=== PATIENT | male | born 1965 | race Caucasian/White ===

== ENCOUNTER 2019-06-28 16:36 | Inpatient (IN) ==
--- OUTSIDE RECORDS SUMMARY | 2019-06-28 16:40 | External Medical Summary | Continuity of Care Document ---
:1965 Author Name Flor Strange, Provider Address Unavailable Unavailable , Care Team Providers Name Role Phone Ravinder Bonilla M.D. Unavailable [email or web address] [email or web address], NO Unavailable Unavailable Problems Active medical history not documented Allergies and Adverse Reactions Allergy history not documented Medications Medications not documented Procedures Procedures not documented Immunizations Immunizations not documented Plan of Treatment Planned Observations Planned Goals not documented Results No Known Results Results not documented
[2019-06-28] MEDS ORDERED: cefTRIAXone SODIUM 2,000 MG/70 ML BAG IV STA (17:24)
[2019-06-28 18:07] LABS: Basophils # (auto) 0.02 K/uL (0-0.2); Basophils % (auto) 0.3 %; Eosinophils # (auto) 0.08 K/uL (0-0.5); Eosinophils % (auto) 1.4 %; Hemoglobin 15.4 g/dL (14.0-18.0); Immature Granulocytes # (auto) 0.02 K/uL (0.00-0.02); Immature Granulocytes % (auto) 0.3 %; Lymphocytes # (auto) 1.22 K/uL (1.2-3.4); Mean Corpuscular Hemoglobin 30.2 pg (25-34); Mean Corpuscular Hgb Conc 34.2 g/dL (32-36); Mean Corpuscular Volume 88.2 fL (80-100); Mean Platelet Volume 10.5 fL (7.4-10.4); Monocytes # (auto) 0.48 K/uL (0.11-0.59); Monocytes % (auto) 8.3 %; Neutrophils # (auto) 3.98 K/uL (1.4-6.5); Neutrophils % (auto) 68.7 %; Platelet Count 215 K/uL (130-400); RDW Coefficient of Variation 12.9 % (11.5-14.5); RDW Standard Deviation 42.1 fL (36.4-46.3)
--- NOTE | 2019-06-28 18:11 | XRay Report ---
XR chest 1V portable CLINICAL HISTORY: Sepsis dyspnea COMPARISON STUDY: 10/10/2015 FINDINGS: Diffuse parenchymal infiltrate left lung base. Lungs otherwise are clear. Somewhat poor ins piratory volumes. IMPRESSION: Patchy parenchymal infiltrate left base. The above report was generated using voice recognition software. It may contain grammatical, syntax or spelling errors. Electronically signed by: Jean-Claude Resendiz M.D. 06/28/2019 6:10 PM
[2019-06-28 18:19] LABS: INR 1.1 (0.9-1.1); Partial Thromboplastin Time 27.8 Seconds (21.0-31.0); Prothrombin Time 11.5 Seconds (9.0-12.0)
[2019-06-28 18:24] LABS: Alanine Aminotransferase 72 U/L (12-78); Albumin Level 3.5 gm/dl (3.4-5.0); Aspartate Aminotransferase 80 U/L (15-37); BUN Creatinine Ratio 31.1 (10-20); Blood Urea Nitrogen 12 mg/dl (7-18); Calcium 9.1 mg/dl (8.5-10.1); Carbon Dioxide 34 mmol/L (21-32); Chloride 103 mmol/L (98-107); Creatinine Clr Calc Pharmacy 266.8 ml/min; Est GFR (African American) > 150.0; Est GFR (Non-African American) 138.1; Glucose 98 mg/dl (70-99); Sodium 140 mmol/L (136-145)
[2019-06-28 18:26] LABS: Alkaline Phosphatase 78 U/L (45-117); Bilirubin,Total 0.5 mg/dl (0.2-1); Globulin 3.5 gm/dl (2.5-4.0)
[2019-06-28] MEDS ORDERED: LEVOFLOXACIN/D5W 750 MG/150 ML BAG IV SCH (19:00)
[2019-06-28 19:13] LABS: Appearance Urine Turbid (Clear); Bacteria Urine Automated Negative (Negative); Bilirubin Urine Negative (Negative); Blood Urine Negative (Negative); Cast Urine Automated 0 /lpf (0-5); Color Urine Dark Yellow; Epithelial Cell Urine Auto 0-5 /lpf (0-5); Glucose Urine UA Negative (Negative); Ketones Urine Negative (Negative); Leukocyte Esterase Urine Trace (Negative); Nitrite Urine Negative (Negative); RBC Urine Automated 0-4 /hpf (0-4); Specific Gravity Urine 1.024 (1.000-1.030); Urobilinogen Urine Positive (Negative); WBC Urine Automated 0 /hpf (0-5); pH Urine >= 9.0 (4.5-7.5)
[2019-06-28 19:16] LABS: Protein Urine Negative (Negative); Sulfosalicylic Acid Urine Negative (Negative)
--- NOTE | 2019-06-28 20:41 | History & Physical Report ---
Date of Service June 28, 2019 Assessment & Plan (1) Cellulitis: -Admit to [facility] -Patient presenting from home with increasing left lower extremity erythema and edema -In the ED, low-grade temp of 37.9, otherwise does not appear septic; no leukocytosis -Has a few scattered abrasions and small blisters however no purulent drainage to culture -S/P IV ceftriaxone and IV Levaquin in the ED; will continue with IV ceftriaxone and IV doxycycline -Follow blood cultures (2) Community acquired pneumonia: -Left basilar infiltrate noted on CXR -Saturating well on room air -On IV ceftriaxone and IV doxycycline as above (3) Physical deconditioning: (4) Tavrjfn-Gyemr-Suuqj disease: -Patient notes increasing difficulties to care for himself at home -Believes that he likely will need usp placement -PT/OT, case management evaluations (5) Chronic pain: -Continue home doses of OxyContin and OxyIR, Cymbalta (6) DVT prophylaxis: -SQ Lovenox History of Present Illness Chief Complaint: Left lower extremity redness and swelling Primary Care Provider: Garo Hayden DO 53-year-old male who presents the ED for evaluation of left lower extremity redness and swelling. Patient has history of Wlkbdlz-Pbxhg-Rjzxy disease. Patient reports that over the past several years, his mobility has been significantly decreasing. He is currently bed/wheelchair bound. He notes that he is also incontinent due to difficulties of transferring. He has difficulty taking care of himself at home. He has been interested in usp placement. 6 days ago, patient noted increased erythema and edema to the left lower extremity. There are also a few, small blisters and superficial abrasions noted. Patient was seen by his PCP on 06/26 and had a venous Doppler performed that was negative for DVT. Given the worsening lower extremity erythema and edema and the inability to take care of himself at home, patient presented to the ED for further evaluation. Patient notes that he is very sedentary and does not exert himself much at all. He denies fevers and chills. No chest pain or shortness of breath. Denies cough or sputum production. Has some occasional lightheadedness when sitting up too quickly. No syncopal event. Denies abdominal pain, nausea, vomiting, diarrhea. No urinary symptoms. In the ED, patient was found to have a low-grade temp of 37.9. Labs are unremarkable. CXR shows an infiltrate of the left base. Patient was given IV ceftriaxone and IV Levaquin. Allergies Allergy/AdvReac Type Severity Reaction Status Date / Time alcohol Allergy Unknown Verified 06/28/19 17:54 amiodarone Allergy Unknown Unknown rxn Verified 06/28/19 17:54 chloramphenicol Allergy Unknown Verified 06/28/19 17:55 cholecalciferol (vitamin D3) Allergy Unknown Verified 06/28/19 17:55 cisplatin Allergy Unknown Verified 06/28/19 17:55 dapsone Allergy Unknown Unknown rxn Verified 06/28/19 17:56 disulfiram Allergy Unknown Unknown rxn Verified 06/28/19 17:56 doxorubicin Allergy Unknown Verified 06/28/19 17:56 glutethimide Allergy Unknown Verified 06/28/19 17:57 Gold Salts Allergy Unknown Verified 06/28/19 17:57 Hydantoins Allergy Unknown Verified 06/28/19 17:57 hydralazine Allergy Unknown Verified 06/28/19 17:58 isoniazid Allergy Unknown Unknown rxn Verified 06/28/19 17:58 metronidazole Allergy Unknown Verified 06/28/19 17:59 nitrofurantoin Allergy Unknown Unknown rxn Verified 06/28/19 17:59 Penicillins Allergy Unknown Verified 06/28/19 17:59 phenytoin Allergy Unknown Verified 06/28/19 18:00 pyridoxine Allergy Unknown Verified 06/28/19 18:00 theophylline Allergy Unknown Unknown rxn Verified 06/28/19 18:01 tretinoin Allergy Unknown Unknown rxn Verified 06/28/19 18:01 vincristine Allergy Unknown Verified 06/28/19 18:00 Home Medications Home Medications Medication Instructions Recorded Confirmed Type acetaminophen [Tylenol Extra 500 mg PO QID PRN 06/28/19 06/28/19 History Strength] azelastine 1 spray INTRANASAL BID 06/28/19 06/28/19 History diphenhydramine HCl 25 mg PO Q4H PRN 06/28/19 06/28/19 History docusate sodium 100 mg PO BID PRN 06/28/19 06/28/19 History duloxetine 20 mg PO DAILY 06/28/19 06/28/19 History escitalopram oxalate 20 mg PO DAILY 06/28/19 06/28/19 History mometasone 1 spray INTRANASAL BID 06/28/19 06/28/19 History montelukast 10 mg PO DAILY 06/28/19 06/28/19 History oxycodone 10 mg PO Q6H PRN 06/28/19 06/28/19 History oxycodone [OxyContin] 80 mg PO BID 06/28/19 06/28/19 History triamcinolone acetonide 1 applic TOPICAL BID 06/28/19 06/28/19 History Past Med/Surg History Medical History Chronic pain (Chronic) Obesity (Chronic) Bfuzxyb-Egcql-Kduuy disease (Chronic) Myalgia and myositis, unspecified (Chronic) Surgical History S/P tonsillectomy and adenoidectomy (Chronic) S/P cervical spinal fusion (Chronic) H/O dilation of urethra (Chronic) H/O wisdom tooth extraction (Chronic) Family History Mother Heart disease Social History Preferred Language: Ukrainian Communication Ability: Effective 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: No Beliefs That Will Affect Care: None Current Living Situation: Alone Feels Safe at Home: Yes Safety Concerns: Feels Safe At This Time Smoking Status: Former smoker Hx Alcohol Use: No Hx Substance Use: No Review of Systems Review of Systems: ROS per HPI, all other systems reviewed and negative Physical Exam Constitutional: WD/WN, vitals as above + obese Eyes: PERRL, conjunctivae normal, anicteric sclerae ENMT: external ear and nose normal, oropharynx normal Respiratory: normal respiratory effort; no respiratory distress Auscultation: + diminished lung sounds (Left base) Cardiovascular: Rate/Rhythm: regular rate and regular rhythm Vessels: normal peripheral pulses Extremities: + edema (+2 edema RLE, +3 edema LLE) Gastrointestinal (Abdomen): normal bowel sounds, soft, nontender, no hepato splenomegaly Musculoskeletal: Extremities: + abnormal strength (Lower extremities weak, 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); no cyanosis and no clubbing Skin: no rashes, warm and dry Mild erythema noted to LLE extending from the foot up to the knee; a few, scattered superficial abrasions and small blisters noted Neurologic: PERRL, EOMI, accommodation nl, no face palsy, no dysarthria Psychiatric: Orientation: alert and oriented x 3 Affect: + flat affect Results & Data Vital Signs (Past 12 Hours) Vital Signs Temp Pulse Pulse Resp BP BP Pulse Ox 06/28/19 18:53 91 06/28/19 18:31 87 12 90 06/28/19 18:30 82 21 145/101 H 93 06/28/19 18:09 83 12 90 06/28/19 17:11 84 18 132/95 94 06/28/19 16:49 37.9 C H 94 H 18 158/104 H 94 Laboratory Results Short CBC 06/28/19 Range/Units 17:44 WBC 5.80 (4.8-10.8) K/uL Hgb 15.4 (14.0-18.0) g/dL Hct 45.0 (42-52) % Plt Count 215 (130-400) K/uL BMP 06/28/19 17:44 Sodium 140 Potassium 4.0 Chloride 103 Carbon Dioxide 34 H BUN 12 Creatinine 0.37 L Glucose 98 Calcium 9.1 Liver Function 06/28/19 Range/Units 17:44 Total Bilirubin 0.5 (0.2-1) mg/dl AST 80 H (15-37) U/L ALT 72 (12-78) U/L Alkaline Phosphatase 78 (45-117) U/L Albumin 3.5 (3.4-5.0) gm/dl Urine 06/28/19 Range/Units 19:01 Urine Color Dark Yellow Urine Appearance Turbid A (Clear) Urine pH >= 9.0 H (4.5-7.5) Ur Specific [place] 1.024 (1.000-1.030) Urine Protein Negative (Negative) Urine Glucose (UA) Negative (Negative) Diagnostic Findings CXR IMPRESSION: Patchy parenchymal infiltrate left base. Code Status & VTE Plan VTE Prophylaxis Plan VTE Prophylaxis will be ordered: Yes Supervising Physician Co-Signing Physician Notes Care coordinated with LINDSEY Couch. Agree with above note. Patient seen and examined. Please refer to her notes for full details. Vital signs reviewed. Physical exam: General exam: Alert and oriented. Not in acute distress. CVS: S1 and S2 heard, regular rate and rhythm, no murmurs. RS: Clear to auscultation, no wheezing or crackles. ABD: Soft, bowel sounds present, nontender, no distention. 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 Labs: Reviewed. 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 In Er had mild fever spike and cxr showed left base infiltrate. Left lower extremity cellulitis started on antibiotics rocephin and doxycyline will monitor response Pneumonia on CXR no symptoms abx as above Charcot Mignon tooth ambulatory dysfunction pt/ot Social l service for possible placement/ More help at home Other diagnosis and plan of care as per []. Rene martinez MD.
[2019-06-28] MEDS ORDERED: DOCUSATE SODIUM 100 MG CAP PO PRN (20:54)
[2019-06-28] MEDS ORDERED: ACETAMINOPHEN 325 MG TAB PO PRN (20:54)
[2019-06-28] MEDS ORDERED: OXYCODONE HCL IR 5 MG TAB (IMMEDIATE RELEASE) PO PRN (20:54)
[2019-06-28] MEDS ORDERED: OXYCODONE HCL 40 MG TABCR (OXYCONTIN) PO SCH (21:00)
--- NOTE | 2019-06-28 21:29 | Emergency Department Note ---
Entered by Leyda Vasquez acting as a scribe for History of Present Illness General Chief complaint: Swelling/Edema to Extremity Stated complaint: EDEMA TO LOWER LEGS Source: patient and family History of Present Illness Onset (ago): day(s) 5 Location: lower extremity (swelling) Severity: similar to prior episodes Pain Consistency: + other (worsening) Maximum Pain Intensity: 2 Quality: + other (lower extremity swelling) Associated symptoms: + fever/chills and + other (Positive lower extremity swelling, reddness, incontinent. Negative abdominal pain, diarrhea. ) The patient is a 53 year old male presenting to the Emergency Department complaining of worsening extremity swelling staring 5 day ago. The patients sister reports that the patients legs are more swollen than normal. She states that the patients left leg is more swollen that his right. She notes that the patients left leg is more red than normal. She adds that the patient as experienced these symptoms before but that it seems to be worse than normal this time. The patient reports that he has had a fever for the past 3 days. He states that he is incontinent. He denies nausea, vomiting, abdominal pain and diarrhea. Home Medications Home Medications Medication Instructions Recorded Confirmed Type acetaminophen [Tylenol Extra 500 mg PO QID PRN 06/28/19 06/28/19 History Strength] azelastine 1 spray INTRANASAL BID 06/28/19 06/28/19 History diphenhydramine HCl 25 mg PO Q4H PRN 06/28/19 06/28/19 History docusate sodium 100 mg PO BID PRN 06/28/19 06/28/19 History duloxetine 20 mg PO DAILY 06/28/19 06/28/19 History escitalopram oxalate 20 mg PO DAILY 06/28/19 06/28/19 History mometasone 1 spray INTRANASAL BID 06/28/19 06/28/19 History montelukast 10 mg PO DAILY 06/28/19 06/28/19 History oxycodone 10 mg PO Q6H PRN 06/28/19 06/28/19 History oxycodone [OxyContin] 80 mg PO BID 06/28/19 06/28/19 History triamcinolone acetonide 1 applic TOPICAL BID 06/28/19 06/28/19 History Allergies Allergy/AdvReac Type Severity Reaction Status Date / Time alcohol Allergy Unknown Verified 06/28/19 17:54 amiodarone Allergy Unknown Unknown rxn Verified 06/28/19 17:54 chloramphenicol Allergy Unknown Verified 06/28/19 17:55 cholecalciferol (vitamin D3) Allergy Unknown Verified 06/28/19 17:55 cisplatin Allergy Unknown Verified 06/28/19 17:55 dapsone Allergy Unknown Unknown rxn Verified 06/28/19 17:56 disulfiram Allergy Unknown Unknown rxn Verified 06/28/19 17:56 doxorubicin Allergy Unknown Verified 06/28/19 17:56 glutethimide Allergy Unknown Verified 06/28/19 17:57 Gold Salts Allergy Unknown Verified 06/28/19 17:57 Hydantoins Allergy Unknown Verified 06/28/19 17:57 hydralazine Allergy Unknown Verified 06/28/19 17:58 isoniazid Allergy Unknown Unknown rxn Verified 06/28/19 17:58 metronidazole Allergy Unknown Verified 06/28/19 17:59 nitrofurantoin Allergy Unknown Unknown rxn Verified 06/28/19 17:59 Penicillins Allergy Unknown Verified 06/28/19 17:59 phenytoin Allergy Unknown Verified 06/28/19 18:00 pyridoxine Allergy Unknown Verified 06/28/19 18:00 theophylline Allergy Unknown Unknown rxn Verified 06/28/19 18:01 tretinoin Allergy Unknown Unknown rxn Verified 06/28/19 18:01 vincristine Allergy Unknown Verified 06/28/19 18:00 Past Med/Surg History Medical History Chronic pain (Chronic) Obesity (Chronic) Tipujyw-Wdivo-Ylbzl disease (Chronic) Myalgia and myositis, unspecified (Chronic) Surgical History S/P tonsillectomy and adenoidectomy (Chronic) S/P cervical spinal fusion (Chronic) H/O dilation of urethra (Chronic) H/O wisdom tooth extraction (Chronic) Family History Mother Heart disease Social History Feels Safe at Home: Yes Smoking Status: Former smoker Hx Alcohol Use: Yes Alcohol Intake Frequency: Rarely Review of Systems See HPI for pertinent positives & negatives. and A total of 10 systems reviewed and were otherwise negative Physical Exam Vital Signs Vital Signs - 24 hr 06/28/19 16:49 06/28/19 17:11 06/28/19 18:09 Temperature 37.9 C H Temperature Source Oral Sepsis Recent Fever Within 48 Hours No Sepsis Action Taken by Nursing No Action Required Pulse Rate 94 H 83 Pulse Rate [Finger] 84 Pulse Rate from SpO2 Sensor 85 Respiratory Rate 18 18 12 Respiratory Depth Normal Normal Blood Pressure 158/104 H Blood Pressure [Right Arm] 132/95 Blood Pressure Mean 122 Blood Pressure Mean [Right Arm] 107 Pulse Oximetry 94 94 90 Oxygen Delivery Method Room Air Room Air 06/28/19 18:30 06/28/19 18:31 06/28/19 18:53 Temperature Temperature Source Sepsis Recent Fever Within 48 Hours Sepsis Action Taken by Nursing Pulse Rate 82 87 Pulse Rate [Finger] Pulse Rate from SpO2 Sensor 81 83 Respiratory Rate 21 12 Respiratory Depth Blood Pressure 145/101 H Blood Pressure [Right Arm] Blood Pressure Mean 115 Blood Pressure Mean [Right Arm] Pulse Oximetry 93 90 91 Oxygen Delivery Method Room Air GENERAL: Patient is lying in bed, chronically-ill appearing, disheveled. alert, well nourished, no distress, non-toxic EYE EXAM: normal conjunctiva. OROPHARYNX: no exudate, no erythema, lips, buccal mucosa, and tongue normal and mucous membranes are moist NECK: supple, no nuchal rigidity, no adenopathy, non-tender LUNGS: Diminished bilateral bases. Clear to auscultation. Normal chest wall mechanics HEART: no murmurs, S1 normal and S2 normal ABDOMEN: abdomen soft, non-tender, normo-active bowel sounds, no masses, no rebound or guarding. BACK: Back is symmetrical on inspection and there is no deformity, no midline tenderness, no CVA tenderness. SKIN: no rashes and no bruising UPPER EXTREMITIES: upper extremities are grossly normal. LOWER EXTREMITIES: LLE larger than right with erythema. NEURO EXAM: Normal sensorium, cranial nerves II-XII grossly intact, normal speech, no gross weakness of arms. Limited movement in lower extremities. Course ED COURSE: Vital signs were reviewed and showed hypertension. The patients medical record was reviewed The above diagnostic studies were performed and reviewed. ED treatments and interventions as stated above. 1713: The patient was evaluated in room A9B. A complete history and physical examination was performed. 1905: I discussed the patients case with Carmen Yo PA-C. [facility] will evaluate the patient for further management. 1912: I updated the patient at this time. 1933: Upon reevaluation, I discussed my findings with the patient and his sister who understands and agrees with the treatment plan. Based on the patients age, coexisting illnesses, exam and lab findings the decision to treat as an inpatient was made. The patient remained stable while under my care. The patient will be evaluated for further management. Administered Medications Discontinued Medications Ceftriaxone Sodium (Rocephin) 2,000 mg in 70 mls @ 140 mls/hr IV NOW STA Stop: 06/28/19 17:53 Last Infusion: 06/28/19 19:49 Dose: 0 mls/hr Documented by: [id number] Admin: 06/28/19 19:14 Dose: 140 mls/hr Documented by: [id number] Levofloxacin/Dextrose (Levaquin/D5w) 750 mg in 150 mls @ 100 mls/hr IV Q24H FLORENCIA Stop: 06/30/19 18:59 Last Admin: 06/28/19 19:24 Dose: 100 mls/hr Documented by: [id number] Medical Decision Making Differential Diagnosis Differential diagnosis includes etiologies such as sepsis, UTI, pneumonia, metabolic, electrolyte abnormalities, cardiac sources, intracerebral event, tox icologic, neurologic, as well as others were entertained. Medical Records Attestation: I reviewed the patient's medical records. Home Medications Current Medication List: was personally reviewed by me Laboratory Data Attestation: I reviewed the patient's lab results. Result diagrams: 06/28/19 17:44 06/28/19 17:44 Lab Results 06/28/19 06/28/19 06/28/19 Range/Units 17:44 17:44 17:44 WBC 5.80 (4.8-10.8) K/uL RBC 5.10 (4.7-6.1) M/uL Hgb 15.4 (14.0-18.0) g/dL Hct 45.0 (42-52) % MCV 88.2 (80-100) fL MCH 30.2 (25-34) pg MCHC 34.2 (32-36) g/dL RDW Std Deviation 42.1 (36.4-46.3) fL RDW Coeff of Pearl 12.9 (11.5-14.5) % Plt Count 215 (130-400) K/uL MPV 10.5 H (7.4-10.4) fL Immature Gran % (Auto) 0.3 % Neut % (Auto) 68.7 % Lymph % (Auto) 21.0 % [place] % (Auto) 8.3 % Eos % (Auto) 1.4 % Baso % (Auto) 0.3 % Immature Gran # (Auto) 0.02 (0.00-0.02) K/uL Neut # (Auto) 3.98 (1.4-6.5) K/uL Lymph # (Auto) 1.22 (1.2-3.4) K/uL [place] # (Auto) 0.48 (0.11-0.59) K/uL Eos # (Auto) 0.08 (0-0.5) K/uL Baso # (Auto) 0.02 (0-0.2) K/uL PT 11.5 (9.0-12.0) Seconds INR 1.1 (0.9-1.1) APTT 27.8 (21.0-31.0) Seconds PTT Ratio 1.0 Sodium 140 (136-145) mmol/L Potassium 4.0 (3.5-5.1) mmol/L Chloride 103 (98-107) mmol/L Carbon Dioxide 34 H (21-32) mmol/L Anion Gap 4.0 (3-11) BUN 12 (7-18) mg/dl Creatinine 0.37 L (0.6-1.4) mg/dl Est Cr Clr Drug Dosing 266.8 ml/min Est GFR ( Amer) > 150.0 Est GFR (Non-Af Amer) 138.1 BUN/Creatinine Ratio 31.1 H (10-20) Glucose 98 (70-99) mg/dl Lactate (0.4-2.0) mmol/L Calcium 9.1 (8.5-10.1) mg/dl Total Bilirubin 0.5 (0.2-1) mg/dl AST 80 H (15-37) U/L ALT 72 (12-78) U/L Alkaline Phosphatase 78 (45-117) U/L Total Protein 7.0 (6.4-8.2) gm/dl Albumin 3.5 (3.4-5.0) gm/dl Globulin 3.5 (2.5-4.0) gm/dl Albumin/Globulin Ratio 1.0 (0.9-2) Urine Color Urine Appearance (Clear) Urine pH (4.5-7.5) Ur Specific [place] (1.000-1.030) Urine Protein (Negative) Urine Glucose (UA) (Negative) Urine Ketones (Negative) Urine Blood (Negative) Urine Nitrite (Negative) Urine Bilirubin (Negative) Urine Urobilinogen (Negative) Ur Leukocyte Esterase (Negative) Urine WBC (Auto) (0-5) /hpf Urine RBC (Auto) (0-4) /hpf U Hyaline Cast (Auto) (0-5) /lpf U Epithel Cells (Auto) (0-5) /lpf Urine Bacteria (Auto) (Negative) 06/28/19 06/28/19 Range/Units 19:01 19:06 WBC (4.8-10.8) K/uL RBC (4.7-6.1) M/uL Hgb (14.0-18.0) g/dL Hct (42-52) % MCV (80-100) fL MCH (25-34) pg MCHC (32-36) g/dL RDW Std Deviation (36.4-46.3) fL RDW Coeff of Pearl (11.5-14.5) % Plt Count (130-400) K/uL MPV (7.4-10.4) fL Immature Gran % (Auto) % Neut % (Auto) % Lymph % (Auto) % [place] % (Auto) % Eos % (Auto) % Baso % (Auto) % Immature Gran # (Auto) (0.00-0.02) K/uL Neut # (Auto) (1.4-6.5) K/uL Lymph # (Auto) (1.2-3.4) K/uL [place] # (Auto) (0.11-0.59) K/uL Eos # (Auto) (0-0.5) K/uL Baso # (Auto) (0-0.2) K/uL PT (9.0-12.0) Seconds INR (0.9-1.1) APTT (21.0-31.0) Seconds PTT Ratio Sodium (136-145) mmol/L Potassium (3.5-5.1) mmol/L Chloride (98-107) mmol/L Carbon Dioxide (21-32) mmol/L Anion Gap (3-11) BUN (7-18) mg/dl Creatinine (0.6-1.4) mg/dl Est Cr Clr Drug Dosing ml/min Est GFR ( Amer) Est GFR (Non-Af Amer) BUN/Creatinine Ratio (10-20) Glucose (70-99) mg/dl Lactate 1.0 (0.4-2.0) mmol/L Calcium (8.5-10.1) mg/dl Total Bilirubin (0.2-1) mg/dl AST (15-37) U/L ALT (12-78) U/L Alkaline Phosphatase (45-117) U/L Total Protein (6.4-8.2) gm/dl Albumin (3.4-5.0) gm/dl Globulin (2.5-4.0) gm/dl Albumin/Globulin Ratio (0.9-2) Urine Color Dark Yellow Urine Appearance Turbid A (Clear) Urine pH >= 9.0 H (4.5-7.5) Ur Specific [place] 1.024 (1.000-1.030) Urine Protein Negative (Negative) Urine Glucose (UA) Negative (Negative) Urine Ketones Negative (Negative) Urine Blood Negative (Negative) Urine Nitrite Negative (Negative) Urine Bilirubin Negative (Negative) Urine Urobilinogen Positive H (Negative) Ur Leukocyte Esterase Trace H (Negative) Urine WBC (Auto) 0 (0-5) /hpf Urine RBC (Auto) 0-4 (0-4) /hpf U Hyaline Cast (Auto) 0 (0-5) /lpf U Epithel Cells (Auto) 0-5 (0-5) /lpf Urine Bacteria (Auto) Negative (Negative) Imaging Data Radiologist's Impression: Radiology results as stated below per my review and the radiologist's interpretation: XR chest 1V portable CLINICAL HISTORY: Sepsis dyspnea COMPARISON STUDY: 10/10/2015 FINDINGS: Diffuse parenchymal infiltrate left lung base. Lungs otherwise are clear. Somewhat poor inspiratory volumes. IMPRESSION: Patchy parenchymal infiltrate left base. The above report was generated using voice recognition software. It may contain grammatical, syntax or spelling errors. Electronically signed by: Jean-Claude Resendiz M.D. 06/28/2019 6:10 PM Blood Pressure Blood Pressure Findings: Elevated blood pressure Blood Pressure Disposition: further management by hospitalist LUCIO Narrative Patient is a 53-year-old male who presents to the ER for weakness and trouble walking associated with fevers and left calf pain. On exam patient has erythema left calf is tender to palpation although he does have decreased sensation. Left calf larger than right. Recent ultrasound reviewed from [facility] was negative. IV was established blood work was obtained showed no significant leukocytosis or anemia. BMP was unremarkable. INR was negative. LFTs bilirubin with an AST of 80. UA without white cells. Chest x-ray with questionable infiltrate. Patient was covered for pneumonia but I do favor this secondary to his cellulitis. Due to his chronic medical conditions I discussed case with the hospitalist for observation. Patient and family were updated bed side. Impression & Plan Cellulitis, Fever, Lower extremity edema Discharge Plan Visit Data *Final* Discharge Date/Time: 06/28/19 20:36 Chief Complaint: Swelling/Edema to Extremity Stated Complaint: EDEMA TO LOWER LEGS ED Provider: Alexis Stone Discharge Problem: Cellulitis, Fever, Lower extremity edema Patient Disposition: Admitted As Inpatient Discharge Instructions Interventions: ED Discharge Assessment Last Done: 06/28/19 20:36 The scribe's documentation has been prepared under my direction and personally reviewed by me in its entirety. I confirm that the note above accurately reflects all work, treatment, procedures, and medical decision making performed by me.
[2019-06-28] MEDS: ENOXAPARIN INJ 40 MG/0.4 ML SYR SQ SCH (22:26)
[2019-06-28] MEDS: DOXYCYCLINE HYCLATE 100 MG in DEXTROSE 5% 100 ML IV SCH (22:26)
[2019-06-29] MEDS: OXYCODONE HCL 40 MG TABCR (OXYCONTIN) PO SCH ×2 (06:14→17:43)
[2019-06-29 07:04] LABS: Hematocrit (blood only) 41.5 % (42-52); Hemoglobin 13.7 g/dL (14.0-18.0); Mean Corpuscular Hemoglobin 29.6 pg (25-34); Mean Corpuscular Volume 89.6 fL (80-100); Mean Platelet Volume 10.7 fL (7.4-10.4); Platelet Count 194 K/uL (130-400); RDW Coefficient of Variation 13.2 % (11.5-14.5); Red Blood Count 4.63 M/uL (4.7-6.1); White Blood Count 6.07 K/uL (4.8-10.8)
[2019-06-29 07:35] LABS: BUN Creatinine Ratio 31.3 (10-20); Blood Urea Nitrogen 13 mg/dl (7-18); Calcium 8.5 mg/dl (8.5-10.1); Carbon Dioxide 35 mmol/L (21-32); Chloride 103 mmol/L (98-107); Creatinine Clr Calc Pharmacy 233.4 ml/min; Est GFR (African American) > 150.0; Est GFR (Non-African American) 129.8; Glucose 93 mg/dl (70-99); Potassium 3.5 mmol/L (3.5-5.1); Sodium 141 mmol/L (136-145)
[2019-06-29] MEDS: DULOXETINE HCL 20 MG CAP PO SCH (09:02)
[2019-06-29] MEDS: MONTELUKAST SODIUM 10 MG TABLET PO SCH (09:02)
[2019-06-29] MEDS: ESCITALOPRAM OXALATE 20 MG TAB PO SCH (09:02)
[2019-06-29] MEDS: DOXYCYCLINE HYCLATE 100 MG in DEXTROSE 5% 100 ML IV SCH ×2 (09:06→20:47)
[2019-06-29] MEDS ORDERED: INFLUENZA ADMINISTRATION CHARGE ONE ×2 (12:00→14:00)
[2019-06-29] MEDS ORDERED: INFLUENZA VIRUS QUAD VACCINE 0.5 ML SYR IM ONE ×2 (12:00→14:00)
[2019-06-29] MEDS ORDERED: cefTRIAXone SODIUM 2,000 MG in DEXTROSE 5% 50 ML IV SCH (18:00)
[2019-06-29] MEDS: ENOXAPARIN INJ 40 MG/0.4 ML SYR SQ SCH (20:46)
--- NOTE | 2019-06-29 22:06 | Hospitalist Progress Note ---
Date of Service June 29, 2019 Assessment & Plan (1) Community acquired pneumonia: Presented with fever. Occasional cough. Chest x-ray demonstrated left lower lobe infiltrate. Community-acquired pneumonia versus aspiration pneumonia. Blood cultures negative so far. Continue doxycycline and ceftriaxone. SPEECH LANGUAGE PATHOLOGIST PRN consult for bedside swallow evaluation. 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 May need longterm care as discussed below. (3) Chronic pain: Secondary to Hzsjffr-Attiw-Tiyep. Continue usual analgesics. (4) DVT prophylaxis: Enoxaparin. Not able to ambulate easily. (5) Discharge planning issues: Anticipated need for skilled care or inpatient rehab. PT/OT/SPEECH LANGUAGE PATHOLOGIST PRN evaluations. Case Management consulted. Subjective Recheck for fever and other problems. Patient seen in their room around 1430. No fever since yesterday afternoon. Occasional cough. No SOB. Noted to have urinary retention per bedside US. Review of Systems: Constitutional- no fever or chills today. Cardiac- no chest pain. Pulmonary- as noted above. GI- no nausea, vomiting, diarrhea, melena, hematochezia. - as noted above. Otherwise, as noted above. Physical Exam Constitutional: no acute distress Respiratory: no respiratory distress Auscultation: lungs clear to auscultation bilaterally Cardiovascular: Rate/Rhythm: regular rate and regular rhythm Heart Sounds: no gallop, no murmur and no cardiac rub Vessels: no JVD Extremities: no calf tenderness and no edema Gastrointestinal (Abdomen): normal bowel sounds, soft, nontender, no hepatosplenomegaly Musculoskeletal: Extremities: + extremities abnormal to inspection (CMT deformities of feet) Skin: no rashes, warm and dry Neurologic: atrophy, weakness of upper and lower extremities Psychiatric: Orientation: alert and oriented x 3 Results & Data Vital Signs (Past 12 Hours) Vital Signs Temp Pulse Resp BP Pulse Ox 06/29/19 15:12 36.6 C 77 18 127/79 90 Laboratory Results 06/29/19 06:33 06/29/19 06:33 Microbiology 06/28/19 19:06 Blood Aerobic Blood Culture - Preliminary No growth in Aerobic bottle after 24 hours. 06/28/19 19:06 Blood Anaerobic Blood Culture - Preliminary No growth in Anaerobic bottle after 24 hours. 06/28/19 17:44 Blood Aerobic Blood Culture - Preliminary No growth in Aerobic bottle after 24 hours. 06/28/19 17:44 Blood Anaerobic Blood Culture - Preliminary No growth in Anaerobic bottle after 24 hours.
[2019-06-30] MEDS: OXYCODONE HCL 40 MG TABCR (OXYCONTIN) PO SCH ×2 (06:34→17:12)
[2019-06-30] MEDS: ESCITALOPRAM OXALATE 20 MG TAB PO SCH (08:48)
[2019-06-30] MEDS: DULOXETINE HCL 20 MG CAP PO SCH (08:48)
[2019-06-30] MEDS: MONTELUKAST SODIUM 10 MG TABLET PO SCH (08:48)
[2019-06-30] MEDS: DOXYCYCLINE HYCLATE 100 MG in DEXTROSE 5% 100 ML IV SCH (09:05)
--- NOTE | 2019-06-30 13:57 | Hospitalist Progress Note ---
Date of Service June 30, 2019 Assessment & Plan (1) Community acquired pneumonia: Presented with fever. Occasional cough. Chest x-ray demonstrated left lower lobe infiltrate. Community-acquired pneumonia versus aspiration pneumonia. Blood cultures negative so far. Transition to oral antibiotic therapy with PO doxycycline. MARKETING FINANCE SPECIALIST consult for bedside swallow evaluation- no apparent aspiration. (2) Newaopi-Ffjfq-Lbysk disease: Progressive functional decline. May need senior care care as discussed below. (3) Chronic pain: Secondary to Xrphuvh-Nxyiz-Ixeae. Continue usual analgesics. (4) DVT prophylaxis: Enoxaparin. Not able to ambulate easily. (5) Discharge planning issues: Anticipated need for skilled care or inpatient rehab. PT/OT/MARKETING FINANCE SPECIALIST evaluations. Case Management consulted. Subjective Recheck for fever and other problems. Patient seen in their room around 1000. No fever. Chronic sweats. Minimal cough. No SOB. Review of Systems: Constitutional- no fever or chills today. Cardiac- no chest pain. Pulmonary- as noted above. GI- no nausea, vomiting, diarrhea, melena, hematochezia. - voiding without difficulty. Otherwise, as noted above. Physical Exam Constitutional: no acute distress Respiratory: no respiratory distress Auscultation: lungs clear to auscultation bilaterally Cardiovascular: Rate/Rhythm: regular rate and regular rhythm Heart Sounds: no gallop, no murmur and no cardiac rub Vessels: no JVD Extremities: no calf tenderness and no edema Gastrointestinal (Abdomen): normal bowel sounds, soft, nontender, no hepatosplenomegaly Musculoskeletal: Extremities: + extremities abnormal to inspection (CMT deformities of feet) Skin: no rashes, warm and dry Psychiatric: Orientation: alert and oriented x 3 Results & Data Vital Signs (Past 12 Hours) Vital Signs Temp Pulse Resp BP Pulse Ox 06/30/19 06:45 36.5 C 84 20 147/91 H 91 Laboratory Results 06/29/19 06:33 06/29/19 06:33 Microbiology 06/28/19 19:06 Blood Aerobic Blood Culture - Preliminary No growth in Aerobic bottle after 48 hours. 06/28/19 19:06 Blood Anaerobic Blood Culture - Preliminary No growth in Anaerobic bottle after 48 hours. 06/28/19 17:44 Blood Aerobic Blood Culture - Preliminary No growth in Aerobic bottle after 48 hours. 06/28/19 17:44 Blood Anaerobic Blood Culture - Preliminary No growth in Anaerobic bottle after 48 hours.
[2019-06-30] MEDS: DOXYCYCLINE HYCLATE 100 MG CAP PO SCH (20:41)
[2019-06-30] MEDS ORDERED: DOXYCYCLINE HYCLATE 100 MG CAP PO SCH (21:00)
[2019-06-30] MEDS: ENOXAPARIN INJ 40 MG/0.4 ML SYR SQ SCH (21:29)
[2019-07-01] MEDS: OXYCODONE HCL 40 MG TABCR (OXYCONTIN) PO SCH ×2 (06:16→18:26)
[2019-07-01 07:14] LABS: Creatinine Clr Calc Pharmacy 286.7 ml/min; Est GFR (African American) > 150.0; Est GFR (Non-African American) 141.3
[2019-07-01] MEDS: ESCITALOPRAM OXALATE 10 MG TAB PO SCH (08:31)
[2019-07-01] MEDS: DULOXETINE HCL 20 MG CAP PO SCH (08:31)
[2019-07-01] MEDS: MONTELUKAST SODIUM 10 MG TABLET PO SCH (08:31)
[2019-07-01] MEDS: DOXYCYCLINE HYCLATE 100 MG CAP PO SCH ×2 (08:32→20:46)
--- NOTE | 2019-07-01 18:48 | Hospitalist Progress Note ---
Date of Service July 01, 2019 Assessment & Plan (1) Community acquired pneumonia: Presented with fever. Occasional cough. Chest x-ray demonstrated left lower lobe infiltrate. Community-acquired pneumonia versus aspiration pneumonia. Blood cultures negative so far. Transitioned to oral antibiotic therapy with PO doxycycline. CODING VALIDATOR consult for bedside swallow evaluation- no apparent aspiration. (2) Cellulitis: Had some erythema and swelling of left leg at time of admission. Possible cellulitis. Received antibiotic therapy as described above with improvement. (3) Jzwumbh-Nzhhs-Zxawq disease: Progressive functional decline. May need retirement care as discussed below. (4) DVT prophylaxis: Enoxaparin. Not able to ambulate easily. (5) Chronic pain: Secondary to Acducqp-Npuoj-Fmhff. Continue usual analgesics. (6) Discharge planning issues: Anticipated need for skilled care or inpatient rehab. PT/OT/CODING VALIDATOR evaluations. Case Management consulted. Sister and mother visiting today and given updates. Subjective Recheck for fever and other problems. Patient seen in their room around 1520. No fever. Rare cough. No SOB. Review of Systems: Constitutional- no fever or chills today. Cardiac- no chest pain. Pulmonary- as noted above. GI- no nausea, vomiting, diarrhea, melena, hematochezia. - voiding without difficulty. Otherwise, as noted above. Physical Exam Constitutional: no acute distress Respiratory: no respiratory distress Auscultation: lungs clear to auscultation bilaterally Cardiovascular: Rate/Rhythm: regular rate and regular rhythm Heart Sounds: no gallop, no murmur and no cardiac rub Vessels: no JVD Extremities: no calf tenderness and no edema Gastrointestinal (Abdomen): normal bowel sounds, soft, nontender, no hepatosplenomegaly Musculoskeletal: Extremities: + extremities abnormal to inspection (CMT deformities of feet) Skin: no rashes, warm and dry erythema LLE resolved Psychiatric: Orientation: alert and oriented x 3 Results & Data Vital Signs (Past 12 Hours) Vital Signs Temp Pulse Resp BP Pulse Ox 07/01/19 15:22 130/84 07/01/19 15:09 36.6 C 88 21 171/108 H 92 07/01/19 07:34 36.4 C L 68 18 151/96 H 93 Laboratory Results Laboratory Results - last 24 hr 07/01/19 06:09 Creatinine 0.35 L Est Cr Clr Drug Dosing 286.7 Est GFR ( Amer) > 150.0 Est GFR (Non-Af Amer) 141.3
[2019-07-01] MEDS: FLUTICASONE PROPIONATE NA SPR 16 GM BTL SCH (20:44)
[2019-07-01] MEDS: ENOXAPARIN INJ 40 MG/0.4 ML SYR SQ SCH (20:47)
[2019-07-01] MEDS ORDERED: NON-FORMULARY MEDICATION (Azelastine 1 SPRAYS) INTNAS SCH (21:00)
[2019-07-02] MEDS: OXYCODONE HCL 40 MG TABCR (OXYCONTIN) PO SCH ×2 (06:16→17:58)
[2019-07-02] MEDS: ESCITALOPRAM OXALATE 10 MG TAB PO SCH (08:50)
[2019-07-02] MEDS: DOXYCYCLINE HYCLATE 100 MG CAP PO SCH ×2 (08:50→20:12)
[2019-07-02] MEDS: MONTELUKAST SODIUM 10 MG TABLET PO SCH (08:50)
[2019-07-02] MEDS: DULOXETINE HCL 20 MG CAP PO SCH (08:50)
[2019-07-02] MEDS: FLUTICASONE PROPIONATE NA SPR 16 GM BTL SCH ×2 (08:51→20:11)
[2019-07-02] MEDS ORDERED: MICONAZOLE NITRATE POWDER 43 GM ONE (15:50)
[2019-07-02] MEDS ORDERED: MICONAZOLE NITRATE POWDER 43 GM EXT PRN (15:52)
--- NOTE | 2019-07-02 17:01 | Hospitalist Progress Note ---
Date of Service July 02, 2019 Assessment & Plan (1) Community acquired pneumonia: Presented with fever. Occasional cough. Chest x-ray demonstrated left lower lobe infiltrate. Community-acquired pneumonia versus aspiration pneumonia. Blood cultures negative so far. Transitioned to oral antibiotic therapy with PO doxycycline. BROKERAGE COORDINATOR consult for bedside swallow evaluation- no apparent aspiration. (2) Cellulitis: Had some erythema and swelling of left leg at time of admission. Possible cellulitis. Received antibiotic therapy as described above with improvement. (3) Izzjgbj-Cbujy-Bqhjo disease: Progressive functional decline. May need [facility] care as discussed below. (4) DVT prophylaxis: Enoxaparin. Not able to ambulate easily. (5) Chronic pain: Secondary to Mpcmnzq-Zfndn-Znieu. Continue usual analgesics. (6) Discharge planning issues: Anticipated need for skilled care or inpatient rehab. PT/OT/BROKERAGE COORDINATOR evaluations. Case Management consulted. Subjective Recheck for fever and other problems. Patient seen in their room around 1020. No fever. Rare chronic, similar to baseline. No SOB. Review of Systems: Constitutional- no fever or chills today. Cardiac- no chest pain. Pulmonary- as noted above. GI- no nausea, vomiting, diarrhea, melena, hematochezia. - voiding without difficulty. Otherwise, as noted above. Physical Exam Constitutional: no acute distress Respiratory: no respiratory distress Auscultation: lungs clear to auscultation bilaterally Cardiovascular: Rate/Rhythm: regular rate and regular rhythm Heart Sounds: no gallop, no murmur and no cardiac rub Vessels: no JVD Extremities: no calf tenderness and no edema Gastrointestinal (Abdomen): normal bowel sounds, soft, nontender, no hepatosplenomegaly Musculoskeletal: Extremities: + extremities abnormal to inspection (CMT deformities of feet) Skin: no rashes, warm and dry (erythema LLE resolved) Psychiatric: Orientation: alert and oriented x 3 Results & Data Vital Signs (Past 12 Hours) Vital Signs Temp Pulse Resp BP Pulse Ox 07/02/19 15:50 36.9 C 83 20 159/89 H 95 07/02/19 07:17 36.6 C 77 20 137/90 94
[2019-07-02] MEDS: ENOXAPARIN INJ 40 MG/0.4 ML SYR SQ SCH (20:11)
[2019-07-03] MEDS: OXYCODONE HCL 40 MG TABCR (OXYCONTIN) PO SCH ×2 (06:08→17:18)
[2019-07-03] MEDS: ESCITALOPRAM OXALATE 10 MG TAB PO SCH (07:44)
[2019-07-03] MEDS: FLUTICASONE PROPIONATE NA SPR 16 GM BTL SCH (07:44)
[2019-07-03] MEDS: DULOXETINE HCL 20 MG CAP PO SCH (07:45)
[2019-07-03] MEDS: MONTELUKAST SODIUM 10 MG TABLET PO SCH (07:45)
[2019-07-03] MEDS: DOXYCYCLINE HYCLATE 100 MG CAP PO SCH (07:45)
--- NOTE | 2019-07-03 11:27 | Hospitalist Progress Note ---
Date of Service July 03, 2019 Assessment & Plan (1) Community acquired pneumonia: Presented with fever. Occasional cough. Chest x-ray demonstrated left lower lobe infiltrate. Community-acquired pneumonia versus aspiration pneumonia. Blood cultures negative so far. Transitioned to oral antibiotic therapy with PO doxycycline. WOODENWARE ASSEMBLER consult for bedside swallow evaluation- no apparent aspiration. (2) Cellulitis: Had some erythema and swelling of left leg at time of admission. Possible cellulitis. Received antibiotic therapy as described above with improvement. (3) Xivzkkc-Xubvf-Okigv disease: Progressive functional decline. (4) Chronic pain: Secondary to Rxmyjun-Koumz-Quvza. Continue usual analgesics. (5) DVT prophylaxis: Enoxaparin. Not able to ambulate easily. At long-term risk for VTE because of declining functional status and immobility. Transition to apixaban 2.5 mg BID for long-term prophylaxis. (6) Discharge planning issues: Arrangements being made for transfer to [facility] for skilled care. Family Medicine follow-up with Dr. Garo Hayden if he is able to eventually return home. Subjective Recheck for fever and other problems. Patient seen in their room around 1000. No fever. Occasional cough which pt attributes to allergies. No SOB. Review of Systems: Constitutional- no fever or chills today. Cardiac- no chest pain. Pulmonary- as noted above. GI- no nausea, vomiting, diarrhea, melena, hematochezia. - voiding without difficulty. Otherwise, as noted above. Physical Exam Constitutional: no acute distress Respiratory: no respiratory distress Auscultation: lungs clear to auscultation bilaterally Cardiovascular: Rate/Rhythm: regular rate and regular rhythm Heart Sounds: no gallop, no murmur and no cardiac rub Vessels: no JVD Extremities: no calf tenderness and no edema Gastrointestinal (Abdomen): normal bowel sounds, soft, nontender, no hepatosplenomegaly Musculoskeletal: Extremities: + extremities abnormal to inspection (CMT deformities of feet) Skin: no rashes, warm and dry (erythema LLE resolved) Psychiatric: Orientation: alert and oriented x 3 Results & Data Vital Signs (Past 12 Hours) Vital Signs Temp Pulse Resp BP Pulse Ox 07/03/19 07:01 36.5 C 76 18 163/96 H 92
--- NOTE | 2019-07-03 11:30 | Discharge Summary ---
Date of Service Date of Admission: 06/28/19 Date of Discharge: 07/03/19 Admission HPI Per Admitting Provider 53-year-old male who presents the ED for evaluation of left lower extremity redness and swelling. Patient has history of Fdqnygs-Pepnj-Oobot disease. Patient reports that over the past several years, his mobility has been significantly decreasing. He is currently bed/wheelchair bound. He notes that he is also incontinent due to difficulties of transferring. He has difficulty taking care of himself at home. He has been interested in halfway placement. 6 days ago, patient noted increased erythema and edema to the left lower extremity. There are also a few, small blisters and superficial abrasions noted. Patient was seen by his PCP on 06/26 and had a venous Doppler performed that was negative for DVT. Given the worsening lower extremity erythema and juan ma and the inability to take care of himself at home, patient presented to the ED for further evaluation. Patient notes that he is very sedentary and does not exert himself much at all. He denies fevers and chills. No chest pain or shortness of breath. Denies cough or sputum production. Has some occasional lightheadedness when sitting up too quickly. No syncopal event. Denies abdominal pain, nausea, vomiting, diarrhea. No urinary symptoms. In the ED, patient was found to have a low-grade temp of 37.9. Labs are unremarkable. CXR shows an infiltrate of the left base. Patient was given IV ceftriaxone and IV Levaquin. Principal Diagnosis community acquired pneumonia cellulitis left lower extremity Discharge Data Allergies Allergy/AdvReac Type Severity Reaction Status Date / Time alcohol Allergy Unknown Verified 06/28/19 17:54 amiodarone Allergy Unknown Unknown rxn Verified 06/28/19 17:54 chloramphenicol Allergy Unknown Verified 06/28/19 17:55 cholecalciferol (vitamin D3) Allergy Unknown Verified 06/28/19 17:55 cisplatin Allergy Unknown Verified 06/28/19 17:55 dapsone Allergy Unknown Unknown rxn Verified 06/28/19 17:56 disulfiram Allergy Unknown Unknown rxn Verified 06/28/19 17:56 doxorubicin Allergy Unknown Verified 06/28/19 17:56 glutethimide Allergy Unknown Verified 06/28/19 17:57 Gold Salts Allergy Unknown Verified 06/28/19 17:57 Hydantoins Allergy Unknown Verified 06/28/19 17:57 hydralazine Allergy Unknown Verified 06/28/19 17:58 isoniazid Allergy Unknown Unknown rxn Verified 06/28/19 17:58 metronidazole Allergy Unknown Verified 06/28/19 17:59 nitrofurantoin Allergy Unknown Unknown rxn Verified 06/28/19 17:59 Penicillins Allergy Unknown Verified 06/28/19 17:59 phenytoin Allergy Unknown Verified 06/28/19 18:00 pyridoxine Allergy Unknown Verified 06/28/19 18:00 theophylline Allergy Unknown Unknown rxn Verified 06/28/19 18:01 tretinoin Allergy Unknown Unknown rxn Verified 06/28/19 18:01 vincristine Allergy Unknown Verified 06/28/19 18:00 Consultations 06/28/19 19:14 ED Decision to Admit Stat 06/28/19 20:54 Consult Case Management - Discharge Planning Routine Hospital Course (1) Community acquired pneumonia: Presented with fever. Occasional cough. Chest x-ray demonstrated left lower lobe infiltrate. Community-acquired pneumonia versus aspiration pneumonia. Blood cultures negative so far. Transitioned to oral antibiotic therapy with PO doxycycline. STICK INSERTER consult for bedside swallow evaluation- no apparent aspiration. (2) Cellulitis: Had some erythema and swelling of left leg at time of admission. Possible cellulitis. Received antibiotic therapy as described above with improvement. (3) Dyododu-Bkhnq-Kebag disease: Progressive functional decline. Nonambulatory. Able to transfer from bed to electric wheelchair. Arrangements being made for skilled care to optimize functional status. (4) Chronic pain: Secondary to Olnbodh-Zamai-Tiefw. Continue usual analgesics. (5) DVT prophylaxis: Enoxaparin. Not able to ambulate easily. At long-term risk for VTE because of declining functional status and immobility. Discussed with Hematology. Low dose aspirin recommended for long-term prophylaxis. (6) Discharge planning issues: Arrangements being made for transfer to [facility] for skilled care. Family Medicine follow-up with Dr. Garo Hayden if he is able to eventually return home. Thank you for receiving this patient in transfer. Please call if you have any questions. Tushar Valles Total Time Total Time Spent Total Time Spent (In Minutes): 45 Discharge Plan Discharge Items Reason For Visit: fever Discharge Diagnosis: community acquired pneumonia cellulitis left leg Condition on Discharge: Good Activity: Resume your previous activity Non-emergency contact: Primary Care Provider and Hospitalist Call non-emergency contact if: you have any medication questions, your symptoms worsen and your temperature is above 101 Follow-up/Referrals: Garo Hayden DO [Primary Care Provider] - Diet: Regular Addtl Attending Provider Instructions: ADDITIONAL INSTRUCTIONS: Turn / reposition q 2 hours. Heel protection / elevation. Thank you for receiving this patient in transfer. Please call if you have any questions. Tushar Valles Pending Studies at Discharge: No Stand-Alone Forms: [facility] Skilled Items Patient informed of condition?: Yes DNR: No Discharge Level of Care: Skilled Communicable Disease: No Discharge Prognosis: Improving Lines: None Urinary Catheter: No Medications and DC Order Prescriptions: New doxycycline hyclate 100 mg tablet 100 mg PO BID 3 Days Qty: 6 RF: 0 oxycodone 10 mg tablet 10 mg PO Q6H PRN (Reason: Pain) 3 Days Qty: 12 RF: 0 oxycodone [OxyContin] 80 mg tablet,oral only,ext.rel.12 hr 80 mg PO BID 3 Days Qty: 6 RF: 0 aspirin [Adult Low Dose Aspirin] 81 mg tablet,delayed release (DR/EC) 81 mg PO DAILY Qty: 30 RF: 0 Continued triamcinolone acetonide 0.1 % ointment 1 applic topical BID RF: 0 montelukast 10 mg tablet 10 mg PO DAILY RF: 0 escitalopram oxalate 20 mg tablet 20 mg PO DAILY RF: 0 duloxetine 20 mg capsule,delayed release(DR/EC) 20 mg PO DAILY RF: 0 diphenhydramine HCl 25 mg Tablet 25 mg PO Q4H PRN (Reason: Unknown) RF: 0 acetaminophen [Tylenol Extra Strength] 500 mg Tablet 500 mg PO QID PRN (Reason: Pain) RF: 0 docusate sodium 100 mg Capsule 100 mg PO BID PRN (Reason: Constipation) RF: 0 azelastine 137 mcg (0.1 %) aerosol,spray 1 spray intranasal BID RF: 0 mometasone 50 mcg/actuation spray,non-aerosol 1 spray intranasal BID RF: 0 escitalopram oxalate 10 mg tablet 10 mg PO DAILY RF: 0 Admission Data Admit Date/Time: 06/28/19 19:54 Attending Provider: Tushar Valles Admit Provider: Rene Lezama Primary Care Provider: Garo Hayden Other Providers: Rene Lezama ; Panchito Raymond [facility]
== END 2019-07-03 18:40 | DRG 602 ==
LOC: ED 16:36 → 4W 19:54

== ENCOUNTER 2020-07-06 16:52 | Inpatient (IN) ==
[2020-07-06] MEDS ORDERED: ONDANSETRON INJ 2 MG/ML 2 ML VIAL IV STA (16:59)
[2020-07-06] MEDS ORDERED: MoRPHine SULFATE 4 MG/ML 1 ML CARP\\VIAL IV STA (16:59)
[2020-07-06] MEDS ORDERED: SODIUM CHLORIDE 0.9% 500 ML IV SCH (17:00)
--- NOTE | 2020-07-06 17:04 | Emergency Department Note ---
History of Present Illness General Chief complaint: Flank Pain Time Seen by Provider: 07/06/20 16:53 Source: patient History of Present Illness Provider complaint: Right flank pain Onset (ago): day(s) Location: back and right Radiation: abdomen Pain Consistency: + intermittent Quality: + sharp Relieved By: + none Associated symptoms: no chest pain, no cough, no fever/chills, no malaise, no nausea/vomiting and no shortness of breath This is a 54-year-old male with a history of kidney stones presenting with right-sided flank pain. He states he has pain in the right lower back rating into his right abdomen for the past 2 days. He is concerned about acute appendicitis. He describes the pain as sharp. No alleviating factors. It is intermittent and seem to go at one point but then came back worse. He denies any associated fever, vomiting, chest pain, shortness of breath, cough or cold symptoms or urinary symptoms. He does state that he had an exposure to COVID-19 and is currently being tested for COVID-19 although he is asymptomatic. He also states that he has a history of chronic low back pain. His pain does not radiate down his leg. He denies any decreased strength or sensation in the leg but does have a history of Teyuwnx-Walys-Nmlqj and lower extremity edema. Home Medications Home Medications Medication Instructions Recorded Confirmed Type acetaminophen [Tylenol Extra 500 mg PO QID PRN 06/28/19 07/06/20 History Strength] azelastine 1 spray INTRANASAL BID 06/28/19 07/06/20 History docusate sodium 100 mg PO BID PRN 06/28/19 07/06/20 History duloxetine 30 mg PO QAM 06/28/19 07/06/20 History mometasone 1 spray INTRANASAL BID 06/28/19 07/06/20 History montelukast 10 mg PO PM 06/28/19 07/06/20 History aspirin [Adult Low Dose Aspirin] 81 mg PO QAM 07/06/20 07/06/20 History cefdinir 300 mg PO BID 07/06/20 07/06/20 History oxycodone 10 mg PO BID PRN 07/06/20 07/06/20 History oxycodone [OxyContin] 80 mg PO BID PRN 07/06/20 07/06/20 History polyethylene glycol 3350 [Miralax] 17 g PO DAILY PRN 07/06/20 07/06/20 History Allergies Allergy/AdvReac Type Severity Reaction Status Date / Time alcohol Allergy Unknown Verified 07/06/20 19:13 amiodarone Allergy Unknown Unknown rxn Verified 07/06/20 19:13 chloramphenicol Allergy Unknown Verified 07/06/20 19:13 cholecalciferol (vitamin D3) Allergy Unknown Verified 07/06/20 19:13 cisplatin Allergy Unknown Verified 07/06/20 19:13 dapsone Allergy Unknown Unknown rxn Verified 07/06/20 19:13 disulfiram Allergy Unknown Unknown rxn Verified 07/06/20 19:13 doxorubicin Allergy Unknown Verified 07/06/20 19:13 glutethimide Allergy Unknown Verified 07/06/20 19:13 Gold Salts Allergy Unknown Verified 07/06/20 19:13 Hydantoins Allergy Unknown Verified 07/06/20 19:13 hydralazine Allergy Unknown Verified 07/06/20 19:13 isoniazid Allergy Unknown Unknown rxn Verified 07/06/20 19:13 metronidazole Allergy Unknown Verified 07/06/20 19:13 nitrofurantoin Allergy Unknown Unknown rxn Verified 07/06/20 19:13 Penicillins Allergy Unknown Verified 07/06/20 19:13 phenytoin Allergy Unknown Verified 07/06/20 19:13 pyridoxine Allergy Unknown Verified 07/06/20 19:13 theophylline Allergy Unknown Unknown rxn Verified 07/06/20 19:13 tretinoin Allergy Unknown Unknown rxn Verified 07/06/20 19:13 vincristine Allergy Unknown Verified 07/06/20 19:13 Past Med/Surg History Medical History (Updated 07/06/20 @ 21:45 by Som Troy MD) Iyefxlb-Bftrs-Eisok disease Chronic pain Myalgia and myositis, unspecified Obesity Surgical History H/O dilation of urethra H/O wisdom tooth extraction S/P cervical spinal fusion S/P tonsillectomy and adenoidectomy Family History Mother Heart disease Social History Smoking Status: Former smoker Hx Alcohol Use: No Hx Substance Use: No Preferred Language: Dominican Communication Ability: Effective 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 and A total of 10 systems reviewed and were otherwise negative Physical Exam Vital Signs Vital Signs - 24 hr 07/06/20 16:59 07/06/20 17:10 07/06/20 17:27 Temperature 36.8 C Temperature Source Oral Pulse Rate 113 H 112 H Pulse Rate from SpO2 Sensor 112 H Respiratory Rate 17 24 Blood Pressure 179/125 H 179/125 H Blood Pressure Mean 145 143 Pulse Oximetry 88 L 90 Oxygen Delivery Method Room Air Room Air Room Air Oxygen Flow Rate Sepsis Recent Fever Within 48 Hours No Sepsis New/Unexplained Change in Mental Status No Sepsis Action Taken by Nursing Physician Notified 07/06/20 17:44 07/06/20 18:14 07/06/20 18:33 Temperature Temperature Source Pulse Rate 108 H 108 H Pulse Rate from SpO2 Sensor 108 H 108 H 107 H Respiratory Rate 17 17 Blood Pressure 206/138 H 205/128 H 194/84 H Blood Pressure Mean 170 165 131 Pulse Oximetry 95 96 99 Oxygen Delivery Method Nasal Cannula Nasal Cannula Nasal Cannula Oxygen Flow Rate 3 3 3 Sepsis Recent Fever Within 48 Hours Sepsis New/Unexplained Change in Mental Status Sepsis Action Taken by Nursing 07/06/20 19:00 07/06/20 20:39 Temperature Temperature Source Pulse Rate 111 H 105 H Pulse Rate from SpO2 Sensor 111 H 105 H Respiratory Rate 17 20 Blood Pressure 169/95 H 150/120 H Blood Pressure Mean 134 133 Pulse Oximetry 91 94 Oxygen Delivery Method Oxygen Flow Rate Sepsis Recent Fever Within 48 Hours Sepsis New/Unexplained Change in Mental Status Sepsis Action Taken by Nursing Constitutional: Vital signs reviewed. Eyes: Pupils are equal round reactive to light. Conjunctiva are noninjected. ENT: Pharynx is clear without erythema or exudate. Mucous membranes are moist. Neck supple without meningeal signs. Respiratory: Clear to auscultation bilaterally. Breath sounds are equal bilaterally. Cardiovascular: Regular rate and rhythm. No rubs or gallops. GI: Soft, nondistended and nontender. Bowel sounds are present. Musculoskeletal: Diffuse lower extremity edema. Integumentary: No cyanosis. or jaundice. Neurological: The patient is awake and alert. No focal deficits. Psychiatric: Slightly anxious. Course Administered Medications Discontinued Medications Sodium Chloride (Nss) 500 mls @ 999 mls/hr IV .Q31M FLORENCIA Stop: 07/06/20 17:30 Last Infusion: 07/06/20 18:14 Dose: 0 mls/hr Documented by: [id number] Admin: 07/06/20 17:44 Dose: 999 mls/hr Documented by: [id number] Ketorolac Tromethamine (Ketorolac 30 Mg/Ml Vial) 10 mg IV NOW STA Stop: 07/06/20 18:43 Last Admin: 07/06/20 19:14 Dose: 10 mg Documented by: [id number] Morphine Sulfate (Morphine Sulfate 4 Mg/Ml 1 Ml Carp\Vial) 4 mg IV NOW STA Stop: 07/06/20 17:00 Last Admin: 07/06/20 17:45 Dose: 4 mg Documented by: [id number] Ondansetron HCl (Ondansetron Inj 2 Mg/Ml 2 Ml Vial) 4 mg IV NOW STA Stop: 07/06/20 17:00 Last Admin: 07/06/20 17:45 Dose: 4 mg Documented by: [id number] Tamsulosin HCl (Tamsulosin Hcl 0.4 Mg Cap) 0.4 mg PO NOW ONE Stop: 07/06/20 18:43 Last Admin: 07/06/20 19:14 Dose: 0.4 mg Documented by: [id number] Medical Decision Making Differential Diagnosis Hernia colic, obstructive uropathy, UTI, lumbar strain, pathologic fracture, appendicitis Medical Records Attestation: I reviewed the patient's medical records. I did perform a limited focused review of portions of the patient's old chart on the electronic medical record. The patient has had no recent pertinent visits to this hospital. Home Medications Current Medication List: was personally reviewed by me Laboratory Data Attestation: I reviewed the patient's lab results. Result diagrams: 07/06/20 17:35 07/06/20 17:35 Lab Results 07/06/20 07/06/20 07/06/20 Range/Units 17:35 17:35 18:40 WBC 13.17 H (4.8-10.8) K/uL RBC 5.63 (4.7-6.1) M/uL Hgb 15.6 (14.0-18.0) g/dL Hct 48.2 (42-52) % MCV 85.6 (80-100) fL MCH 27.7 (25-34) pg MCHC 32.4 (32-36) g/dL RDW Std Deviation 43.2 (36.4-46.3) fL RDW Coeff of Pearl 13.8 (11.5-14.5) % Plt Count 217 (130-400) K/uL MPV 10.3 (7.4-10.4) fL Immature Gran % (Auto) 0.5 % Neut % (Auto) 78.9 % Lymph % (Auto) 9.9 % Cameron % (Auto) 9.6 % Eos % (Auto) 0.9 % Baso % (Auto) 0.2 % Neut # (Auto) 10.38 H (1.4-6.5) K/uL Lymph # (Auto) 1.31 (1.2-3.4) K/uL Cameron # (Auto) 1.27 H (0.11-0.59) K/uL Eos # (Auto) 0.12 (0-0.5) K/uL Baso # (Auto) 0.02 (0-0.2) K/uL Immature Gran # (Auto) 0.07 H (0.00-0.02) K/uL Sodium 136 (136-145) mmol/L Potassium 3.9 (3.5-5.1) mmol/L Chloride 99 (98-107) mmol/L Carbon Dioxide 30 (21-32) mmol/L Anion Gap 7.0 (3-11) BUN 12 (7-18) mg/dl Creatinine 0.50 L (0.6-1.4) mg/dl Est Cr Clr Drug Dosing Not Reportable Est GFR ( Amer) 140.4 Est GFR (Non-Af Amer) 121.1 BUN/Creatinine Ratio 24.2 H (10-20) Glucose 177 H (70-99) mg/dl Calcium 8.5 (8.5-10.1) mg/dl Total Bilirubin 0.5 (0.2-1) mg/dl AST 66 H (15-37) U/L ALT 79 H (12-78) U/L Alkaline Phosphatase 112 (45-117) U/L Total Protein 7.4 (6.4-8.2) gm/dl Albumin 2.9 L (3.4-5.0) gm/dl Globulin 4.5 H (2.5-4.0) gm/dl Albumin/Globulin Ratio 0.6 L (0.9-2) Lipase 46 L (73-393) U/L Urine Color Yellow Urine Appearance Clear (Clear) Urine pH 6.5 (4.5-7.5) Ur Specific [place] 1.018 (1.000-1.030) Urine Protein 1+ H (Negative) Urine Glucose (UA) Negative (Negative) Urine Ketones Negative (Negative) Urine Blood 3+ H (Negative) Urine Nitrite Negative (Negative) Urine Bilirubin Negative (Negative) Urine Urobilinogen Negative (Negative) Ur Leukocyte Esterase Trace H (Negative) Urine WBC (Auto) 1-5 (0-5) /hpf Urine RBC (Auto) >30 H (0-4) /hpf U Hyaline Cast (Auto) 0 (0-5) /lpf U Epithel Cells (Auto) 5-10 H (0-5) /lpf Urine Bacteria (Auto) Negative (Negative) COVID-19 Eval Order SARS-CoV-2, RNA, NAAT (NEGATIVE) 07/06/20 07/06/20 Range/Units 20:37 20:37 WBC (4.8-10.8) K/uL RBC (4.7-6.1) M/uL Hgb (14.0-18.0) g/dL Hct (42-52) % MCV (80-100) fL MCH (25-34) pg MCHC (32-36) g/dL RDW Std Deviation (36.4-46.3) fL RDW Coeff of Pearl (11.5-14.5) % Plt Count (130-400) K/uL MPV (7.4-10.4) fL Immature Gran % (Auto) % Neut % (Auto) % Lymph % (Auto) % Cameron % (Auto) % Eos % (Auto) % Baso % (Auto) % Neut # (Auto) (1.4-6.5) K/uL Lymph # (Auto) (1.2-3.4) K/uL Cameron # (Auto) (0.11-0.59) K/uL Eos # (Auto) (0-0.5) K/uL Baso # (Auto) (0-0.2) K/uL Immature Gran # (Auto) (0.00-0.02) K/uL Sodium (136-145) mmol/L Potassium (3.5-5.1) mmol/L Chloride (98-107) mmol/L Carbon Dioxide (21-32) mmol/L Anion Gap (3-11) BUN (7-18) mg/dl Creatinine (0.6-1.4) mg/dl Est Cr Clr Drug Dosing Est GFR ( Amer) Est GFR (Non-Af Amer) BUN/Creatinine Ratio (10-20) Glucose (70-99) mg/dl Calcium (8.5-10.1) mg/dl Total Bilirubin (0.2-1) mg/dl AST (15-37) U/L ALT (12-78) U/L Alkaline Phosphatase (45-117) U/L Total Protein (6.4-8.2) gm/dl Albumin (3.4-5.0) gm/dl Globulin (2.5-4.0) gm/dl Albumin/Globulin Ratio (0.9-2) Lipase (73-393) U/L Urine Color Urine Appearance (Clear) Urine pH (4.5-7.5) Ur Specific [place] (1.000-1.030) Urine Protein (Negative) Urine Glucose (UA) (Negative) Urine Ketones (Negative) Urine Blood (Negative) Urine Nitrite (Negative) Urine Bilirubin (Negative) Urine Urobilinogen (Negative) Ur Leukocyte Esterase (Negative) Urine WBC (Auto) (0-5) /hpf Urine RBC (Auto) (0-4) /hpf U Hyaline Cast (Auto) (0-5) /lpf U Epithel Cells (Auto) (0-5) /lpf Urine Bacteria (Auto) (Negative) COVID-19 Eval Order Covid19 IDNow [facility] SARS-CoV-2, RNA, NAAT NEGATIVE (NEGATIVE) Imaging Data Radiologist's Impression: XR chest 1V portable CLINICAL HISTORY: Shortness of breath. Possible pneumonia COMPARISON STUDY: 06/28/2019 FINDINGS: There is underlying chronic lung disease. There is no lobar consolidation. There are bilateral linear opacities, likely represent subsegmental atelectasis. There are no static of pleural effusions. There are postsurgical changes present within the cervical spine.[ IMPRESSION: 1. No lobar consolidation. 2. Linear parenchymal opacities which while nonspecific likely represent atelectatic change. ACT 112: Negative or not required by law. Electronically signed by: Husam Hartley M.D. 07/06/2020 7:[address] lumbar spine wo con CT DOSE: 2107.49 mGy.cm CLINICAL HISTORY: Low back pain. Possible fracture. TECHNIQUE: Helical images were acquired in transverse plane. Reformatted sagittal and coronal images were reviewed. A dose lowering technique was utilized adhering to the principles of ALARA. CONTRAST: No contrast was administered COMPARISON STUDY: X-ray study dated 05/19/2012, MRI performed July 2009 FINDINGS: Note is made of bilateral nephrolithiasis and right-sided hydronephrosis. There is severe hepatic steatosis. L1-2 level: There is a mild circumferential disc bulge. There is no significant spinal or foraminal stenosis L2-3 level: There is minimal retrolisthesis of L2 on L3. There are degenerative endplate changes. There is a circumferential disc bulge. There is mild to moderate spinal stenosis. L3-4 level: There is mild retrolisthesis of L3 and L4. There are degenerative endplate changes. There is a circumferential disc bulge. There is mild to moderate spinal stenosis L4-5 level: There is a mild circumferential disc bulge. There is mild to moderate spinal stenosis. There is facet joint arthropathy. L5-S1 level: There is no evidence of significant disc bulge or focal herniation. There is no evidence of spinal or foraminal stenosis. There is facet joint arthropathy. No acute fractures or traumatic subluxations are visualized. Anatomic detail slightly limited due to the patient's very large body habitus. IMPRESSION: 1. No acute fractures or traumatic subluxations identified 2. Multilevel degenerative changes with multilevel spinal stenosis 3. Severe hepatic steatosis 4. Bilateral nephrolithiasis. 5. Right-sided hydronephrosis. ACT 112: Negative or not required by law. Electronically signed by: Husam Hartley M.D. 07/06/2020 6:[address] SCAN OF THE ABDOMEN AND PELVIS WITHOUT CONTRAST CLINICAL HISTORY: Back and right flank pain COMPARISON STUDY: No previous studies for comparison. TECHNIQUE: CT scan of the abdomen and pelvis was performed from the lung bases to the proximal femurs. Images are reviewed in the axial, sagittal, and coronal planes. IV contrast was not administered for this examination. A dose lowering technique was utilized adhering to the principles of ALARA. CT DOSE: FINDINGS: Lower chest: There are coronary artery calcifications. There is mild gynecomastia. There are bibasilar opacities, likely atelectatic. Liver: There is severe hepatic steatosis. There is mild hepatomegaly. No focal hepatic masses are visualized. The portal and hepatic veins appear patent Gallbladder: Unremarkable. Spleen: Mildly enlarged measuring 13 cm Pancreas: Unremarkable. Adrenal glands: Unremarkable. Kidneys: There are multiple left renal calculi measuring up to 8 mm in diameter. There is a punctate right renal calculi. There is right-sided hydronephrosis and right-sided perinephric stranding. There is a 3.5 mm calculus at the level the right ureterovesical junction Bowel: There are no transition zones to indicate bowel obstruction. The appendix appears normal. There is no acute diverticulitis. Peritoneum: There is no intraperitoneal free air or abdominal ascites. Vasculature: The abdominal aorta is normal in course and caliber. Adenopathy: None. Pelvic viscera: The bladder, and pelvic viscera are unremarkable. Skeletal structures: No destructive osseous lesions are seen. IMPRESSION: 1. Bilateral nephrolithiasis 2. 3.5 mm obstructing calculus at the level of the right ureterovesical junction 3. No evidence of bowel obstruction. No evidence of free air 4. Severe hepatic steatosis and mild splenomegaly ACT 112: Negative or not required by law. Electronically signed by: Husam Hartley M.D. 07/06/2020 6:29 PM MDM Narrative I did evaluate the patient as noted above. The patient is presenting with right flank pain. He has no tenderness on examination to the lower abdomen. IV access was established. I did place an order for continuous cardiac monitoring. The monitor showed normal sinus rhythm at a rate of 98 bpm. His O2 saturations went down into the high 80s although he states he is not short of breath. He tells me that he frequently has low O2 saturations. I did order and personally reviewed the images of the patient's chest x-ray as described above. There is no evidence of pneumonia. I did order a urine analysis. He has no UTI. I did order and review the patient's blood work as noted in the electronic medical record. He has mild leukocytosis. He is not anemic. Kidney function is preserved. Electrolytes are unremarkable. I did order a CT of the abdomen and pelvis. I did review the images myself as well as the radiology report as described above. He has a 3.5 mm obstructing right ureteral stone with hydronephrosis. I did discuss the test results with him. Initially he was given IV morphine and Zofran. He was also given a liter normal saline IV. He is still having pain. He was given Toradol 10 mg IV. He was also given Flomax p.o. I did reassess the patient. He is still having pain but is improved. He will be hospitalized for further care and evaluation. I did order a rapid Covid test given his O2 saturations as well as the possibility of him requiring a ureteral stent. This test was negative. I did discuss case with hospitalist and special education case manager. Impression & Plan Obstructed, uropathy, Ureterolithiasis, Low O2 saturation Discharge Plan Visit Data Chief Complaint: Flank Pain ED Provider: Som Troy Discharge Problem: Obstructed, uropathy, Ureterolithiasis, Low O2 saturation Forms Stand Alone Forms: My [facility] Prescriptions Prescriptions: No Action montelukast 10 mg tablet 10 mg PO PM RF: 0 duloxetine 20 mg capsule,delayed release(DR/EC) 30 mg PO QAM RF: 0 acetaminophen [Tylenol Extra Strength] 500 mg Tablet 500 mg PO QID PRN (Reason: Pain) RF: 0 docusate sodium 100 mg Capsule 100 mg PO BID PRN (Reason: Constipation) RF: 0 azelastine 137 mcg (0.1 %) aerosol,spray 1 spray intranasal BID RF: 0 mometasone 50 mcg/actuation spray,non-aerosol 1 spray intranasal BID RF: 0 cefdinir 300 mg capsule 300 mg PO BID RF: 0 oxycodone 10 mg tablet 10 mg PO BID PRN (Reason: moderate to severe pain) RF: 0 aspirin [Adult Low Dose Aspirin] 81 mg tablet,delayed release (DR/EC) 81 mg PO QAM RF: 0 polyethylene glycol 3350 [Miralax] 17 gram Powder In Packet 17 g PO DAILY PRN (Reason: Constipation) RF: 0 oxycodone [OxyContin] 80 mg tablet,oral only,ext.rel.12 hr 80 mg PO BID RF: 0 Referrals Referrals: Sommer Mendez MD [Primary Care Provider] -
[2020-07-06 17:47] LABS: Basophils # (auto) 0.02 K/uL (0-0.2); Basophils % (auto) 0.2 %; Eosinophils # (auto) 0.12 K/uL (0-0.5); Eosinophils % (auto) 0.9 %; Hematocrit (blood only) 48.2 % (42-52); Hemoglobin 15.6 g/dL (14.0-18.0); Immature Granulocytes # (auto) 0.07 K/uL (0.00-0.02); Immature Granulocytes % (auto) 0.5 %; Lymphocytes # (auto) 1.31 K/uL (1.2-3.4); Lymphocytes % (auto) 9.9 %; Mean Corpuscular Hemoglobin 27.7 pg (25-34); Mean Corpuscular Hgb Conc 32.4 g/dL (32-36); Mean Corpuscular Volume 85.6 fL (80-100); Mean Platelet Volume 10.3 fL (7.4-10.4); Monocytes # (auto) 1.27 K/uL (0.11-0.59); Monocytes % (auto) 9.6 %; Neutrophils # (auto) 10.38 K/uL (1.4-6.5); Neutrophils % (auto) 78.9 %; Platelet Count 217 K/uL (130-400); RDW Coefficient of Variation 13.8 % (11.5-14.5); RDW Standard Deviation 43.2 fL (36.4-46.3); Red Blood Count 5.63 M/uL (4.7-6.1); White Blood Count 13.17 K/uL (4.8-10.8)
[2020-07-06 18:14] LABS: Albumin Level 2.9 gm/dl (3.4-5.0); Aspartate Aminotransferase 66 U/L (15-37); BUN Creatinine Ratio 24.2 (10-20); Blood Urea Nitrogen 12 mg/dl (7-18); Calcium 8.5 mg/dl (8.5-10.1); Carbon Dioxide 30 mmol/L (21-32); Chloride 99 mmol/L (98-107); Est GFR (African American) 140.4; Est GFR (Non-African American) 121.1; Glucose 177 mg/dl (70-99); Lipase 46 U/L (73-393); Potassium 3.9 mmol/L (3.5-5.1); Sodium 136 mmol/L (136-145)
[2020-07-06 18:22] LABS: Alanine Aminotransferase 79 U/L (12-78); Albumin Globulin Ratio 0.6 (0.9-2); Alkaline Phosphatase 112 U/L (45-117); Bilirubin,Total 0.5 mg/dl (0.2-1); Globulin 4.5 gm/dl (2.5-4.0); Total Protein 7.4 gm/dl (6.4-8.2)
--- NOTE | 2020-07-06 18:30 | CT Scan Report ---
CT SCAN OF THE ABDOMEN AND PELVIS WITHOUT CONTRAST CLINICAL HISTORY: Back and right flank pain COMPARISON STUDY: No previous studies for comparison. TECHNIQUE: CT scan of the abdomen and pelvis was performed from the lung bases to the proximal femurs . Images are reviewed in the axial, sagittal, and coronal planes. IV contrast was not administered fo r this examination. A dose lowering technique was utilized adhering to the principles of ALARA. CT DOSE: FINDINGS: Lower chest: There are coronary artery calcifications. There is mild gynecomastia. There are bibasila r opacities, likely atelectatic. Liver: There is severe hepatic steatosis. There is mild hepatomegaly. No focal hepatic masses are vis ualized. The portal and hepatic veins appear patent Gallbladder: Unremarkable. Spleen: Mildly enlarged measuring 13 cm Pancreas: Unremarkable. Adrenal glands: Unremarkable. Kidneys: There are multiple left renal calculi measuring up to 8 mm in diameter. There is a punctate right renal calculi. There is right-sided hydronephrosis and right-sided perinephric stranding. There is a 3.5 mm calculus at the level the right ureterovesical junction Bowel: There are no transition zones to indicate bowel obstruction. The appendix appears normal. Ther e is no acute diverticulitis. Peritoneum: There is no intraperitoneal free air or abdominal ascites. Vasculature: The abdominal aorta is normal in course and caliber. Adenopathy: None. Pelvic viscera: The bladder, and pelvic viscera are unremarkable. Skeletal structures: No destructive osseous lesions are seen. IMPRESSION: 1. Bilateral nephrolithiasis 2. 3.5 mm obstructing calculus at the level of the right ureterovesical junction 3. No evidence of bowel obstruction. No evidence of free air 4. Severe hepatic steatosis and mild splenomegaly ACT 112: Negative or not required by law. Electronically signed by: Husam Hartley M.D. 07/06/2020 6:29 PM
--- NOTE | 2020-07-06 18:36 | CT Scan Report ---
CT lumbar spine wo con CT DOSE: 2107.49 mGy.cm CLINICAL HISTORY: Low back pain. Possible fracture. TECHNIQUE: Helical images were acquired in transverse plane. Reformatted sagittal and coronal images were reviewed. A dose lowering technique was utilized adhering to the principles of ALARA. CONTRAST: No contrast was administered COMPARISON STUDY: X-ray study dated 05/19/2012, MRI performed July 2009 FINDINGS: Note is made of bilateral nephrolithiasis and right-sided hydronephrosis. There is severe hepatic ted atosis. L1-2 level: There is a mild circumferential disc bulge. There is no significant spinal or foraminal s tenosis L2-3 level: There is minimal retrolisthesis of L2 on L3. There are degenerative endplate changes. The re is a circumferential disc bulge. There is mild to moderate spinal stenosis. L3-4 level: There is mild retrolisthesis of L3 and L4. There are degenerative endplate changes. There is a circumferential disc bulge. There is mild to moderate spinal stenosis L4-5 level: There is a mild circumferential disc bulge. There is mild to moderate spinal stenosis. Th ere is facet joint arthropathy. L5-S1 level: There is no evidence of significant disc bulge or focal herniation. There is no evidence of spinal or foraminal stenosis. There is facet joint arthropathy. No acute fractures or traumatic subluxations are visualized. Anatomic detail slightly limited due to the patient's very large body habitus. IMPRESSION: 1. No acute fractures or traumatic subluxations identified 2. Multilevel degenerative changes with multilevel spinal stenosis 3. Severe hepatic steatosis 4. Bilateral nephrolithiasis. 5. Right-sided hydronephrosis. ACT 112: Negative or not required by law. Electronically signed by: Husam Hartley M.D. 07/06/2020 6:35 PM
[2020-07-06] MEDS ORDERED: TAMSULOSIN HCL 0.4 MG CAP PO ONE (18:42)
[2020-07-06] MEDS ORDERED: KETOROLAC 30 MG/ML VIAL IV STA (18:42)
[2020-07-06 19:04] LABS: Appearance Urine Clear (Clear); Bacteria Urine Automated Negative (Negative); Bilirubin Urine Negative (Negative); Blood Urine 3+ (Negative); Cast Urine Automated 0 /lpf (0-5); Color Urine Yellow; Glucose Urine UA Negative (Negative); Ketones Urine Negative (Negative); Leukocyte Esterase Urine Trace (Negative); Nitrite Urine Negative (Negative); Protein Urine 1+ (Negative); RBC Urine Automated >30 /hpf (0-4); Specific Gravity Urine 1.018 (1.000-1.030); Urobilinogen Urine Negative (Negative); pH Urine 6.5 (4.5-7.5)
--- NOTE | 2020-07-06 19:51 | XRay Report ---
XR chest 1V portable CLINICAL HISTORY: Shortness of breath. Possible pneumonia COMPARISON STUDY: 06/28/2019 FINDINGS: There is underlying chronic lung disease. There is no lobar consolidation. There are bilate ral linear opacities, likely represent subsegmental atelectasis. There are no static of pleural effus ions. There are postsurgical changes present within the cervical spine.[ IMPRESSION: 1. No lobar consolidation. 2. Linear parenchymal opacities which while nonspecific likely represent atelectatic change. ACT 112: Negative or not required by law. Electronically signed by: Husam Hartley M.D. 07/06/2020 7:50 PM
--- NOTE | 2020-07-06 21:50 | History & Physical Report ---
Date of Service July 06, 2020 Assessment & Plan (1) Hydronephrosis: (2) Renal calculi: Present on admission with worsening right flank pain CT abd/pelvis showed multiple left renal calculi measuring up to 8 mm in diameter. There is a punctate right renal calculi. There is right-sided hyd ronephrosis and right-sided perinephric stranding. There is a 3.5 mm calculus at the level the right ureterovesical junction Received IV Morphine and flomax in the ER UA positine for blood and leukocytosis Will consult urology Continue pain control with morphine and Oxycontin Continue IVF and flomax Will make NPO after midnight Will get KUB in am Transaminitis AST 66 and ALT 79 on admission Will repeat liver enzymes if LFT worsening, will get an u/s of the liver Azavlrm-Hwizz-Bkrfq disease Continue PT/OT Stable Chronic pain: Continue home doses of OxyContin and Cymbalta Will hold PO oxycodone since will add IV morphine PRN DVT prophylaxis: Will put on SCD in case anticipating any surgical procedure CODE STATUS FULL CODE History of Present Illness Chief Complaint: Right Flank Pain Primary Care Provider: Sommer Mendez MD 54-year-old male with PMH of Mzhtzhl-Zxrqq-Kaxvy disease, obesity, kidney stones presenting with right-sided flank pain. Pt said that about 2 days ago he started to have pain in his right lower back that radiated to his right lower side of his abdomen. He said that the pain was constant, sharp and grade 7/10. He said that he had one episode of hematuria about 2 days ago during straight cath. He said that today his pain worsening. he said that he does have chronic back pain. He said that he was concerned about acute appendicitis due to his abdominal pain. Pt said that he had kidney stone in the past where he had to require procedure and stent placement. Pt said that pain improves after received IV morphine in the ER . He recently completed 3 days course of cefdinir for possible UTI (But no growth in urine cx). He denies any associated fever, chills, vomiting, chest pain, shortness of breath, cough or cold symptoms or urinary symptoms. He said that someone was testing positive in his floor at [facility]. He denies any symptoms of covid 19. Covid 19 testing in the ER was negative. CT done in the ER showed multiple left renal calculi measuring up to 8 mm in diameter. There is a punctate right renal calculi. There is right- sided hydronephrosis and right-sided perinephric stranding. There is a 3.5 mm calculus at the level the right ureterovesical junction. Allergies Allergy/AdvReac Type Severity Reaction Status Date / Time alcohol Allergy Unknown Verified 07/06/20 19:13 amiodarone Allergy Unknown Unknown rxn Verified 07/06/20 19:13 chloramphenicol Allergy Unknown Verified 07/06/20 19:13 cholecalciferol (vitamin D3) Allergy Unknown Verified 07/06/20 19:13 cisplatin Allergy Unknown Verified 07/06/20 19:13 dapsone Allergy Unknown Unknown rxn Verified 07/06/20 19:13 disulfiram Allergy Unknown Unknown rxn Verified 07/06/20 19:13 doxorubicin Allergy Unknown Verified 07/06/20 19:13 glutethimide Allergy Unknown Verified 07/06/20 19:13 Gold Salts Allergy Unknown Verified 07/06/20 19:13 Hydantoins Allergy Unknown Verified 07/06/20 19:13 hydralazine Allergy Unknown Verified 07/06/20 19:13 isoniazid Allergy Unknown Unknown rxn Verified 07/06/20 19:13 metronidazole Allergy Unknown Verified 07/06/20 19:13 nitrofurantoin Allergy Unknown Unknown rxn Verified 07/06/20 19:13 Penicillins Allergy Unknown Verified 07/06/20 19:13 phenytoin Allergy Unknown Verified 07/06/20 19:13 pyridoxine Allergy Unknown Verified 07/06/20 19:13 theophylline Allergy Unknown Unknown rxn Verified 07/06/20 19:13 tretinoin Allergy Unknown Unknown rxn Verified 07/06/20 19:13 vincristine Allergy Unknown Verified 07/06/20 19:13 Home Medications Home Medications Medication Instructions Recorded Confirmed Type acetaminophen [Tylenol Extra 500 mg PO QID PRN 06/28/19 07/06/20 History Strength] azelastine 1 spray INTRANASAL BID 06/28/19 07/06/20 History docusate sodium 100 mg PO BID PRN 06/28/19 07/06/20 History duloxetine 30 mg PO QAM 06/28/19 07/06/20 History mometasone 1 spray INTRANASAL BID 06/28/19 07/06/20 History montelukast 10 mg PO PM 06/28/19 07/06/20 History aspirin [Adult Low Dose Aspirin] 81 mg PO QAM 07/06/20 07/06/20 History cefdinir 300 mg PO BID 07/06/20 07/06/20 History oxycodone 10 mg PO BID PRN 07/06/20 07/06/20 History oxycodone [OxyContin] 80 mg PO BID 07/06/20 07/06/20 History polyethylene glycol 3350 [Miralax] 17 g PO DAILY PRN 07/06/20 07/06/20 History Past Med/Surg History Medical History (Updated 07/07/20 @ 01:05 by Shirley Leigh MD) Dqbryyv-Yjggh-Xwnep disease Chronic pain Myalgia and myositis, unspecified Obesity Surgical History H/O dilation of urethra H/O wisdom tooth extraction S/P cervical spinal fusion S/P tonsillectomy and adenoidectomy Family History Mother Heart disease Social History Smoking Status: Never smoker Hx Alcohol Use: No Hx Substance Use: No Preferred Language: [place] Communication Ability: Effective 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 Beliefs That Will Affect Care: None Current Living Situation: Senior Living Other Information That Helps Us Care for You: No Feels Safe at Home: Yes Safety Concerns: Feels Safe At This Time Assistive Devices: Glasses, Slide Board and Wheelchair Review of Systems Review of Systems: All systems reviewed & are unremarkable except as noted in HPI & below Physical Exam Physical Exam: General- No acute distress Head- atraumatic Eyes- PERRL, EOMI, ENT- oropharynx clear Neck- supple, no JVD Lungs- clear to auscultation Heart- regular rhythm; no murmur Abdomen- normal bowel sounds, soft, nontender Extremities- no calf tenderness Neuro- alert, oriented x 3; PERRL, EOMI; no facial palsy; no dysarthria Skin- warm & dry Results & Data Results & Data ([facility]) Vital Signs (Past 12 Hours) Vital Signs Temp Pulse Resp BP Pulse Ox 07/06/20 20:39 105 H 20 150/120 H 94 07/06/20 19:00 111 H 17 169/95 H 91 07/06/20 18:33 108 H 17 194/84 H 99 07/06/20 18:14 108 H 17 205/128 H 96 07/06/20 17:44 206/138 H 95 07/06/20 17:27 36.8 C 112 H 24 179/125 H 90 07/06/20 17:10 113 H 17 179/125 H 88 L Diagnostic Findings XR chest 1V portable CLINICAL HISTORY: Shortness of breath. Possible pneumonia COMPARISON STUDY: 06/28/2019 FINDINGS: There is underlying chronic lung disease. There is no lobar consolidation. There are bilateral linear opacities, likely represent subsegmental atelectasis. There are no static of pleural effusions. There are postsurgical changes present within the cervical spine.[ IMPRESSION: 1. No lobar consolidation. 2. Linear parenchymal opacities which while nonspecific likely represent atelectatic change. ACT 112: Negative or not required by law. Electronically signed by: Husam Hartley M.D. 07/06/2020 7:50 PM Dictated: 07/06/201947Transcribed: 07/06/201947 CT lumbar spine wo con CT DOSE: 2107.49 mGy.cm CLINICAL HISTORY: Low back pain. Possible fracture. TECHNIQUE: Helical images were acquired in transverse plane. Reformatted sagittal and coronal images were reviewed. A dose lowering technique was utilized adhering to the principles of ALARA. CONTRAST: No contrast was administered COMPARISON STUDY: X-ray study dated 05/19/2012, MRI performed July 2009 FINDINGS: Note is made of bilateral nephrolithiasis and right-sided hydronephrosis. There is severe hepatic steatosis. L1-2 level: There is a mild circumferential disc bulge. There is no significant spinal or foraminal stenosis L2-3 level: There is minimal retrolisthesis of L2 on L3. There are degenerative endplate changes. There is a circumferential disc bulge. There is mild to moderate spinal stenosis. L3-4 level: There is mild retrolisthesis of L3 and L4. There are degenerative en dplate changes. There is a circumferential disc bulge. There is mild to moderate spinal stenosis L4-5 level: There is a mild circumferential disc bulge. There is mild to moderate spinal stenosis. There is facet joint arthropathy. L5-S1 level: There is no evidence of significant disc bulge or focal herniation. There is no evidence of spinal or foraminal stenosis. There is facet joint arthropathy. No acute fractures or traumatic subluxations are visualized. Anatomic detail slightly limited due to the patient's very large body habitus. IMPRESSION: 1. No acute fractures or traumatic subluxations identified 2. Multilevel degenerative changes with multilevel spinal stenosis 3. Severe hepatic steatosis 4. Bilateral nephrolithiasis. 5. Right-sided hydronephrosis. ACT 112: Negative or not required by law. Electronically signed by: Husam Hartley M.D. 07/06/2020 6:35 PM Dictated: 07/06/201829Transcribed: 07/06/201829 CT SCAN OF THE ABDOMEN AND PELVIS WITHOUT CONTRAST CLINICAL HISTORY: Back and right flank pain COMPARISON STUDY: No previous studies for comparison. TECHNIQUE: CT scan of the abdomen and pelvis was performed from the lung bases to the proximal femurs. Images are reviewed in the axial, sagittal, and coronal planes. IV contrast was not administered for this examination. A dose lowering technique was utilized adhering to the principles of ALARA. CT DOSE: FINDINGS: Lower chest: There are coronary artery calcifications. There is mild gynecomastia. There are bibasilar opacities, likely atelectatic. Liver: There is severe hepatic steatosis. There is mild hepatomegaly. No focal hepatic masses are visualized. The portal and hepatic veins appear patent Gallbladder: Unremarkable. Spleen: Mildly enlarged measuring 13 cm Pancreas: Unremarkable. Adrenal glands: Unremarkable. Kidneys: There are multiple left renal calculi measuring up to 8 mm in diameter. There is a punctate right renal calculi. There is right-sided hydronephrosis and right-sided perinephric stranding. There is a 3.5 mm calculus at the level the right ureterovesical junction Bowel: There are no transition zones to indicate bowel obstruction. The appendix appears normal. There is no acute diverticulitis. Peritoneum: There is no intraperitoneal free air or abdominal ascites. Vasculature: The abdominal aorta is normal in course and caliber. Adenopathy: None. Pelvic viscera: The bladder, and pelvic viscera are unremarkable. Skeletal structures: No destructive osseous lesions are seen. IMPRESSION: 1. Bilateral nephrolithiasis 2. 3.5 mm obstructing calculus at the level of the right ureterovesical junction 3. No evidence of bowel obstruction. No evidence of free air 4. Severe hepatic steatosis and mild splenomegaly ACT 112: Negative or not required by law. Electronically signed by: Husam Hartley M.D. 07/06/2020 6:29 PM Dictated: 07/06/20 1825
[2020-07-06] MEDS ORDERED: ACETAMINOPHEN 500 MG TAB PO PRN (23:10)
[2020-07-06] MEDS ORDERED: DOCUSATE SODIUM 100 MG CAP PO PRN (23:10)
[2020-07-06] MEDS: oxyCODONE HCL IR 5 MG TAB (IMMEDIATE RELEASE) PO PRN (23:24)
[2020-07-07] MEDS: SODIUM CHLORIDE 0.9% 1000ML 1,000 ML IV SCH ×3 (01:02→21:49)
[2020-07-07] MEDS: MoRPHine SULFATE 2 MG/ML CARP IV PRN ×3 (08:55→17:51)
[2020-07-07] MEDS: FLUTICASONE PROPIONATE NA SPR 16 GM BTL SCH (08:58)
--- NOTE | 2020-07-07 09:09 | Hospitalist Progress Note ---
Date of Service July 07, 2020 Assessment & Plan (1) Hydronephrosis: (2) Renal calculi: Present on admission with worsening right flank pain CT abd/pelvis showed multiple left renal calculi measuring up to 8 mm in diameter. There is a punctate right renal calculi. There is right-sided hyd ronephrosis and right-sided perinephric stranding. There is a 3.5 mm calculus at the level the right ureterovesical junction Received IV Morphine and flomax in the ER UA positine for blood and leukocytosis Urology consulted - pt is now status post cystoscopy and right ureteral stent placement 07/07/20 w/ Dr. Lockhart Continue pain control with morphine and Oxycontin Continue IVF and flomax Casanova placed, blood-tinged urine noted Transaminitis AST 66 and ALT 79 on admission Will repeat liver enzymes if LFT worsening, will get an u/s of the liver Nknhxie-Znalz-Eansf disease Continue PT/OT Stable Chronic pain: Continue home doses of OxyContin and Cymbalta Will hold PO oxycodone since will add IV morphine PRN DVT prophylaxis: SCDs CODE STATUS FULL CODE Admission and Anticipated Discharge Date Admission Date: July 06, 2020 Subjective Patient is lying in bed, in no acute distress. He is status post urologic procedure. He does complain about his chronic pain and right flank pain. No chest pain or shortness of breath however he is using supplemental oxygen. No abdominal pain nausea or vomiting. Review of Systems Review of Systems: All systems reviewed & are unremarkable except as noted in HPI & below Constitutional: no fever and no chills Respiratory: no cough and no dyspnea Cardiovascular: no chest pain and no palpitations Gastrointestinal: no abdominal pain, no nausea and no vomiting Genitourinary: + flank pain (right) Physical Exam Physical Exam: General- obese male laying in bed, No acute distress Head- atraumatic Eyes- PERRL, EOMI, ENT- oropharynx clear Neck- supple, no JVD Lungs- clear to auscultation b/l Heart- regular rhythm; no murmur Abdomen- normal bowel sounds, soft, nontender, obese Back: + right CVA tenderness Extremities- no calf tenderness MSK: 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 : Casanova catheter placed, blood-tinged urine noted Neuro- alert, oriented x 3; PERRL, EOMI; no facial palsy; no dysarthria Skin- warm & dry Results & Data Results & Data ([facility]) Vital Signs (Past 12 Hours) Vital Signs Temp Pulse Pulse Resp BP Pulse Ox 07/07/20 07:31 36.5 C 89 16 123/84 95 07/06/20 22:45 36.7 C 102 H 20 139/90 92 Medications Administered Current Inpatient Medications Acetaminophen (Acetaminophen 500 Mg Tab) 500 mg PO QID PRN PRN Reason: Pain Stop: 08/05/20 23:09 Docusate Sodium (Docusate Sodium 100 Mg Cap) 100 mg PO BID PRN PRN Reason: Constipation Stop: 08/05/20 23:09 Duloxetine HCl (Duloxetine Hcl 30 Mg Cap) 30 mg PO QAM FLORENCIA Stop: 08/06/20 08:59 Fluticasone Propionate (Fluticasone Propionate Na Spr 16 Gm Btl) 2 sprays NA DAILY FLORENCIA Stop: 08/06/20 08:59 Last Admin: 07/07/20 08:58 Dose: 2 sprays Documented by: Sodium Chloride (Nss 1000ml) 1,000 mls @ 100 mls/hr IV .Q10H FLORENCIA Stop: 08/06/20 00:44 Last Admin: 07/07/20 01:02 Dose: 100 mls/hr Documented by: Miscellaneous (Azelastine (0.1 %) [place]: Order Awaiting Action) 1 ea N/A QS FLORENCIA Stop: 08/06/20 07:59 Last Admin: 07/07/20 08:53 Dose: Not Given Documented by: Montelukast Sodium (Montelukast Sodium 10 Mg Tablet) 10 mg PO PM FLORENCIA Stop: 08/06/20 20:59 Morphine Sulfate (Morphine Sulfate 2 Mg/Ml Carp) 2 mg IV Q3H PRN PRN Reason: Pain Stop: 07/21/20 01:23 Last Admin: 07/07/20 08:55 Dose: 2 mg Documented by: Oxycodone HCl (Oxycodone Hcl Ir 5 Mg Tab (Immediate Release)) 10 mg PO BID PRN PRN Reason: moderate to severe pain Stop: 07/20/20 23:09 Last Admin: 07/06/20 23:24 Dose: 10 mg Documented by: Oxycodone HCl (Oxycodone Hcl 40 Mg Tabcr (Oxycontin)) 80 mg PO BID [facility] Stop: 07/20/20 23:09 Last Admin: 07/07/20 00:17 Dose: 80 mg Documented by: Tamsulosin HCl (Tamsulosin Hcl 0.4 Mg Cap) 0.4 mg PO QAM [facility] Stop: 08/06/20 08:59
[2020-07-07] MEDS ORDERED: MoRPHine SULFATE 2 MG/ML CARP IV STA (09:54)
[2020-07-07 10:17] LABS: Hematocrit (blood only) 47.1 % (42-52); Hemoglobin 15.3 g/dL (14.0-18.0); Mean Corpuscular Hgb Conc 32.5 g/dL (32-36); Mean Corpuscular Volume 86.3 fL (80-100); Mean Platelet Volume 10.6 fL (7.4-10.4); Platelet Count 177 K/uL (130-400); RDW Coefficient of Variation 13.9 % (11.5-14.5); RDW Standard Deviation 43.1 fL (36.4-46.3); Red Blood Count 5.46 M/uL (4.7-6.1); White Blood Count 8.59 K/uL (4.8-10.8)
--- NOTE | 2020-07-07 10:27 | Anesthesiology Consultation ---
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 History Surgery Operation Date: 07/07/20 11:45 Proposed Procedures p Cystoscopy - Ricardo Lockhart DO Height/Weight Height: 5 ft 6 in Weight: 112.264 kg Allergies Allergy/AdvReac Type Severity Reaction Status Date / Time alcohol Allergy Unknown Verified 07/06/20 19:13 amiodarone Allergy Unknown Unknown rxn Verified 07/06/20 19:13 chloramphenicol Allergy Unknown Verified 07/06/20 19:13 cholecalciferol (vitamin D3) Allergy Unknown Verified 07/06/20 19:13 cisplatin Allergy Unknown Verified 07/06/20 19:13 dapsone Allergy Unknown Unknown rxn Verified 07/06/20 19:13 disulfiram Allergy Unknown Unknown rxn Verified 07/06/20 19:13 doxorubicin Allergy Unknown Verified 07/06/20 19:13 glutethimide Allergy Unknown Verified 07/06/20 19:13 Gold Salts Allergy Unknown Verified 07/06/20 19:13 Hydantoins Allergy Unknown Verified 07/06/20 19:13 hydralazine Allergy Unknown Verified 07/06/20 19:13 isoniazid Allergy Unknown Unknown rxn Verified 07/06/20 19:13 metronidazole Allergy Unknown Verified 07/06/20 19:13 nitrofurantoin Allergy Unknown Unknown rxn Verified 07/06/20 19:13 Penicillins Allergy Unknown Verified 07/06/20 19:13 phenytoin Allergy Unknown Verified 07/06/20 19:13 pyridoxine Allergy Unknown Verified 07/06/20 19:13 theophylline Allergy Unknown Unknown rxn Verified 07/06/20 19:13 tretinoin Allergy Unknown Unknown rxn Verified 07/06/20 19:13 vincristine Allergy Unknown Verified 07/06/20 19:13 Medications Home Medications Medication Instructions Recorded Confirmed Last Taken acetaminophen [Tylenol Extra 500 mg PO QID PRN 06/28/19 07/06/20 07/04/20 23:46 Strength] azelastine 1 spray INTRANASAL BID 06/28/19 07/06/20 07/06/20 08:00 docusate sodium 100 mg PO BID PRN 06/28/19 07/06/20 07/06/20 08:00 duloxetine 30 mg PO QAM 06/28/19 07/06/20 07/06/20 08:00 mometasone 1 spray INTRANASAL BID 06/28/19 07/06/20 07/06/20 08:00 montelukast 10 mg PO PM 06/28/19 07/06/20 07/05/20 aspirin [Adult Low Dose Aspirin] 81 mg PO QAM 07/06/20 07/06/20 07/06/20 08:00 cefdinir 300 mg PO BID 07/06/20 07/06/20 07/06/20 08:00 oxycodone 10 mg PO BID PRN 07/06/20 07/06/20 07/06/20 08:00 oxycodone [OxyContin] 80 mg PO BID 07/06/20 07/06/20 Unknown polyethylene glycol 3350 [Miralax] 17 g PO DAILY PRN 07/06/20 07/06/20 Unknown Active Medications Generic Name Dose Route Start Last Admin Trade Name Freq PRN Reason Stop Dose Admin Fluticasone Propionate 2 sprays 07/07/20 09:00 07/07/20 08:58 Fluticasone Propionate Na Spr 16 Gm Btl NA 08/06/20 08:59 2 sprays DAILY FLORENCIA Administration Sodium Chloride 1,000 mls @ 100 mls/hr 07/07/20 00:45 07/07/20 01:02 Nss 1000ml IV 08/06/20 00:44 100 mls/hr .Q10H FLORENCIA Administration Miscellaneous 1 ea 07/07/20 08:00 07/07/20 08:53 Azelastine (0.1 %) Mobile: Order Awaiting Action N/A 08/06/20 07:59 Not Given QS FLORENCIA Morphine Sulfate 2 mg 07/07/20 01:24 07/07/20 08:55 Morphine Sulfate 2 Mg/Ml Carp IV 07/21/20 01:23 2 mg Q3H PRN Administration Pain Oxycodone HCl 10 mg 07/06/20 23:10 07/06/20 23:24 Oxycodone Hcl Ir 5 Mg Tab (Immediate Release) PO 07/20/20 23:09 10 mg BID PRN Administration moderate to severe pain Oxycodone HCl 80 mg 07/06/20 23:10 07/07/20 00:17 Oxycodone Hcl 40 Mg Tabcr (Oxycontin) PO 07/20/20 23:09 80 mg BID FLORENCIA Administration Past Medical History Medical History (Updated 07/07/20 @ 10:27 by Jaskaran Dove DO) Aebwvcs-Xureb-Iogya disease Chronic pain Myalgia and myositis, unspecified Obesity Past Family History Family History Mother Heart disease Past Surgical History Surgical History H/O dilation of urethra H/O wisdom tooth extraction S/P cervical spinal fusion S/P tonsillectomy and adenoidectomy Social History Smoking Status: Never smoker Hx Alcohol Use: No Hx Substance Use: No Physical Exam Vital Signs Last Vital Signs Temp 97.7 F 07/07/20 07:31 Pulse 89 07/07/20 07:31 Resp 16 07/07/20 07:31 BP 123/84 07/07/20 07:31 Pulse Ox 95 07/07/20 07:31 Testing Laboratory Results 07/07/20 10:08 Urine Color Yellow 07/06/20 18:40 Urine Appearance Clear (Clear) 07/06/20 18:40 Urine pH 6.5 (4.5-7.5) 07/06/20 18:40 Ur Specific [place] 1.018 (1.000-1.030) 07/06/20 18:40 Urine Protein 1+ (Negative) H 07/06/20 18:40 Urine Glucose (UA) Negative (Negative) 07/06/20 18:40 Urine Ketones Negative (Negative) 07/06/20 18:40 Urine Nitrite Negative (Negative) 07/06/20 18:40 Ur Leukocyte Esterase Trace (Negative) H 07/06/20 18:40 Urine WBC (Auto) 1-5 /hpf (0-5) 07/06/20 18:40 Urine RBC (Auto) >30 /hpf (0-4) H 07/06/20 18:40 U Hyaline Cast (Auto) 0 /lpf (0-5) 07/06/20 18:40 U Epithel Cells (Auto) 5-10 /lpf (0-5) H 07/06/20 18:40 Urine Bacteria (Auto) Negative (Negative) 07/06/20 18:40
[2020-07-07 10:44] LABS: Albumin Level 2.6 gm/dl (3.4-5.0); Calcium 8.4 mg/dl (8.5-10.1); Creatinine Clr Calc Pharmacy 198.1 ml/min; Est GFR (African American) 141.6; Est GFR (Non-African American) 122.2; Magnesium 1.9 mg/dl (1.8-2.4); Potassium 3.8 mmol/L (3.5-5.1)
[2020-07-07 10:48] LABS: Albumin Globulin Ratio 0.6 (0.9-2); Bilirubin,Total 0.6 mg/dl (0.2-1); Globulin 4.4 gm/dl (2.5-4.0); Phosphorus 3.1 mg/dl (2.5-4.9)
--- NOTE | 2020-07-07 11:14 | Urology Consultation ---
Date of Consultation July 07, 2020 Assessment & Plan (1) Obstructed, uropathy: Pain and discomfort with bother and ill feelings. Has history of stones. Small obstructing distal stone. Risks and benefits discussed at length for procedure. These include bleeding, infection, injury to surrounding tissues or organs, and risks associated with anesthesia. Patient states understanding and agrees to proceed. Will sign consent and schedule. Plan for cystoscopy with right stent placement. (2) Hydronephrosis: (3) Renal calculi: History of Present Illness Attending Physician: Nasir Palomares MD History of Present Illness New consultation for patient with stone, discomfort, obstruction, and ill feelings. Patient developed sudden onset of pain into flank going down and radiating into groin and back in waves comes and goes. Can be severe at times. Had stones in past. Previously needed ureteroscopy. Has large burden on left with obstructing stone on right. Discussed and reviewed patient's family history for any history of stone disease. Also, discussed patient's medical surgery history especially related to any history of urinary issues or stone disease. Family history of Vjxyy-Lfaljfl-Hklyc. Patient was admitted and is undergoing observation. Has passed small amount of blood but has not passed stones. Allergies Allergy/AdvReac Type Severity Reaction Status Date / Time alcohol Allergy Unknown Verified 07/06/20 19:13 amiodarone Allergy Unknown Unknown rxn Verified 07/06/20 19:13 chloramphenicol Allergy Unknown Verified 07/06/20 19:13 cholecalciferol (vitamin D3) Allergy Unknown Verified 07/06/20 19:13 cisplatin Allergy Unknown Verified 07/06/20 19:13 dapsone Allergy Unknown Unknown rxn Verified 07/06/20 19:13 disulfiram Allergy Unknown Unknown rxn Verified 07/06/20 19:13 doxorubicin Allergy Unknown Verified 07/06/20 19:13 glutethimide Allergy Unknown Verified 07/06/20 19:13 Gold Salts Allergy Unknown Verified 07/06/20 19:13 Hydantoins Allergy Unknown Verified 07/06/20 19:13 hydralazine Allergy Unknown Verified 07/06/20 19:13 isoniazid Allergy Unknown Unknown rxn Verified 07/06/20 19:13 metronidazole Allergy Unknown Verified 07/06/20 19:13 nitrofurantoin Allergy Unknown Unknown rxn Verified 07/06/20 19:13 Penicillins Allergy Unknown Verified 07/06/20 19:13 phenytoin Allergy Unknown Verified 07/06/20 19:13 pyridoxine Allergy Unknown Verified 07/06/20 19:13 theophylline Allergy Unknown Unknown rxn Verified 07/06/20 19:13 tretinoin Allergy Unknown Unknown rxn Verified 07/06/20 19:13 vincristine Allergy Unknown Verified 07/06/20 19:13 Home Medications Home Medications Medication Instructions Recorded Confirmed Type acetaminophen [Tylenol Extra 500 mg PO QID PRN 06/28/19 07/06/20 History Strength] azelastine 1 spray INTRANASAL BID 06/28/19 07/06/20 History docusate sodium 100 mg PO BID PRN 06/28/19 07/06/20 History duloxetine 30 mg PO QAM 06/28/19 07/06/20 History mometasone 1 spray INTRANASAL BID 06/28/19 07/06/20 History montelukast 10 mg PO PM 06/28/19 07/06/20 History aspirin [Adult Low Dose Aspirin] 81 mg PO QAM 07/06/20 07/06/20 History cefdinir 300 mg PO BID 07/06/20 07/06/20 History oxycodone 10 mg PO BID PRN 07/06/20 07/06/20 History oxycodone [OxyContin] 80 mg PO BID 07/06/20 07/06/20 History polyethylene glycol 3350 [Miralax] 17 g PO DAILY PRN 07/06/20 07/06/20 History Patient History Medical History Rpadble-Cgjhw-Igrhj disease Chronic pain Myalgia and myositis, unspecified Obesity Surgical History H/O dilation of urethra H/O wisdom tooth extraction S/P cervical spinal fusion S/P tonsillectomy and adenoidectomy Family History Mother Heart disease Social History Smoking Status: Never smoker Hx Alcohol Use: No Hx Substance Use: No Preferred Language: Azeri Communication Ability: Effective Compliance Review Officer Required: No Beliefs That Will Affect Care: None Current Living Situation: Group Home Other Information That Helps Us Care for You: No Feels Safe at Home: Yes Safety Concerns: Feels Safe At This Time Assistive Devices: Glasses, Slide Board and Wheelchair Review of Systems Review of Systems: All systems reviewed & are unremarkable except as noted in HPI & below Physical Exam Physical Exam: General: Alert and oriented x 3 in no acute distress. Patient is well nourished and well kept. HEENT: Normocephalic Atraumatic. Inspection normal. Cranial Nerves 2-12 Grossly intact. Nares are clear. Neck is supple. Normal inspection of face. Normal inspection of neck. Neurologic: No deficits on inspection. Baseline for motor function and sensory. Psychologic: Normal affect. Respiratory: Nonlabored. No use of accessory muscles. No tachypnea or dyspnea. Cardiovascular: No tachycardia Skin: [place] and Dry. No rashes or visible lesions. Extremities: Chronic issues, but Moving without issues. Stable for mobility issues. Atrophy Lymphatics: No edema Abdomen: Obese. No acites. No rebound or guarding. Results & Data ([facility]) Vital Signs (Past 12 Hours) Vital Signs Temp Pulse Resp BP Pulse Ox 07/07/20 07:31 36.5 C 89 16 123/84 95 PG Care Time/CCT Total # of Minutes Spent Total Time Spent with Patient: Total time spent is greater than 50% in coordination of care (as documented) at patient's floor/unit and/or counseling patient: Coding Level of Care Code 38833 Inpt Consult Level 5 Diagnoses Obstructed, uropathy N13.9 Hydronephrosis N13.30 Renal calculi N20.0
[2020-07-07] MEDS ORDERED: MIDAZOLAM HCL 1 MG/ML 2ML VIAL ONE (11:41)
[2020-07-07] MEDS ORDERED: PROPOFOL IV EMULSION 10 MG/ML 20 ML VIAL IV ONE (11:41)
[2020-07-07] MEDS ORDERED: LIDOCAINE HCL 2% 2 ML VIAL/AMP(20MG/ML) INFIL ONE (11:41)
[2020-07-07] MEDS ORDERED: fentaNYL citrate 100 MCG/2 ML VIAL ONE (11:41)
[2020-07-07] MEDS ORDERED: ePHEDrine sulfate 50 MG/ML AMP IV PRN (11:53)
[2020-07-07] MEDS ORDERED: ATROPINE SULFATE 0.1 MG/ML 10ML SYR IV PRN (11:53)
[2020-07-07] MEDS ORDERED: ONDANSETRON INJ 2 MG/ML 2 ML VIAL IV PRN (11:53)
[2020-07-07] MEDS ORDERED: fentaNYL citrate 100 MCG/2 ML VIAL IV PRN (11:53)
[2020-07-07] MEDS ORDERED: ceFAZolin 2,000 MG/15 ML IV PUSH IV ONE (12:01)
--- NOTE | 2020-07-07 12:39 | Operative Report ---
PG Post Operative Report Pre & Post Diagnosis Obstructing Right Stone Same Operation Date: 07/07/20 11:45 <No data on this case meets the specified criteria> I identified the patient and participated in the time-out.: Yes Procedure Cystoscopy with right retrograde pyelogram and stent placement. Operation Date: 07/07/20 11:45 <No data on this case meets the specified criteria> Surgeon Ricardo Lockhart, II, DO Warehouse Clerk None Estimated Blood Loss 1 Findings Consistent with Post-Op Diagnosis Stent placed in good position. Specimens None Drains 6 Fr Multilength 20 Fr Coude Anesthesia Type MAC Complications none Disposition Disposition: Recovery Room Indications Patient with obstruction. Risks and benefits discussed at length. Description of Procedure Patient was consented and brought back to the operating room. Patient was placed under anesthesia in the supine position and moved to the dorsal lithotomy position. Patient was prepped and draped in the regular sterile fashion. A time out was completed. A 30degree Cystoscope was placed into the bladder and the entire bladder was examined. The UO's were identified. The UO was cannulized with a catheter and a retrograde pyelogram was completed. A wire was then placed. With the wire in place, a 6 Fr Double J stent was placed. It was confirmed with fluoroscopy. With the stent in place, the bladder was emptied. It was partially filled. The scope was removed. A 20 Fr Casanova was placed. The patient was cleaned, aroused from anesthesia, and transferred to the pacu in stable condition having tolerated the procedure well with no complications. I was present and participated in all aspects of the procedure. The patient will be monitored in the PACU until transferred. I attest to the content of the Intraoperative Record and any orders documented therein. Any exceptions are noted below.
[2020-07-07] MEDS ORDERED: DIATRIZOATE MEGLUMINE 30% 100ML VIAL INSTIL ONE (12:42)
--- NOTE | 2020-07-07 13:09 | Anesthesiology Progress Note ---
Date of Service July 07, 2020 Anesthesia Post Procedure Vital Signs Vital Signs: Temp Pulse Pulse Pulse Resp BP BP 07/07/20 12:49 97.9 F 98 H 16 151/81 H 07/07/20 07:31 97.7 F 89 16 123/84 07/06/20 22:45 98.1 F 102 H 20 139/90 07/06/20 21:00 104 H 32 H 164/95 H 07/06/20 20:39 105 H 20 150/120 H 07/06/20 19:00 111 H 17 169/95 H 07/06/20 18:33 108 H 17 194/84 H 07/06/20 18:14 108 H 17 205/128 H 07/06/20 17:44 206/138 H 07/06/20 17:27 98.2 F 112 H 24 179/125 H 07/06/20 17:10 113 H 17 179/125 H Pulse Ox 07/07/20 12:49 97 07/07/20 07:31 95 07/06/20 22:45 92 07/06/20 21:00 95 07/06/20 20:39 94 07/06/20 19:00 91 07/06/20 18:33 99 07/06/20 18:14 96 07/06/20 17:44 95 07/06/20 17:27 90 07/06/20 17:10 88 L Pain Intensity Right Lower Back: Pain Intensity: 5 Transfer of Care Handoff Completed per policy Notes Mental Status: alert / awake / arousable and participated in evaluation Patient Amnestic to Procedure: Yes Nausea / Vomiting: adequately controlled Pain: adequately controlled Airway Patency, RR, SpO2: stable & adequate BP & HR: stable & adequate Hydration State: stable & adequate Anesthetic Complications: no major complications apparent and Pt Satisfied with anesthetic care
--- NOTE | 2020-07-07 13:16 | Fluoroscopy Report ---
FL retrograde includes kub CLINICAL HISTORY: CYSTO RT STENT COMPARISON STUDY: CT of the abdomen and pelvis July 06, 2020. FLUOROSCOPY TIME: 33 seconds. FLUOROSCOPIC IMAGES: 3 FINDINGS: Fluoroscopy was provided during right retrograde exam with ureteral stent insertion. IMPRESSION: Fluoroscopy provided for right retrograde exam with ureteral stent insertion. ACT 112: Negative or not required by law. Electronically signed by: Gaurang Anguiano M.D. 07/07/2020 1:15 PM
[2020-07-07] MEDS: DULoxetine HCL 30 MG CAP PO SCH (17:06)
[2020-07-07] MEDS: TAMSULOSIN HCL 0.4 MG CAP PO SCH (17:06)
[2020-07-07] MEDS: oxyCODONE HCL IR 5 MG TAB (IMMEDIATE RELEASE) PO PRN ×2 (17:52→20:59)
[2020-07-07] MEDS ORDERED: POLYETHYLENE (MIRALAX) 17 GM PACK PO PRN (19:47)
[2020-07-07] MEDS: MONTELUKAST SODIUM 10 MG TABLET PO SCH (20:57)
[2020-07-07] MEDS ORDERED: Nursing to Pharmacy Communication SCH (21:45)
[2020-07-07] MEDS: OXYBUTYNIN CHLORIDE 5 MG TAB PO SCH (22:45)
[2020-07-08] MEDS: OXYBUTYNIN CHLORIDE 5 MG TAB PO SCH ×3 (05:35→20:44)
[2020-07-08] MEDS: MoRPHine SULFATE 2 MG/ML CARP IV PRN (07:06)
[2020-07-08] MEDS: SODIUM CHLORIDE 0.9% 1000ML 1,000 ML IV SCH ×2 (07:08→17:32)
[2020-07-08] MEDS: FLUTICASONE PROPIONATE NA SPR 16 GM BTL SCH (09:12)
[2020-07-08] MEDS: DULoxetine HCL 30 MG CAP PO SCH (09:12)
[2020-07-08] MEDS: TAMSULOSIN HCL 0.4 MG CAP PO SCH (09:12)
--- NOTE | 2020-07-08 09:26 | Urology Progress Note ---
Date of Service July 08, 2020 Assessment & Plan (1) Ureterolithiasis: (2) Hydronephrosis: 54 year-old male patient, with multiple comorbidities, admitted with intractable right flank pain secondary to obstructing 3.5 mm right UVJ calculus. -POD #1 cystoscopy, right retrograde pyelogram, and right stent placement. -Plan of care reviewed with Dr. Lockhart. -Patient with clinical improvement post procedure. -Max temperature overnight 37.6 C. Temperature this morning normal. -Urine culture pending. -Recommend maintaining bill catheter for 3-5 days. -Recommend home with at least 7 days antibiotic therapy, Tamsulosin, and pain control. -Expected clinical course reviewed with patient, all questions answered. -Will arrange outpatient follow-up with urology service for voiding trial and to discuss stone management. -Okay for discharge from perspective once medically stable. Thank you for allowing us to participate in the acute care of Mr. Loza. Please reconsult us with additional questions, concerns or changes in patient status. Admission and Anticipated Discharge Date Admission Date: July 06, 2020 Subjective POD #1 cystoscopy with right retrograde pyelogram and right stent placement. Patient clinically feeling better today post procedure. Reports his pain has improved, no longer having severe flank pain. Does report some intermittent discomfort to bladder area. Tolerating bill catheter. Denies nausea or vomiting. Denies fevers or chills. He is wheelchair bound at baseline. Chart review: Max temperature overnight 37.6 C. Most recent temperature 36.9 C. Urine culture pending. Denies additional urologic concerns today. Review of Systems Constitutional: as per Subjective / HPI; no fever and no chills Gastrointestinal: as per Subjective / HPI; no nausea and no vomiting Genitourinary: + as per Subjective / HPI Physical Exam Constitutional: well developed and well nourished; no acute distress and not ill appearing Respiratory: normal respiratory effort and able to speak in complete sentences; no respiratory distress and no audible wheezes Gastrointestinal (Abdomen): Inspection/Auscultation: abdomen normal to inspection Percussion/Palpation: abdomen soft; abdomen nontender and no guarding Obese abdomen Psychiatric: Orientation: alert, oriented x 3 and cooperative Affect: euthymic affect Genitourinary: no CVA tenderness Bill catheter intact draining kirsten colored urine with some sediment. Results & Data ([facility]) Vital Signs (Past 12 Hours) Vital Signs Temp Pulse Resp BP Pulse Ox 07/08/20 07:13 36.9 C 100 H 18 126/80 92 07/08/20 04:11 37.6 C H 106 H 16 142/82 H 95 07/08/20 00:45 37.4 C 112 H 16 146/88 H 94 PG Care Time/CCT Total # of Minutes Spent Total Time Spent with Patient: Total time spent is greater than 50% in coordination of care (as documented) at patient's floor/unit and/or counseling patient: Coding Level of Care Code 55840 Subseq Hosp Care Lvl 2 Diagnoses Ureterolithiasis N20.1 Hydronephrosis N13.30
--- NOTE | 2020-07-08 09:34 | Hospitalist Progress Note ---
Date of Service July 08, 2020 Assessment & Plan (1) Hydronephrosis: (2) Renal calculi: Present on admission with worsening right flank pain CT abd/pelvis showed multiple left renal calculi measuring up to 8 mm in diameter. There is a punctate right renal calculi. There is right-sided hyd ronephrosis and right-sided perinephric stranding. There is a 3.5 mm calculus at the level the right ureterovesical junction Received IV Morphine and flomax in the ER UA positine for blood and leukocytosis Urology consulted - pt is now status post cystoscopy and right ureteral stent placement 07/07/20 w/ Dr. Lockhart Continued pain control with morphine and Oxycontin Patient is on OxyContin 80 mg twice daily, this is chronic medication for him, for several years now He is also taking oxycodone, 10 mg every 4 hours as needed Had discussion with patient's sister, who is a physician, who was able to provide more medical history about the patient, reassured that patient will be discharged on his chronic pain regimen It was noted that accidentally oxycodone 10 mg twice daily as needed was reported in our chart as home medication, this will be corrected For the procedure, patient was also ordered IV morphine as needed, received fentanyl during procedure as well as propofol and Versed Continue IVF and flomax Casanova placed, blood-tinged urine noted, hemoglobin stable Urology recommends to keep Casanova for next 3 to 5 days, and plan for voiding trial as outpatient they will be arranging the follow-up appointment They also recommend to continue antibiotic for about 7 days, and tamsulosin, Ditropan 5 mg every 8 hours also ordered Urine culture negative however patient had some elevated temperature overnight Hypoxia Patient does not use supplemental oxygen at [facility] He was admitted with supplemental oxygen 2 L/min This a.m., tried to wean off oxygen, was satting 90-91% on room air, however after his pain medications were provided patient desaturated per nursing staff, and had to be placed back on 2 L Due to patient's body habitus, and inability to move much, he is in the high risk of obstructive sleep apnea, obesity hypoventilation syndrome, /restrictive lung disease, this was discussed with his sister who is a physician and knows his medical history well. She reports that they have been in a progress of evaluating the patient however due to different obstacles, home YANETH study was planned but not yet performed. She also reports some diaphragm malfunction due to patient's underlying disease -CMT At this point patient would be discharged to [facility] with supplemental oxygen Per patient, they check his pulse ox about 3 times a day Recommend to continue close monitoring at [facility] Transaminitis AST 66 and ALT 79 on admission Will repeat liver enzymes ALT 73, normalized, AST mildly elevated at 50 (decreased from previous), alk phos normal at 101, bilirubin normal, 0.6 Recommend follow-up LFTs to make sure AST is also normalized, within a week Further evaluation if any right upper quadrant tenderness, currently no right upper quadrant abd. pain noted Yorwjfs-Pshyr-Hdcvd disease Continue PT/OT Stable Chronic pain: Continue home doses of OxyContin and Cymbalta Will hold PO oxycodone since will add IV morphine PRN - on admission Patient is on OxyContin 80 mg twice daily, this is chronic medication for him, for several years now He is also taking oxycodone, 10 mg every 4 hours as needed Had discussion with patient's sister, who is a physician, who was able to p rovide more medical history about the patient, reassured that patient will be discharged on his chronic pain regimen It was noted that accidentally oxycodone 10 mg twice daily as needed was reported in our chart as home medication, this will be corrected DVT prophylaxis: SCDs CODE STATUS FULL CODE Admission and Anticipated Discharge Date Admission Date: July 06, 2020 Subjective Patient is lying in bed, in no acute distress, however complains of occasional spasms which are distressing to him. No fevers, chills, chest pain, shortness of breath. Casanova placed by urology after procedure, blood-tinged urine, hemoglobin stable. Seen by urology today, recommendations provided. Family, (sisters Katerina and Juliann) contacted and updated. Sister Katerina is a physician, her phone number: [phone], she is to be contacted with any medical questions or concerns at any time needed. At this point Sister Juliann is listed as primary contact in our system. Will have Katerina's phone number entered to our system as well. Review of Systems Review of Systems: All systems reviewed & are unremarkable except as noted in HPI & below Constitutional: no fever and no chills Respiratory: no cough and no dyspnea Cardiovascular: no chest pain and no palpitations Gastrointestinal: no abdominal pain Genitourinary: + flank pain (right) and + problem reported (bladder spasms) Physical Exam Physical Exam: General- obese male laying in bed, No acute distress Head- atraumatic Eyes- PERRL, EOMI, ENT- oropharynx clear Neck- supple, no JVD Lungs- clear to auscultation b/l Heart- regular rhythm; no murmur Abdomen- normal bowel sounds, soft, nontender, obese Back: + right CVA tenderness Extremities- no calf tenderness MSK: 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 : Casanova catheter placed, blood-tinged urine noted Neuro- alert, oriented x 3; PERRL, EOMI; no facial palsy; no dysarthria Skin- warm & dry Results & Data Results & Data ([facility]) Vital Signs (Past 12 Hours) Vital Signs Temp Pulse Resp BP Pulse Ox 07/08/20 09:27 93 07/08/20 07:13 36.9 C 100 H 18 126/80 92 07/08/20 04:11 37.6 C H 106 H 16 142/82 H 95 07/08/20 00:45 37.4 C 112 H 16 146/88 H 94 Laboratory Results 07/07/20 07/07/20 07/07/20 Range/Units 10:08 10:08 07:15 WBC 8.59 (4.8-10.8) K/uL RBC 5.46 (4.7-6.1) M/uL Hgb 15.3 (14.0-18.0) g/dL Hct 47.1 (42-52) % MCV 86.3 (80-100) fL MCH 28.0 (25-34) pg MCHC 32.5 (32-36) g/dL RDW Std Deviation 43.1 (36.4-46.3) fL RDW Coeff of Pearl 13.9 (11.5-14.5) % Plt Count 177 (130-400) K/uL MPV 10.6 H (7.4-10.4) fL Sodium 139 (136-145) mmol/L Potassium 3.8 (3.5-5.1) mmol/L Chloride 102 (98-107) mmol/L Carbon Dioxide 34 H (21-32) mmol/L Anion Gap 3.0 (3-11) BUN 13 (7-18) mg/dl Creatinine 0.49 L (0.6-1.4) mg/dl Est Cr Clr Drug Dosing 198.1 ml/min Est GFR ( Amer) 141.6 Est GFR (Non-Af Amer) 122.2 BUN/Creatinine Ratio 26.0 H (10-20) Glucose 119 H (70-99) mg/dl Calcium 8.4 L (8.5-10.1) mg/dl Phosphorus 3.1 (2.5-4.9) mg/dl Magnesium 1.9 (1.8-2.4) mg/dl Total Bilirubin 0.6 (0.2-1) mg/dl AST 50 H (15-37) U/L ALT 73 (12-78) U/L Alkaline Phosphatase 101 (45-117) U/L Total Protein 7.0 (6.4-8.2) gm/dl Albumin 2.6 L (3.4-5.0) gm/dl Globulin 4.4 H (2.5-4.0) gm/dl Albumin/Globulin Ratio 0.6 L (0.9-2) Nasal Screen MRSA (PCR) Negative (Negative)
[2020-07-08] MEDS: oxyCODONE HCL IR 5 MG TAB (IMMEDIATE RELEASE) PO PRN ×2 (10:19→16:28)
[2020-07-08] MEDS ORDERED: cefTRIAXone SODIUM 1,000 MG in DEXTROSE 5% 50 ML IV SCH (11:00)
--- NOTE | 2020-07-08 11:14 | XRay Report ---
KUB HISTORY: Follow up study in a patient with kidney stones kidney/ureteral stones COMPARISON: CT abdomen and pelvis 07/06/2020 FINDINGS: Study is limited secondary to body habitus. The bowel gas pattern is non-obstructive. Moder ate to extensive fecal retention. There is no organomegaly. Renal shadows are mostly obscured by bow el gas. The patient's known bilateral nephrolithiasis are better seen on comparison CT. A catheter pr ojects over the midline lower pelvis. A right ureteral stent is in place. The previously noted distal right ureteral calculus is not definitively seen. No pneumoperitoneum or pneumatosis. No fracture. IMPRESSION: 1. Limited exam secondary to patient body habitus and moderate to extensive fecal retention. 2. Right ureteral stent in place. No definite ureteral calculi identified. 3. The patient's known bilateral nephrolithiasis are better seen on comparison CT. ACT 112: Negative or not required by law. The above report was generated using voice recognition software. It may contain grammatical, syntax o r spelling errors. Electronically signed by: Karthik Swift M.D. 07/08/2020 11:12 AM
[2020-07-08] MEDS: cefTRIAXone SODIUM 2,000 MG in DEXTROSE 5% 50 ML IV SCH (11:45)
[2020-07-08] MEDS ORDERED: IBUPROFEN 200 MG TAB PO PRN (14:56)
[2020-07-08] MEDS ORDERED: oxyCODONE HCL IR 5 MG TAB (IMMEDIATE RELEASE) PO PRN (15:08)
[2020-07-08] MEDS ORDERED: ONDANSETRON INJ 2 MG/ML 2 ML VIAL IV PRN (15:57)
[2020-07-08] MEDS: LIDOCAINE 5% 1 PATCH TD SCH (16:08)
[2020-07-08] MEDS: MONTELUKAST SODIUM 10 MG TABLET PO SCH (20:43)
[2020-07-09] MEDS: SODIUM CHLORIDE 0.9% 1000ML 1,000 ML IV SCH ×2 (01:52→12:36)
[2020-07-09] MEDS: OXYBUTYNIN CHLORIDE 5 MG TAB PO SCH ×2 (05:46→13:11)
[2020-07-09] MEDS: DULoxetine HCL 30 MG CAP PO SCH (08:37)
[2020-07-09] MEDS: FLUTICASONE PROPIONATE NA SPR 16 GM BTL SCH (08:37)
[2020-07-09] MEDS: LIDOCAINE 5% 1 PATCH TD SCH (08:38)
[2020-07-09] MEDS: TAMSULOSIN HCL 0.4 MG CAP PO SCH (08:38)
[2020-07-09 09:10] LABS: Hematocrit (blood only) 42.8 % (42-52); Hemoglobin 14.1 g/dL (14.0-18.0); Mean Corpuscular Hemoglobin 28.2 pg (25-34); Mean Corpuscular Hgb Conc 32.9 g/dL (32-36); Mean Corpuscular Volume 85.6 fL (80-100); Mean Platelet Volume 10.2 fL (7.4-10.4); Platelet Count 217 K/uL (130-400); RDW Coefficient of Variation 13.6 % (11.5-14.5); RDW Standard Deviation 42.4 fL (36.4-46.3); White Blood Count 8.11 K/uL (4.8-10.8)
[2020-07-09 09:51] LABS: BUN Creatinine Ratio 23.7 (10-20); Blood Urea Nitrogen 8 mg/dl (7-18); Calcium 8.3 mg/dl (8.5-10.1); Carbon Dioxide 33 mmol/L (21-32); Chloride 104 mmol/L (98-107); Creatinine Clr Calc Pharmacy 303.3 ml/min; Est GFR (African American) > 150.0; Est GFR (Non-African American) 145.5; Glucose 127 mg/dl (70-99); Potassium 3.3 mmol/L (3.5-5.1); Sodium 140 mmol/L (136-145)
--- NOTE | 2020-07-09 09:54 | Hospitalist Progress Note ---
Date of Service July 09, 2020 Assessment & Plan (1) Hydronephrosis: (2) Renal calculi: Present on admission with worsening right flank pain CT abd/pelvis showed multiple left renal calculi measuring up to 8 mm in diameter. There is a punctate right renal calculi. There is right-sided hy dronephrosis and right-sided perinephric stranding. There is a 3.5 mm calculus at the level the right ureterovesical junction Received IV Morphine and flomax in the ER UA positine for blood and leukocytosis Urology consulted - pt is now status post cystoscopy and right ureteral stent placement 07/07/20 w/ Dr. Lockhart Continued pain control with morphine and Oxycontin after procedure Patient is on OxyContin 80 mg twice daily, this is chronic medication for him, for several years now He is also taking oxycodone, 10 mg every 4 hours as needed Had discussion with patient's sister, who is a physician, who was able to provide more medical history about the patient, reassured her that patient will be discharged on his chronic pain regimen It was noted that accidentally oxycodone 10 mg twice daily as needed was reported in our chart as home medication, this was corrected For the procedure, patient was also ordered IV morphine as needed, received fentanyl during procedure as well as propofol and Versed Continued IVF and flomax while inpt Casanova placed, blood-tinged urine noted, hemoglobin stable Urology recommends to keep Casanova for next 3 to 5 days, and plan for voiding trial as outpatient they will be arranging the follow-up appointment They also recommend to continue antibiotic for about 7 days, and tamsulosin, Ditropan 5 mg every 8 hours also ordered Urine culture negative however patient had some elevated temperature overnight after procedure Hypoxia Patient does not use supplemental oxygen at [facility] He was admitted with supplemental oxygen 2 L/min Yesterday a.m. (07/08), tried to wean off oxygen, was satting 90-91% on room air, however after his pain medications were provided patient desaturated per nursing staff, and had to be placed back on 2 L Today, July 09, again try to wean off oxygen, he was satting 95% on 2 L, however patient desaturated to high 70- low 80s on room air Due to patient's body habitus, and inability to move much, he is in the high risk of obstructive sleep apnea, obesity hypoventilation syndrome, /restrictive lung disease, pulmonary HTN, this was discussed with pt' sister and [id number] who are also physicians and know pt's medical history well. They have been in a progress of evaluating the patient however due to different obstacles, home YANETH study was planned but not yet performed. Also reported some diaphragm malfunction due to patient's underlying disease -CMT At this point patient would be discharged to [facility] with supplemental oxygen Per patient, they check his pulse ox about 3 times a day Recommend to continue close monitoring at [facility] As discussed above, recommend further evaluation, such as sleep study for YANETH, possible echocardiogram, at the discretion of primary care physician/pulmonary physician Transaminitis AST 66 and ALT 79 on admission Will repeat liver enzymes ALT 73, normalized, AST mildly elevated at 50 (decreased from previous), alk phos normal at 101, bilirubin normal, 0.6 Recommend follow-up LFTs to make sure AST is also normalized, within a week Further evaluation if any right upper quadrant tenderness, currently no right upper quadrant abd. pain noted Azbqrzg-Xjkgf-Hhyxq disease Continue PT/OT Stable Chronic pain: Continue home doses of OxyContin and Cymbalta Will hold PO oxycodone since will add IV morphine PRN - on admission Patient is on OxyContin 80 mg twice daily, this is chronic medication for him, for several years now He is also taking oxycodone, 10 mg every 4 hours as needed Had discussion with patient's sister, who is a physician, who was able to provide more medical history about the patient, reassured that patient will be discharged on his chronic pain regimen It was noted that accidentally oxycodone 10 mg twice daily as needed was reported in our chart as home medication, this was corrected DVT prophylaxis: SCDs CODE STATUS FULL CODE Admission and Anticipated Discharge Date Admission Date: July 06, 2020 Subjective Patient is lying in bed, in no acute distress, yesterday he was complaining of bladder spasms, that has much improved now. Patient is comfortable, in no acute pain. No fevers, chills, chest pain, shortness of breath. However he does require 2 L/min, of supplemental oxygen. Discussed discharge with Dr. Lockhart, urology, and patient's [id number] who is also a physician. Review of Systems Review of Systems: All systems reviewed & are unremarkable except as noted in HPI & below Constitutional: no fever and no chills Respiratory: no cough and no dyspnea Cardiovascular: no chest pain and no palpitations Gastrointestinal: no abdominal pain and no vomiting Physical Exam Physical Exam: General- obese male laying in bed, No acute distress Head- atraumatic Eyes- PERRL, EOMI, ENT- oropharynx clear Neck- supple, no JVD Lungs- clear to auscultation b/l Heart- regular rhythm; no murmur Abdomen- normal bowel sounds, soft, nontender, obese Back: + mild right CVA tenderness (much improved) Extremities- no calf tenderness MSK: 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3) fL RDW Coeff of Pearl 13.6 (11.5-14.5) % Plt Count 217 (130-400) K/uL MPV 10.2 (7.4-10.4) fL Sodium 140 (136-145) mmol/L Potassium 3.3 L (3.5-5.1) mmol/L Chloride 104 (98-107) mmol/L Carbon Dioxide 33 H (21-32) mmol/L Anion Gap 3.0 (3-11) BUN 8 D (7-18) mg/dl Creatinine 0.32 L (0.6-1.4) mg/dl Est Cr Clr Drug Dosing 303.3 ml/min Est GFR ( Amer) > 150.0 Est GFR (Non-Af Amer) 145.5 BUN/Creatinine Ratio 23.7 H (10-20) Glucose 127 H (70-99) mg/dl Calcium 8.3 L (8.5-10.1) mg/dl
[2020-07-09] MEDS ORDERED: oxyCODONE HCL IR 5 MG TAB (IMMEDIATE RELEASE) PO PRN (09:56)
[2020-07-09] MEDS ORDERED: POTASSIUM CHLORIDE CRTAB 20 MEQ TABCR PO ONE (10:15)
[2020-07-09] MEDS: cefTRIAXone SODIUM 2,000 MG in DEXTROSE 5% 50 ML IV SCH (10:46)
--- NOTE | 2020-07-09 11:57 | Electrocardiogram Report ---
Test Reason : Blood Pressure : / mmHG Vent. Rate : 097 BPM Atrial Rate : 097 BPM P-R Int : 166 ms QRS Dur : 100 ms QT Int : 340 ms P-R-T Axes : 060 047 -15 degrees QTc Int : 431 ms Poor data quality, interpretation may be adversely affected Normal sinus rhythm Nonspecific ST and T wave abnormality Abnormal ECG When compared with ECG of 08-OCT-2015 07:13, Nonspecific T wave abnormality now evident in Lateral leads Confirmed by Ravinder Luna ([id number]) on 07/09/2020 11:56:38 AM Referred By: Panchito culp [facility] Confirmed By:Ravinder Luna
--- NOTE | 2020-07-09 13:36 | Discharge Summary ---
Date of Service July 09, 2020 Admission HPI Per Admitting Provider 54-year-old male with PMH of Gykaqfo-Autck-Yojvt disease, obesity, kidney stones presenting with right-sided flank pain. Pt said that about 2 days ago he started to have pain in his right lower back that radiated to his right lower side of his abdomen. He said that the pain was constant, sharp and grade 7/10. He said that he had one episode of hematuria about 2 days ago during straight cath. He said that today his pain worsening. he said that he does have chronic back pain. He said that he was concerned about acute appendicitis due to his abdominal pain. Pt said that he had kidney stone in the past where he had to require procedure and stent placement. Pt said that pain improves after received IV morphine in the ER . He recently completed 3 days course of cefdinir for possible UTI (But no growth in urine cx). He denies any associated fever, chills, vomiting, chest pain, shortness of breath, cough or cold symptoms or urinary symptoms. He said that someone was testing positive in his floor at [facility]. He denies any symptoms of covid 19. Covid 19 testing in the ER was negative. CT done in the ER showed multiple left renal calculi measuring up to 8 mm in diameter. There is a punctate right renal calculi. There is right- sided hydronephrosis and right-sided perinephric stranding. There is a 3.5 mm calculus at the level the right ureterovesical junction. Admission Exam Per Admitting Provider General- No acute distress Head- atraumatic Eyes- PERRL, EOMI, ENT- oropharynx clear Neck- supple, no JVD Lungs- clear to auscultation Heart- regular rhythm; no murmur Abdomen- normal bowel sounds, soft, nontender Extremities- no calf tenderness Neuro- alert, oriented x 3; PERRL, EOMI; no facial palsy; no dysarthria Skin- warm & dry Principal Diagnosis Right flank pain, hydronephrosis, secondary to ureterolithiasis Obstructing 3.5 mm right UVJ calculus now status post cystoscopy and right ureteral stent placement Hypoxia, need for supplemental oxygen, 2 L/min Chronic pain Zuvocsw-Wzjqg-Ftgik disease Discharge Exam General- obese male laying in bed, No acute distress Head- atraumatic Eyes- PERRL, EOMI, ENT- oropharynx clear Neck- supple, no JVD Lungs- clear to auscultation b/l Heart- regular rhythm; no murmur Abdomen- normal bowel sounds, soft, nontender, obese Back: + mild right CVA tenderness (much improved) Extremities- no calf tenderness MSK: 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 : Casanova catheter placed, blood-tinged urine noted Neuro- alert, oriented x 3; PERRL, EOMI; no facial palsy; no dysarthria Skin- warm & dry Discharge Data Allergies Allergy/AdvReac Type Severity Reaction Status Date / Time alcohol Allergy Unknown Verified 07/06/20 19:13 amiodarone Allergy Unknown Unknown rxn Verified 07/06/20 19:13 chloramphenicol Allergy Unknown Verified 07/06/20 19:13 cholecalciferol (vitamin D3) Allergy Unknown Verified 07/06/20 19:13 cisplatin Allergy Unknown Verified 07/06/20 19:13 dapsone Allergy Unknown Unknown rxn Verified 07/06/20 19:13 disulfiram Allergy Unknown Unknown rxn Verified 07/06/20 19:13 doxorubicin Allergy Unknown Verified 07/06/20 19:13 glutethimide Allergy Unknown Verified 07/06/20 19:13 Gold Salts Allergy Unknown Verified 07/06/20 19:13 Hydantoins Allergy Unknown Verified 07/06/20 19:13 hydralazine Allergy Unknown Verified 07/06/20 19:13 isoniazid Allergy Unknown Unknown rxn Verified 07/06/20 19:13 metronidazole Allergy Unknown Verified 07/06/20 19:13 nitrofurantoin Allergy Unknown Unknown rxn Verified 07/06/20 19:13 Penicillins Allergy Unknown Verified 07/06/20 19:13 phenytoin Allergy Unknown Verified 07/06/20 19:13 pyridoxine Allergy Unknown Verified 07/06/20 19:13 theophylline Allergy Unknown Unknown rxn Verified 07/06/20 19:13 tretinoin Allergy Unknown Unknown rxn Verified 07/06/20 19:13 vincristine Allergy Unknown Verified 07/06/20 19:13 Consultations 07/06/20 20:07 ED Decision to Admit Stat 07/06/20 23:10 Consult Urology Routine Procedures Performed Operation Date: 07/07/20 11:45 Actual Procedures p Cystoscopy, Right Ureteral Stent Placement(Right) - Ricardo Lockhart, DO Ordered Studies 07/06/20 16:59 CT abd pelvis wo con Stat IMPRESSION: 1. Bilateral nephrolithiasis 2. 3.5 mm obstructing calculus at the level of the right ureterovesical junction 3. No evidence of bowel obstruction. No evidence of free air 4. Severe hepatic steatosis and mild splenomegaly CT lumbar spine wo con Stat IMPRESSION: 1. No acute fractures or traumatic subluxations identified 2. Multilevel degenerative changes with multilevel spinal stenosis 3. Severe hepatic steatosis 4. Bilateral nephrolithiasis. 5. Right-sided hydronephrosis. 07/07/20 [place] retrograde includes kub Routine Hospital Course (1) Hydronephrosis: (2) Renal calculi: Present on admission with worsening right flank pain CT abd/pelvis showed multiple left renal calculi measuring up to 8 mm in diameter. There is a punctate right renal calculi. There is right-sided hydronephrosis and right-sided perinephric stranding. There is a 3.5 mm calculus at the level the right ureterovesical junction Received IV Morphine and flomax in the ER UA positine for blood and leukocytosis Urology consulted - pt is now status post cystoscopy and right ureteral stent placement 07/07/20 w/ Dr. Lockhart Continued pain control with morphine and Oxycontin after procedure Patient is on OxyContin 80 mg twice daily, this is chronic medication for him, for several years now He is also taking oxycodone, 10 mg every 4 hours as needed Had discussion with patient's sister, who is a physician, who was able to provide more medical history about the patient, reassured her that patient will be discharged on his chronic pain regimen It was noted that accidentally oxycodone 10 mg twice daily as needed was reported in our chart as home medication, this was corrected For the procedure, patient was also ordered IV morphine as needed, received fentanyl during procedure as well as propofol and Versed Continued IVF and flomax while inpt Casanova placed, blood-tinged urine noted, hemoglobin stable Urology recommends to keep Casanova for next 3 to 5 days, and plan for voiding trial as outpatient they will be arranging the follow-up appointment They also recommend to continue antibiotic for about 7 days, and tamsulosin, Ditropan 5 mg every 8 hours also ordered Urine culture negative however patient had some elevated temperature overnight after procedure Hypoxia Patient does not use supplemental oxygen at [facility] He was admitted with supplemental oxygen 2 L/min Yesterday a.m. (07/08), tried to wean off oxygen, was satting 90-91% on room air, however after his pain medications were provided patient desaturated per nursing staff, and had to be placed back on 2 L Today, July 09, again try to wean off oxygen, he was satting 95% on 2 L, however patient desaturated to high 70- low 80s on room air, per nursing staff Due to patient's body habitus, and inability to move much, he is in the high risk of obstructive sleep apnea, obesity hypoventilation syndrome, /restrictive lung disease, pulmonary HTN, this was discussed with pt' sister and [id number] who are also physicians and know pt's medical history well. They have been in a progress of evaluating the patient however due to different obstacles, home YANETH study was planned but not yet performed. Also reported some diaphragm malfunction due to patient's underlying disease -CMT At this point patient would be discharged to [facility] with supplemental oxygen Per patient, they check his pulse ox about 3 times a day Recommend to continue close monitoring at [facility] As discussed above, recommend further evaluation, such as sleep study for YANETH, possible echocardiogram, at the discretion of primary care physician/pulmonary physician Transaminitis AST 66 and ALT 79 on admission Will repeat liver enzymes ALT 73, normalized, AST mildly elevated at 50 (decreased from previous), alk phos normal at 101, bilirubin normal, 0.6 Recommend follow-up LFTs to make sure AST is also normalized, within a week Further evaluation if any right upper quadrant tenderness, currently no right upper quadrant abd. pain noted Hwztnwi-Lieye-Rbeup disease Continue PT/OT Stable Chronic pain: Continue home doses of OxyContin and Cymbalta Will hold PO oxycodone since will add IV morphine PRN - on admission Patient is on OxyContin 80 mg twice daily, this is chronic medication for him, for several years now He is also taking oxycodone, 10 mg every 4 hours as needed Had discussion with patient's sister, who is a physician, who was able to provide more medical history about the patient, reassured her that patient will be discharged on his chronic pain regimen It was noted that accidentally oxycodone 10 mg twice daily as needed was reported in our chart as home medication, this was corrected Total Time Total Time Spent Total Time Spent (In Minutes): 40 Total Time Includes: Examination of the Patient, Discharge Planning, Medication Reconciliation and Communication With Other Providers Discharge Plan Discharge Items Patient Disposition: Transfer Custodial Fac Reason For Visit: RIGHT FLANK PAIN Discharge Diagnosis: Right flank pain, hydronephrosis, secondary to ureterolithiasis Obstructing 3.5 mm right UVJ calculus now status post cystoscopy and right ureteral stent placement Hypoxia, need for supplemental oxygen, 2 L/min Chronic pain Bxbohas-Lvwhk-Ouxjd disease Activity: Per Instructions section Non-emergency contact: Primary Care Provider and Urologist Call non-emergency contact if: you have any medication questions and your symptoms worsen Follow-up/Referrals: Sommer Mendez MD [Primary Care Provider] - Diet: Heart Healthy Addtl Attending Provider Instructions: You will need to follow-up with urology, Dr. Lockhart, the appointment will be scheduled for you. In the meantime Casanova catheter needs to stay in. It is recommended that you continue to take antibiotics for at least the next 5 days. Continue to take Flomax, and oxybutynin. Given your need for supplemental oxygen, recommend further evaluation by your primary care provider/pulmonary/sleep medicine physician. Pending Studies at Discharge: No Stand-Alone Forms: My [facility] Skilled Items Patient informed of condition?: Yes DNR: No Discharge Level of Care: Skilled Communicable Disease: No Discharge Prognosis: Stable Lines: None Urinary Catheter: Yes Medications and DC Order Prescriptions: New tamsulosin 0.4 mg Capsule 0.4 mg PO QAM 10 Days Qty: 10 RF: 0 lidocaine 5 % Adhesive Patch,Medicated 1 patch transdermal QAM Qty: 15 RF: 0 oxybutynin chloride 5 mg Tablet 5 mg PO Q8 10 Days Qty: 30 RF: 0 cefdinir 300 mg capsule 300 mg PO BID 5 Days Qty: 10 RF: 0 ibuprofen 200 mg Tablet 400 mg PO QID PRN (Reason: pain) Qty: 20 RF: 0 Continued montelukast 10 mg tablet 10 mg PO PM RF: 0 duloxetine 20 mg capsule,delayed release(DR/EC) 30 mg PO QAM RF: 0 acetaminophen [Tylenol Extra Strength] 500 mg Tablet 500 mg PO QID PRN (Reason: Pain) RF: 0 docusate sodium 100 mg Capsule 100 mg PO BID PRN (Reason: Constipation) RF: 0 azelastine 137 mcg (0.1 %) aerosol,spray 1 spray intranasal BID RF: 0 mometasone 50 mcg/actuation spray,non-aerosol 1 spray intranasal BID RF: 0 oxycodone 10 mg tablet 10 mg PO Q4H PRN (Reason: moderate to severe pain) RF: 0 aspirin [Adult Low Dose Aspirin] 81 mg tablet,delayed release (DR/EC) 81 mg PO QAM RF: 0 polyethylene glycol 3350 [Miralax] 17 gram Powder In Packet 17 g PO DAILY PRN (Reason: Constipation) RF: 0 oxycodone [OxyContin] 80 mg tablet,oral only,ext.rel.12 hr 80 mg PO BID RF: 0 cefdinir 300 mg capsule 300 mg PO BID 5 Days Qty: 10 RF: 0 Discharge Orders: Discharge Order (Routine); Ordered 07/09/20 Ordered By: Nasir Palomares Admission Data Admit Date/Time: 07/06/20 22:01 Attending Provider: Nasir Palomares Admit Provider: Shirley Leigh Primary Care Provider: Sommer Mendez Other Providers: Shirley Leigh ; Jamir Francis ; Ricardo Lockhart ; Panchito Raymond [place] Other Interventions: Discharge Summary Assessment (RN) Last Done: 07/09/20 13:19
== END 2020-07-09 15:53 | DRG 661 ==
LOC: ED 16:52 → SUATTDRO 22:01 → 3N 22:01

== ENCOUNTER 2021-02-01 08:19 | Inpatient (IN) ==
--- NOTE | 2021-02-01 08:32 | Emergency Department Note ---
History of Present Illness General Chief complaint: Vomiting Stated complaint: Nausea/vomiting/abd pain Time Seen by Provider: 02/01/21 08:23 Source: patient, EMS and RN notes reviewed Mode of arrival: EMS Limitations: no limitations History of Present Illness This patient comes in after having nausea vomiting abdominal pain for several da ys. He comes in from [facility] he is bedbound and has a neurodegenerative disorder. He requires full assistance. He cannot keep anything down. No diarrhea. His Covid tested negative for the last 30 days. He apparently was hallucinating as well. He is on chronic opiates for chronic pain which has been unable to take secondary to vomiting. No chest pain or shortness of breath. No documented fever Home Medications Medication Instructions Recorded Confirmed Type acetaminophen [Tylenol Extra 500 mg PO QID PRN 06/28/19 02/01/21 History Strength] azelastine 1 spray INTRANASAL BID 06/28/19 02/01/21 History docusate sodium 100 - 200 mg PO BID 06/28/19 02/01/21 History duloxetine 30 mg PO QAM 06/28/19 02/01/21 History mometasone 1 spray INTRANASAL BID 06/28/19 02/01/21 History montelukast 10 mg PO PM 06/28/19 02/01/21 History aspirin [Adult Low Dose Aspirin] 81 mg PO QAM 07/06/20 02/01/21 History oxycodone 10 mg PO Q4H PRN 07/06/20 02/01/21 History oxycodone [OxyContin] 80 mg PO Q12H 07/06/20 02/01/21 History polyethylene glycol 3350 [Miralax] 17 g PO QAM 07/06/20 02/01/21 History ibuprofen 400 mg PO QID PRN #20 tab 07/09/20 02/01/21 Rx oxybutynin chloride 10 mg PO Q8H 07/22/20 02/01/21 History cefdinir 300 mg PO Q12H 02/01/21 02/01/21 History menthol-zinc oxide [Calmoseptine] 1 applic TOPICAL TID PRN 02/01/21 02/01/21 History tamsulosin 0.4 mg PO QAM 02/01/21 02/01/21 History Allergies Allergy/AdvReac Type Severity Reaction Status Date / Time hydralazine Allergy Intermediate Gastrointestinal Verified 02/04/21 14:57 Upset alcohol Allergy Unknown Unknown Verified 02/04/21 14:57 amiodarone Allergy Unknown Unknown rxn Verified 02/04/21 14:57 chloramphenicol Allergy Unknown Unknown Verified 02/04/21 14:57 cholecalciferol (vitamin D3) Allergy Unknown Unknown Verified 02/04/21 14:57 cisplatin Allergy Unknown Unknown Verified 02/04/21 14:57 dapsone Allergy Unknown Unknown rxn Verified 02/04/21 14:57 disulfiram Allergy Unknown Unknown rxn Verified 02/04/21 14:57 doxorubicin Allergy Unknown Unknown Verified 02/04/21 14:57 glutethimide Allergy Unknown Unknown Verified 02/04/21 14:57 Gold Salts Allergy Unknown Unknown Verified 02/04/21 14:57 Hydantoins Allergy Unknown Unknown Verified 02/04/21 14:57 isoniazid Allergy Unknown Unknown rxn Verified 02/04/21 14:57 metronidazole Allergy Unknown Unknown Verified 02/04/21 14:57 nitrofurantoin Allergy Unknown Unknown rxn Verified 02/04/21 14:57 Penicillins Allergy Unknown Rash Verified 02/04/21 14:57 phenytoin Allergy Unknown Unknown Verified 02/04/21 14:57 pyridoxine Allergy Unknown Unknown Verified 02/04/21 14:57 theophylline Allergy Unknown Unknown rxn Verified 02/04/21 14:57 tretinoin Allergy Unknown Unknown rxn Verified 02/04/21 14:57 vincristine Allergy Unknown Unknown Verified 02/04/21 14:57 succinylcholine AdvReac Unknown *not Verified 02/04/21 14:57 actual allergy*see below Past Med/Surg History Medical History (Updated 02/04/21 @ 15:30 by Matthew Ortiz MD) Ckahzyj-Jnpjn-Pbkjz disease Due to disease progression patient is functioning quadriplegic - wheelchair bound and needs full assist to transfer - resides at [facility] Chronic pain DM II (diabetes mellitus, type II), controlled Encounter for pre-operative examination Gastric outlet obstruction Hypertension Hypokalemia Kidney stones Myalgia and myositis, unspecified Obesity Opiate dependence Peripheral neuropathy Physical deconditioning Pickwickian syndrome Per patient's sister - pt does get low O2 sats but sister states he still needs Oxycontin q 12 hours of he will have seizures Renal calculi Toxic metabolic encephalopathy Ureterolithiasis Surgical History H/O cystoscopy Cystoscopy with right retrograde pyelogram and stent placement. H/O dilation of urethra H/O wisdom tooth extraction History of colonoscopy History of lithotripsy S/P cervical spinal fusion ROM WNL PER PT S/P tonsillectomy and adenoidectomy Family History Mother Heart disease Social History Smoking Status: Never smoker Tobacco Type: Cigars Second Hand Exposure: No; Hx Alcohol Use: No Hx Substance Use: No Preferred Language: Hungarian Communication Ability: Effective Addictions Counselor Required: No Beliefs That Will Affect Care: None Current Living Situation: Retirement Current [facility] Situation Comment[facility] Feels Safe at Home: Yes Assistive Devices: Oxygen - Continuous Review of Systems A total of 10 systems reviewed and were otherwise negative Physical Exam Vital Signs Vital Signs - 24 hr 02/01/21 08:24 02/01/21 08:30 02/01/21 08:54 Temperature 36.3 C L 36.3 C L Temperature Source Oral Oral Pulse Rate 86 83 103 H Pulse Rate from SpO2 Sensor 93 H 80 Pulse Rhythm Regular Pulse Strength Normal Respiratory Rate 20 23 20 Respiratory Effort / Characteristics Non-Labored Spontaneous Non-Labored Spontaneous Respiratory Depth Normal Normal Respiratory Pattern Regular Regular Blood Pressure 186/100 H 191/115 H 186/100 H Blood Pressure Mean 128 140 128 Blood Pressure Position Lying Pulse Oximetry 90 91 88 L Oxygen Delivery Method Room Air Room Air Oxygen Flow Rate Sepsis Recent Fever Within 48 Hours No Sepsis New/Unexplained Change in Mental Status N/A Sepsis Action Taken by Nursing No Action Required 02/01/21 09:01 02/01/21 09:15 Temperature Temperature Source Pulse Rate 97 H 103 H Pulse Rate from SpO2 Sensor 94 H Pulse Rhythm Regular Pulse Strength Respiratory Rate 23 20 Respiratory Effort / Characteristics Respiratory Depth Respiratory Pattern Blood Pressure 152/94 H Blood Pressure Mean 113 Blood Pressure Position Pulse Oximetry 95 95 Oxygen Delivery Method Oxymask Oxygen Flow Rate 4 Sepsis Recent Fever Within 48 Hours Sepsis New/Unexplained Change in Mental Status Sepsis Action Taken by Nursing General: Well developed well nourished chronically ill-appearing middle-age male who in no acute distress, breathing comfortably on room air. Normal speech HEENT: Normal cephalic atraumatic. Pupils are equal round and reactive to light. Extraocular movements are intact. Oropharynx is pink with moist mucous membranes. No swelling of the mouth lips or tongue. Neck: Supple with a midline trachea. No meningeal signs or stiffness, no JVD or bruits. No Stridor. Chest: Clear to auscultation bilaterally. No wheezes or rhonchi. No increased work of breathing. Heart: Regular rate and rhythm without murmurs or gallops. Abdomen: Soft nontender, nondistended without rebound guarding or rigidity. Extremities: No cyanosis clubbing or edema. No calf tenderness or assymetry Spine/Back. Non tender to palpation. No CVA tenderness Skin: Good turgor without rashes. Neurologic exam: Cranial nerves two through 12 are intact. Motor and sensation are intact and symmetrical throughout. Course Administered Medications Gabapentin (Gabapentin 300 Mg Cap) 300 mg PO BID [facility] Stop: 03/04/21 20:59 Last Admin: 02/05/21 08:00 Dose: 300 mg Documented by: [id number] Admin: 02/04/21 21:40 Dose: 300 mg Documented by: [id number] Admin: 02/04/21 09:28 Dose: Not Given Documented by: [id number] Admin: 02/03/21 20:19 Dose: 300 mg Documented by: [id number] Admin: 02/03/21 08:19 Dose: 300 mg Documented by: [id number] Admin: 02/02/21 20:46 Dose: 300 mg Documented by: [id number] Lidocaine (Lidocaine 5% 1 Patch) 1 patch TD HS FLORENCIA Stop: 03/04/21 01:14 Last Admin: 02/04/21 21:40 Dose: 1 patch Documented by: [id number] Admin: 02/03/21 20:20 Dose: 1 patch Documented by: [id number] Admin: 02/02/21 20:45 Dose: 1 patch Documented by: [id number] Admin: 02/02/21 01:33 Dose: 1 patch Documented by: [id number] Lorazepam (Lorazepam 0.5 Mg Tab) 0.5 mg PO Q8H PRN PRN Reason: Anxiety/breakthrough pain/RLS Stop: 03/04/21 16:32 Last Admin: 02/03/21 16:29 Dose: 0.5 mg Documented by: [id number] Admin: 02/03/21 08:19 Dose: 0.5 mg Documented by: [id number] Admin: 02/03/21 00:51 Dose: 0.5 mg Documented by: [id number] Miscellaneous (Remove Lidoderm Patch) 1 ea N/A QAM [facility] Stop: 03/04/21 10:59 Last Admin: 02/05/21 08:00 Dose: 1 ea Documented by: [id number] Admin: 02/04/21 10:07 Dose: 1 ea Documented by: [id number] Admin: 02/03/21 08:19 Dose: 1 ea Documented by: [id number] Admin: 02/02/21 12:08 Dose: 1 ea Documented by: [id number] Nystatin (Nystatin Powder 15gm Btl) 1 appln EXT TID [facility] Stop: 03/04/21 20:59 Last Admin: 02/05/21 08:00 Dose: 1 appln Documented by: [id number] Admin: 02/04/21 21:40 Dose: 1 appln Documented by: [id number] Admin: 02/04/21 13:10 Dose: Not Given Documented by: [id number] Admin: 02/04/21 10:06 Dose: 1 appln Documented by: [id number] Admin: 02/03/21 20:26 Dose: 1 appln Documented by: [id number] Admin: 02/03/21 14:22 Dose: 1 appln Documented by: [id number] Admin: 02/03/21 08:19 Dose: 1 appln Documented by: [id number] Admin: 02/02/21 20:44 Dose: 1 appln Documented by: [id number] Discontinued Medications Clonidine HCl (Clonidine Hcl 0.1 Mg/24 Hr Transderm Sys) 1 patch TD ONE ONE Stop: 02/02/21 01:16 Last Admin: 02/02/21 01:29 Dose: 1 patch Documented by: [id number] Hydromorphone HCl (Hydromorphone Inj 0.5 Mg/0.5 Ml Syr) 0.5 mg IV Q2H PRN PRN Reason: Pain Stop: 02/15/21 11:10 Last Admin: 02/01/21 14:44 Dose: 0.5 mg Documented by: [id number] Admin: 02/01/21 14:28 Dose: 0.5 mg Documented by: [id number] Sodium Chloride (Nss 1000ml) 1,000 mls @ 999 mls/hr IV .Q1H1M ONE Stop: 02/01/21 09:35 Last Infusion: 02/01/21 10:20 Dose: 0 mls/hr Documented by: [id number] Admin: 02/01/21 08:45 Dose: 999 mls/hr Documented by: [id number] Pantoprazole Sodium (Protonix Bolus/Drip) 0 mls @ 1 mls/hr IV ONE STA Stop: 02/01/21 12:19 Last Admin: 02/01/21 13:10 Dose: 1 mls/hr Documented by: [id number] Pantoprazole Sodium 40 mg/ (Dextrose) 100 mls @ 20 mls/hr IV Q5H FLORENCIA Stop: 03/03/21 12:25 Last Infusion: 02/05/21 10:43 Dose: 0 mg/hr, 0 mls/hr Documented by: [id number] Admin: 02/05/21 08:01 Dose: 8 mg/hr, 20 mls/hr Documented by: [id number] Infusion: 02/05/21 08:01 Dose: 8 mg/hr, 20 mls/hr Documented by: [id number] Admin: 02/05/21 04:14 Dose: 8 mg/hr, 20 mls/hr Documented by: [id number] Infusion: 02/05/21 04:07 Dose: 8 mg/hr, 20 mls/hr Documented by: [id number] Admin: 02/04/21 23:07 Dose: 8 mg/hr, 20 mls/hr Documented by: [id number] Infusion: 02/04/21 23:01 Dose: 8 mg/hr, 20 mls/hr Documented by: [id number] Admin: 02/04/21 18:01 Dose: 8 mg/hr, 20 mls/hr Documented by: [id number] Infusion: 02/04/21 15:07 Dose: 8 mg/hr, 20 mls/hr Documented by: [id number] Admin: 02/04/21 10:07 Dose: 8 mg/hr, 20 mls/hr Documented by: [id number] Infusion: 02/04/21 10:07 Dose: 8 mg/hr, 20 mls/hr Documented by: [id number] Admin: 02/04/21 05:08 Dose: 8 mg/hr, 20 mls/hr Documented by: [id number] Infusion: 02/04/21 05:08 Dose: 8 mg/hr, 20 mls/hr Documented by: [id number] Admin: 02/04/21 00:22 Dose: 8 mg/hr, 20 mls/hr Documented by: [id number] Infusion: 02/04/21 00:22 Dose: 8 mg/hr, 20 mls/hr Documented by: [id number] Admin: 02/03/21 19:24 Dose: 8 mg/hr, 20 mls/hr Documented by: [id number] Infusion: 02/03/21 18:06 Dose: 8 mg/hr, 20 mls/hr Documented by: [id number] Admin: 02/03/21 13:06 Dose: 8 mg/hr, 20 mls/hr Documented by: [id number] Infusion: 02/03/21 13:06 Dose: 8 mg/hr, 20 mls/hr Documented by: [id number] Admin: 02/03/21 08:06 Dose: 8 mg/hr, 20 mls/hr Documented by: [id number] Infusion: 02/03/21 08:06 Dose: 0 mg/hr, 0 mls/hr Documented by: [id number] Admin: 02/03/21 02:57 Dose: 8 mg/hr, 20 mls/hr Documented by: [id number] Infusion: 02/03/21 02:54 Dose: 8 mg/hr, 20 mls/hr Documented by: [id number] Admin: 02/02/21 21:54 Dose: 8 mg/hr, 20 mls/hr Documented by: [id number] Infusion: 02/02/21 21:54 Dose: 8 mg/hr, 20 mls/hr Documented by: [id number] Admin: 02/02/21 17:16 Dose: 8 mg/hr, 20 mls/hr Documented by: [id number] Infusion: 02/02/21 17:16 Dose: 8 mg/hr, 20 mls/hr Documented by: [id number] Admin: 02/02/21 12:24 Dose: 8 mg/hr, 20 mls/hr Documented by: [id number] Infusion: 02/02/21 12:24 Dose: 8 mg/hr, 20 mls/hr Documented by: [id number] Admin: 02/02/21 08:02 Dose: 8 mg/hr, 20 mls/hr Documented by: [id number] Infusion: 02/02/21 07:56 Dose: 8 mg/hr, 20 mls/hr Documented by: [id number] Admin: 02/02/21 02:56 Dose: 8 mg/hr, 20 mls/hr Documented by: [id number] Infusion: 02/02/21 02:30 Dose: 8 mg/hr, 20 mls/hr Documented by: [id number] Admin: 02/01/21 21:30 Dose: 8 mg/hr, 20 mls/hr Documented by: [id number] Infusion: 02/01/21 21:30 Dose: 8 mg/hr, 20 mls/hr Documented by: [id number] Admin: 02/01/21 16:54 Dose: 8 mg/hr, 20 mls/hr Documented by: [id number] Infusion: 02/01/21 16:54 Dose: 8 mg/hr, 20 mls/hr Documented by: [id number] Admin: 02/01/21 13:10 Dose: 8 mg/hr, 20 mls/hr Documented by: [id number] Pantoprazole Sodium 80 mg/ (Dextrose) 120 mls @ 400 mls/hr IV NOW ONE Stop: 02/01/21 12:35 Last Infusion: 02/01/21 13:40 Dose: 0 mls/hr Documented by: [id number] Admin: 02/01/21 13:10 Dose: 400 mls/hr Documented by: [id number] Lorazepam (Ativan) 0.5 mg in 1 mls @ 1 mls/min IV NOW STA Stop: 02/01/21 13:53 Last Admin: 02/01/21 14:02 Dose: 1 mls/min Documented by: [id number] Potassium Chloride 60 meq/ (Sodium Chloride) 1,030 mls @ 125 mls/hr IV .Q8H15M FLORENCIA Stop: 03/03/21 16:59 Last Infusion: 02/02/21 12:11 Dose: 0 mls/hr Documented by: [id number] Infusion: 02/01/21 21:20 Dose: 0 mls/hr Documented by: [id number] Infusion: 02/01/21 17:05 Dose: 0 mls/hr Documented by: [id number] Admin: 02/01/21 16:48 Dose: 125 mls/hr Documented by: [id number] Acetaminophen (Ofirmev) 1,000 mg in 100 mls @ 400 mls/hr IV Q8H PRN PRN Reason: pain/fever Stop: 02/04/21 21:10 Last Infusion: 02/04/21 06:54 Dose: 0 mls/hr Documented by: [id number] Admin: 02/04/21 05:32 Dose: 400 mls/hr Documented by: [id number] Infusion: 02/02/21 14:15 Dose: 0 mls/hr Documented by: [id number] Admin: 02/02/21 13:54 Dose: 400 mls/hr Documented by: [id number] Infusion: 02/02/21 07:17 Dose: 0 mls/hr Documented by: [id number] Admin: 02/02/21 06:23 Dose: 400 mls/hr Documented by: [id number] Acetaminophen (Ofirmev) 1,000 mg in 100 mls @ 400 mls/hr IV NOW STA Stop: 02/01/21 21:25 Last Infusion: 02/01/21 21:51 Dose: 0 mls/hr Documented by: [id number] Admin: 02/01/21 21:36 Dose: 400 mls/hr Documented by: [id number] Furosemide 20 mg/ Syringe 2 mls @ 4 mls/min IV ONE ONE Stop: 02/01/21 22:16 Last Admin: 02/01/21 22:37 Dose: 4 mls/min Documented by: [id number] Methylprednisolone 20 mg/ (Syringe) 0.32 mls @ 1.5 mls/min IV ONE ONE Stop: 02/02/21 01:46 Last Admin: 02/02/21 02:10 Dose: 1.5 mls/min Documented by: [id number] Lorazepam (Ativan) 0.25 mg in 0.5 mls @ 0.5 mls/min IV NOW STA Stop: 02/02/21 01:29 Last Admin: 02/02/21 07:07 Dose: Not Given Documented by: [id number] Potassium Chloride (K Calos / Wtr) 10 meq in 100 mls @ 100 mls/hr IV Q1H FLORENCIA Stop: 02/02/21 12:44 Last Infusion: 02/02/21 14:40 Dose: 0 mls/hr Documented by: [id number] Admin: 02/02/21 13:36 Dose: 100 mls/hr Documented by: [id number] Infusion: 02/02/21 13:08 Dose: 100 mls/hr Documented by: [id number] Admin: 02/02/21 12:08 Dose: 100 mls/hr Documented by: [id number] Infusion: 02/02/21 11:43 Dose: 100 mls/hr Documented by: [id number] Admin: 02/02/21 10:43 Dose: 100 mls/hr Documented by: [id number] Infusion: 02/02/21 10:29 Dose: 100 mls/hr Documented by: [id number] Admin: 02/02/21 09:29 Dose: 100 mls/hr Documented by: [id number] Infusion: 02/02/21 09:29 Dose: 100 mls/hr Documented by: [id number] Admin: 02/02/21 08:33 Dose: 100 mls/hr Documented by: [id number] Infusion: 02/02/21 08:33 Dose: 100 mls/hr Documented by: [id number] Admin: 02/02/21 07:36 Dose: 100 mls/hr Documented by: [id number] Magnesium Sulfate/Dextrose (Magnesium Sulfate / D5w) 1 gm in 100 mls @ 50 mls/hr IV ONE ONE Stop: 02/02/21 09:14 Last Infusion: 02/02/21 09:57 Dose: 0 mls/hr Documented by: [id number] Admin: 02/02/21 07:35 Dose: 50 mls/hr Documented by: [id number] Potassium Phosphate 40 mmol/ (Sodium Chloride) 1,013.3333 mls @ 140 mls/hr IV ONE ONE Stop: 02/04/21 17:14 Last Infusion: 02/04/21 17:41 Dose: 0 mls/hr Documented by: [id number] Admin: 02/04/21 10:22 Dose: 140 mls/hr Documented by: [id number] Ipratropium [place] (Ipratropium [place] Neb Soln 0.02% 2.5 Ml Vial) 0.5 mg INH ONE STA Stop: 02/01/21 21:45 Last Admin: 02/01/21 21:55 Dose: 0.5 mg Documented by: [id number] Levalbuterol HCl (Levalbuterol 1.25mg/0.5ml Neb) 1.25 mg INH ONE STA Stop: 02/01/21 21:45 Last Admin: 02/01/21 21:55 Dose: 1.25 mg Documented by: [id number] Lidocaine HCl (Lidocaine Hcl 2% 2 Ml Vial/Amp(20mg/Ml)) Confirm Administered Dose 4 ml INFIL .STK-MED ONE Stop: 02/04/21 15:48 Last Admin: 02/04/21 17:33 Dose: Not Given Documented by: [id number] Lorazepam (Lorazepam 0.5 Mg Tab) 0.5 mg PO NOW STA Stop: 02/02/21 16:34 Last Admin: 02/02/21 16:49 Dose: 0.5 mg Documented by: [id number] Miscellaneous (Check Clonidine Patch Placement) 1 ea N/A QS FLORENCIA Stop: 03/04/21 07:59 Last Admin: 02/02/21 07:36 Dose: 1 ea Documented by: [id number] Naloxone HCl (Naloxone Hcl 0.4 Mg/1 Ml Vial/Carp) 0.4 mg IV NOW STA Stop: 02/01/21 12:32 Last Admin: 02/01/21 12:48 Dose: 0.4 mg Documented by: [id number] Naloxone HCl (Naloxone Hcl 0.4 Mg/1 Ml Vial/Carp) Confirm Administered Dose 0.4 mg .ROUTE .STK-MED ONE Stop: 02/01/21 16:36 Last Admin: 02/02/21 03:12 Dose: Not Given Documented by: [id number] Ondansetron HCl (Ondansetron Inj 2 Mg/Ml 2 Ml Vial) Confirm Administered Dose 4 mg .ROUTE .STK-MED ONE Stop: 02/01/21 08:41 Last Admin: 02/01/21 08:42 Dose: 4 mg Documented by: [id number] Potassium Chloride (Potassium Chloride 20 Meq/15 Ml Udc) 40 meq PO NOW STA Stop: 02/03/21 16:33 Last Admin: 02/03/21 17:04 Dose: 40 meq Documented by: [id number] Potassium Chloride (Potassium Chloride Crtab 20 Meq Tabcr) 40 meq PO NOW STA Stop: 02/04/21 09:35 Last Admin: 02/04/21 10:10 Dose: 40 meq Documented by: [id number] Potassium Chloride (Potassium Chloride Crtab 20 Meq Tabcr) 40 meq PO NOW STA Stop: 02/04/21 22:39 Last Admin: 02/04/21 23:28 Dose: 40 meq Documented by: [id number] Potassium Chloride (Potassium Chloride Crtab 20 Meq Tabcr) 20 meq PO ONE ONE Stop: 02/05/21 00:31 Last Admin: 02/05/21 00:45 Dose: 20 meq Documented by: [id number] Propofol (Propofol Iv Emulsion 10 Mg/Ml 20 Ml Vial) Confirm Administered Dose 2 00 mg IV .STK-MED ONE Stop: 02/04/21 15:48 Last Admin: 02/04/21 17:33 Dose: Not Given Documented by: [id number] Medical Decision Making Differential Diagnosis Dehydration, electrolyte or metabolic abnormality, opiate withdrawal, intra- abdominal process infection, Covid, cardiac disease Medical Records Attestation: I reviewed the patient's medical records. Home Medications Current Medication List: was personally reviewed by me Laboratory Data Attestation: I reviewed the patient's lab results. Result diagrams: 02/05/21 08:37 02/05/21 08:37 Lab Results 02/01/21 02/01/21 02/01/21 Range/Units 08:31 08:31 08:46 WBC 11.21 H (4.8-10.8) K/uL RBC 5.56 (4.7-6.1) M/uL Hgb 16.3 (14.0-18.0) g/dL Hct 47.2 (42-52) % MCV 84.9 (80-100) fL MCH 29.3 (25-34) pg MCHC 34.5 (32-36) g/dL RDW Std Deviation 43.0 (36.4-46.3) fL RDW Coeff of Pearl 13.9 (11.5-14.5) % Plt Count 249 (130-400) K/uL MPV 10.5 H (7.4-10.4) fL Immature Gran % (Auto) 0.8 % Neut % (Auto) 83.6 % Lymph % (Auto) 11.0 % Crawford % (Auto) 4.5 % Eos % (Auto) 0.0 % Baso % (Auto) 0.1 % Neut # (Auto) 9.37 H (1.4-6.5) K/uL Lymph # (Auto) 1.23 (1.2-3.4) K/uL Crawford # (Auto) 0.51 (0.11-0.59) K/uL Eos # (Auto) 0.00 (0-0.5) K/uL Baso # (Auto) 0.01 (0-0.2) K/uL Immature Gran # (Auto) 0.09 H (0.00-0.02) K/uL Sodium 139 (136-145) mmol/L Potassium 3.0 L (3.5-5.1) mmol/L Chloride 100 (98-107) mmol/L Carbon Dioxide 32 (21-32) mmol/L Anion Gap 7.0 (3-11) BUN 10 (7-18) mg/dl Creatinine 0.37 L (0.6-1.4) mg/dl Est Cr Clr Drug Dosing Not Reportable Est GFR ( Amer) > 150.0 ml/min Est GFR (Non-Af Amer) 136.1 ml/min BUN/Creatinine Ratio 25.8 H (10-20) Glucose 181 H (70-99) mg/dl Calcium 9.1 (8.5-10.1) mg/dl Total Bilirubin 0.7 (0.2-1) mg/dl AST 37 (15-37) U/L ALT 36 (12-78) U/L Alkaline Phosphatase 104 (45-117) U/L Troponin I < 0.015 (0-0.045) ng/ml Total Protein 8.1 (6.4-8.2) gm/dl Albumin 3.0 L (3.4-5.0) gm/dl Globulin 5.1 H (2.5-4.0) gm/dl Albumin/Globulin Ratio 0.6 L (0.9-2) Lipase 51 L (73-393) U/L COVID-19 Eval Order Covid19 at [facility] SARS-CoV-2 (PCR) (Negative) 02/01/21 Range/Units 08:46 WBC (4.8-10.8) K/uL RBC (4.7-6.1) M/uL Hgb (14.0-18.0) g/dL Hct (42-52) % MCV (80-100) fL MCH (25-34) pg MCHC (32-36) g/dL RDW Std Deviation (36.4-46.3) fL RDW Coeff of Pearl (11.5-14.5) % Plt Count (130-400) K/uL MPV (7.4-10.4) fL Immature Gran % (Auto) % Neut % (Auto) % Lymph % (Auto) % Crawford % (Auto) % Eos % (Auto) % Baso % (Auto) % Neut # (Auto) (1.4-6.5) K/uL Lymph # (Auto) (1.2-3.4) K/uL Crawford # (Auto) (0.11-0.59) K/uL Eos # (Auto) (0-0.5) K/uL Baso # (Auto) (0-0.2) K/uL Immature Gran # (Auto) (0.00-0.02) K/uL Sodium (136-145) mmol/L Potassium (3.5-5.1) mmol/L Chloride (98-107) mmol/L Carbon Dioxide (21-32) mmol/L Anion Gap (3-11) BUN (7-18) mg/dl Creatinine (0.6-1.4) mg/dl Est Cr Clr Drug Dosing Est GFR ( Amer) ml/min Est GFR (Non-Af Amer) ml/min BUN/Creatinine Ratio (10-20) Glucose (70-99) mg/dl Calcium (8.5-10.1) mg/dl Total Bilirubin (0.2-1) mg/dl AST (15-37) U/L ALT (12-78) U/L Alkaline Phosphatase (45-117) U/L Troponin I (0-0.045) ng/ml Total Protein (6.4-8.2) gm/dl Albumin (3.4-5.0) gm/dl Globulin (2.5-4.0) gm/dl Albumin/Globulin Ratio (0.9-2) Lipase (73-393) U/L COVID-19 Eval Order SARS-CoV-2 (PCR) NEGATIVE (Negative) Imaging Data Attestation: I personally reviewed and interpreted this imaging study as follows: My Impression: Chest x-ray no acute infiltrate failure or pneumothorax Radiologist's Impression: Abdomen/Pelvis CT 02/01/21 08:[address] WITHOUT CONTRAST CT DOSE: 2215.48 mGy.cm HISTORY: Generous abdominal pain. Vomiting. TECHNIQUE: Multiaxial CT images of the abdomen and pelvis were performed without contrast. A dose lowering technique was utilized adhering to the principles of ALARA. COMPARISON STUDY: Abdomen and pelvis CT 07/06/2020. FINDINGS: Bibasilar linear densities likely represent subsegmental atelectasis. No pneumoperitoneum. No pneumatosis. No suspicious lytic or blastic osseous lesions. Trace bilateral pleural effusions are noted. Severe hepatic steatosis. Suboptimal evaluation of the abdominal structures due to streak artifact from the patient's overlapping arms. The main portal vein appears patent. The spleen, adrenal glands, and pancreas are unremarkable. No retroperitoneal lymphadenopathy. Normal caliber abdominal aorta. There are bilateral renal calculi, left greater than right. There are also multiple stones layering within the left renal pelvis. There is a 3 mm stone either within or just beyond the left ureterovesical junction best seen on image [id number]. However, there is no left- sided hydronephrosis. Therefore, this favors a stone within the bladder rather than at the ureterovesical junction. Markedly distended gas and fluid-filled stomach. The majority of the duodenum is also gas-filled and mildly distended. There is smooth tapering to normal caliber distal duodenum. No clear transition point identified. However, these findings raise the possibility of a partial gastric outlet obstruction versus gastroparesis. Consider nasogastric tube for decompression of the stomach. Diffuse fatty atrophy of the musculature within the abdomen and pelvis. No retroperitoneal lymphadenopathy. Normal caliber abdominal aorta. The main portal vein is patent. Moderate well-formed stool seen within the colon. No bowel wall thickening. A few colonic diverticula. No evidence for acute diverticulitis. Normal appendix. IMPRESSION: 1. Markedly distended gas and fluid-filled stomach. The majority of the duodenum is also gas-filled and mildly distended. There is smooth tapering to normal caliber distal duodenum. No clear transition point identified. However, these findings raise the possibility of a partial gastric outlet obstruction versus gastroparesis. Consider nasogastric tube for decompression of the stomach. 2. Trace bilateral pleural effusions. 3. Severe hepatic steatosis. 4. Bilateral nephrolithiasis. No hydronephrosis. There is a 3 mm stone within the left posterior bladder near the left ureterovesical junction. This favors a bladder stone given the lack of left-sided hydronephrosis. 5. Additional findings as described above. ACT 112: Negative or not required by law. Electronically signed by: Anuj Hsu M.D. 02/01/2021 9:34 AM Chest X-Ray 02/01/21 08:30 XR chest 1V portable HISTORY: vomiting COMPARISON: Chest 07/06/2020. FINDINGS: There are low lung volumes. No pneumothorax. Trace left pleural effusion. Bibasilar linear densities. Mild elevation of the left hemidiaphragm. The heart is mildly enlarged. There is progressive diffuse interstitial/vascular thickening consistent with mild congestive change. Cervical spinal fusion hardware is noted. IMPRESSION: 1. Cardiomegaly and mild congestive change. This has progressed in the interval. 2. Low lung volumes with bibasilar densities. These are nonspecific but favor subsegmental atelectasis given the low lung volumes. A pneumonia could also have a similar appearance in the appropriate clinical setting. 3. Trace left pleural effusion. ACT 112: Negative or not required by law. Electronically signed by: Anuj Hsu M.D. 02/01/2021 9:13 AM ECG Data Attestation: I personally reviewed and interpreted this ECG as follows: MDM Narrative This patient comes in after having nausea and vomiting for several days. He is on chronic opiates which has been unable to take so I definitely think there is a withdrawal aspect on top of this as well. IV access was established and he was given Zofran 4 mg IV and IV normal saline fluid bolus. Multiple blood testing was obtained as well as an EKG, chest x-ray, and CAT scan of his abdomen. He was reassessed frequently. He feels well except for generally weak. His white count is mildly elevated at 11 but he is afebrile. Potassium is mildly low at 3. On his CT of his abdomen he was noted to have distended stomach and duodenum consistent with your partial bowel obstruction or gastroparesis. An NG tube was ordered. I do think he needs to be admitted for further treatment and evaluation. He was Covid tested as well. Covid test was negative. I did consult the [facility] to see him in ER for admission/observation. Continuous cardiac monitoring: Due to the patient's chief complaint and orders placed in EMR for continuous cardiac monitoring. Upon my interpretation he was noted to be in normal sinus rhythm with a rate of 80 Impression & Plan Ewxenaj-Lqlkb-Tdayv disease, Acute dehydration, Vomiting, Gastroparesis Discharge Plan Visit Data Chief Complaint: Vomiting Stated Complaint: Nausea/vomiting/abd pain ED Provider: Kiara Kumar Discharge Problem: Avpniiz-Flohi-Lzlos disease, Acute dehydration, Vomiting, Gastroparesis Patient Disposition: Admitted As Inpatient Discharge Instructions Interventions: ED Discharge Assessment Last Done: 02/01/21 14:26
[2021-02-01] MEDS ORDERED: SODIUM CHLORIDE 0.9% 1000ML 1,000 ML IV ONE (08:35)
[2021-02-01] MEDS ORDERED: ONDANSETRON INJ 2 MG/ML 2 ML VIAL ONE (08:40)
[2021-02-01 08:41] LABS: Basophils # (auto) 0.01 K/uL (0-0.2); Basophils % (auto) 0.1 %; Hematocrit (blood only) 47.2 % (42-52); Hemoglobin 16.3 g/dL (14.0-18.0); Immature Granulocytes # (auto) 0.09 K/uL (0.00-0.02); Immature Granulocytes % (auto) 0.8 %; Lymphocytes # (auto) 1.23 K/uL (1.2-3.4); Mean Corpuscular Hemoglobin 29.3 pg (25-34); Mean Corpuscular Hgb Conc 34.5 g/dL (32-36); Mean Corpuscular Volume 84.9 fL (80-100); Mean Platelet Volume 10.5 fL (7.4-10.4); Monocytes # (auto) 0.51 K/uL (0.11-0.59); Monocytes % (auto) 4.5 %; Neutrophils # (auto) 9.37 K/uL (1.4-6.5); Neutrophils % (auto) 83.6 %; Platelet Count 249 K/uL (130-400); RDW Coefficient of Variation 13.9 % (11.5-14.5); Red Blood Count 5.56 M/uL (4.7-6.1); White Blood Count 11.21 K/uL (4.8-10.8)
[2021-02-01 08:58] LABS: Alanine Aminotransferase 36 U/L (12-78); Aspartate Aminotransferase 37 U/L (15-37); BUN Creatinine Ratio 25.8 (10-20); Blood Urea Nitrogen 10 mg/dl (7-18); Calcium 9.1 mg/dl (8.5-10.1); Carbon Dioxide 32 mmol/L (21-32); Chloride 100 mmol/L (98-107); Est GFR (African American) > 150.0 ml/min; Est GFR (Non-African American) 136.1 ml/min; Glucose 181 mg/dl (70-99); Lipase 51 U/L (73-393); Sodium 139 mmol/L (136-145)
[2021-02-01 09:03] LABS: Albumin Globulin Ratio 0.6 (0.9-2); Alkaline Phosphatase 104 U/L (45-117); Bilirubin,Total 0.7 mg/dl (0.2-1); Globulin 5.1 gm/dl (2.5-4.0); Total Protein 8.1 gm/dl (6.4-8.2); Troponin I < 0.015 ng/ml (0-0.045)
--- NOTE | 2021-02-01 09:15 | XRay Report ---
XR chest 1V portable HISTORY: vomiting COMPARISON: Chest 07/06/2020. FINDINGS: There are low lung volumes. No pneumothorax. Trace left pleural effusion. Bibasilar linear densities. Mild elevation of the left hemidiaphragm. The heart is mildly enlarged. There is progressi ve diffuse interstitial/vascular thickening consistent with mild congestive change. Cervical spinal f usion hardware is noted. IMPRESSION: 1. Cardiomegaly and mild congestive change. This has progressed in the interval. 2. Low lung volumes with bibasilar densities. These are nonspecific but favor subsegmental atelectasi s given the low lung volumes. A pneumonia could also have a similar appearance in the appropriate cli nical setting. 3. Trace left pleural effusion. ACT 112: Negative or not required by law. Electronically signed by: Anuj Hsu M.D. 02/01/2021 9:13 AM
--- NOTE | 2021-02-01 09:36 | CT Scan Report ---
ABDOMEN AND PELVIS CT WITHOUT CONTRAST CT DOSE: 2215.48 mGy.cm HISTORY: Generous abdominal pain. Vomiting. TECHNIQUE: Multiaxial CT images of the abdomen and pelvis were performed without contrast. A dose lo wering technique was utilized adhering to the principles of ALARA. COMPARISON STUDY: Abdomen and pelvis CT 07/06/2020. FINDINGS: Bibasilar linear densities likely represent subsegmental atelectasis. No pneumoperitoneum. No pneumatosis. No suspicious lytic or blastic osseous lesions. Trace bilateral pleural effusions are noted. Severe hepatic steatosis. Suboptimal evaluation of the abdominal structures due to streak art ifact from the patient's overlapping arms. The main portal vein appears patent. The spleen, adrenal g lands, and pancreas are unremarkable. No retroperitoneal lymphadenopathy. Normal caliber abdominal ao rta. There are bilateral renal calculi, left greater than right. There are also multiple stones layer ing within the left renal pelvis. There is a 3 mm stone either within or just beyond the left uretero vesical junction best seen on image 493. However, there is no left-sided hydronephrosis. Therefore, t his favors a stone within the bladder rather than at the ureterovesical junction. Markedly distended gas and fluid-filled stomach. The majority of the duodenum is also gas-filled and mildly distended. T here is smooth tapering to normal caliber distal duodenum. No clear transition point identified. Liang jennie, these findings raise the possibility of a partial gastric outlet obstruction versus gastroparesi s. Consider nasogastric tube for decompression of the stomach. Diffuse fatty atrophy of the musculatu re within the abdomen and pelvis. No retroperitoneal lymphadenopathy. Normal caliber abdominal aorta. The main portal vein is patent. Moderate well-formed stool seen within the colon. No bowel wall thic kening. A few colonic diverticula. No evidence for acute diverticulitis. Normal appendix. IMPRESSION: 1. Markedly distended gas and fluid-filled stomach. The majority of the duodenum is also gas-filled a nd mildly distended. There is smooth tapering to normal caliber distal duodenum. No clear transition point identified. However, these findings raise the possibility of a partial gastric outlet obstructi on versus gastroparesis. Consider nasogastric tube for decompression of the stomach. 2. Trace bilateral pleural effusions. 3. Severe hepatic steatosis. 4. Bilateral nephrolithiasis. No hydronephrosis. There is a 3 mm stone within the left posterior blad zully near the left ureterovesical junction. This favors a bladder stone given the lack of left-sided h ydronephrosis. 5. Additional findings as described above. ACT 112: Negative or not required by law. Electronically signed by: Anuj Hsu M.D. 02/01/2021 9:34 AM
--- NOTE | 2021-02-01 10:26 | History & Physical Report ---
Date of Service February 01, 2021 Assessment & Plan (1) Vomiting: - Admit to PCU - Concern for gastric outlet obstruction vs ileus vs gastroparesis per CT. Reviewed as below: 1. Markedly distended gas and fluid-filled stomach. The majority of the duodenum is also gas-filled and mildly distended. There is smooth tapering to normal caliber distal duodenum. No clear transition point identified. However, these findings raise the possibility of a partial gastric outlet obstruction versus gastroparesis. Consider nasogastric tube for decompression of the stomach. 2. Trace bilateral pleural effusions. 3. Severe hepatic steatosis. 4. Bilateral nephrolithiasis. No hydronephrosis. There is a 3 mm stone within the left posterior bladder near the left ureterovesical junction. This favors a bladder stone given the lack of left-sided hydronephrosis. 5. Additional findings as described above. - NPO and NGT inserted and has ~1000mL outs of dark bilious, some blood streaking while in the ER. Unknown when last BM was. Place on PPI IV. - Consulted General surg - Consulted GI - Will hold all meds PO for now - Opiates chronically - takes oxycontin ER 80 mg BID and oxycodone IR 10 mg Q4H prn, last dose was at 2200 last night. Will hold PO meds at this time unless ok with GI/gensurg and will convert to using Dilaudid 0.5 mg IV q2H prn for pain control. Currently he is lethargic but has not gotten anything sedating here in the ER. - Checking ammonia, lactate, drug tox screen, and ABG. will follow. - Recently completed course of cefdinir for cellulitis of the left wrist - did not have N/V on 01/28 when was seen in follow up. Completed 10 day course on 01/31. Note, pt has been picking at his skin because he is seeing bugs there per outpatient record review, locations include left wrist, left cheek and right wrist but only had cellulitis in left wrist. No hallucination behavior has yet been seen here in the hospital but may develop when he is more awake. Follows with psych as outpatient. - COVID -19 negative on admission, received vaccine. (2) Gastric outlet obstruction: - Possible with his hx of diabetes, NGT placed as above. Other management as above. (3) Oabuphd-Yckxi-Ucwef disease: - Chronically debilitated secondary to this. (4) Pickwickian syndrome: - Chronic, as above. (5) DM II (diabetes mellitus, type II), controlled: - Last A1C = 7.1 on 12/20/20, glucose is elevated at 180 on arrival to the ER. - Being managed with diet alone - ISS with accuchecks achs - NGT placement with possible gastric outlet obstruction as above and nausea/vomiting (6) Hypokalemia: - 3.0 on arrival, replace with NSS + KCL to hydrate as well. NPO. (7) Opiate dependence: - PDMP reviewed: has been on chronic oxycontin ER 80 mg BID, pt has been vomiting x 1.5 days anddid not take AM meds. Will monitor for withdrawal and place on CIWASS scoring system. Use IV pain medications for now to control pain until nausea improved as above. (8) DVT prophylaxis: - teds, scds CODE: Full code Dispo: From [facility], likely to remain in the hospital x 2 days. (9) Toxic metabolic encephalopathy: (10) Metabolic alkalosis: (11) Hypoxia: History of Present Illness Chief Complaint: Nausea and vomiting Primary Care Provider: [facility] This is a 55 yo M with PMhx of Nmqbnpe-Peomo-Qengv syndrome, pickwickian syndrome, chronic narcotic use, depression with hallucinations, DM II diet, nephrolithiasis, who presents to ER from [facility] with complaints of nausea and vomiting x 1.5 days. Since being in the ER he was found to be hypertensive, tachycardic with heart rate in the low 100s, afebrile, and is falling asleep during conversation. The patient states he feels the same with NG tube in as when he arrived to the ER. Since NG tube placement approximately 1 L of bilious outs, his abdomen is not distended and is soft. He denies having diarrhea and cannot answer when his last bowel movement was. He denies any fevers or chills. 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 He does not wear oxygen at baseline but here is requiring 4 L to maintain sats in the mid 90s. Patient did not receive any medication today, it appears that per his med rec, he got his last doses last evening. Patient is on OxyContin ER 80 mg twice daily as well as oxycodone IR 10 mg every 4 and received this last night at 2200. When asked about his CODE STATUS and if he would want CPR, breathing tube, meds etc. he replies "sure". Allergies Allergy/AdvReac Type Severity Reaction Status Date / Time hydralazine Allergy Intermediate Gastrointestinal Verified 02/01/21 08:47 Upset alcohol Allergy Unknown Unknown Verified 02/01/21 08:47 amiodarone Allergy Unknown Unknown rxn Verified 02/01/21 08:47 chloramphenicol Allergy Unknown Unknown Verified 02/01/21 08:47 cholecalciferol (vitamin D3) Allergy Unknown Unknown Verified 02/01/21 08:47 cisplatin Allergy Unknown Unknown Verified 02/01/21 08:47 dapsone Allergy Unknown Unknown rxn Verified 02/01/21 08:47 disulfiram Allergy Unknown Unknown rxn Verified 02/01/21 08:47 doxorubicin Allergy Unknown Unknown Verified 02/01/21 08:47 glutethimide Allergy Unknown Unknown Verified 02/01/21 08:47 Gold Salts Allergy Unknown Unknown Verified 02/01/21 08:47 Hydantoins Allergy Unknown Unknown Verified 02/01/21 08:47 isoniazid Allergy Unknown Unknown rxn Verified 02/01/21 08:47 metronidazole Allergy Unknown Unknown Verified 02/01/21 08:47 nitrofurantoin Allergy Unknown Unknown rxn Verified 02/01/21 08:47 Penicillins Allergy Unknown Rash Verified 02/01/21 08:47 phenytoin Allergy Unknown Unknown Verified 02/01/21 08:47 pyridoxine Allergy Unknown Unknown Verified 02/01/21 08:47 theophylline Allergy Unknown Unknown rxn Verified 02/01/21 08:47 tretinoin Allergy Unknown Unknown rxn Verified 02/01/21 08:47 vincristine Allergy Unknown Unknown Verified 02/01/21 08:47 succinylcholine AdvReac Unknown *not Verified 02/01/21 08:47 actual allergy*see below Home Medications Medication Instructions Recorded Confirmed Type acetaminophen [Tylenol Extra 500 mg PO QID PRN 06/28/19 02/01/21 History Strength] azelastine 1 spray INTRANASAL BID 06/28/19 02/01/21 History docusate sodium 100 - 200 mg PO BID 06/28/19 02/01/21 History duloxetine 30 mg PO QAM 06/28/19 02/01/21 History mometasone 1 spray INTRANASAL BID 06/28/19 02/01/21 History montelukast 10 mg PO PM 06/28/19 02/01/21 History aspirin [Adult Low Dose Aspirin] 81 mg PO QAM 07/06/20 02/01/21 History oxycodone 10 mg PO Q4H PRN 07/06/20 02/01/21 History oxycodone [OxyContin] 80 mg PO Q12H 07/06/20 02/01/21 History polyethylene glycol 3350 [Miralax] 17 g PO QAM 07/06/20 02/01/21 History ibuprofen 400 mg PO QID PRN #20 tab 07/09/20 02/01/21 Rx oxybutynin chloride 10 mg PO Q8H 07/22/20 02/01/21 History cefdinir 300 mg PO Q12H 02/01/21 02/01/21 History menthol-zinc oxide [Calmoseptine] 1 applic TOPICAL TID PRN 02/01/21 02/01/21 History tamsulosin 0.4 mg PO QAM 02/01/21 02/01/21 History Past Med/Surg History Medical History 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 H/O dilation of urethra H/O wisdom tooth extraction History of colonoscopy History of lithotripsy S/P cervical spinal fusion ROM WNL PER PT S/P tonsillectomy and adenoidectomy Family History Mother Heart disease Social History Smoking Status: Never smoker Tobacco Type: Cigars Second Hand Exposure: No; Hx Alcohol Use: No Hx Substance Use: No Preferred Language: Divehi Communication Ability: Effective Director Of Reimbursement Required: No Beliefs That Will Affect Care: None Current Living Situation: [facility] Current Living Situation Comment: [facility] Feels Safe at Home: Yes Assistive Devices: Glasses and Wheelchair Review of Systems Review of Systems: Constitutional: No fever, sweats or chills Eyes: No diplopia, no worsening or blurred vision ENT: normal hearing, no trouble swallowing, sore throat s/p NGT placement. Respiratory: No cough, sputum, dyspnea at rest or on exertion Cardiovascular: No chest pain, tightness or palpitations Abdomen: As per HPI. + pain, no current nausea, vomiting, no hematemesis, no diarrhea or constipation, unsure of last BM Musculoskeletal: No joint pain, calf pain, + chronic debilitation, chronic LE swelling, unable to move legs much. Neurologic: +generalized weakness, no numbness/tingling, + wheelchair bound Psychiatric: +depression on medication Skin: No rash or itch Physical Exam Physical Exam: General: awakens to verbal stimuli but falls back asleep easily, lethargic, weak, obese with BMI of 42.9 Head: Normocephalic, atraumatic, picked lesion on left cheek healing ENT: PERRL, EOMI, no pharyngeal exudate, mucous membranes dry, NG tube in place draining dark outs with some blood streaking Chest: Diminished breath sounds, on 4L via oxymask, no wheezes or rales Cardiac: Regular rate and rhythm, no murmur, no JVD, normal peripheral pulses, good capillary refill Abdominal: Nearly absent bowel sounds x4 quadrants, soft, minimally distended, nontender to palpation, no rebound or guarding Extremities: Bilateral edema of lower extremities, unable to move them, no peripheral erythema, left wrist without residual cellulitis, left arm lesion healing well, calfs nontender to palpation Psych: Lethargic Neuro: Awakens to verbal stimuli, oriented to self and place, answers most of my questions however starts mumbling, strength and gait not able to be assessed Results & Data Results & Data ([place]) Vital Signs (Past 12 Hours) Vital Signs Temp Pulse Resp BP Pulse Ox 02/01/21 09:15 103 H 20 95 02/01/21 09:01 97 H 23 152/94 H 95 02/01/21 08:54 36.3 C L 103 H 20 186/100 H 88 L 02/01/21 08:30 36.3 C L 83 23 191/115 H 91 02/01/21 08:24 86 20 186/100 H 90 Laboratory Results Abdomen/Pelvis CT 02/01/21 08:[address] WITHOUT CONTRAST CT DOSE: 2215.48 mGy.cm HISTORY: Generous abdominal pain. Vomiting. TECHNIQUE: Multiaxial CT images of the abdomen and pelvis were performed without contrast. A dose lowering technique was utilized adhering to the principles of ALARA. COMPARISON STUDY: Abdomen and pelvis CT 07/06/2020. FINDINGS: Bibasilar linear densities likely represent subsegmental atelectasis. No pneumoperitoneum. No pneumatosis. No suspicious lytic or blastic osseous lesions. Trace bilateral pleural effusions are noted. Severe hepatic steatosis. Suboptimal evaluation of the abdominal structures due to streak artifact from the patient's overlapping arms. The main portal vein appears patent. The spleen, adrenal glands, and pancreas are unremarkable. No retroperitoneal lymphadenopathy. Normal caliber abdominal aorta. There are bilateral renal calc todd, left greater than right. There are also multiple stones layering within the left renal pelvis. There is a 3 mm stone either within or just beyond the left ureterovesical junction best seen on image 493. However, there is no left-sided hydronephrosis. Therefore, this favors a stone within the bladder rather than at the ureterovesical junction. Markedly distended gas and fluid-filled stomach. T he majority of the duodenum is also gas-filled and mildly distended. There is smooth tapering to normal caliber distal duodenum. No clear transition point identified. However, these findings raise the possibility of a partial gastric outlet obstruction versus gastroparesis. Consider nasogastric tube for decompression of the stomach. Diffuse fatty atrophy of the musculature within the abdomen and pelvis. No retroperitoneal lymphadenopathy. Normal caliber abdominal aorta. The main portal vein is patent. Moderate well-formed stool seen within the colon. No bowel wall thickening. A few colonic diverticula. No evidence for acute diverticulitis. Normal appendix. IMPRESSION: 1. Markedly distended gas and fluid-filled stomach. The majority of the duodenum is also gas-filled and mildly distended. There is smooth tapering to normal caliber distal duodenum. No clear transition point identified. However, these findings raise the possibility of a partial gastric outlet obstruction versus gastroparesis. Consider nasogastric tube for decompression of the stomach. 2. Trace bilateral pleural effusions. 3. Severe hepatic steatosis. 4. Bilateral nephrolithiasis. No hydronephrosis. There is a 3 mm stone within the left posterior bladder near the left ureterovesical junction. This favors a bladder stone given the lack of left-sided hydronephrosis. 5. Additional findings as described above. ACT 112: Negative or not required by law. Electronically signed by: Anuj Hsu M.D. 02/01/2021 9:34 AM Chest X-Ray 02/01/21 08:30 XR chest 1V portable HISTORY: vomiting COMPARISON: Chest 07/06/2020. FINDINGS: There are low lung volumes. No pneumothorax. Trace left pleural effusion. Bibasilar linear densities. Mild elevation of the left hemidiaphragm. The heart is mildly enlarged. There is progressive diffuse interstitial/vascular thickening consistent with mild congestive change. Cervical spinal fusion hardware is noted. IMPRESSION: 1. Cardiomegaly and mild congestive change. This has progressed in the interval. 2. Low lung volumes with bibasilar densities. These are nonspecific but favor subsegmental atelectasis given the low lung volumes. A pneumonia could also have a similar appearance in the appropriate clinical setting. 3. Trace left pleural effusion. ACT 112: Negative or not required by law. Electronically signed by: Anuj Hsu M.D. 02/01/2021 9:13 AM Diagnostic Findings 02/01/21 02/01/21 02/01/21 08:46 08:46 08:31 WBC RBC Hgb Hct MCV MCH MCHC RDW Std Deviation RDW Coeff of Pearl Plt Count MPV Immature Gran % (Auto) Neut % (Auto) Lymph % (Auto) [place] % (Auto) Eos % (Auto) Baso % (Auto) Neut # (Auto) Lymph # (Auto) [place] # (Auto) Eos # (Auto) Baso # (Auto) Immature Gran # (Auto) Sodium 139 Potassium 3.0 L Chloride 100 Carbon Dioxide 32 Anion Gap 7.0 BUN 10 Creatinine 0.37 L Est Cr Clr Drug Dosing Not Reportable Est GFR ( Amer) > 150.0 Est GFR (Non-Af Amer) 136.1 BUN/Creatinine Ratio 25.8 H Glucose 181 H Calcium 9.1 Total Bilirubin 0.7 AST 37 ALT 36 Alkaline Phosphatase 104 Troponin I < 0.015 Total Protein 8.1 Albumin 3.0 L Globulin 5.1 H Albumin/Globulin Ratio 0.6 L Lipase 51 L COVID-19 Eval Order Covid19 at [facility] SARS-CoV-2 (PCR) NEGATIVE 02/01/21 08:31 WBC 11.21 H RBC 5.56 Hgb 16.3 Hct 47.2 MCV 84.9 MCH 29.3 MCHC 34.5 RDW Std Deviation 43.0 RDW Coeff of Pearl 13.9 Plt Count 249 MPV 10.5 H Immature Gran % (Auto) 0.8 Neut % (Auto) 83.6 Lymph % (Auto) 11.0 [place] % (Auto) 4.5 Eos % (Auto) 0.0 Baso % (Auto) 0.1 Neut # (Auto) 9.37 H Lymph # (Auto) 1.23 [place] # (Auto) 0.51 Eos # (Auto) 0.00 Baso # (Auto) 0.01 Immature Gran # (Auto) 0.09 H Sodium Potassium Chloride Carbon Dioxide Anion Gap BUN Creatinine Est Cr Clr Drug Dosing Est GFR ( Amer) Est GFR (Non-Af Amer) BUN/Creatinine Ratio Glucose Calcium Total Bilirubin AST ALT Alkaline Phosphatase Troponin I Total Protein Albumin Globulin Albumin/Globulin Ratio Lipase COVID-19 Eval Order SARS-CoV-2 (PCR) ECG Indication: nausea, vomiting and weakness Rhythm: normal sinus Change: no significant change Code Status & VTE Plan Code Status Full code VTE Prophylaxis Plan VTE Prophylaxis will be ordered: Yes Supervising Physician Co-Signing Physician Notes I have seen and examined the patient and have discussed the case with the provider above. I agree with the assessment and plan as stated. The patient is a 55 yo debilitated patient who lives in a halfway. Review of PDMP ensures he is given oxycodone 80mg BID with breakthrough as needed. He is now presenting with a gastric outlet obstruction picture but also has a component of somnolence with hypoxia that is new. Head CT was negative, blood gas revealed metabolic alkalosis from two days of vomiting recently reported, lactate was negative, lipase and LFTs were WNL, there was no clinical evidence of infection (eg: fever or leukocytosis), Toxic encephalopathy was considered in setting of opiate use and he was given Narcan 0.4mg IV x 1 dose in the ER. He responded and his oxygen saturation improved, however, he became so agitated there was concern for him to pull out the NGT by accident, so outside of soft restraints placed temporarily, he was given one dose of Ativan and two small additional doses of dilaudid. He was able to calm down, however, upon arrival to the floor he had two significant desaturation events prompting initiation of BIPAP. Repeat ABG was unchanged. Further Narcan was not given and he remains somnolent but easily awakens to voice and answers questions appropriately when prompted. NGT was placed in the ER. Slightly tachy on admission with improvement after IVF. Physical exam reveals an obese, somnolent man in NAD, cardiac exam is normal without evidence of peripheral edema. He is bedbound and is physically deconditioned as a result. Lungs clear to auscultation bilaterally-limited 2/2 somnolence and lack of cooperation with exam. Abdomen is protuberant, nondistended and nontender. Pupils are PERRL and he is following instructions with prompting. Cannot elicit knee reflexes which may be normal baseline in CMT. Agree with plan to continue NPO status with NGT in place to LIS, PPI drip for bloody appearing aspirate and trend H/H. As hypoxia was imrpoved with narcan administration this is felt secondary to hypoventilation from somnolence from toxic encephalopathy in the setting of bilateral atelectasis and poor body positioning. Comgestive changes were seen on CXR today, and he has no h/o cardiac issues and is Lasix naive. Although diuretics were considered, this was held as he was doing well from a respiratory standpoint on BIPAP and he was hy pokalemic. Will re-evaluate in am after repleting K with IVF. Appreciate Gen Surgery and GI involvement and recommendations. DO Michele
[2021-02-01] MEDS ORDERED: GLUCAGON FOR INJ 1 MG VIAL SQ PRN (11:10)
[2021-02-01] MEDS ORDERED: DEXTROSE 50% 50 ML SYRINGE IV PRN (11:10)
[2021-02-01 11:55] LABS: Base Excess ABG 8.3 mEq/L (-9-1.8); HCO3 ABG 34 mmol/L (19-24); PCO2 ABG 49 mmHg (35-46); PO2 ABG 84 mmHg (80-95); pH ABG 7.46 (7.35-7.45)
[2021-02-01 11:57] LABS: Allen Test Pos (Pos)
--- NOTE | 2021-02-01 12:05 | Gastrointestinal Consultation ---
Date of Consultation February 01, 2021 Assessment & Plan (1) Gastric outlet obstruction: (2) Ileus: (3) Opiate dependence: outlet obstruction vs. opiate induced ileus, s/p NG tube with more than 1L bilious output so far. abdomen is soft and nondistended. Recs: keep NPO NG tube to low intermittent suction replete lytes K>4 and Mg>2 daily KUBs avoid opiates/narcotics at this time strictly Thank you for allowing me to participate in the care of this patient History of Present Illness History of Present Illness 55 yo male with hx Ehzbuzj-Hokpv-Kddur syndrome, pickwickian syndrome, chronic narcotic use, depression who presents here from [facility] with nausea and vomiting for last few days. Noted to be hypertensive and tachycardic in ER, fatigued and somnolent. CT scan shows evidence of fluid in stomach and dilated small bowel, possible ileus vs. outlet obstruction. He had NG tube placed here in the ER and has had over 1L bilious output. He is on oxycontin at home which likely contributed to this clinical picture. labs reviewed. mild leukocytosis. Allergies Allergy/AdvReac Type Severity Reaction Status Date / Time hydralazine Allergy Intermediate Gastrointestinal Verified 02/01/21 08:47 Upset alcohol Allergy Unknown Unknown Verified 02/01/21 08:47 amiodarone Allergy Unknown Unknown rxn Verified 02/01/21 08:47 chloramphenicol Allergy Unknown Unknown Verified 02/01/21 08:47 cholecalciferol (vitamin D3) Allergy Unknown Unknown Verified 02/01/21 08:47 cisplatin Allergy Unknown Unknown Verified 02/01/21 08:47 dapsone Allergy Unknown Unknown rxn Verified 02/01/21 08:47 disulfiram Allergy Unknown Unknown rxn Verified 02/01/21 08:47 doxorubicin Allergy Unknown Unknown Verified 02/01/21 08:47 glutethimide Allergy Unknown Unknown Verified 02/01/21 08:47 Gold Salts Allergy Unknown Unknown Verified 02/01/21 08:47 Hydantoins Allergy Unknown Unknown Verified 02/01/21 08:47 isoniazid Allergy Unknown Unknown rxn Verified 02/01/21 08:47 metronidazole Allergy Unknown Unknown Verified 02/01/21 08:47 nitrofurantoin Allergy Unknown Unknown rxn Verified 02/01/21 08:47 Penicillins Allergy Unknown Rash Verified 02/01/21 08:47 phenytoin Allergy Unknown Unknown Verified 02/01/21 08:47 pyridoxine Allergy Unknown Unknown Verified 02/01/21 08:47 theophylline Allergy Unknown Unknown rxn Verified 02/01/21 08:47 tretinoin Allergy Unknown Unknown rxn Verified 02/01/21 08:47 vincristine Allergy Unknown Unknown Verified 02/01/21 08:47 succinylcholine AdvReac Unknown *not Verified 02/01/21 08:47 actual allergy*see below Home Medications Medication Instructions Recorded Confirmed Type acetaminophen [Tylenol Extra 500 mg PO QID PRN 06/28/19 02/01/21 History Strength] azelastine 1 spray INTRANASAL BID 06/28/19 02/01/21 History docusate sodium 100 - 200 mg PO BID 06/28/19 02/01/21 History duloxetine 30 mg PO QAM 06/28/19 02/01/21 History mometasone 1 spray INTRANASAL BID 06/28/19 02/01/21 History montelukast 10 mg PO PM 06/28/19 02/01/21 History aspirin [Adult Low Dose Aspirin] 81 mg PO QAM 07/06/20 02/01/21 History oxycodone 10 mg PO Q4H PRN 07/06/20 02/01/21 History oxycodone [OxyContin] 80 mg PO Q12H 07/06/20 02/01/21 History polyethylene glycol 3350 [Miralax] 17 g PO QAM 07/06/20 02/01/21 History ibuprofen 400 mg PO QID PRN #20 tab 07/09/20 02/01/21 Rx oxybutynin chloride 10 mg PO Q8H 07/22/20 02/01/21 History cefdinir 300 mg PO Q12H 02/01/21 02/01/21 History menthol-zinc oxide [Calmoseptine] 1 applic TOPICAL TID PRN 02/01/21 02/01/21 History tamsulosin 0.4 mg PO QAM 02/01/21 02/01/21 History Patient History Medical History Bnalqik-Odhtw-Vzsac disease Due to disease progression patient is functioning quadriplegic - wheelchair bound and needs full assist to transfer - resides at [facility] Chronic pain Kidney stones Myalgia and myositis, unspecified Peripheral neuropathy Physical deconditioning Pickwickian syndrome Per patient's sister - pt does get low O2 sats but sister states he still needs Oxycontin q 12 hours of he will have seizures Surgical History H/O cystoscopy Cystoscopy with right retrograde pyelogram and stent placement. H/O dilation of urethra H/O wisdom tooth extraction History of colonoscopy History of lithotripsy S/P cervical spinal fusion ROM WNL PER PT S/P tonsillectomy and adenoidectomy Family History Mother Heart disease Social History Smoking Status: Former smoker Tobacco Type: Cigars Second Hand Exposure: No; Hx Alcohol Use: No Hx Substance Use: No Preferred Language: Persian Communication Ability: Effective Perfusionist Required: No Beliefs That Will Affect Care: None Current Living Situation: Personal Care Facility Current Living Situation Comment: [facility] Feels Safe at Home: Yes Assistive Devices: Cane, Contacts, Glasses, Walker and Wheelchair Review of Systems Constitutional: no fever, no chills and no weight loss Eyes: as per Subjective / HPI Ear, Nose, Mouth, Throat: as per Subjective / HPI Respiratory: no dyspnea and no dyspnea on exertion Cardiovascular: no chest pain and no palpitations Gastrointestinal: as per Subjective / HPI Musculoskeletal: no joint pain and no swelling Integumentary: no rash and no lesions Neurologic: no numbness and no paresthesia Psychiatric: no depression and no anxiety Endocrine: no fatigue Hematologic / Lymphatic: no easy bleeding and no easy bruising Physical Exam Constitutional: WD/WN, vitals as above Eyes: EOM intact bilaterally Neck: normal visual inspection Respiratory: normal respiratory effort, lungs clear to auscultation Cardiovascular: RRR, no murmur, no edema Gastrointestinal (Abdomen): Inspection/Auscultation: abdomen normal to inspection; abdomen not distended Percussion/Palpation: abdomen soft; abdomen nontender and no hepatosplenomegaly Musculoskeletal: Extremities: no cyanosis Gait: normal gait Skin: no rashes, warm and dry Neurologic: moves all extremities Psychiatric: Orientation: + not alert Apperance: appropriately dressed Eye Contact: + not good eye contact Affect: + depressed affect Results & Data ([facility]) Vital Signs (Past 12 Hours) Vital Signs Temp Pulse Resp BP Pulse Ox 02/01/21 09:15 103 H 20 95 02/01/21 09:01 97 H 23 152/94 H 95 02/01/21 08:54 36.3 C L 103 H 20 186/100 H 88 L 02/01/21 08:30 36.3 C L 83 23 191/115 H 91 02/01/21 08:24 86 20 186/100 H 90 PG Care Time/CCT Total # of Minutes Spent Total Time Spent with Patient: Total time spent is greater than 50% in coordination of care (as documented) at patient's floor/unit and/or counseling patient: Coding Level of Care Code 35742 Inpt Consult Level 4 Diagnoses Gastric outlet obstruction K31.1 Ileus K56.7 Opiate dependence F11.20
[2021-02-01] MEDS ORDERED: PANTOprazole 80 MG in DEXTROSE 5% 100 ML IV ONE (12:18)
[2021-02-01] MEDS ORDERED: PANTOPRAZOLE BOLUS/DRIP 1 EA IV STA (12:18)
[2021-02-01] MEDS ORDERED: NALOXONE HCL 0.4 MG/1 ML VIAL/CARP IV STA (12:31)
[2021-02-01 12:55] LABS: Appearance Urine Clear (Clear); Bacteria Urine Automated Negative (Negative); Bilirubin Urine Negative (Negative); Blood Urine Trace (Negative); Color Urine Dark Yellow; Epithelial Cell Urine Auto >30 /lpf (0-5); Glucose Urine UA Negative (Negative); Ketones Urine 1+ (Negative); Leukocyte Esterase Urine Negative (Negative); Nitrite Urine Negative (Negative); Protein Urine 3+ (Negative); Specific Gravity Urine 1.019 (1.000-1.030); Urobilinogen Urine Negative (Negative); pH Urine 6.5 (4.5-7.5)
[2021-02-01] MEDS: PANTOprazole 40 MG in DEXTROSE 5% 100 ML IV SCH ×3 (13:10→21:30)
[2021-02-01 13:18] LABS: Mucus Urine Present (None Prsent)
[2021-02-01 13:22] LABS: Amphetamines+Metham, Urine Neg (Neg); Barbiturates, Urine Neg (Neg); Benzodiazepine, Urine Neg (Neg); Cocaine, Urine Neg (Neg); MDMA (Ecstacy), Urine Neg (Neg); Methadone, Urine Neg (Neg); Opiate, Urine Pos (Neg); Phencyclidine, Urine Neg (Neg)
--- NOTE | 2021-02-01 13:22 | Communication Note ---
Date of Service: February 01, 2021 Discussed care of the patient with both sisters as listed below over the phone at ~1:00pm. Updated on the course of care and plan. Pt is Full code. #1 contact: Sister: Katerina Montes MD. [phone] [facility] #2 contact: Sister: Juliann Nguyenshahbaz BEAN, at [phone] who lives in [place]
--- NOTE | 2021-02-01 13:43 | Surgery Consultation ---
Date of Consultation February 01, 2021 Assessment & Plan (1) Vomiting: This is a 55y M with a PMH of DM2, pickwickian syndrome, bzuzlbi-ldelp-dzysw disease, on chronic opioids who presents to the [facility] ED on 02/01/21 from [facility] with nausea/vomiting/abdominal pain. On my interview patient is an unreliable historian and currently wearing restraints as he was trying to pull out his NGT earlier. Since patient's arrival he has undergone a CT a/p that revealed a markedly distended gas and fluid-filled stomach and mildly distended duodenum. No clear transition point identified, however, these findings raise the possibility of a partial gastric outlet obstruction versus gastroparesis. An NGT has subsequently been placed with >1L output thus far. On examination abdomen is soft without tenderness to palpation. At this time agree with hospitalists admission along with GI consultation for ? history of gastroparesis and DM on chronic opioids. Keep NPO with IVF and NGT for today. KUB pending for tomorrow. GI rec'd to hold on narcotics for now as it it likely contributing to his picture. No indication for urgent surgical intervention at this time, we will continue to follow. Supervising Physician Co-Signing Physician Notes Patient is hard to arouse vitals noted the abdomen is benign NG tube in place draining appropriately No acute surgical problem at this time GI is following the patient will undoubtedly need EGD not emergently History of Present Illness History of Present Illness This is a 55y M with a PMH of DM2, pickwickian syndrome, fxpbdiz-bxjls-tiobx disease, on chronic opioids who presents to the [facility] ED on 02/01/21 from [facility] with nausea/vomiting/abdominal pain. Majority of HPI obtained from chart review as on my interview patient was confused talking about a "heist" and cannot give me an accurate explanation of why he is in the hospital. He also keeps telling me about "videos", and I cannot fully understand the conversation. He is currently wearing restraints asking me to take them off. On chart review it appears patient is a resident at [facility] requiring full care. He developed n/v/abdominal pain and was transferred to the ER for further evaluation. In the ER patient underwent a CT a/p that revealed a markedly distended gas and fluid- filled stomach and mildly distended duodenum. No clear transition point ident ified, however, these findings raise the possibility of a partial gastric outlet obstruction versus gastroparesis. He tells me he is on opioids for his charcot- aspen tooth disease and denies any prior surgery on abdomen. At this time he is denying any abdominal pain/nausea/vomiting. Allergies Allergy/AdvReac Type Severity Reaction Status Date / Time hydralazine Allergy Intermediate Gastrointestinal Verified 02/01/21 08:47 Upset alcohol Allergy Unknown Unknown Verified 02/01/21 08:47 amiodarone Allergy Unknown Unknown rxn Verified 02/01/21 08:47 chloramphenicol Allergy Unknown Unknown Verified 02/01/21 08:47 cholecalciferol (vitamin D3) Allergy Unknown Unknown Verified 02/01/21 08:47 cisplatin Allergy Unknown Unknown Verified 02/01/21 08:47 dapsone Allergy Unknown Unknown rxn Verified 02/01/21 08:47 disulfiram Allergy Unknown Unknown rxn Verified 02/01/21 08:47 doxorubicin Allergy Unknown Unknown Verified 02/01/21 08:47 glutethimide Allergy Unknown Unknown Verified 02/01/21 08:47 Gold Salts Allergy Unknown Unknown Verified 02/01/21 08:47 Hydantoins Allergy Unknown Unknown Verified 02/01/21 08:47 isoniazid Allergy Unknown Unknown rxn Verified 02/01/21 08:47 metronidazole Allergy Unknown Unknown Verified 02/01/21 08:47 nitrofurantoin Allergy Unknown Unknown rxn Verified 02/01/21 08:47 Penicillins Allergy Unknown Rash Verified 02/01/21 08:47 phenytoin Allergy Unknown Unknown Verified 02/01/21 08:47 pyridoxine Allergy Unknown Unknown Verified 02/01/21 08:47 theophylline Allergy Unknown Unknown rxn Verified 02/01/21 08:47 tretinoin Allergy Unknown Unknown rxn Verified 02/01/21 08:47 vincristine Allergy Unknown Unknown Verified 02/01/21 08:47 succinylcholine AdvReac Unknown *not Verified 02/01/21 08:47 actual allergy*see below Home Medications Medication Instructions Recorded Confirmed Type acetaminophen [Tylenol Extra 500 mg PO QID PRN 06/28/19 02/01/21 History Strength] azelastine 1 spray INTRANASAL BID 06/28/19 02/01/21 History docusate sodium 100 - 200 mg PO BID 06/28/19 02/01/21 History duloxetine 30 mg PO QAM 06/28/19 02/01/21 History mometasone 1 spray INTRANASAL BID 06/28/19 02/01/21 History montelukast 10 mg PO PM 06/28/19 02/01/21 History aspirin [Adult Low Dose Aspirin] 81 mg PO QAM 07/06/20 02/01/21 History oxycodone 10 mg PO Q4H PRN 07/06/20 02/01/21 History oxycodone [OxyContin] 80 mg PO Q12H 07/06/20 02/01/21 History polyethylene glycol 3350 [Miralax] 17 g PO QAM 07/06/20 02/01/21 History ibuprofen 400 mg PO QID PRN #20 tab 07/09/20 02/01/21 Rx oxybutynin chloride 10 mg PO Q8H 07/22/20 02/01/21 History cefdinir 300 mg PO Q12H 02/01/21 02/01/21 History menthol-zinc oxide [Calmoseptine] 1 applic TOPICAL TID PRN 02/01/21 02/01/21 History tamsulosin 0.4 mg PO QAM 02/01/21 02/01/21 History Patient History Medical History Rlbtdrj-Gxlrt-Qhpze disease Due to disease progression patient is functioning quadriplegic - wheelchair bound and needs full assist to transfer - resides at [facility] Chronic pain Kidney stones Myalgia and myositis, unspecified Peripheral neuropathy Physical deconditioning Pickwickian syndrome Per patient's sister - pt does get low O2 sats but sister states he still needs Oxycontin q 12 hours of he will have seizures Surgical History H/O cystoscopy Cystoscopy with right retrograde pyelogram and stent placement. H/O dilation of urethra H/O wisdom tooth extraction History of colonoscopy History of lithotripsy S/P cervical spinal fusion ROM WNL PER PT S/P tonsillectomy and adenoidectomy Family History Mother Heart disease Social History Smoking Status: Never smoker Tobacco Type: Cigars Second Hand Exposure: No; Hx Alcohol Use: No Hx Substance Use: No Preferred Language: Macedonian Communication Ability: Effective Panama Hat Smearer Required: No Beliefs That Will Affect Care: None Current Living Situation: Detention Current Living Situation Comment: [facility] Feels Safe at Home: Yes Assistive Devices: Glasses and Wheelchair Review of Systems Gastrointestinal: + abdominal pain, + nausea and + vomiting Physical Exam Physical Exam: awake; oriented to person/place, not year he is agitated and trying to release himself from the restraints Constitutional: + morbidly obese Respiratory: normal respiratory effort Gastrointestinal (Abdomen): Percussion/Palpation: abdomen soft; abdomen nontender NGT with light brown drainage with some bloody tinged Results & Data ([facility]) Vital Signs (Past 12 Hours) Vital Signs Temp Pulse Resp BP Pulse Ox 02/01/21 09:15 103 H 20 95 02/01/21 09:01 97 H 23 152/94 H 95 02/01/21 08:54 36.3 C L 103 H 20 186/100 H 88 L 02/01/21 08:30 36.3 C L 83 23 191/115 H 91 02/01/21 08:24 86 20 186/100 H [address] WITHOUT CONTRAST CT DOSE: 2215.48 mGy.cm HISTORY: Generous abdominal pain. Vomiting. TECHNIQUE: Multiaxial CT images of the abdomen and pelvis were performed without contrast. A dose lowering technique was utilized adhering to the principles of ALARA. COMPARISON STUDY: Abdomen and pelvis CT 07/06/2020. FINDINGS: Bibasilar linear densities likely represent subsegmental atelectasis. No pneumoperitoneum. No pneumatosis. No suspicious lytic or blastic osseous lesions. Trace bilateral pleural effusions are noted. Severe hepatic steatosis. Suboptimal evaluation of the abdominal structures due to streak artifact from the patient's overlapping arms. The main portal vein appears patent. The spleen, adrenal glands, and pancreas are unremarkable. No retroperitoneal lymphadenopathy. Normal caliber abdominal aorta. There are bilateral renal calculi, left greater than right. There are also multiple stones layering within the left renal pelvis. There is a 3 mm stone either within or just beyond the left ureterovesical junction best seen on image 493. However, there is no left- sided hydronephrosis. Therefore, this favors a stone within the bladder rather than at the ureterovesical junction. Markedly distended gas and fluid-filled stomach. The majority of the duodenum is also gas-filled and mildly distended. There is smooth tapering to normal caliber distal duodenum. No clear transition point identified. However, these findings raise the possibility of a partial gastric outlet obstruction versus gastroparesis. Consider nasogastric tube for decompression of the stomach. Diffuse fatty atrophy of the musculature within the abdomen and pelvis. No retroperitoneal lymphadenopathy. Normal caliber abdominal aorta. The main portal vein is patent. Moderate well-formed stool seen within the colon. No bowel wall thickening. A few colonic diverticula. No evidence for acute diverticulitis. Normal appendix. IMPRESSION: 1. Markedly distended gas and fluid-filled stomach. The majority of the duodenum is also gas-filled and mildly distended. There is smooth tapering to normal caliber distal duodenum. No clear transition point identified. However, these findings raise the possibility of a partial gastric outlet obstruction versus gastroparesis. Consider nasogastric tube for decompression of the stomach. 2. Trace bilateral pleural effusions. 3. Severe hepatic steatosis. 4. Bilateral nephrolithiasis. No hydronephrosis. There is a 3 mm stone within the left posterior bladder near the left ureterovesical junction. This favors a bladder stone given the lack of left-sided hydronephrosis. 5. Additional findings as described above. ACT 112: Negative or not required by law. Electronically signed by: Anuj Hsu M.D. 02/01/2021 9:34 AM PG Care Time/CCT Total # of Minutes Spent Total Time Spent with Patient: Total time spent is greater than 50% in coordination of care (as documented) at patient's floor/unit and/or counseling patient: Coding Level of Care Code 92333 Initial Inpt Care Lvl 2 Diagnoses Vomiting R11.10
[2021-02-01] MEDS ORDERED: LORazepam 0.5 MG/1 ML VIAL IV STA (13:52)
[2021-02-01] MEDS: HYDROmorphone INJ 0.5 MG/0.5 ML SYR IV PRN ×2 (14:28→14:44)
[2021-02-01 14:39] LABS: Hematocrit (blood only) 44.9 % (42-52); Hemoglobin 15.5 g/dL (14.0-18.0)
--- NOTE | 2021-02-01 15:29 | CT Scan Report ---
HEAD CT NONCONTRAST CT DOSE: 2743.88 mGycm HISTORY: Confusion, lethargy TECHNIQUE: Multiaxial CT images of the head were performed without the use of intravenous contrast. A utomated exposure control was utilized for this study. A dose lowering technique was utilized adheri ng to the principles of ALARA. Comparison: None. Findings: The paranasal sinuses and mastoid air cells are clear. The calvarium and skull base are int act. There is no mass, hematoma, midline shift, acute infarct. White matter hypodensity is nonspecifi c but suggestive of microvascular ischemic change. The ventricles and sulci demonstrate mild age-rela kaylee involutional changes. Partially visualized right-sided nasogastric tube. Impression: No acute intracranial abnormality. ACT 112: Negative or not required by law. Electronically signed by: Anuj Hsu M.D. 02/01/2021 3:28 PM
[2021-02-01] MEDS ORDERED: MENTHOL-ZINC OXIDE 360 APPLN/120 GM TUBE EXT PRN (16:06)
[2021-02-01] MEDS ORDERED: NALOXONE HCL 0.4 MG/1 ML VIAL/CARP ONE (16:35)
[2021-02-01] MEDS ORDERED: POTASSIUM CHLORIDE 60 MEQ in SODIUM CHLORIDE 0.9% 1000ML 1,000 ML IV SCH (17:00)
[2021-02-01 19:47] LABS: Base Excess ABG 7.5 mEq/L (-9-1.8); HCO3 ABG 32 mmol/L (19-24); Oxygen Saturation ABG 97.4 % (90-95); PCO2 ABG 44 mmHg (35-46); PO2 ABG 95 mmHg (80-95); pH ABG 7.48 (7.35-7.45)
[2021-02-01 19:52] LABS: Allen Test POS (Pos)
--- NOTE | 2021-02-01 20:18 | XRay Report ---
KUB HISTORY: post ng tube placement portable COMPARISON: Abdomen and pelvis CT 02/01/2021. FINDINGS: Nasogastric tube terminates in the proximal stomach with the fenestrated line at the distal esophagus. This should be advanced by approximately 5 to 10 cm. No renal calculi. No ureteral calcu li. No pneumoperitoneum or pneumatosis. IMPRESSION: Nasogastric tube terminates in the proximal stomach with the fenestrated line at the distal esophagus . This should be advanced by approximately 5 to 10 cm. ACT 112: Negative or not required by law. Electronically signed by: Anuj Hsu M.D. 02/01/2021 8:17 PM
[2021-02-01] MEDS ORDERED: FAMOTIDINE 20 MG in SYRINGE 3 ML IV SCH (21:00)
[2021-02-01] MEDS ORDERED: ACETAMINOPHEN 1,000 MG/100 ML VIAL IV STA (21:11)
[2021-02-01] MEDS ORDERED: XOPENEX/ATROVENT 1.25mg/0.5MG NEB COMBO NEB STA (21:32)
[2021-02-01] MEDS ORDERED: LEVALBUTEROL 1.25MG/0.5ML NEB INH STA (21:44)
[2021-02-01] MEDS ORDERED: IPRATROPIUM BROMIDE NEB SOLN 0.02% 2.5 ML VIAL INH STA (21:44)
[2021-02-01 21:50] LABS: Magnesium 1.8 mg/dl (1.8-2.4)
--- NOTE | 2021-02-01 22:11 | XRay Report ---
XR chest 1V portable HISTORY: Hypoxia. COMPARISON: Chest 02/01/2021. FINDINGS: Nasogastric tube terminates in the fundus of the stomach. Cervical spinal fusion hardware i s noted. No pneumothorax. Chronic elevation of the left hemidiaphragm and a small left pleural effusi on are noted. There is mild central pulmonary vascular congestion without overt edema. This has impro aissatou. Left basilar densities persist. This may represent atelectasis. IMPRESSION: 1. Nasogastric tube terminates in the fundus of the stomach. 2. Mild central pulmonary vascular congestion without overt edema. This has slightly improved. 3. Small left pleural effusion. 4. Left basilar densities persist. This may represent atelectasis from the pleural effusion. A pneumo herbert could also have a similar appearance. ACT 112: Negative or not required by law. Electronically signed by: Anuj Hsu M.D. 02/01/2021 10:10 PM
[2021-02-01] MEDS ORDERED: FUROSEMIDE 20 MG in SYRINGE 0 ML IV ONE (22:15)
[2021-02-02 00:51] LABS: Hematocrit (blood only) 42.4 % (42-52); Hemoglobin 14.6 g/dL (14.0-18.0)
[2021-02-02] MEDS ORDERED: cloNIDine HCL 0.1 MG/24 HR TRANSDERM SYS TD ONE (01:15)
[2021-02-02] MEDS ORDERED: LORazepam 0.25 MG/0.5 ML VIAL IV STA (01:28)
[2021-02-02] MEDS: LIDOCAINE 5% 1 PATCH TD SCH ×2 (01:33→20:45)
[2021-02-02] MEDS ORDERED: methylPREDNISolone 20 MG in SYRINGE 0 ML IV ONE (01:45)
--- NOTE | 2021-02-02 01:51 | Communication Note ---
Date of Service: February 02, 2021 Worsening hypoxemia noted on repeat ABG last night. Uncontrolled BP since admission SBP 1 40-1 90s Congestion on CXR No cough symptoms as per RN Patient with bilateral LE swelling grade 3/4 as per RN. BNP within normal limits. AP Hypoxemic respiratory failure ? Right-sided heart failure given normal BNP Hypertensive urgency No prior diagnosis Continue BiPAP Hold maintenance IVF Lasix 1 dose now TTE Re: Possible CHF Clonidine patch while patient n.p.o. Initiate lisinopril in a.m. once diet advanced if BP still uncontrolled Will relay to AM provider.
[2021-02-02] MEDS: PANTOprazole 40 MG in DEXTROSE 5% 100 ML IV SCH ×5 (02:56→21:54)
[2021-02-02 05:07] LABS: Hematocrit (blood only) 42.9 % (42-52); Hemoglobin 14.6 g/dL (14.0-18.0); Mean Corpuscular Hemoglobin 28.7 pg (25-34); Mean Corpuscular Volume 84.4 fL (80-100); Mean Platelet Volume 10.4 fL (7.4-10.4); Platelet Count 244 K/uL (130-400); RDW Coefficient of Variation 14.1 % (11.5-14.5); RDW Standard Deviation 43.5 fL (36.4-46.3); Red Blood Count 5.08 M/uL (4.7-6.1); White Blood Count 11.84 K/uL (4.8-10.8)
[2021-02-02 05:27] LABS: Alanine Aminotransferase 35 U/L (12-78); Albumin Level 2.8 gm/dl (3.4-5.0); Aspartate Aminotransferase 35 U/L (15-37); BUN Creatinine Ratio 36.6 (10-20); Blood Urea Nitrogen 10 mg/dl (7-18); Calcium 8.2 mg/dl (8.5-10.1); Carbon Dioxide 34 mmol/L (21-32); Chloride 103 mmol/L (98-107); Creatinine Clr Calc Pharmacy 403.1 ml/min; Est GFR (African American) > 150.0 ml/min; Est GFR (Non-African American) > 150.0 ml/min; Glucose 159 mg/dl (70-99); Magnesium 1.8 mg/dl (1.8-2.4); Potassium 2.9 mmol/L (3.5-5.1); Sodium 141 mmol/L (136-145)
[2021-02-02 05:29] LABS: Albumin Globulin Ratio 0.7 (0.9-2); Alkaline Phosphatase 87 U/L (45-117); Bilirubin,Total 0.8 mg/dl (0.2-1); Globulin 4.3 gm/dl (2.5-4.0); Phosphorus 2.4 mg/dl (2.5-4.9); Total Protein 7.1 gm/dl (6.4-8.2)
[2021-02-02] MEDS: ACETAMINOPHEN 1,000 MG/100 ML VIAL IV PRN ×2 (06:23→13:54)
[2021-02-02] MEDS ORDERED: MAGNESIUM SULFATE / D5W 1 GM/100 ML BAG IV ONE (07:15)
[2021-02-02] MEDS: POTASSIUM CHLORIDE / WTR 10 MEQ/100 ML PLCT IV SCH ×6 (07:36→13:36)
[2021-02-02] MEDS ORDERED: CHECK CLONIDINE PATCH PLACEMENT SCH (08:00)
--- NOTE | 2021-02-02 08:32 | Electrocardiogram Report ---
Test Reason : Blood Pressure : / mmHG Vent. Rate : 083 BPM Atrial Rate : 091 BPM P-R Int : 182 ms QRS Dur : 112 ms QT Int : 356 ms P-R-T Axes : 057 062 052 degrees QTc Int : 418 ms Sinus rhythm with occasional Premature ventricular complexes and Premature atrial complexes Diffuse Nonspecific ST and T wave abnormality Abnormal ECG When compared with ECG of 09-JUL-2020 10:17, Premature ventricular complexes are now Present Premature atrial complexes are now Present Confirmed by Braden Gaffney ([id number]) on 02/02/2021 8:32:29 AM Referred By: Panchito culp [facility] Confirmed By:Braden Gaffney
--- NOTE | 2021-02-02 09:02 | Surgery Progress Note ---
Date of Service February 02, 2021 Assessment & Plan (1) Ileus: no acute abdominal findings cont NGT Admission and Anticipated Discharge Date Admission Date: February 01, 2021 Supervising Physician Co-Signing Physician Notes Further work-up by gastroenterology no acute surgical problem Subjective no new changes Physical Exam Gastrointestinal (Abdomen): Percussion/Palpation: abdomen soft NG 450 cc Results & Data ([facility]) Vital Signs (Past 12 Hours) Vital Signs Temp Pulse Pulse Resp BP Pulse Ox 02/02/21 07:54 37.4 C 72 20 159/130 H 100 02/02/21 06:51 56 L 21 97 02/02/21 03:37 83 24 96 02/02/21 02:48 36.8 C 78 20 186/98 H 96 02/02/21 01:50 22 98 02/02/21 00:00 97 H 31 H 97 02/01/21 23:00 91 H 153/94 H 02/01/21 22:24 94 H 02/01/21 22:00 36.8 C 92 H 94 H 26 H 193/99 H 94 PG Care Time/CCT Total # of Minutes Spent Total Time Spent with Patient: Total time spent is greater than 50% in coordination of care (as documented) at patient's floor/unit and/or counseling patient: Coding Level of Care Code 87258 Subseq Hosp Care Lvl 1 Diagnoses Ileus K56.7
--- NOTE | 2021-02-02 10:04 | Ultrasound Report ---
BILATERAL LOWER EXTREMITY VENOUS DOPPLER CLINICAL HISTORY: leg pain COMPARISON STUDY: Left lower extremity venous Doppler ultrasound June 08, 2016. TECHNIQUE: Sonography of the deep venous system of the bilateral lower extremities was performed. Co mpression and augmentation were evaluated. FINDINGS: The bilateral common femoral, superficial femoral and popliteal veins were compressible. A ugmentation was normal. Flow was shown within the deep calf vessels. IMPRESSION: No evidence of deep venous thrombus within the bilateral lower extremities. ACT 112: Negative or not required by law. Electronically signed by: Gaurang Anguiano M.D. 02/02/2021 10:02 AM
--- NOTE | 2021-02-02 10:12 | XRay Report ---
KUB CLINICAL HISTORY: eval gastric distention COMPARISON STUDY: CT of the abdomen and pelvis February 01, 2021. KUB February 01, 2021. FINDINGS: Tip of the nasogastric tube is within the gastric fundus. Mild gaseous distention of stomac h has slightly increased since KUB of February 01, 2021 but is significantly improved since CT [email or web address] February [facility], [facility]. Visualized bowel gas pattern is unremarkable. IMPRESSION: Nasogastric tube within the gastric fundus. Mild gaseous distention of the stomach, significantly imp roved since CT of February 01, 2021. ACT 112: Negative or not required by law. Electronically signed by: Gaurang Anguiano M.D. 02/02/2021 10:11 AM
[2021-02-02] MEDS ORDERED: LORazepam 0.5 MG TAB PO STA (16:33)
--- NOTE | 2021-02-02 16:35 | Hospitalist Progress Note ---
Date of Service February 02, 2021 Assessment & Plan (1) Toxic metabolic encephalopathy: Resolved since treatment yesterday with Narcan and withholding oxycodone and other opiates. (2) Gastric outlet obstruction: cont NG tube. Appreciate GI input on underlying cause and recs for treatment. Possible contributing factors include but not limited to chronic narcotic use, diabetes, and idiopathic. (3) Hypoxia: Improved, thought to be a result of hypoventilation during oversedation episode yesterday in addition to underlying atelectasis. PE considered but felt less likely, no evidence of pneumonia and no respiratory or other infectious symptoms reported by patient today. (4) Vomitin/2 GOO, resolved with placement of NG tube. (5) Metabolic alkalosis: 2/2 vomiting, cont current treatment (6) Hypokalemia: Low from vomiting and diuretics administered overnight. Replacing with additional IV replacement. Recheck in am. (7) Hypertension: Secondary as a result of pain and discomfort. Will work on these issues first. (8) Rash: in left axilla, POA. 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 (10) DM II (diabetes mellitus, type II), controlled: - Last A1C = 7.1 on 12/20/20, glucose is elevated at 180 on arrival to the ER. - Being managed with diet alone - ISS with accuchecks achs - currently at inpatient goal (11) Opiate dependence: Dependent on oxycodone 80mg BID x 20 years. Consider swtich to Nucynta for less effect on the gut in the future. However, this is the first reall issue with oxycodone in all this time per patient. (12) DVT prophylaxis: SCDs/ ? gI bleeding so hold on any chemoprophylaxis at this time. Full Code Dispo-cont PCU DO Cristo Khan Hospitalist Admission and Anticipated Discharge Date Admission Date: February 01, 2021 Subjective 55-year-old male who presented with gastric outlet obstruction versus ileus, improved with NG tube insertion, continues on Protonix drip infusion for bloody vomitus. The patient is more alert and awake today after significant toxic encephalopathy likely secondary to opiate overdose on arrival. Opiates have been stopped and patient is having pain with self described restless legs and constant agitation. He has CMT and neuropathy at baseline and is bedbound. We discussed alternative pain regimens. He reported trying gabapentin in the past but felt it was not working" it went away. He did not have any side effects. Review of systems reveals a red rash under his axilla that is not bothersome to him. He reports the staff at his home was putting cornstarch on it. Review of Systems Review of Systems: All systems reviewed & are unremarkable except as noted in Subjective Physical Exam Physical Exam: CONSTITUTIONAL: WNWD, vitals as above, generally well- appearing EYES: normal conjunctivae, no scleral icterus ENT: external ear and nose normal, MM dry, NG tube in place to LIS RESPIRATORY: clear to auscultation bilaterally, no crackles, rales or wheezes, normal respiratory effort CARDIOVASCULAR: regular rate and rhythm, S1 and 2 heard without murmurs, gallops or rubs, no JVD, no peripheral edema GASTROINTESTINAL: soft, nontender, nondistended MUSCULOSKELETAL: generalized weakness, patient has a difficult time moving his arms and legs around independently, there is some hyperactivity/twitching noted in the legs, head is normocephalic and atraumatic, neck supple, normal palpation of chest wall without tenderness SKIN: warm and dry, erythematous rash in left axilla NEUROLOGIC: CN 2-12 grossly intact, normal cognition, normal speech PSYCHIATRIC: alert cooperative and oriented to person, place and time. Results & Data Results & Data ([facility]) Vital Signs (Past 12 Hours) Vital Signs Temp Pulse Pulse Resp BP Pulse Ox 02/02/21 15:29 36.8 C 67 20 96 02/02/21 15:18 65 24 98 02/02/21 13:20 72 26 H 100 02/02/21 11:53 36.9 C 65 24 175/94 H 98 02/02/21 07:54 37.4 C 72 20 159/130 H 100 02/02/21 07:30 63 02/02/21 06:51 56 L 21 97 Laboratory Results Short CBC 02/02/21 02/02/21 Range/Units 00:38 04:38 WBC 11.84 H (4.8-10.8) K/uL Hgb 14.6 14.6 (14.0-18.0) g/dL Hct 42.4 42.9 (42-52) % Plt Count 244 (130-400) K/uL BMP 02/02/21 04:38 Sodium 141 Potassium 2.9 L Chloride 103 Carbon Dioxide 34 H BUN 10 Creatinine 0.27 L Glucose 159 H Calcium 8.2 L Liver Function 02/02/21 Range/Units 04:38 Total Bilirubin 0.8 (0.2-1) mg/dl AST 35 (15-37) U/L ALT 35 (12-78) U/L Alkaline Phosphatase 87 (45-117) U/L Albumin 2.8 L (3.4-5.0) gm/dl Medications Administered Current Inpatient Medications Calamine/Phenol (Menthol-Zinc Oxide 360 Appln/120 Gm Tube) 1 appln EXT TID PRN PRN Reason: right buttocks Stop: 03/03/21 16:05 Dextrose (Dextrose 50% 50 Ml Syringe) 25 - 50 ml IV UD PRN; Protocol PRN Reason: Hypoglycemia Protocol Stop: 03/03/21 11:09 Gabapentin (Gabapentin 300 Mg Cap) 300 mg PO BID FLORENCIA Stop: 03/04/21 20:59 Glucagon (Glucagon For Inj 1 Mg Vial) 1 mg SQ UD PRN; Protocol PRN Reason: Hypoglycemia Protocol Stop: 03/03/21 11:09 Pantoprazole Sodium 40 mg/ (Dextrose) 100 mls @ 20 mls/hr IV Q5H FLORENCIA Stop: 03/03/21 12:25 Last Admin: 02/02/21 12:24 Dose: 8 mg/hr, 20 mls/hr Documented by: Acetaminophen (Ofirmev) 1,000 mg in 100 mls @ 400 mls/hr IV Q8H PRN PRN Reason: pain/fever Stop: 02/04/21 21:10 Last Infusion: 02/02/21 14:15 Dose: Infused Documented by: Lidocaine (Lidocaine 5% 1 Patch) 1 patch TD HS FLORENCIA Stop: 03/04/21 01:14 Last Admin: 02/02/21 01:33 Dose: 1 patch Documented by: Lorazepam (Lorazepam 0.5 Mg Tab) 0.5 mg PO NOW STA Stop: 02/02/21 16:34 Lorazepam (Lorazepam 0.5 Mg Tab) 0.5 mg PO Q8H PRN PRN Reason: Anxiety/breakthrough pain/RLS Stop: 03/04/21 16:32 Miscellaneous (Remove Lidoderm Patch) 1 ea N/A QAM [facility] Stop: 03/04/21 10:59 Last Admin: 02/02/21 12:08 Dose: 1 ea Documented by: Ondansetron HCl (Ondansetron Inj 2 Mg/Ml 2 Ml Vial) 4 mg IV Q4H PRN PRN Reason: Nausea And Vomiting Stop: 03/03/21 16:05
[2021-02-02] MEDS: NYSTATIN POWDER 15GM BTL EXT SCH (20:44)
[2021-02-02] MEDS: GABAPENTIN 300 MG CAP PO SCH (20:46)
[2021-02-03] MEDS: LORazepam 0.5 MG TAB PO PRN ×3 (00:51→16:29)
[2021-02-03] MEDS: PANTOprazole 40 MG in DEXTROSE 5% 100 ML IV SCH ×4 (02:57→19:24)
[2021-02-03 06:24] LABS: Hematocrit (blood only) 41.8 % (42-52); Hemoglobin 14.4 g/dL (14.0-18.0); Mean Corpuscular Hgb Conc 34.4 g/dL (32-36); Mean Corpuscular Volume 84.1 fL (80-100); Mean Platelet Volume 10.8 fL (7.4-10.4); Platelet Count 251 K/uL (130-400); RDW Standard Deviation 42.9 fL (36.4-46.3); Red Blood Count 4.97 M/uL (4.7-6.1); White Blood Count 13.01 K/uL (4.8-10.8)
[2021-02-03 06:57] LABS: Alanine Aminotransferase 35 U/L (12-78); Albumin Level 2.8 gm/dl (3.4-5.0); BUN Creatinine Ratio 40.1 (10-20); Blood Urea Nitrogen 11 mg/dl (7-18); Calcium 7.9 mg/dl (8.5-10.1); Carbon Dioxide 30 mmol/L (21-32); Chloride 104 mmol/L (98-107); Creatinine Clr Calc Pharmacy 403.1 ml/min; Est GFR (African American) > 150.0 ml/min; Est GFR (Non-African American) > 150.0 ml/min; Glucose 126 mg/dl (70-99); Sodium 140 mmol/L (136-145)
[2021-02-03 07:02] LABS: Albumin Globulin Ratio 0.7 (0.9-2); Alkaline Phosphatase 78 U/L (45-117); Globulin 4.3 gm/dl (2.5-4.0); Total Protein 7.1 gm/dl (6.4-8.2)
[2021-02-03] MEDS: NYSTATIN POWDER 15GM BTL EXT SCH ×3 (08:19→20:26)
[2021-02-03] MEDS: GABAPENTIN 300 MG CAP PO SCH ×2 (08:19→20:19)
--- NOTE | 2021-02-03 08:53 | Surgery Progress Note ---
Date of Service February 03, 2021 Assessment & Plan (1) Ileus: Patient denies any abdominal complaints. On exam abdomen is soft and non tender A BM has been documented by nursing yesterday Remains with NGT in place, defer further workup to GI. Nothing to add surgically from our standpoint at this time Admission and Anticipated Discharge Date Admission Date: February 01, 2021 Subjective Patient denies any abdominal pain/nausea/vomiting this AM. Is unsure if he has started passing flatus or had any BMs. Said he had some indigestion overnight, but feels better this AM. Physical Exam Physical Exam: awake Respiratory: normal respiratory effort Gastrointestinal (Abdomen): Inspection/Auscultation: abdomen not distended Percussion/Palpation: abdomen soft; abdomen nontender NGT in place Results & Data ([facility]) Vital Signs (Past 12 Hours) Vital Signs Temp Pulse Pulse Resp BP Pulse Ox 02/03/21 07:00 37.8 C H 64 19 152/78 H 96 02/03/21 03:56 37.2 C 59 L 20 95 02/03/21 00:07 37.7 C H 60 20 170/85 H 96 02/02/21 23:16 64 32 H 99 02/02/21 23:15 60 02/02/21 22:34 65 18 93 PG Care Time/CCT Total # of Minutes Spent Total Time Spent with Patient: Total time spent is greater than 50% in coordination of care (as documented) at patient's floor/unit and/or counseling patient: Coding Level of Care Code 26569 Subseq Hosp Care Lvl 1 Diagnoses Ileus K56.7
[2021-02-03 09:17] LABS: Potassium 3.3 mmol/L (3.5-5.1)
--- NOTE | 2021-02-03 09:53 | Gastroenterology Progress Note ---
Date of Service February 03, 2021 Assessment & Plan (1) Gastric outlet obstruction: (2) Ileus: (3) Opiate dependence: outlet obstruction vs. opiate induced ileus, s/p NG tube with more than 1L bilious output so far. abdomen is soft and nondistended. Recs: NPO. Continue PPI ggt at 8 mg/hr. NG tube to low intermittent suction awaiting KUB. Once obs/ileus resolved, can remove NG. Avoid opiates/narcotics at this time strictly. Continue supportive care. Admission and Anticipated Discharge Date Admission Date: February 01, 2021 Subjective Patient denies any abdominal pain or n/v. NG with minimal output overnight. Patient desires to have NG removed. KUB yesterday with significant improvement. Continues PPI ggt. Review of Systems Constitutional: no fever and no chills Gastrointestinal: as per Subjective / HPI Physical Exam Constitutional: WD/WN, vitals as above Respiratory: normal respiratory effort, lungs clear to auscultation Cardiovascular: Rate/Rhythm: regular rate and regular rhythm Gastrointestinal (Abdomen): Inspection/Auscultation: normal bowel sounds Percussion/Palpation: abdomen soft; abdomen nontender Results & Data Results & Data ([facility]) Vital Signs (Past 12 Hours) Vital Signs Temp Pulse Pulse Resp BP Pulse Ox 02/03/21 07:00 37.8 C H 64 19 152/78 H 96 02/03/21 03:56 37.2 C 59 L 20 95 02/03/21 00:07 37.7 C H 60 20 170/85 H 96 02/02/21 23:16 64 32 H 99 02/02/21 23:15 60 02/02/21 22:34 65 18 93 PG Care Time/CCT Total # of Minutes Spent Total Time Spent with Patient: Total time spent is greater than 50% in coordination of care (as documented) at patient's floor/unit and/or counseling patient: Coding Level of Care Code 15845 Subseq Hosp Care Lvl 3 Diagnoses Gastric outlet obstruction K31.1 Ileus K56.7 Opiate dependence F11.20
--- NOTE | 2021-02-03 12:30 | XRay Report ---
XR KUB/Abdomen 1 view CLINICAL HISTORY: eval gastric outlet obstruction COMPARISON STUDY: 02/02/2021 FINDINGS: There is progressive gaseous distention of the stomach. There is gas present within the duo denal bulb, and proximal duodenum. There are mildly dilated small bowel loops measuring up to 39 mm i n diameter. IMPRESSION: 1. Progressive gaseous distention of the stomach, duodenal bulb, and proximal duodenum. 2. Mildly dilated small bowel loops measuring up to 39 mm in diameter. ACT 112: Negative or not required by law. Electronically signed by: Husam Hartley M.D. 02/03/2021 12:29 PM
--- NOTE | 2021-02-03 12:38 | Communication Note ---
Date of Service: February 03, 2021 GI brief note KUB reviewed with progressive gaseous distention; at this time we should rule out a gastric outlet obstruction Recs: clear liquids today NPO post midnight EGD tomorrow to evaluate further Rocky Sandoval MD Gastroenterology
[2021-02-03] MEDS ORDERED: POTASSIUM CHLORIDE 20 MEQ/15 ML UDC PO STA (16:32)
--- NOTE | 2021-02-03 16:36 | Hospitalist Progress Note ---
Date of Service February 03, 2021 Assessment & Plan (1) Toxic metabolic encephalopathy: S/p Narcan Continue holding oxycodone and other opioids. Currently awake, alert and oriented x3. (2) Gastric outlet obstruction: Patient pulled out his NG tube. KUB was obtained which revealed progressive gaseous distention GI plans to do EGD tomorrow. Clear liquid diet for now and n.p.o. except meds after midnight. (3) Hypoxia: Improved, thought to be a result of hypoventilation during oversedation episode yesterday in addition to underlying atelectasis. PE considered but felt less likely, no evidence of pneumonia and no respiratory or other infectious symptoms reported by patient today. Patient still remains on 5 L of nasal cannula. (4) Vomiting: resovled. c/w pantoprazole 100 mg Q5H. (5) Metabolic alkalosis: 2/2 vomiting, cont current treatment (6) Hypokalemia: today at 3.3, ordered 40 mEq. (7) Hypertension: Secondary as a result of pain and discomfort. (8) Rash: in left axilla, POA. Nystatin powder trial (9) Xwprwbd-Khvdw-Sdffx disease: - Chronically debilitated secondary to this. (10) DM II (diabetes mellitus, type II), controlled: - Last A1C = 7.1 on 12/20/20, glucose is elevated at 180 on arrival to the ER. - Being managed with diet alone - ISS with accuchecks achs - currently at inpatient goal (11) Opiate dependence: Dependent on oxycodone 80mg BID x 20 years. Consider swtich to Nucynta for less effect on the gut in the future. However, this is the first reall issue with oxycodone in all this time per patient. (12) DVT prophylaxis: SCDs/ ? gI bleeding so hold on any chemoprophylaxis at this time. Full Code Admission and Anticipated Discharge Date Admission Date: February 01, 2021 Subjective Awake, alert and oriented this morning. NG tube in place. Currently on 5 L of nasal cannula. Denies any nausea or vomiting. Denies any chest pain or shortness of breath. Denies any abdominal pain. He is not sure if he had a bowel movement. Denies passing any flatus. Review of Systems Review of Systems: All systems reviewed & are unremarkable except as noted in HPI & below Physical Exam Physical Exam: General: A&Ox3. NAD HENT: NCAT, MMM, EOMI, NGT in place Eyes: PERRLA Neck: Supple, normal range of motion CVS: normal rate and rhythm Resp: b/l good breath sounds Abdomen: Soft, ND/NT Extremities: No c/c/e Neuro: face symmetric, no focal deficit Skin: warm and dry MSK: no joint swelling/erythema Results & Data Results & Data ([facility]) Vital Signs (Past 12 Hours) Vital Signs Temp Pulse Pulse Resp BP Pulse Ox 02/03/21 10:54 64 02/03/21 07:00 37.8 C H 64 19 152/78 H 96
[2021-02-03] MEDS: LIDOCAINE 5% 1 PATCH TD SCH (20:20)
[2021-02-04] MEDS: PANTOprazole 40 MG in DEXTROSE 5% 100 ML IV SCH ×5 (00:22→23:07)
[2021-02-04] MEDS: ACETAMINOPHEN 1,000 MG/100 ML VIAL IV PRN (05:32)
[2021-02-04 08:46] LABS: Hematocrit (blood only) 44.7 % (42-52); Hemoglobin 15.4 g/dL (14.0-18.0); Mean Corpuscular Hemoglobin 29.3 pg (25-34); Mean Corpuscular Hgb Conc 34.5 g/dL (32-36); Mean Platelet Volume 10.8 fL (7.4-10.4); Platelet Count 261 K/uL (130-400); RDW Coefficient of Variation 14.1 % (11.5-14.5); RDW Standard Deviation 43.8 fL (36.4-46.3); Red Blood Count 5.26 M/uL (4.7-6.1); White Blood Count 13.08 K/uL (4.8-10.8)
[2021-02-04] MEDS: GABAPENTIN 300 MG CAP PO SCH ×2 (09:28→21:40)
[2021-02-04 09:30] LABS: Alanine Aminotransferase 38 U/L (12-78); Albumin Globulin Ratio 0.6 (0.9-2); Albumin Level 2.9 gm/dl (3.4-5.0); Alkaline Phosphatase 78 U/L (45-117); Aspartate Aminotransferase 33 U/L (15-37); BUN Creatinine Ratio 31.6 (10-20); Bilirubin,Total 1.1 mg/dl (0.2-1); Blood Urea Nitrogen 9 mg/dl (7-18); Calcium 8.8 mg/dl (8.5-10.1); Carbon Dioxide 28 mmol/L (21-32); Chloride 102 mmol/L (98-107); Creatinine Clr Calc Pharmacy 375.3 ml/min; Est GFR (African American) > 150.0 ml/min; Est GFR (Non-African American) > 150.0 ml/min; Globulin 4.5 gm/dl (2.5-4.0); Glucose 150 mg/dl (70-99); Potassium 2.4 mmol/L (3.5-5.1); Sodium 137 mmol/L (136-145); Total Protein 7.4 gm/dl (6.4-8.2)
[2021-02-04] MEDS ORDERED: POTASSIUM CHLORIDE CRTAB 20 MEQ TABCR PO STA ×2 (09:34→22:38)
[2021-02-04] MEDS ORDERED: POTASSIUM PHOS 3 MMOL/1 ML INFUSION IV STA (09:34)
[2021-02-04] MEDS ORDERED: POTASSIUM PHOSPHATE 40 MMOL in SODIUM CHLORIDE 0.9% 1000ML 1,000 ML IV ONE (10:00)
[2021-02-04] MEDS: NYSTATIN POWDER 15GM BTL EXT SCH ×3 (10:06→21:40)
--- NOTE | 2021-02-04 10:40 | History & Physical Bridge Note ---
Date of Service February 04, 2021 History & Physical Bridge Note I have examined the patient, reviewed the History & Physical and in the interval since the performance of the History & Physical I have noted the following changes of clinical significance: Patient given clear liquids last evening and developed subsequent vomiting. Also per nursing, he is passing loose stools this morning. No overt GIB. No vomiting this morning. Has been NPO since midnight. No abdominal pain. PE: A&Ox3. Lungs CTA bilaterally. RRR. Abdomen soft, nontender, +bowel sounds in the lower quadrants. A/P: ?ileus vs gastric outlet obstruction 1. NPO. 2. EGD for further evaluation. 3. Continue PPI ggt. 4. Additional recommendations pending results of testing.
--- NOTE | 2021-02-04 12:45 | Hospitalist Progress Note ---
Date of Service February 04, 2021 Assessment & Plan (1) Toxic metabolic encephalopathy: S/p Narcan on admission Continue holding oxycodone and other opioids. Today patient is found to be more somnolent. However he does follow commands. Does respond to questions intermittently. (2) Gastric outlet obstruction: Patient pulled out his NG tube. KUB was obtained which revealed progressive gaseous distention. Patient have had multiple bowel movements o vernight. Patient remains NPO. Plan to go for EGD today. Hypokalemia -treated, repeat BMP later today. (3) Hypoxia: Currently remains on 5 L. PE considered but felt less likely, no evidence of pneumonia and no respiratory or other infectious symptoms reported by patient today. We will consult pulmonary medicine for further input and for discharge planning for hypoxic/hypercapnic respiratory failure. (4) Vomiting: resovled. c/w pantoprazole 100 mg Q5H. (5) Metabolic alkalosis: 2/2 vomiting, cont current treatment (6) Hypokalemia: today at 3.3, ordered 40 mEq. (7) Hypertension: Secondary as a result of pain and discomfort. (8) Rash: in left axilla, POA. Nystatin powder trial (9) Qhqdwlh-Fflgb-Megyz disease: - Chronically debilitated secondary to this. (10) DM II (diabetes mellitus, type II), controlled: - Last A1C = 7.1 on 12/20/20, glucose is elevated at 180 on arrival to the ER. - Being managed with diet alone - ISS with accuchecks achs - currently at inpatient goal (11) Opiate dependence: Dependent on oxycodone 80mg BID x 20 years. Consider swtich to Nucynta for less effect on the gut in the future. However, this is the first reall issue with oxycodone in all this time per patient. (12) DVT prophylaxis: SCDs/ ? gI bleeding so hold on any chemoprophylaxis at this time. Full Code Admission and Anticipated Discharge Date Admission Date: February 01, 2021 Subjective Patient was a somnolent this morning. However he did follow commands. Denies feeling short of breath at the moment. Was currently on 5 L of mask. Did not appear to be in any distress. Review of Systems Review of Systems: All systems reviewed & are unremarkable except as noted in HPI & below Physical Exam Physical Exam: General: Somnolent HENT: NCAT, MMM, EOMI, NGT in place Eyes: PERRLA Neck: Supple, normal range of motion CVS: normal rate and rhythm Resp: b/l good breath sounds Abdomen: Soft, ND/NT Extremities: No c/c/e Neuro: face symmetric, no focal deficit Skin: warm and dry MSK: no joint swelling/erythema Results & Data Results & Data ([facility] [place]) Vital Signs (Past 12 Hours) Vital Signs Temp Pulse Pulse Resp BP Pulse Ox 02/04/21 11:28 67 02/04/21 11:18 36.7 C 60 18 187/97 H 98 02/04/21 03:26 96 02/04/21 03:00 37.0 C 59 L 20 167/80 H 97
--- NOTE | 2021-02-04 15:10 | Anesthesiology Consultation ---
Date of Service February 04, 2021 Assessment & Plan Chart Review Chart Review: Acceptable Risk for Surgery, Patient NOT seen in Pre Admission Testing and clerk entry level initiated Consults Requested none History Surgery Operation Date: 02/04/21 16:30 Proposed Procedures p Esophagogastroduodenoscopy Dr. Lori Sandoval MD Height/Weight Height: 5 ft 9 in Weight: 130 kg Allergies Allergy/AdvReac Type Severity Reaction Status Date / Time hydralazine Allergy Intermediate Gastrointestinal Verified 02/04/21 14:57 Upset alcohol Allergy Unknown Unknown Verified 02/04/21 14:57 amiodarone Allergy Unknown Unknown rxn Verified 02/04/21 14:57 chloramphenicol Allergy Unknown Unknown Verified 02/04/21 14:57 cholecalciferol (vitamin D3) Allergy Unknown Unknown Verified 02/04/21 14:57 cisplatin Allergy Unknown Unknown Verified 02/04/21 14:57 dapsone Allergy Unknown Unknown rxn Verified 02/04/21 14:57 disulfiram Allergy Unknown Unknown rxn Verified 02/04/21 14:57 doxorubicin Allergy Unknown Unknown Verified 02/04/21 14:57 glutethimide Allergy Unknown Unknown Verified 02/04/21 14:57 Gold Salts Allergy Unknown Unknown Verified 02/04/21 14:57 Hydantoins Allergy Unknown Unknown Verified 02/04/21 14:57 isoniazid Allergy Unknown Unknown rxn Verified 02/04/21 14:57 metronidazole Allergy Unknown Unknown Verified 02/04/21 14:57 nitrofurantoin Allergy Unknown Unknown rxn Verified 02/04/21 14:57 Penicillins Allergy Unknown Rash Verified 02/04/21 14:57 phenytoin Allergy Unknown Unknown Verified 02/04/21 14:57 pyridoxine Allergy Unknown Unknown Verified 02/04/21 14:57 theophylline Allergy Unknown Unknown rxn Verified 02/04/21 14:57 tretinoin Allergy Unknown Unknown rxn Verified 02/04/21 14:57 vincristine Allergy Unknown Unknown Verified 02/04/21 14:57 succinylcholine AdvReac Unknown *not Verified 02/04/21 14:57 actual allergy*see below Medications Home Medications Medication Instructions Recorded Confirmed Last Taken acetaminophen [Tylenol Extra 500 mg PO QID PRN 06/28/19 02/01/21 2 Weeks Ago Strength] ~07/15/20 azelastine 1 spray INTRANASAL BID 06/28/19 02/01/21 01/31/21 docusate sodium 100 - 200 mg PO BID 06/28/19 02/01/21 01/31/21 duloxetine 30 mg PO QAM 06/28/19 02/01/21 01/31/21 mometasone 1 spray INTRANASAL BID 06/28/19 02/01/21 01/31/21 montelukast 10 mg PO PM 06/28/19 02/01/21 01/31/21 aspirin [Adult Low Dose Aspirin] 81 mg PO QAM 07/06/20 02/01/21 01/31/21 oxycodone 10 mg PO Q4H PRN 07/06/20 02/01/21 02/01/21 06:56 oxycodone [OxyContin] 80 mg PO Q12H 07/06/20 02/01/21 01/31/21 polyethylene glycol 3350 [Miralax] 17 g PO QAM 07/06/20 02/01/21 01/31/21 07:00 ibuprofen 400 mg PO QID PRN #20 tab 07/09/20 02/01/21 1 Week Ago ~07/22/20 oxybutynin chloride 10 mg PO Q8H 07/22/20 02/01/21 02/01/21 06:00 cefdinir 300 mg PO Q12H 02/01/21 02/01/21 01/31/21 menthol-zinc oxide [Calmoseptine] 1 applic TOPICAL TID PRN 02/01/21 02/01/21 01/31/21 tamsulosin 0.4 mg PO QAM 02/01/21 02/01/21 01/31/21 Active Medications Generic Name Dose Route Start Last Admin Trade Name Freq PRN Reason Stop Dose Admin Gabapentin 300 mg 02/02/21 21:00 02/04/21 09:28 Gabapentin 300 Mg Cap PO 03/04/21 20:59 Not Given BID FLORENCIA Pantoprazole Sodium 40 mg/ 100 mls @ 20 mls/hr 02/01/21 12:26 02/04/21 10:07 Dextrose IV 03/03/21 12:25 8 mg/hr Q5H FLORENCIA 20 mls/hr Administration 8 MG/HR Acetaminophen 1,000 mg in 100 mls @ 400 mls/hr 02/01/21 21:11 02/04/21 06:54 Ofirmev IV 02/04/21 21:10 Infused Q8H PRN Infusion pain/fever Potassium Phosphate 40 mmol/ 1,013.3333 mls @ 140 mls/hr 02/04/21 10:00 02/04/21 10:22 Sodium Chloride IV 02/04/21 17:14 140 mls/hr ONE ONE Administration Lidocaine 1 patch 02/02/21 01:15 02/03/21 20:20 Lidocaine 5% 1 Patch TD 03/04/21 01:14 1 patch HS FLORENCIA Administration Lorazepam 0.5 mg 02/02/21 16:33 02/03/21 16:29 Lorazepam 0.5 Mg Tab PO 03/04/21 16:32 0.5 mg Q8H PRN Administration Anxiety/breakthrough pain/RLS Miscellaneous 1 ea 02/02/21 11:00 02/04/21 10:07 Remove Lidoderm Patch N/A 03/04/21 10:59 1 ea QAM FLORENCIA Administration Nystatin 1 appln 02/02/21 21:00 02/04/21 13:10 Nystatin Powder 15gm Btl EXT 03/04/21 20:59 Not Given TID FLORENCIA Past Medical History Medical History (Updated 02/04/21 @ 15:12 by Fabien Salmon MD) Vueehbq-Dmkzy-Wtzfg disease Due to disease progression patient is functioning quadriplegic - wheelchair bound and needs full assist to transfer - resides at [facility] Chronic pain DM II (diabetes mellitus, type II), controlled Encounter for pre-operative examination Gastric outlet obstruction Hypertension Hypokalemia Kidney stones Myalgia and myositis, unspecified Obesity Opiate dependence Peripheral neuropathy Physical deconditioning Pickwickian syndrome Per patient's sister - pt does get low O2 sats but sister states he still needs Oxycontin q 12 hours of he will have seizures Renal calculi Toxic metabolic encephalopathy Ureterolithiasis Past Family History Family History Mother Heart disease Past Surgical History Surgical History H/O cystoscopy Cystoscopy with right retrograde pyelogram and stent placement. H/O dilation of urethra H/O wisdom tooth extraction History of colonoscopy History of lithotripsy S/P cervical spinal fusion ROM WNL PER PT S/P tonsillectomy and adenoidectomy Social History Smoking Status: Never smoker Hx Alcohol Use: No Hx Substance Use: No substance use type: does not use Physical Exam Vital Signs Last Vital Signs Temp 36.7 C 02/04/21 11:18 Pulse 67 02/04/21 11:28 Resp 18 02/04/21 11:18 BP 187/97 H 02/04/21 11:18 Pulse Ox 98 02/04/21 11:18 Testing Laboratory Results 02/04/21 08:14 02/04/21 08:14 Urine Color Dark Yellow 02/01/21 12:36 Urine Appearance Clear (Clear) 02/01/21 12:36 Urine pH 6.5 (4.5-7.5) 02/01/21 12:36 Ur Specific Mccall 1.019 (1.000-1.030) 02/01/21 12:36 Urine Protein 3+ (Negative) H 02/01/21 12:36 Urine Glucose (UA) Negative (Negative) 02/01/21 12:36 Urine Ketones 1+ (Negative) H 02/01/21 12:36 Urine Nitrite Negative (Negative) 02/01/21 12:36 Ur Leukocyte Esterase Negative (Negative) 02/01/21 12:36 Urine WBC (Auto) 5-10 /hpf (0-5) H 02/01/21 12:36 Urine RBC (Auto) 5-10 /hpf (0-4) H 02/01/21 12:36 U Hyaline Cast (Auto) 1-5 /lpf (0-5) 02/01/21 12:36 U Epithel Cells (Auto) >30 /lpf (0-5) H 02/01/21 12:36 Urine Bacteria (Auto) Negative (Negative) 02/01/21 12:36 Electrocardiogram est Reason : Blood Pressure : / mmHG Vent. Rate : 083 BPM Atrial Rate : 091 BPM P-R Int : 182 ms QRS Dur : 112 ms QT Int : 356 ms P-R-T Axes : 057 062 052 degrees QTc Int : 418 ms Sinus rhythm with occasional Premature ventricular complexes and Premature atrial complexes Diffuse Nonspecific ST and T wave abnormality Abnormal ECG When compared with ECG of 10-NOV-2020 10:17, Premature ventricular complexes are now Present Premature atrial complexes are now Present Confirmed by Braden Gaffney ([id number]) on 02/02/2021 8:32:29 AM Referred By: Panchito culp Mandi Confirmed By:Braden Gaffney Chest X-Ray XR chest 1V portable HISTORY: Hypoxia. COMPARISON: Chest 02/01/2021. FINDINGS: Nasogastric tube terminates in the fundus of the stomach. Cervical spinal fusion hardware is noted. No pneumothorax. Chronic elevation of the left hemidiaphragm and a small left pleural effusion are noted. There is mild central pulmonary vascular congestion without overt edema. This has improved. Left basilar densities persist. This may represent atelectasis. IMPRESSION: 1. Nasogastric tube terminates in the fundus of the stomach. 2. Mild central pulmonary vascular congestion without overt edema. This has slightly improved. 3. Small left pleural effusion. 4. Left basilar densities persist. This may represent atelectasis from the pleural effusion. A pneumonia could also have a similar appearance.
--- NOTE | 2021-02-04 15:27 | Pulmonary Consultation ---
Date of Consultation February 04, 2021 Assessment & Plan (1) Obesity: (2) Opiate dependence: (3) Hypercapnic respiratory failure: (4) Hypoxemia: (5) Elevated diaphragm: Impression: 55-year-old male with Rhbryzh-Rmubm-Hcwvq syndrome and chronic opioid dependence admitted with possible gastric outlet obstruction. He is on chronic narcotics and has a slightly elevated CO2 and there was concern about potential sleep disordered breathing as the patient experiences nocturnal desaturations. He is not not had prior polysomnography performed that we have available. Recommendations: 1. Hypercarbic respiratory failure: Certainly possible the patient could have obesity hypoventilation syndrome as well as untreated sleep disordered breathing. He likely has some component of restrictive lung disease due to his elevated hemidiaphragm as well. These have not been evaluated in the past. For now I would continue noninvasive positive pressure ventilation. According to the patient's family and nursing, when he becomes less obtunded he removes the mask and is not really compliant with therapy. Unfortunately the only alternative to this therapy would be tracheostomy which does not seem like a very good option in this patient. 2. Elevated hemidiaphragm: Could consider sniff test however typically unilateral elevation of the hemidiaphragm order diaphragmatic paresis is well tolerated and does not require intervention. It certainly could be contributing to his hypercarbia. 3. Outpatient polysomnography is recommended. Patient CO2 levels are mildly elevated. Its unclear if the patient would qualify for bilevel ST or AVAPS as a bridge to his sleep study. Recommend discussion with case management and respiratory therapy to see whether or not the patient could qualify. The family states they are willing to purchase a home ventilator if needed for the patient to go back to his alf facility. Coordination with case management will be paramount. 4. Weight loss is paramount in managing obesity hypoventilation/sleep disordered breathing. We will continue to follow with you. Feel free to contact us with questions or concerns. History of Present Illness Attending Physician: Nuvia Adams MD History of Present Illness Asked by hospitalist to evaluate this patient with hypercarbic and hypoxemic respiratory failure and probable sleep disordered breathing. History is obtained from review electronic medical record. The patient has just come back from [place] and is sedated. He is not able to provide any history. His sister is at bedside who does provide some history. This 55-year-old male who lives at [facility] has obesity. According to the patient's sister, he was to undergo evaluation for sleep disordered breat jaiden in the past but he declined the evaluation. He is not been on CPAP. He was brought to the emergency room 02/01/2021 with vomiting and concern for gastric outlet obstruction, gastroparesis, versus ileus. The patient is on high-dose narcotics. He was seen by surgery and gastroenterology. He underwent EGD today. No gastric outlet obstruction was identified. It appears to be more consistent with gastroparesis. According to nursing, the patient has significant desats down to the 50 or 60% range when sleeping and there was concern about sleep disordered breathing which prompted the pulmonary consultation. According the patient's sister, he is somnolent at baseline. They state that without his narcotics he has seizures. He is obese. He does have an elevated diaphragm which is not been evaluated in the past. Allergies Allergy/AdvReac Type Severity Reaction Status Date / Time hydralazine Allergy Intermediate Gastrointestinal Verified 02/04/21 14:57 Upset alcohol Allergy Unknown Unknown Verified 02/04/21 14:57 amiodarone Allergy Unknown Unknown rxn Verified 02/04/21 14:57 chloramphenicol Allergy Unknown Unknown Verified 02/04/21 14:57 cholecalciferol (vitamin D3) Allergy Unknown Unknown Verified 02/04/21 14:57 cisplatin Allergy Unknown Unknown Verified 02/04/21 14:57 dapsone Allergy Unknown Unknown rxn Verified 02/04/21 14:57 disulfiram Allergy Unknown Unknown rxn Verified 02/04/21 14:57 doxorubicin Allergy Unknown Unknown Verified 02/04/21 14:57 glutethimide Allergy Unknown Unknown Verified 02/04/21 14:57 Gold Salts Allergy Unknown Unknown Verified 02/04/21 14:57 Hydantoins Allergy Unknown Unknown Verified 02/04/21 14:57 isoniazid Allergy Unknown Unknown rxn Verified 02/04/21 14:57 metronidazole Allergy Unknown Unknown Verified 02/04/21 14:57 nitrofurantoin Allergy Unknown Unknown rxn Verified 02/04/21 14:57 Penicillins Allergy Unknown Rash Verified 02/04/21 14:57 phenytoin Allergy Unknown Unknown Verified 02/04/21 14:57 pyridoxine Allergy Unknown Unknown Verified 02/04/21 14:57 theophylline Allergy Unknown Unknown rxn Verified 02/04/21 14:57 tretinoin Allergy Unknown Unknown rxn Verified 02/04/21 14:57 vincristine Allergy Unknown Unknown Verified 02/04/21 14:57 succinylcholine AdvReac Unknown *not Verified 02/04/21 14:57 actual allergy*see below Home Medications Medication Instructions Recorded Confirmed Type acetaminophen [Tylenol Extra 500 mg PO QID PRN 06/28/19 02/01/21 History Strength] azelastine 1 spray INTRANASAL BID 06/28/19 02/01/21 History docusate sodium 100 - 200 mg PO BID 06/28/19 02/01/21 History duloxetine 30 mg PO QAM 06/28/19 02/01/21 History mometasone 1 spray INTRANASAL BID 06/28/19 02/01/21 History montelukast 10 mg PO PM 06/28/19 02/01/21 History aspirin [Adult Low Dose Aspirin] 81 mg PO QAM 07/06/20 02/01/21 History oxycodone 10 mg PO Q4H PRN 07/06/20 02/01/21 History oxycodone [OxyContin] 80 mg PO Q12H 07/06/20 02/01/21 History polyethylene glycol 3350 [Miralax] 17 g PO QAM 07/06/20 02/01/21 History ibuprofen 400 mg PO QID PRN #20 tab 07/09/20 02/01/21 Rx oxybutynin chloride 10 mg PO Q8H 07/22/20 02/01/21 History cefdinir 300 mg PO Q12H 02/01/21 02/01/21 History menthol-zinc oxide [Calmoseptine] 1 applic TOPICAL TID PRN 02/01/21 02/01/21 History tamsulosin 0.4 mg PO QAM 02/01/21 02/01/21 History Patient History Medical History (Updated 02/04/21 @ 15:30 by Matthew Ortiz MD) Yhfmzmy-Bojtv-Nmjlf disease Due to disease progression patient is functioning quadriplegic - wheelchair bound and needs full assist to transfer - resides at [facility] Chronic pain DM II (diabetes mellitus, type II), controlled Encounter for pre-operative examination Gastric outlet obstruction Hypertension Hypokalemia Kidney stones Myalgia and myositis, unspecified Obesity Opiate dependence Peripheral neuropathy Physical deconditioning Pickwickian syndrome Per patient's sister - pt does get low O2 sats but sister states he still needs Oxycontin q 12 hours of he will have seizures Renal calculi Toxic metabolic encephalopathy Ureterolithiasis Surgical History H/O cystoscopy Cystoscopy with right retrograde pyelogram and stent placement. H/O dilation of urethra H/O wisdom tooth extraction History of colonoscopy History of lithotripsy S/P cervical spinal fusion ROM WNL PER PT S/P tonsillectomy and adenoidectomy Family History Mother Heart disease Social History Smoking Status: Never smoker Tobacco Type: Cigars Second Hand Exposure: No; Hx Alcohol Use: No Hx Substance Use: No Preferred Language: Cambodian Communication Ability: Effective Customer Operations Representative Required: No Beliefs That Will Affect Care: None Current Living Situation: Assisted Current Living Situation Comment: [facility] Feels Safe at Home: Yes Assistive Devices: Oxygen - Continuous Review of Systems Review of Systems: Please refer to hospital notes. No additions or deletions Physical Exam Constitutional: + obese and + lethargic Neck: trachea midline, no thyromegaly Respiratory: normal respiratory effort, lungs clear to auscultation Cardiovascular: RRR, no murmur, no edema Gastrointestinal (Abdomen): normal bowel sounds, soft, nontender, no hepatosplenomegaly Musculoskeletal: Extremities: extremities normal to inspection Skin: no rashes, warm and dry Neurologic: Patient is currently obtunded/sedated Lymphatic: no cervical lymphadenopathy Results & Data Results & Data ([facility]) Vital Signs (Past 12 Hours) Vital Signs Temp Pulse Pulse Resp BP Pulse Ox 02/04/21 15:06 36.9 C 57 L 18 189/88 H 99 02/04/21 11:28 67 02/04/21 11:18 36.7 C 60 18 187/97 H 98 02/04/21 03:26 96 Laboratory Results 02/04/21 08:14 02/04/21 08:14 02/01/21 02/01/21 11:38 19:35 ABG pH 7.46 H 7.48 H ABG pCO2 49 H 44 ABG pO2 84 95 ABG HCO3 34 H 32 H ABG O2 Saturation 97.0 H 97.4 H ABG Base Excess 8.3 H 7.5 H Diagnostic Findings Imaging studies independently reviewed. Chest x-ray 02/01/2021 showed hardware in the neck. There is elevation of the left hemidiaphragm which appears chronic dating back to 2015 but new compared to 2010. Mild cardiomegaly noted. No maryam airspace opacities identified. Review electronic medical record demonstrates no prior polysomnography and review of the prior database shows no evidence of a sleep study. PG Care Time/CCT Total # of Minutes Spent Total Time Spent with Patient: Total time spent is greater than 50% in coordination of care (as documented) at patient's floor/unit and/or counseling patient: Coding Level of Care Code 70628 Inpt Consult Level 5 Diagnoses Obesity E66.9 Opiate dependence F11.20 Hypercapnic respiratory failure J96.92 Hypoxemia R09.02 Elevated diaphragm J98.6
[2021-02-04] MEDS ORDERED: LIDOCAINE 2% 2 ML VIAL/AMP(20MG/ML) INFIL ONE (15:47)
[2021-02-04] MEDS ORDERED: PROPOFOL IV EMULSION 10 MG/ML 20 ML VIAL IV ONE (15:47)
--- NOTE | 2021-02-04 16:16 | GI REPORT ---
Patient Name: Tushar Loza Procedure Date: 02/04/2021 3:48 PM Date of : 1965 Admit Type: Inpatient Age: 55 Gender: Male Attending MD: Rocky Sandoval MD Procedure: Upper GI endoscopy Providers: Rocky Sandoval MD Referring MD: Nuvia Adams Md Indications: Abnormal abdominal x-ray of the GI tract, Abnormal CT of the GI tract Medicines: Monitored Anesthesia Care Complications: No immediate complications. Estimated blood loss: None. Estimated Blood Loss: Estimated blood loss: none. Procedure: Pre-Anesthesia Assessment: - Prior Anticoagulants: The patient has taken no previous anticoagulant or antiplatelet agents. - ASA Grade Assessment: II - A patient with mild systemic disease. After obtaining informed consent, the endoscope was passed under direct vision. Throughout the procedure, the patient's blood pressure, pulse, and oxygen saturations were monitored continuously. The Endoscope was introduced through the mouth, and advanced to the second part of duodenum. The upper GI endoscopy was accomplished without difficulty. The patient tolerated the procedure well. Findings: The examined esophagus was normal. Excessive fluid was found in the stomach. it was suctioned out. No evidence of gastric outlet obstruction. Diffuse mild inflammation characterized by erythema was found in the stomach. Biopsies were taken with a cold forceps for Helicobacter pylori testing. Estimated blood loss: none. The duodenal bulb and second portion of the duodenum were normal. Impression: - Normal esophagus. - Excessive gastric fluid. - Gastritis. Biopsied. - Normal duodenal bulb and second portion of the duodenum. suspect gastroparesis. Recommendation: - Return patient to [facility] for [facility] care. - Gastroparesis diet today. - Await pathology results. Rocky Sandoval MD 02/04/2021 4:16:07 PM This report has been signed electronically. Note Initiated On: 02/04/2021 3:48 PM Number of Addenda: 0 I attest to the content of the Intraoperative Record and orders documented therein, exceptions below {[id number]}
--- NOTE | 2021-02-04 16:30 | Anesthesiology Progress Note ---
Date of Service February 04, 2021 Anesthesia Post Procedure Vital Signs Vital Signs: Temp Pulse Pulse Resp BP Pulse Ox 02/04/21 16:12 78 24 173/97 H 95 02/04/21 15:06 36.9 C 57 L 18 189/88 H 99 02/04/21 11:28 67 02/04/21 11:18 36.7 C 60 18 187/97 H 98 02/04/21 03:26 96 02/04/21 03:00 37.0 C 59 L 20 167/80 H 97 02/03/21 22:52 36.9 C 57 L 20 159/71 H 95 02/03/21 22:26 59 L 02/03/21 21:50 49 L 21 97 02/03/21 19:34 36.6 C 54 L 18 158/75 H 97 Pain Intensity Back: Pain Intensity: 10 Bilateral Leg: Pain Intensity: 3 Bilateral Hand: Pain Intensity: 10 Abdomen: Pain Intensity: 4 Transfer of Care Handoff Completed per policy Notes Mental Status: alert / awake / arousable and participated in evaluation Patient Amnestic to Procedure: Yes Nausea / Vomiting: adequately controlled Pain: adequately controlled Airway Patency, RR, SpO2: stable & adequate BP & HR: stable & adequate Hydration State: stable & adequate Anesthetic Complications: no major complications apparent and Pt Satisfied with anesthetic care
[2021-02-04 21:15] LABS: BUN Creatinine Ratio 25.6 (10-20); Blood Urea Nitrogen 8 mg/dl (7-18); Calcium 8.7 mg/dl (8.5-10.1); Carbon Dioxide 27 mmol/L (21-32); Chloride 106 mmol/L (98-107); Creatinine Clr Calc Pharmacy 340.1 ml/min; Est GFR (African American) > 150.0 ml/min; Est GFR (Non-African American) 144.5 ml/min; Glucose 126 mg/dl (70-99); Sodium 141 mmol/L (136-145)
[2021-02-04] MEDS: LIDOCAINE 5% 1 PATCH TD SCH (21:40)
[2021-02-05] MEDS ORDERED: POTASSIUM CHLORIDE CRTAB 20 MEQ TABCR PO ONE (00:30)
[2021-02-05] MEDS: PANTOprazole 40 MG in DEXTROSE 5% 100 ML IV SCH ×2 (04:14→08:01)
[2021-02-05] MEDS: NYSTATIN POWDER 15GM BTL EXT SCH ×3 (08:00→20:23)
[2021-02-05] MEDS: GABAPENTIN 300 MG CAP PO SCH ×2 (08:00→20:23)
[2021-02-05 08:02] LABS: Codeine Urine NEGATIVE ng/mL (<50); Hydrocodone Urine NEGATIVE ng/mL (<50); Hydromor Urine NEGATIVE ng/mL (<50); Morphine Urine NEGATIVE ng/mL (<50); Norhydrocodone Conf Ur NEGATIVE ng/mL (<50); Noroxycodone Urine >10000 ng/mL (<50); Oxycodone Urine >10000 ng/mL (<50); Oxymorph Urine 9070 ng/mL (<50)
--- NOTE | 2021-02-05 08:30 | Pulmonology Progress Note ---
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 CO2 levels are mildly elevated but well com pensated based on a normal pH. Recommendations: 1. Hypercarbic respiratory failure: Certainly possible the patient could have obesity hypoventilation syndrome as well as untreated sleep disordered b reathing. He likely has some component of restrictive lung disease due to his elevated hemidiaphragm as well. Cannot rule out possible respiratory muscle weakness due to CMP although his serum bicarb is normal which would argue against a chronically elevated CO2 level and is not demonstrated severe hypercarbia. I had a long discussion with the patient in the presence of the nurse at the bedside. The patient is alert and conversant and able to make his own decisions. We discussed options for severe sleep disordered breathing to include CPAP/BiPAP or tracheostomy. Would not recommend proceeding with tracheostomy unless the patient were completely refractory to all attempts to use nocturnal positive airway pressure. For now he would like to see how he does. We may consider CPAP desensitization and appropriate mask fitting. Outpatient evaluation with pulmonary function testing including assessment of respiratory muscle strength may be appropriate as well. 2. Elevated hemidiaphragm: Could consider sniff test however typically unilateral elevation of the hemidiaphragm order diaphragmatic paresis is well tolerated and does not require intervention. It certainly could be contributing to his hypercarbia and cyclical oxygen desaturations at night.. 3. Outpatient polysomnography is recommended. Patient CO2 levels are mildly elevated. Its unclear if the patient would qualify for bilevel ST or AVAPS as a bridge to his sleep study. Recommend discussion with case management and respiratory therapy to see whether or not the patient could qualify. The family states they are willing to purchase a home ventilator if needed for the patient to go back [facility] facility. Coordination with case management will be paramount. 4. Weight loss is paramount in managing obesity hypoventilation/sleep disordered breathing. We will update the patient's sister and brother today by phone. I did speak with both of them yesterday. Admission and Anticipated Discharge Date Admission Date: February 01, 2021 Subjective Patient seen and examined. He is awake alert and conversant this morning and eating breakfast. He is not on oxygen. He does not recall much of the events of yesterday. He apparently used CPAP/BiPAP last night briefly. He states he is bothered by the mask and is not sure that he can be compliant with it in the long-term. Review of Systems Review of Systems: All systems reviewed & are unremarkable except as noted in HPI & below Physical Exam Constitutional: + obese; no acute distress and not ill appearing Neck: trachea midline, no thyromegaly Respiratory: normal respiratory effort, lungs clear to auscultation Cardiovascular: RRR, no murmur, no edema Gastrointestinal (Abdomen): normal bowel sounds, soft, nontender, no hepa tosplenomegaly Musculoskeletal: Extremities: extremities normal to inspection Skin: no rashes, warm and dry Lymphatic: no cervical lymphadenopathy Results & Data Results & Data ([facility]) Vital Signs (Past 12 Hours) Vital Signs Temp Pulse Pulse Resp BP Pulse Ox 02/05/21 08:00 36.8 C 77 18 145/74 H 98 02/05/21 03:24 36.7 C 65 18 145/72 H 94 02/05/21 00:51 56 L 29 H 95 02/05/21 00:16 113/63 02/05/21 00:04 36.6 C 58 L 18 91/79 L 93 02/04/21 22:20 66 Laboratory Results 02/04/21 08:14 02/04/21 20:20 Diagnostic Findings No new imaging PG Care Time/CCT Total # of Minutes Spent Total Time Spent with Patient: Total time spent is greater than 50% in coordination of care (as documented) at patient's floor/unit and/or counseling patient: Coding Level of Care Code 29863 Subseq Hosp Care Lvl 3 Diagnoses Obesity E66.9 Opiate dependence F11.20 Hypercapnic respiratory failure J96.92 Hypoxemia R09.02 Elevated diaphragm J98.6 Time Spent (min) 45
[2021-02-05 08:55] LABS: Hematocrit (blood only) 44.3 % (42-52); Hemoglobin 15.2 g/dL (14.0-18.0); Mean Corpuscular Hemoglobin 29.1 pg (25-34); Mean Corpuscular Volume 84.7 fL (80-100); Mean Platelet Volume 10.9 fL (7.4-10.4); Platelet Count 245 K/uL (130-400); RDW Coefficient of Variation 14.1 % (11.5-14.5); RDW Standard Deviation 43.9 fL (36.4-46.3); Red Blood Count 5.23 M/uL (4.7-6.1); White Blood Count 12.73 K/uL (4.8-10.8)
[2021-02-05 09:18] LABS: Mean Corpuscular Hgb Conc 34.3 g/dL (32-36)
[2021-02-05 09:22] LABS: BUN Creatinine Ratio 23.6 (10-20); Blood Urea Nitrogen 7 mg/dl (7-18); Calcium 8.5 mg/dl (8.5-10.1); Carbon Dioxide 28 mmol/L (21-32); Chloride 104 mmol/L (98-107); Creatinine Clr Calc Pharmacy 386.8 ml/min; Est GFR (African American) > 150.0 ml/min; Est GFR (Non-African American) > 150.0 ml/min; Glucose 137 mg/dl (70-99); Potassium 2.8 mmol/L (3.5-5.1); Sodium 139 mmol/L (136-145)
--- NOTE | 2021-02-05 10:41 | Gastroenterology Progress Note ---
Date of Service February 05, 2021 Assessment & Plan (1) Ileus: (2) Opiate dependence: EGD yesterday was unremarkable. -Diet advanced and patient is tolerating. -Stop PPI ggt. Start Pantoprazole 40 mg daily. -Outpatient gastric emptying study to be scheduled. -Avoid opioid analgesics which decrease GI motility. -Pathology pending. -Continue supportive care. Will sign off at this time. If we can be of assistance in the care of this patient during this admission, please do not hesitate to contact us. Admission and Anticipated Discharge Date Admission Date: February 01, 2021 Subjective Patient s/p EGD yesterday without evidence of outlet obstruction. Diet has been advanced and he is tolerating diet. Denies any n/v. No abdominal pain. Passing bowel movements. Remains on PPI ggt. Remains hemodynamically stable. Review of Systems Constitutional: no fever and no chills Respiratory: + dyspnea and + stopping breathing during sleep Cardiovascular: no chest pain Gastrointestinal: as per Subjective / HPI Physical Exam Constitutional: + obese; no acute distress Respiratory: + labored breathing Auscultation: lungs clear to auscultation bilaterally Cardiovascular: Rate/Rhythm: regular rate and regular rhythm Gastrointestinal (Abdomen): Inspection/Auscultation: normal bowel sounds Percussion/Palpation: abdomen soft; abdomen nontender Psychiatric: A+Ox3, euthymic affect Results & Data Results & Data ([facility]) Vital Signs (Past 12 Hours) Vital Signs Temp Pulse Pulse Resp BP Pulse Ox 02/05/21 08:00 36.8 C 56 L 77 18 145/74 H 98 02/05/21 03:24 36.7 C 65 18 145/72 H 94 02/05/21 00:51 56 L 29 H 95 02/05/21 00:16 113/63 02/05/21 00:04 36.6 C 58 L 18 91/79 L 93 Laboratory Results Abnormal lab results 02/01/21 02/04/21 02/05/21 Range/Units 12:36 20:20 08:37 WBC 12.73 H (4.8-10.8) K/uL MPV 10.9 H (7.4-10.4) fL Potassium 3.0 L D (3.5-5.1) mmol/L Creatinine 0.32 L (0.6-1.4) mg/dl BUN/Creatinine Ratio 25.6 H (10-20) Glucose 126 H (70-99) mg/dl Ur Noroxycodone >02712 H (<50) ng/mL Urine Oxycodone (GC/MS) >07599 H (<50) ng/mL U Oxymorphone GC/MS 9070 H (<50) ng/mL 02/05/21 Range/Units 08:37 WBC (4.8-10.8) K/uL MPV (7.4-10.4) fL Potassium 2.8 L (3.5-5.1) mmol/L Creatinine 0.28 L (0.6-1.4) mg/dl BUN/Creatinine Ratio 23.6 H (10-20) Glucose 137 H (70-99) mg/dl Ur Noroxycodone (<50) ng/mL Urine Oxycodone (GC/MS) (<50) ng/mL U Oxymorphone GC/MS (<50) ng/mL PG Care Time/CCT Total # of Minutes Spent Total Time Spent with Patient: Total time spent is greater than 50% in coordination of care (as documented) at patient's floor/unit and/or counseling patient: Coding Level of Care Code 94598 Subseq Hosp Care Lvl 3 Diagnoses Ileus K56.7 Opiate dependence F11.20
--- NOTE | 2021-02-05 12:23 | Hospitalist Progress Note ---
Date of Service February 05, 2021 Assessment & Plan (1) Toxic metabolic encephalopathy: (2) Opiate dependence: S/p Narcan on admission Continue holding oxycodone and other opioids. PDMP reviewed. Patient has been on OxyContin for a long time. I spent some time educating patient on opioids and adverse effects. We will try to control patient's pain with nonopioid medications as much as possible since most of his pain seems to be related to his neuropathy and opioid may worsen his respiratory problems (3) Gastric outlet obstruction: EGD done yesterday was generally unremarkable. Currently pantoprazole 40 mg daily per GI. Also avoid opioid analgesics which will reduce motility. (4) Hypertension: BP currently controlled Likely secondary as a result of pain and discomfort. (5) DM II (diabetes mellitus, type II), controlled: Last A1C = 7.1 on 12/20/20, glucose is elevated at 180 on arrival to the ER. Being managed with diet alone Continue ISS per protocol (6) Hypercapnic respiratory failure: (7) Obesity: (8) Elevated diaphragm: (9) Hypoxia: Hypoxic and hypercapnic respiratory failure Currently on room air but does have cyclical desaturations especially when sleeping. Dye Winch Operator recommendation appreciated. Spent quite some time discussing with patient about need for the CPAP/BiPAP. I also discussed with the lead case manager about bridging BiPAP prior to patient getting sleep study. manager intensive care reports that patient can continue on BiPAP at [facility] and sleep study can be done over there. Weight loss will be tough for the patient considering his nonambulatory. However, we discussed dietary management as a means to losing some weight which will aid his respiratory problems (10) Hypokalemia: Potassium is 2.8 today. Replete aggressively and monitor. May need daily potassium supplementation (11) Vomiting: Resovled. (12) Metabolic alkalosis: Likely due to vomiting. Hypercapnea may also contribute to this. However, blood gas does not show significant hypercapnea Bicarb was 32 on admission. Currently 28 (13) Rash: in left axilla, POA. 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 (15) DVT prophylaxis: Lovenox sq Full Code Admission and Anticipated Discharge Date Admission Date: February 01, 2021 Subjective 55 yo M with PMhx of Lghxyih-Swsov-Vvpfh syndrome, pickwickian syndrome, chronic narcotic use, depression with hallucinations, DM II diet, nephrolithiasis, who presents to ER from [facility] with complaints of nausea and vomiting x 1.5 days. Noted to be quite somnolent and received narcan for toxic metabolic encephalopathy due to opioid Patient seen and examined this morning. Reports only pain and paresthesia in hands and feet. Reports intermittent episode but states that this is currently controlled with gabapentin. Denies cough and shortness of breath at this time. Currently on room air. His RN did report that patient's pulse oximetry drops once he starts sleeping without his CPAP/BiPAP Review of Systems Review of Systems: All systems reviewed & are unremarkable except as noted in Subjective Physical Exam Constitutional: + well hydrated and + obese; no acute distress Eyes: PERRL, conjunctivae normal, anicteric sclerae ENMT: external ear and nose normal, oropharynx normal Respiratory: normal respiratory effort, lungs clear to auscultation Cardiovascular: Rate/Rhythm: regular rate and regular rhythm S1-S2 Bilateral leg edema Gastrointestinal (Abdomen): Inspection/Auscultation: + abdomen distended and normal bowel sounds Percussion/Palpation: abdomen soft; abdomen nontender Musculoskeletal: leg edema Neurologic: PERRL, EOMI, accommodation nl, no face palsy, no dysarthria Psychiatric: A+Ox3, euthymic affect Results & Data Results & Data ([facility]) Vital Signs (Past 12 Hours) Vital Signs Temp Pulse Pulse Resp BP Pulse Ox 02/05/21 11:39 36.8 C 68 18 130/60 94 02/05/21 08:00 36.8 C 56 L 77 18 145/74 H 98 02/05/21 03:24 36.7 C 65 18 145/72 H 94 02/05/21 00:51 56 L 29 H 95 Laboratory Results Abnormal lab results 02/01/21 02/04/21 02/05/21 Range/Units 12:36 20:20 08:37 WBC 12.73 H (4.8-10.8) K/uL MPV 10.9 H (7.4-10.4) fL Potassium 3.0 L D (3.5-5.1) mmol/L Creatinine 0.32 L (0.6-1.4) mg/dl BUN/Creatinine Ratio 25.6 H (10-20) Glucose 126 H (70-99) mg/dl Ur Noroxycodone >69765 H (<50) ng/mL Urine Oxycodone (GC/MS) >55851 H (<50) ng/mL U Oxymorphone GC/MS 9070 H (<50) ng/mL 02/05/21 Range/Units 08:37 WBC (4.8-10.8) K/uL MPV (7.4-10.4) fL Potassium 2.8 L (3.5-5.1) mmol/L Creatinine 0.28 L (0.6-1.4) mg/dl BUN/Creatinine Ratio 23.6 H (10-20) Glucose 137 H (70-99) mg/dl Ur Noroxycodone (<50) ng/mL Urine Oxycodone (GC/MS) (<50) ng/mL U Oxymorphone GC/MS (<50) ng/mL
[2021-02-05] MEDS ORDERED: POTASSIUM CHLORIDE CRTAB 20 MEQ TABCR PO STA (15:25)
[2021-02-05] MEDS: POTASSIUM CHLORIDE / WTR 10 MEQ/100 ML PLCT IV SCH ×4 (16:33→22:29)
[2021-02-05] MEDS: LORazepam 0.5 MG TAB PO PRN (16:47)
[2021-02-05] MEDS: LIDOCAINE 5% 1 PATCH TD SCH (20:23)
[2021-02-06] MEDS: LORazepam 0.5 MG TAB PO PRN (01:09)
[2021-02-06 05:38] LABS: Hematocrit (blood only) 44.1 % (42-52); Hemoglobin 15.1 g/dL (14.0-18.0); Mean Corpuscular Hgb Conc 34.2 g/dL (32-36); Mean Corpuscular Volume 84.6 fL (80-100); Mean Platelet Volume 10.6 fL (7.4-10.4); Platelet Count 221 K/uL (130-400); RDW Coefficient of Variation 14.1 % (11.5-14.5); RDW Standard Deviation 43.2 fL (36.4-46.3); Red Blood Count 5.21 M/uL (4.7-6.1); White Blood Count 13.18 K/uL (4.8-10.8)
[2021-02-06 06:05] LABS: BUN Creatinine Ratio 18.1 (10-20); Blood Urea Nitrogen 5 mg/dl (7-18); Carbon Dioxide 27 mmol/L (21-32); Chloride 108 mmol/L (98-107); Creatinine Clr Calc Pharmacy 375.3 ml/min; Est GFR (African American) > 150.0 ml/min; Est GFR (Non-African American) > 150.0 ml/min; Glucose 133 mg/dl (70-99); Phosphorus 2.2 mg/dl (2.5-4.9); Potassium 3.5 mmol/L (3.5-5.1); Sodium 139 mmol/L (136-145)
--- NOTE | 2021-02-06 09:07 | Pulmonology Progress Note ---
Date of Service February 06, 2021 Assessment & Plan (1) Obesity: (2) Opiate dependence: (3) Hypercapnic respiratory failure: (4) Hypoxemia: (5) Elevated diaphragm: Impression: 55-year-old male with Mriinwn-Tmrmj-Tdnrv syndrome admitted with GI issues found to have cyclical nocturnal oxygen desaturations consistent with sleep disordered breathing. CO2 levels are mildly elevated but well co mpensated based on a normal pH. Recommendations: 1. Hypercarbic respiratory failure: Certainly possible the patient could have obesity hypoventilation syndrome as well as untreated sleep disordered breathing. He likely has some component of restrictive lung disease due to his elevated hemidiaphragm as well. Cannot rule out possible respiratory muscle weakness due to CMT although his serum bicarb is normal which would argue against a chronically elevated CO2 level and is not demonstrated severe hypercarbia. Outpatient evaluation with pulmonary function testing including assessment of respiratory muscle strength may be appropriate as well. The patient feels that he cannot tolerate the mask is a fullface mask is too constrictive for him. I will see if we can identify any nasal masks from the sleep lab and bring them over as the patient may do better with nasal pillow or nasal cushion interface. Discussed with respiratory therapy. 2. Elevated hemidiaphragm: Could consider sniff test however typically unilateral elevation of the hemidiaphragm order diaphragmatic paresis is well tolerated and does not require intervention. It certainly could be contributing to his hypercarbia and cyclical oxygen desaturations at night.. 3. Outpatient polysomnography is recommended. Patient CO2 levels are mildly elevated. Per the rifle case repairer, the patient can be transferred back to his [facility] on BiPAP. Will need to make sure that we have an interface that is comfortable for the patient. 4. Weight loss is paramount in managing obesity hypoventilation/sleep diso rdered breathing. Admission and Anticipated Discharge Date Admission Date: February 01, 2021 Subjective Patient seen and examined. Discussed with nursing at bedside. The patient attempted to use BiPAP last night but due to his neurological issues he feels very constrained and cannot pull the mask off. According to the nurse he was intolerant for the device for very short periods of time and without the device in place continues to demonstrate apneic episodes with oxygen desaturation. Review of Systems Review of Systems: All systems reviewed & are unremarkable except as noted in HPI & below Physical Exam Constitutional: + obese; no acute distress and not ill appearing Neck: trachea midline, no thyromegaly Respiratory: normal respiratory effort, lungs clear to auscultation Cardiovascular: RRR, no murmur, no edema Gastrointestinal (Abdomen): normal bowel sounds, soft, nontender, no hepatosplenomegaly Musculoskeletal: Extremities: extremities normal to inspection Skin: no rashes, warm and dry Lymphatic: no cervical lymphadenopathy Results & Data Results & Data ([facility]) Vital Signs (Past 12 Hours) Vital Signs Temp Pulse Pulse Resp BP Pulse Ox 02/06/21 07:24 37.0 C 78 17 162/100 H 96 02/06/21 03:40 67 24 98 02/06/21 02:43 37.0 C 77 20 129/96 96 02/05/21 22:20 75 02/05/21 22:15 36.8 C 76 20 128/79 93 Laboratory Results 02/06/21 05:24 02/06/21 05:24 Diagnostic Findings No new imaging PG Care Time/CCT Total # of Minutes Spent Total Time Spent with Patient: Total time spent is greater than 50% in coordination of care (as documented) at patient's floor/unit and/or counseling patient: Coding Level of Care Code 06929 Subseq Hosp Care Lvl 3 Diagnoses Obesity E66.9 Opiate dependence F11.20 Hypercapnic respiratory failure J96.92 Hypoxemia R09.02 Elevated diaphragm J98.6 Time Spent (min) 40
[2021-02-06] MEDS: GABAPENTIN 300 MG CAP PO SCH ×3 (09:41→23:09)
[2021-02-06] MEDS: NYSTATIN POWDER 15GM BTL EXT SCH ×3 (09:41→21:46)
[2021-02-06] MEDS: amLODIPine BESYLATE 5 MG TAB PO SCH (09:41)
[2021-02-06] MEDS: ENOXAPARIN INJ 40 MG/0.4 ML SYR SQ SCH (09:41)
[2021-02-06] MEDS: PANTOprazole 40 MG TAB PO SCH (09:41)
[2021-02-06] MEDS: POTASSIUM CHLORIDE CRTAB 20 MEQ TABCR PO SCH (09:41)
--- NOTE | 2021-02-06 14:12 | Hospitalist Progress Note ---
Date of Service February 06, 2021 Assessment & Plan (1) Toxic metabolic encephalopathy: S/p Narcan on admission Continue holding oxycodone and other opioids. Today patient is found to be more somnolent. However he does follow commands. Does respond to questions intermittently. (2) Opiate dependence: S/p Narcan on admission Continue holding oxycodone and other opioids. PDMP reviewed. Patient has been on OxyContin for a long time. Continue try to control patient's pain with nonopioid medications as much as possible since most of his pain seems to be related to his neuropathy and opioid may worsen his respiratory problems Gabapentin increased to 300mg tid (3) Gastric outlet obstruction: EGD done yesterday was generally unremarkable. Currently pantoprazole 40 mg daily per GI. Also avoid opioid analgesics which will reduce motility. (4) Hypertension: Started on amlodipine 5mg daily (5) DM II (diabetes mellitus, type II), controlled: Last A1C = 7.1 on 12/20/20, glucose is elevated at 180 on arrival to the ER. Being managed with diet alone Continue ISS per protocol (6) Hypercapnic respiratory failure: (7) Obesity: (8) Elevated diaphragm: (9) Hypoxia: Hypoxic and hypercapnic respiratory failure Currently on room air but does have cyclical desaturations especially when sleeping. Oracle Database Manager recommendation appreciated. Spent quite some time discussing with patient about need for the CPAP/BiPAP. career development manager reports that patient can continue on BiPAP at [facility] and sleep study can be done over there. career development manager will confirm [facility] are able to take patient prior to dic (10) Hypokalemia: Potassium is 3.5 today. Continue daily potassium po (11) Vomiting: Resovled. (12) Metabolic alkalosis: Likely due to vomiting. Hypercapnea may also contribute to this. However, blood gas does not show significant hypercapnea Bicarb was 32 on admission. Currently 28 (13) Rash: in left axilla, POA. Nystatin powder trial (14) Qwfjavb-Ybolu-Lhpng disease: Chronically debilitated secondary to this. (15) DVT prophylaxis: Lovenox sq Full Code Discontinue bill Plan to dc to [facility] once confirmed by CM Admission and Anticipated Discharge Date Admission Date: February 01, 2021 Subjective 55 yo M with PMhx of Xpwczlu-Ybojj-Njiuy syndrome, pickwickian syndrome, chronic narcotic use, depression with hallucinations, DM II diet, nephrolithiasis, who presents to ER from [facility] with complaints of nausea and vomiting x 1.5 days. Noted to be quite somnolent and received narcan for toxic metabolic encephalopathy due to opioid Patient seen and examined Patient reports paresthesias in extremity. States that gabapentin helps but does not last too long. Reports trying to be compliant with BiPAP Physical Exam Constitutional: + well hydrated and + obese; no acute distress Eyes: PERRL, conjunctivae normal, anicteric sclerae ENMT: external ear and nose normal, oropharynx normal Respiratory: normal respiratory effort, lungs clear to auscultation Cardiovascular: Rate/Rhythm: regular rate and regular rhythm Gastrointestinal (Abdomen): Inspection/Auscultation: + abdomen distended and normal bowel sounds Percussion/Palpation: abdomen soft; abdomen nontender Neurologic: PERRL, EOMI, accommodation nl, no face palsy, no dysarthria Psychiatric: A+Ox3, euthymic affect Results & Data Results & Data ([facility]) Vital Signs (Past 12 Hours) Vital Signs Temp Pulse Pulse Resp BP Pulse Ox 02/06/21 11:22 36.5 C 86 17 139/97 93 02/06/21 07:24 37.0 C 78 17 162/100 H 96 02/06/21 03:40 67 24 98 02/06/21 02:43 37.0 C 77 20 129/96 96 Laboratory Results Abnormal lab results 02/06/21 02/06/21 Range/Units 05:24 05:24 WBC 13.18 H (4.8-10.8) K/uL MPV 10.6 H (7.4-10.4) fL Chloride 108 H (98-107) mmol/L BUN 5 L (7-18) mg/dl Creatinine 0.29 L (0.6-1.4) mg/dl Glucose 133 H (70-99) mg/dl Calcium 8.0 L (8.5-10.1) mg/dl Phosphorus 2.2 L (2.5-4.9) mg/dl
[2021-02-06] MEDS ORDERED: POT PHOSPHATE MONOBASIC W/ SOD TAB PO ONE (19:00)
[2021-02-06] MEDS: LIDOCAINE 5% 1 PATCH TD SCH ×2 (21:45→23:13)
[2021-02-07] MEDS: ONDANSETRON INJ 2 MG/ML 2 ML VIAL IV PRN ×3 (00:38→12:38)
[2021-02-07] MEDS: PANTOprazole 40 MG TAB PO SCH (09:15)
[2021-02-07] MEDS: amLODIPine BESYLATE 5 MG TAB PO SCH (09:15)
[2021-02-07] MEDS: GABAPENTIN 300 MG CAP PO SCH ×3 (09:16→20:16)
[2021-02-07] MEDS: NYSTATIN POWDER 15GM BTL EXT SCH ×3 (09:16→20:17)
[2021-02-07] MEDS: POTASSIUM CHLORIDE CRTAB 20 MEQ TABCR PO SCH (09:18)
[2021-02-07] MEDS: ENOXAPARIN INJ 40 MG/0.4 ML SYR SQ SCH (09:18)
--- NOTE | 2021-02-07 09:21 | Pulmonology Progress Note ---
Date of Service February 07, 2021 Assessment & Plan (1) Obesity: (2) Opiate dependence: (3) Hypercapnic respiratory failure: (4) Hypoxemia: (5) Elevated diaphragm: Impression: 55-year-old male with Jvwsixc-Exxqb-Qdebc syndrome admitted with GI issues found to have cyclical nocturnal oxygen desaturations consistent with sleep disordered breathing. CO2 levels are mildly elevated but well co mpensated based on a normal pH. Recommendations: 1. Hypercarbic respiratory failure: Certainly possible the patient could have obesity hypoventilation syndrome as well as untreated sleep disordered breathing. He likely has some component of restrictive lung disease due to his elevated hemidiaphragm as well. Cannot rule out possible respiratory muscle weakness due to CMT although his serum bicarb is normal which would argue against a chronically elevated CO2 level and is not demonstrated severe hypercarbia. Outpatient evaluation with pulmonary function testing including assessment of respiratory muscle strength may be appropriate as well. We have procured some nasal cushions and nasal pillows and will try these to see if it is a more comfortable interface for the patient. This is the acute recognition of a chronic problem as the patient has likely had sleep disordered breathing f or some time and its only now that he is in a monitored setting that were documenting the degree of oxygen desaturation. 2. Elevated hemidiaphragm: Could consider sniff test however typically unilat eral elevation of the hemidiaphragm order diaphragmatic paresis is well tolerated and does not require intervention. It certainly could be contributing to his hypercarbia and cyclical oxygen desaturations at night.. 3. Outpatient polysomnography is recommended. Patient CO2 levels are mildly elevated. Per the telephonic case manager, the patient can be transferred back to his care home facility on BiPAP. We will continue to work on the interface. Once the sleep study has been performed, if the patient is intolerant of positive airway pressure, he could potentially be referred to [facility] for c onsideration of the INSPIRE device (hypoglossal nerve stimulator) 4. Weight loss is paramount in managing obesity hypoventilation/sleep disordered breathing. We will see how he does with the new interface Admission and Anticipated Discharge Date Admission Date: February 01, 2021 Subjective Patient seen and examined. He states that he was able to use CPAP last night and he estimates he is able to use it for about 3 hours. According to the nursing notes, has been unable to keep the device on longer than 20 minutes. Physical Exam Constitutional: + obese; no acute distress and not ill appearing Neck: trachea midline, no thyromegaly Respiratory: normal respiratory effort, lungs clear to auscultation Cardiovascular: RRR, no murmur, no edema Gastrointestinal (Abdomen): normal bowel sounds, soft, nontender, no hepatosplenomegaly Musculoskeletal: Extremities: extremities normal to inspection Skin: no rashes, warm and dry Lymphatic: no cervical lymphadenopathy Results & Data Results & Data ([facility]) Vital Signs (Past 12 Hours) Vital Signs Temp Pulse Pulse Pulse Resp BP Pulse Ox 02/07/21 08:02 36.8 C 92 H 17 168/90 H 97 02/07/21 07:40 97 H 02/07/21 03:56 37.8 C H 90 20 181/87 H 97 02/07/21 01:35 84 24 95 02/06/21 23:30 76 02/06/21 23:26 36.6 C 75 20 177/91 H 92 02/06/21 22:28 73 26 H 94 Laboratory Results 02/06/21 05:24 02/06/21 05:24 PG Care Time/CCT Total # of Minutes Spent Total Time Spent with Patient: Total time spent is greater than 50% in coordination of care (as documented) at patient's floor/unit and/or counseling patient: Coding Level of Care Code 79849 Subseq Hosp Care Lvl 2 Diagnoses Obesity E66.9 Opiate dependence F11.20 Hypercapnic respiratory failure J96.92 Hypoxemia R09.02 Elevated diaphragm J98.6
[2021-02-07 10:15] LABS: Hematocrit (blood only) 45.5 % (42-52); Hemoglobin 15.7 g/dL (14.0-18.0); Mean Corpuscular Hemoglobin 28.9 pg (25-34); Mean Corpuscular Hgb Conc 34.5 g/dL (32-36); Mean Corpuscular Volume 83.8 fL (80-100); Platelet Count 235 K/uL (130-400); RDW Coefficient of Variation 13.9 % (11.5-14.5); Red Blood Count 5.43 M/uL (4.7-6.1); White Blood Count 14.34 K/uL (4.8-10.8)
[2021-02-07 10:35] LABS: BUN Creatinine Ratio 19.1 (10-20); Blood Urea Nitrogen 5 mg/dl (7-18); Calcium 8.3 mg/dl (8.5-10.1); Carbon Dioxide 25 mmol/L (21-32); Chloride 103 mmol/L (98-107); Creatinine Clr Calc Pharmacy 435.4 ml/min; Est GFR (African American) > 150.0 ml/min; Est GFR (Non-African American) > 150.0 ml/min; Glucose 147 mg/dl (70-99); Phosphorus 2.2 mg/dl (2.5-4.9); Sodium 136 mmol/L (136-145)
[2021-02-07 11:14] LABS: Magnesium 1.8 mg/dl (1.8-2.4); Potassium 2.7 mmol/L (3.5-5.1)
[2021-02-07] MEDS ORDERED: POTASSIUM CHLORIDE PWD 20 MEQ PACK PO STA (11:53)
--- NOTE | 2021-02-07 12:04 | Hospitalist Progress Note ---
Date of Service February 07, 2021 Assessment & Plan (1) Toxic metabolic encephalopathy: S/p Narcan on admission Continue holding oxycodone and other opioids. Today patient is found to be more somnolent. However he does follow commands. Does respond to questions intermittently. (2) Opiate dependence: S/p Narcan on admission Continue holding oxycodone and other opioids. PDMP reviewed. Patient has been on OxyContin for a long time. Continue try to control patient's pain with nonopioid medications as much as possible since most of his pain seems to be related to his neuropathy and opioid may worsen his respiratory problems Gabapentin was increased to 300mg tid (3) Gastric outlet obstruction: EGD done yesterday was generally unremarkable. Currently pantoprazole 40 mg daily per GI. Also avoid opioid analgesics which will reduce motility. (4) Hypertension: Continue amlodipine 5mg daily (5) DM II (diabetes mellitus, type II), controlled: Last A1C = 7.1 on 12/20/20, glucose is elevated at 180 on arrival to the ER. Being managed with diet alone Continue ISS per protocol (6) Hypercapnic respiratory failure: (7) Obesity: (8) Elevated diaphragm: (9) Hypoxia: Hypoxic and hypercapnic respiratory failure Currently on room air but does have cyclical desaturations especially when sleeping. Pointer Helper recommendation appreciated. Spent quite some time discussing with patient about need for the CPAP/BiPAP. Continue BiPAP at [facility] and sleep study can be done over there. (10) Hypokalemia: Potassium dropped to 2.7 today Replete aggressively with iv and po Will need to continue daily po potassium even on discharge Recheck K this afternoon after repletion Hypokalemia may explain the 12 beat NSVT this morning (11) Vomiting: Resovled. (12) Metabolic alkalosis: Likely due to vomiting. Hypercapnea may also contribute to this. However, blood gas does not show significant hypercapnea Bicarb was 32 on admission. Currently 25 (13) Rash: in left axilla, POA. Nystatin powder trial (14) Xgrjgvf-Fmvtq-Sdkwu disease: Chronically debilitated secondary to this. (15) DVT prophylaxis: Lovenox sq Full Code CM reported transport will not be able to take patient later in the day. Cannot be discharged this morning as he is getting iv and po potassium repletion for severe hypokalemia Patient may have to stay till tomorrow morning to be discharged Admission and Anticipated Discharge Date Admission Date: February 01, 2021 Subjective 55 yo M with PMhx of Lpovuaw-Tlcmx-Mgpny syndrome, pickwickian syndrome, chronic narcotic use, depression with hallucinations, DM II diet, nephrolithiasis, who presents to ER from [facility] with complaints of nausea and vomiting x 1.5 days. Noted to be quite somnolent and received narcan for toxic metabolic encephalopathy due to opioid Patient seen and examined Reported some nausea and one vomiting episode overnight No new complaints except for paresthesias in lower extremities Had 12 beat NSVT this morning Review of Systems Review of Systems: All systems reviewed & are unremarkable except as noted in Subjective Physical Exam Constitutional: + well hydrated and + obese; no acute distress Eyes: PERRL, conjunctivae normal, anicteric sclerae ENMT: external ear and nose normal, oropharynx normal Respiratory: normal respiratory effort, lungs clear to auscultation Cardiovascular: Rate/Rhythm: regular rate and regular rhythm S1 S2 Gastrointestinal (Abdomen): Inspection/Auscultation: + abdomen distended and normal bowel sounds Percussion/Palpation: abdomen soft; abdomen nontender Musculoskeletal: Leg edema Neurologic: PERRL, EOMI, accommodation nl, no face palsy, no dysarthria Psychiatric: A+Ox3, euthymic affect Results & Data Results & Data ([facility]) Vital Signs (Past 12 Hours) Vital Signs Temp Pulse Pulse Pulse Resp BP Pulse Ox 02/07/21 08:02 36.8 C 92 H 17 168/90 H 97 02/07/21 07:40 97 H 02/07/21 03:56 37.8 C H 90 20 181/87 H 97 02/07/21 01:35 84 24 95 Laboratory Results Abnormal lab results 02/07/21 02/07/21 02/07/21 Range/Units 07:30 09:58 09:58 WBC 14.34 H (4.8-10.8) K/uL MPV 11.0 H (7.4-10.4) fL Potassium (3.5-5.1) mmol/L BUN 5 L (7-18) mg/dl Creatinine 0.25 L (0.6-1.4) mg/dl Glucose 147 H (70-99) mg/dl POC Glucose 119 H (70-99) mg/dl Calcium 8.3 L (8.5-10.1) mg/dl Phosphorus 2.2 L (2.5-4.9) mg/dl 02/07/21 02/07/21 Range/Units 10:37 11:35 WBC (4.8-10.8) K/uL MPV (7.4-10.4) fL Potassium 2.7 L D (3.5-5.1) mmol/L BUN (7-18) mg/dl Creatinine (0.6-1.4) mg/dl Glucose (70-99) mg/dl POC Glucose 137 H (70-99) mg/dl Calcium (8.5-10.1) mg/dl Phosphorus (2.5-4.9) mg/dl
[2021-02-07] MEDS: POT PHOSPHATE MONOBASIC W/ SOD TAB PO SCH ×3 (12:16→20:17)
[2021-02-07] MEDS: POTASSIUM CHLORIDE / WTR 10 MEQ/100 ML PLCT IV SCH ×8 (12:24→20:15)
[2021-02-07] MEDS: LIDOCAINE 5% 1 PATCH TD SCH (20:16)
[2021-02-08 06:56] LABS: BUN Creatinine Ratio 8.4 (10-20); Blood Urea Nitrogen 3 mg/dl (7-18); Calcium 8.5 mg/dl (8.5-10.1); Carbon Dioxide 25 mmol/L (21-32); Chloride 109 mmol/L (98-107); Creatinine Clr Calc Pharmacy 269.6 ml/min; Est GFR (African American) > 150.0 ml/min; Est GFR (Non-African American) 131.9 ml/min; Glucose 146 mg/dl (70-99); Phosphorus 2.7 mg/dl (2.5-4.9); Sodium 142 mmol/L (136-145)
[2021-02-08 07:32] LABS: Potassium 3.2 mmol/L (3.5-5.1)
[2021-02-08 07:33] LABS: Magnesium 1.8 mg/dl (1.8-2.4)
[2021-02-08] MEDS: POTASSIUM CHLORIDE / WTR 10 MEQ/100 ML PLCT IV SCH ×4 (08:04→11:59)
[2021-02-08] MEDS: GABAPENTIN 300 MG CAP PO SCH ×3 (08:04→20:00)
[2021-02-08] MEDS: POT PHOSPHATE MONOBASIC W/ SOD TAB PO SCH (08:04)
[2021-02-08] MEDS: PANTOprazole 40 MG TAB PO SCH (08:05)
[2021-02-08] MEDS: ENOXAPARIN INJ 40 MG/0.4 ML SYR SQ SCH (08:06)
[2021-02-08] MEDS: NYSTATIN POWDER 15GM BTL EXT SCH ×3 (08:06→20:01)
[2021-02-08] MEDS: amLODIPine BESYLATE 5 MG TAB PO SCH (08:06)
[2021-02-08] MEDS ORDERED: POTASSIUM CHLORIDE 20 MEQ/15 ML UDC PO SCH (09:00)
--- NOTE | 2021-02-08 09:38 | Discharge Summary ---
Date of Service February 08, 2021 Admission HPI Per Admitting Provider This is a 55 yo M with PMhx of Xwajqal-Vdgpm-Mteto syndrome, pickwickian syndrome, chronic narcotic use, depression with hallucinations, DM II diet, nephrolithiasis, who presents to ER from [facility] with complaints of nausea and vomiting x 1.5 days. Since being in the ER he was found to be hypertensive, tachycardic with heart rate in the low 100s, afebrile, and is falling asleep during conversation. The patient states he feels the same with NG tube in as when he arrived to the ER. Since NG tube placement approximately 1 L of bilious outs, his abdomen is not distended and is soft. He denies having diarrhea and cannot answer when his last bowel movement was. He denies any fevers or chills. 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 He does not wear oxygen at baseline but here is requiring 4 L to maintain sats in the mid 90s. Patient did not receive any medication today, it appears that per his med rec, he got his last doses last evening. Patient is on OxyContin ER 80 mg twice daily as well as oxycodone IR 10 mg every 4 and received this last night at 2200. When asked about his CODE STATUS and if he would want CPR, breathing tube, meds etc. he replies "sure". Discharge Data Allergies Allergy/AdvReac Type Severity Reaction Status Date / Time hydralazine Allergy Intermediate Gastrointestinal Verified 02/04/21 14:57 Upset alcohol Allergy Unknown Unknown Verified 02/04/21 14:57 amiodarone Allergy Unknown Unknown rxn Verified 02/04/21 14:57 chloramphenicol Allergy Unknown Unknown Verified 02/04/21 14:57 cholecalciferol (vitamin D3) Allergy Unknown Unknown Verified 02/04/21 14:57 cisplatin Allergy Unknown Unknown Verified 02/04/21 14:57 dapsone Allergy Unknown Unknown rxn Verified 02/04/21 14:57 disulfiram Allergy Unknown Unknown rxn Verified 02/04/21 14:57 doxorubicin Allergy Unknown Unknown Verified 02/04/21 14:57 glutethimide Allergy Unknown Unknown Verified 02/04/21 14:57 Gold Salts Allergy Unknown Unknown Verified 02/04/21 14:57 Hydantoins Allergy Unknown Unknown Verified 02/04/21 14:57 isoniazid Allergy Unknown Unknown rxn Verified 02/04/21 14:57 metronidazole Allergy Unknown Unknown Verified 02/04/21 14:57 nitrofurantoin Allergy Unknown Unknown rxn Verified 02/04/21 14:57 Penicillins Allergy Unknown Rash Verified 02/04/21 14:57 phenytoin Allergy Unknown Unknown Verified 02/04/21 14:57 pyridoxine Allergy Unknown Unknown Verified 02/04/21 14:57 theophylline Allergy Unknown Unknown rxn Verified 02/04/21 14:57 tretinoin Allergy Unknown Unknown rxn Verified 02/04/21 14:57 vincristine Allergy Unknown Unknown Verified 02/04/21 14:57 succinylcholine AdvReac Unknown *not Verified 02/04/21 14:57 actual allergy*see below Consultations 02/01/21 10:15 ED Decision to Admit Stat 02/01/21 11:01 Consult General Surgery Routine 02/01/21 11:11 Consult Gastroenterology Routine 02/04/21 12:40 Consult Pulmonology Routine Procedures Performed Operation Date: 02/04/21 16:30 Actual Procedures p EGD Biopsy Cytology(Not Applicable) - Rocky Sandoval MD Ordered Studies 02/01/21 08:29 CT abd pelvis wo con Stat 02/01/21 12:18 CT head/brain wo con Stat 02/01/21 21:22 US venous doppler LE BI Urgent Discharge Plan Discharge Items Patient Disposition: Transfer Group Home Fac Reason For Visit: Nausea vomiting Discharge Diagnosis: Toxic metabolic encephalopathy Opioid dependence Hypercapnic respiratory failure Hypoxia Obesity Hypertension Hypokalemia Activity: Resume your previous activity Non-emergency contact: Primary Care Provider and Chute Tender Call non-emergency contact if: you have any medication questions and your symptoms worsen Follow-up/Referrals: Panchito Raymond [place] [Primary Care Provider] - Diet: Carb Consistent or DM2 and Heart Healthy Ambulatory Orders: Potassium (Routine) Timeframe: 1 Week Location: Determined by Patient Ordered By: Rabia Wright Attending Provider Instructions: Mr Loza You were brought to the hospital for nausea and vomiting. You were evaluated and found to be quite somnolent likely due to chronic opioid use. You required narcan. Your symptoms resolved. You also noted to have elevated CO2 on significant drop in oxygen levels especially when sleeping or drowsy. You will need to use BiPAP whenever you are sleeping. You also need to have sleep study done at [facility]. You were started on amlodipine for better blood pressure control. It is very important that your chronic pain is controlled with non opioid alternatives. Your chronic oxycontin were discontinued. You were started on gabapentin. You also had endoscopy done by truck driver flatbed and started on pantoprazole outpatient gastric emptying study recommended Your potassium level was low requiring repletion. Please check potassium level next week and dose may be adjusted as needed. It is very important that you follow-up with your Primary Doctor. Pending Studies at Discharge: No Stand-Alone Forms: My [facility] Skilled Items Patient informed of condition?: Yes DNR: No Discharge Level of Care: Skilled Communicable Disease: No Discharge Prognosis: Stable Lines: None Urinary Catheter: No Medications and DC Order Prescriptions: New amlodipine [Norvasc] 5 mg Tablet 5 mg PO QAM Qty: 30 RF: 0 gabapentin 300 mg Capsule 300 mg PO TID Qty: 90 RF: 0 pantoprazole 40 mg Tablet,Delayed Release (Dr/Ec) 40 mg PO QAM Qty: 30 RF: 0 lidocaine 5 % Adhesive Patch,Medicated 1 patch transdermal HS Qty: 30 RF: 0 potassium chloride 20 mEq packet 40 meq PO DAILY Qty: 30 RF: 0 Continued montelukast 10 mg tablet 10 mg PO PM RF: 0 duloxetine 20 mg capsule,delayed release(DR/EC) 30 mg PO QAM RF: 0 acetaminophen [Tylenol Extra Strength] 500 mg Tablet 500 mg PO QID PRN (Reason: Pain) RF: 0 docusate sodium 100 mg Capsule 100 - 200 mg PO BID RF: 0 azelastine 137 mcg (0.1 %) aerosol,spray 1 spray intranasal BID RF: 0 mometasone 50 mcg/actuation spray,non-aerosol 1 spray intranasal BID RF: 0 aspirin [Adult Low Dose Aspirin] 81 mg tablet,delayed release (DR/EC) 81 mg PO QAM RF: 0 polyethylene glycol 3350 [Miralax] 17 gram Powder In Packet 17 g PO QAM RF: 0 ibuprofen 200 mg Tablet 400 mg PO QID PRN (Reason: pain) Qty: 20 RF: 0 oxybutynin chloride 10 mg Tablet Extended Release 24hr 10 mg PO Q8H RF: 0 Calmoseptine 0.44-20.6 % Ointment 1 applic TOPICAL TID PRN (Reason: right buttocks) RF: 0 tamsulosin 0.4 mg capsule 0.4 mg PO QAM RF: 0 Discontinued oxycodone 10 mg tablet 10 mg PO Q4H PRN (Reason: moderate to severe pain) RF: 0 oxycodone [OxyContin] 80 mg tablet,oral only,ext.rel.12 hr 80 mg PO Q12H RF: 0 cefdinir 300 mg capsule 300 mg PO Q12H RF: 0 Discharge Orders: Discharge Order (Routine); Ordered 02/08/21 Ordered By: Rabia Odom/Other Patient Handouts: Understanding Diabetic Gastroparesis Admission Data Admit Date/Time: 02/01/21 10:37 Attending Provider: Rabia Briones I. Admit Provider: Sally Bautista Primary Care Provider: Panchito Raymond [facility] Other Providers: Nuvia Adams ; Sally Bautista ; Jaydon Odell ; Rocky Sandoval ; Matthew Ortiz ; Panchito Raymond [facility] Other Interventions: Discharge Summary Assessment (RN) Last Done: 02/04/21 16:42
--- NOTE | 2021-02-08 09:53 | Hospitalist Progress Note ---
Date of Service February 08, 2021 Assessment & Plan (1) Toxic metabolic encephalopathy: (2) Opiate dependence: S/p Narcan on admission Continue holding oxycodone and other opioids. PDMP reviewed. Patient has been on OxyContin for a long time. Continue try to control patient's pain with nonopioid medications as much as possible since most of his pain seems to be related to his neuropathy and opioid may worsen his respiratory problems Gabapentin was increased to 300mg tid (3) Gastric outlet obstruction: EGD was generally unremarkable. Currently pantoprazole 40 mg daily per GI. Also avoid opioid analgesics which will reduce motility. (4) Hypertension: Continue amlodipine 5mg daily (5) DM II (diabetes mellitus, type II), controlled: Last A1C = 7.1 on 12/20/20, glucose is elevated at 180 on arrival to the ER. Being managed with diet alone Continue ISS per protocol (6) Hypercapnic respiratory failure: (7) Obesity: (8) Elevated diaphragm: (9) Hypoxia: Hypoxic and hypercapnic respiratory failure Currently on room air but does have cyclical desaturations especially when sleeping. Machine Clothing Man recommendation appreciated. Spent quite some time discussing with patient about need for the CPAP/BiPAP. Continue BiPAP at [facility] and sleep study can be done over there. (10) Hypokalemia: Potassium is 3.2 today Continue repletion Change potassium to p.o. liquid Discharge on p.o. potassium. [facility] and adjust dose as needed and (11) Vomiting: Resovled. (12) Metabolic alkalosis: Likely due to vomiting. Hypercapnea may also contribute to this. However, blood gas does not show significant hypercapnea Bicarb was 32 on admission. Currently 25 (13) Rash: (14) Etlpmqo-Pcepf-Mdpkd disease: Chronically debilitated secondary to this. (15) DVT prophylaxis: Lovenox sq Full Code branch rental manager reported Mandi called and will like to push his discharge to [facility] as they did not get his equipment in time Plan dc tomorrow Admission and Anticipated Discharge Date Admission Date: February 01, 2021 Subjective 55 yo M with PMhx of Wtygncl-Ormdh-Xnybm syndrome, pickwickian syndrome, chronic narcotic use, depression with hallucinations, DM II diet, nephrolithiasis, who presents to ER from [facility] with complaints of nausea and vomiting x 1.5 days. Noted to be quite somnolent and received narcan for toxic metabolic encephalopathy due to opioid Patient seen and examined Has no new complaints except for lower extremity paresthesias Reports difficulty tolerating the p.o. potassium yesterday. Review of Systems Review of Systems: All systems reviewed & are unremarkable except as noted in Subjective Physical Exam Constitutional: + well hydrated and + obese; no acute distress Eyes: PERRL, conjunctivae normal, anicteric sclerae ENMT: external ear and nose normal, oropharynx normal Respiratory: normal respiratory effort, lungs clear to auscultation Cardiovascular: Rate/Rhythm: regular rate and regular rhythm S1-S2 Gastrointestinal (Abdomen): Inspection/Auscultation: + abdomen distended and normal bowel sounds Percussion/Palpation: abdomen soft; abdomen nontender Musculoskeletal: Leg edema Neurologic: PERRL, EOMI, accommodation nl, no face palsy, no dysarthria Psychiatric: A+Ox3, euthymic affect Results & Data Results & Data ([facility]) Vital Signs (Past 12 Hours) Vital Signs Temp Pulse Pulse Resp BP Pulse Ox 02/08/21 08:17 37.4 C 85 20 134/86 96 02/08/21 07:45 92 H 02/08/21 03:40 37.1 C 106 H 20 144/83 H 98 02/08/21 02:36 105 H 02/08/21 01:59 97 H 22 93 02/07/21 23:00 37.3 C 106 H 20 120/81 96 02/07/21 22:05 102 H 24 94 Laboratory Results Abnormal lab results 02/07/21 02/07/21 02/07/21 Range/Units 09:58 09:58 10:37 WBC 14.34 H (4.8-10.8) K/uL MPV 11.0 H (7.4-10.4) fL Potassium 2.7 L D (3.5-5.1) mmol/L Chloride (98-107) mmol/L BUN 5 L (7-18) mg/dl Creatinine 0.25 L (0.6-1.4) mg/dl BUN/Creatinine Ratio (10-20) Glucose 147 H (70-99) mg/dl POC Glucose (70-99) mg/dl Calcium 8.3 L (8.5-10.1) mg/dl Phosphorus 2.2 L (2.5-4.9) mg/dl 02/07/21 02/07/21 02/07/21 Range/Units 11:35 16:22 17:17 WBC (4.8-10.8) K/uL MPV (7.4-10.4) fL Potassium 3.3 L D (3.5-5.1) mmol/L Chloride (98-107) mmol/L BUN (7-18) mg/dl Creatinine (0.6-1.4) mg/dl BUN/Creatinine Ratio (-20) Glucose (70-99) mg/dl POC Glucose 137 H 118 H (70-99) mg/dl Calcium (8.5-10.1) mg/dl Phosphorus (2.5-4.9) mg/dl 02/07/21 02/08/21 02/08/21 Range/Units 20:07 05:50 07:08 WBC (4.8-10.8) K/uL MPV (7.4-10.4) fL Potassium 3.2 L (3.5-5.1) mmol/L Chloride 109 H (98-107) mmol/L BUN 3 L (7-18) mg/dl Creatinine 0.40 L (0.6-1.4) mg/dl BUN/Creatinine Ratio 8.4 L (-20) Glucose 146 H (70-99) mg/dl POC Glucose 129 H (70-99) mg/dl Calcium (8.5-10.1) mg/dl Phosphorus (2.5-4.9) mg/dl 02/08/21 Range/Units 07:47 WBC (4.8-10.8) K/uL MPV (7.4-10.4) fL Potassium (3.5-5.1) mmol/L Chloride (98-107) mmol/L BUN (7-18) mg/dl Creatinine (0.6-1.4) mg/dl BUN/Creatinine Ratio (-20) Glucose (70-99) mg/dl POC Glucose 125 H (70-99) mg/dl Calcium (8.5-10.1) mg/dl Phosphorus (2.5-4.9) mg/dl
--- NOTE | 2021-02-08 10:25 | Pulmonology Progress Note ---
Date of Service February 08, 2021 Assessment & Plan (1) Obesity: (2) Opiate dependence: (3) Hypercapnic respiratory failure: (4) Hypoxemia: (5) Elevated diaphragm: Impression: 55-year-old male with Lcnwszg-Cwehv-Drghb syndrome admitted with GI issues found to have cyclical nocturnal oxygen desaturations consistent with sleep disordered breathing. CO2 levels are mildly elevated but well co mpensated based on a normal pH. Recommendations: 1. Hypercarbic respiratory failure: As per previous notes. 2. Elevated hemidiaphragm: No changes 3. Outpatient polysomnography is recommended. Patient CO2 levels are mildly elevated. Per the rn field case manager, the patient can be transferred back to his fdc facility on BiPAP. He will need continued close clinical follow-up at his fdc facility to optimize interface and compliance once the sleep study has been performed, if the patient is intolerant of positive airway pressure, he could potentially be referred to [facility] for consideration of the INSPIRE device (hypoglossal nerve stimulator), however we do not even have his sleep study performed yet so this would be premature at this juncture. 4. Weight loss is paramount in managing obesity hypoventilation/sleep disordered breathing. The patient can follow-up in the sleep clinic as an outpatient if needed We will sign off. Feel free to contact us if we can be of additional assistance Admission and Anticipated Discharge Date Admission Date: February 01, 2021 Subjective Patient seen and examined. He complains of nerve pain. He states he was able to tolerate BiPAP last night for a few hours and slept well with the device in place. According to respiratory therapy notes, it appears that he tolerated therapy for about 6 hours. Physical Exam Constitutional: + obese; no acute distress and not ill appearing Neck: trachea midline, no thyromegaly Respiratory: normal respiratory effort, lungs clear to auscultation Cardiovascular: RRR, no murmur, no edema Gastrointestinal (Abdomen): normal bowel sounds, soft, nontender, no hepatosplenomegaly Musculoskeletal: Extremities: extremities normal to inspection Skin: no rashes, warm and dry Lymphatic: no cervical lymphadenopathy Results & Data Results & Data ([facility]) Vital Signs (Past 12 Hours) Vital Signs Temp Pulse Pulse Resp BP Pulse Ox 02/08/21 08:17 37.4 C 85 20 134/86 96 02/08/21 07:45 92 H 02/08/21 03:40 37.1 C 106 H 20 144/83 H 98 02/08/21 02:36 105 H 02/08/21 01:59 97 H 22 93 02/07/21 23:00 37.3 C 106 H 20 120/81 96 Laboratory Results 02/07/21 09:58 02/08/21 07:08 Diagnostic Findings No new imaging PG Care Time/CCT Total # of Minutes Spent Total Time Spent with Patient: Total time spent is greater than 50% in coordination of care (as documented) at patient's floor/unit and/or counseling patient: Coding Level of Care Code 64397 Subseq Hosp Care Lvl 2 Diagnoses Obesity E66.9 Opiate dependence F11.20 Hypercapnic respiratory failure J96.92 Hypoxemia R09.02 Elevated diaphragm J98.6
[2021-02-08] MEDS: LIDOCAINE 5% 1 PATCH TD SCH (20:00)
[2021-02-08] MEDS ORDERED: cloNIDine HCL 0.1 MG/24 HR TRANSDERM SYS TD SCH (21:00)
[2021-02-09] MEDS ORDERED: KETOROLAC TROMETHAMINE 15 MG/ML VIAL IV ONE (04:34)
[2021-02-09 08:25] LABS: Blood Urea Nitrogen 6 mg/dl (7-18); Calcium 8.7 mg/dl (8.5-10.1); Carbon Dioxide 26 mmol/L (21-32); Chloride 105 mmol/L (98-107); Creatinine Clr Calc Pharmacy 365.3 ml/min; Est GFR (African American) > 150.0 ml/min; Est GFR (Non-African American) 148.4 ml/min; Glucose 138 mg/dl (70-99); Magnesium 1.7 mg/dl (1.8-2.4); Potassium 3.2 mmol/L (3.5-5.1); Sodium 138 mmol/L (136-145)
[2021-02-09] MEDS ORDERED: MAGNESIUM SULFATE / D5W 1 GM/100 ML BAG IV ONE (09:00)
[2021-02-09] MEDS ORDERED: POTASSIUM CHLORIDE CRTAB 20 MEQ TABCR PO SCH (09:00)
[2021-02-09] MEDS ORDERED: MAGNESIUM OXIDE 400 MG TAB PO SCH (09:00)
[2021-02-09] MEDS: POTASSIUM CHLORIDE / WTR 10 MEQ/100 ML PLCT IV SCH ×4 (09:21→12:15)
[2021-02-09] MEDS: PANTOprazole 40 MG TAB PO SCH (09:31)
[2021-02-09] MEDS: GABAPENTIN 300 MG CAP PO SCH ×2 (09:31→13:28)
[2021-02-09] MEDS: amLODIPine BESYLATE 5 MG TAB PO SCH (09:31)
[2021-02-09] MEDS: ENOXAPARIN INJ 40 MG/0.4 ML SYR SQ SCH (09:31)
[2021-02-09] MEDS: NYSTATIN POWDER 15GM BTL EXT SCH ×2 (09:32→13:29)
--- NOTE | 2021-02-09 09:32 | Hospitalist Progress Note ---
Date of Service February 09, 2021 Assessment & Plan (1) Toxic metabolic encephalopathy: S/p Narcan on admission Continue holding oxycodone and other opioids. Today patient is found to be more somnolent. However he does follow commands. Does respond to questions intermittently. (2) Opiate dependence: S/p Narcan on admission Continue holding oxycodone and other opioids. PDMP reviewed. Patient has been on OxyContin for a long time. Continue try to control patient's pain with nonopioid medications as much as possible since most of his pain seems to be related to his neuropathy and opioid may worsen his respiratory problems Gabapentin was increased to 300mg tid (3) Gastric outlet obstruction: EGD was generally unremarkable. Currently pantoprazole 40 mg daily per GI. Also avoid opioid analgesics which will reduce motility. (4) Hypertension: Continue amlodipine 5mg daily (5) DM II (diabetes mellitus, type II), controlled: Last A1C = 7.1 on 12/20/20 Being managed with diet alone Continue ISS per protocol Discussed with patient about follow-up with PCP. May consider Metformin (6) Hypercapnic respiratory failure: (7) Obesity: (8) Elevated diaphragm: (9) Hypoxia: Hypoxic and hypercapnic respiratory failure Currently on room air but does have cyclical desaturations especially when sleeping. Merchandising Coordinator recommendation appreciated. Spent quite some time discussing with patient about need for the CPAP/BiPAP. Continue BiPAP at [facility] and sleep study can be done over there. (10) Hypokalemia: Potassium is 3.2 today Continue repletion Change potassium back to p.o. tabs Discharge on p.o. potassium. Check daily in a week at residential and adjust dose as needed Magnesium is 1.7 today. Replete. Discharged on p.o. magnesium (11) Vomiting: Resovled. (12) Metabolic alkalosis: Likely due to vomiting. Hypercapnea may also contribute to this. However, blood gas does not show significant hypercapnea Bicarb was 32 on admission. Currently 26 (13) Rash: in left axilla, POA. 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 (15) DVT prophylaxis: Lovenox sq Full Code Plan for discharge to [facility] today once confirmed by case manager specialist Admission and Anticipated Discharge Date Admission Date: February 01, 2021 Subjective 55 yo M with PMhx of Wgpmlcy-Nzsnv-Nycag syndrome, pickwickian syndrome, chronic narcotic use, depression with hallucinations, DM II diet, nephrolithiasis, who presents to ER from [facility] with complaints of nausea and vomiting x 1.5 days. Noted to be quite somnolent and received narcan for toxic metabolic encephalopathy due to opioid Patient seen and examined. Reported gabapentin helps but had worsening pain in the night and required a dose of ketorolac He has been having trouble taking his p.o. potassium. Requesting to have it changed back to tablet form from liquid form Denied any other symptoms Review of Systems Review of Systems: All systems reviewed & are unremarkable except as noted in Subjective Physical Exam Constitutional: + well hydrated and + obese; no acute distress Eyes: PERRL, conjunctivae normal, anicteric sclerae ENMT: external ear and nose normal, oropharynx normal Respiratory: normal respiratory effort, lungs clear to auscultation Cardiovascular: Rate/Rhythm: regular rate and regular rhythm Gastrointestinal (Abdomen): normal bowel sounds, soft, nontender, no hepatosplenomegaly Musculoskeletal: Bilateral leg edema Neurologic: PERRL, EOMI, accommodation nl, no face palsy, no dysarthria Psychiatric: A+Ox3, euthymic affect Results & Data Results & Data ([facility]) Vital Signs (Past 12 Hours) Vital Signs Temp Pulse Pulse Resp BP Pulse Ox 02/09/21 07:52 36.9 C 98 H 16 109/74 92 02/09/21 03:49 36.3 C L 96 H 18 158/103 H 94 02/09/21 02:01 101 H 02/08/21 23:36 37.1 C 97 H 18 153/94 H 100 02/08/21 22:31 91 H 19 95 Laboratory Results Abnormal lab results 02/08/21 02/08/21 02/08/21 Range/Units 11:26 16:31 20:54 Potassium (3.5-5.1) mmol/L BUN (7-18) mg/dl Creatinine (0.6-1.4) mg/dl Glucose (70-99) mg/dl POC Glucose 155 H 137 H 120 H (70-99) mg/dl Magnesium (1.8-2.4) mg/dl 02/09/21 02/09/21 Range/Units 07:39 07:49 Potassium 3.2 L (3.5-5.1) mmol/L BUN 6 L (7-18) mg/dl Creatinine 0.30 L (0.6-1.4) mg/dl Glucose 138 H (70-99) mg/dl POC Glucose 128 H (70-99) mg/dl Magnesium 1.7 L (1.8-2.4) mg/dl
[2021-02-09] MEDS ORDERED: IBUPROFEN 200 MG TAB PO PRN (11:46)
--- NOTE | 2021-02-09 14:29 | Discharge Summary ---
Date of Service February 09, 2021 Admission HPI Per Admitting Provider This is a 55 yo M with PMhx of Kjbxlvw-Zwdqn-Ozsmh syndrome, pickwickian syndrome, chronic narcotic use, depression with hallucinations, DM II diet, nephrolithiasis, who presents to ER from [facility] with complaints of nausea and vomiting x 1.5 days. Since being in the ER he was found to be hypertensive, tachycardic with heart rate in the low 100s, afebrile, and is falling asleep during conversation. The patient states he feels the same with NG tube in as when he arrived to the ER. Since NG tube placement approximately 1 L of bilious outs, his abdomen is not distended and is soft. He denies having diarrhea and cannot answer when his last bowel movement was. He denies any fevers or chills. 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 He does not wear oxygen at baseline but here is requiring 4 L to maintain sats in the mid 90s. Patient did not receive any medication today, it appears that per his med rec, he got his last doses last evening. Patient is on OxyContin ER 80 mg twice daily as well as oxycodone IR 10 mg every 4 and received this last night at 2200. When asked about his CODE STATUS and if he would want CPR, breathing tube, meds etc. he replies "sure". Admission Exam Per Admitting Provider General: awakens to verbal stimuli but falls back asleep easily, lethargic, weak, obese with BMI of 42.9 Head: Normocephalic, atraumatic, picked lesion on left cheek healing ENT: PERRL, EOMI, no pharyngeal exudate, mucous membranes dry, NG tube in place draining dark outs with some blood streaking Chest: Diminished breath sounds, on 4L via oxymask, no wheezes or rales Cardiac: Regular rate and rhythm, no murmur, no JVD, normal peripheral pulses, good capillary refill Abdominal: Nearly absent bowel sounds x4 quadrants, soft, minimally distended, nontender to palpation, no rebound or guarding Extremities: Bilateral edema of lower extremities, unable to move them, no peripheral erythema, left wrist without residual cellulitis, left arm lesion healing well, calfs nontender to palpation Psych: Lethargic Neuro: Awakens to verbal stimuli, oriented to self and place, answers most of my questions however starts mumbling, strength and gait not able to be assessed Principal Diagnosis Toxic metabolic encephalopathy Opioid dependence Hypercapnic respiratory failure Hypoxia Obesity Hypertension Hypokalemia Discharge Exam Constitutional + well hydrated and + obese; no acute distress Eyes PERRL, conjunctivae normal, anicteric sclerae ENMT external ear and nose normal, oropharynx normal Respiratory normal respiratory effort, lungs clear to auscultation Cardiovascular Rate/Rhythm: regular rate and regular rhythm S1 S2 Gastrointestinal (Abdomen) normal bowel sounds, soft, nontender, no hepatosplenomegaly Percussion/Palpation: abdomen soft; abdomen nontender Musculoskeletal Bilateral leg edema Neurologic PERRL, EOMI, accommodation nl, no face palsy, no dysarthria Psychiatric A+Ox3, euthymic affect Discharge Data Allergies Allergy/AdvReac Type Severity Reaction Status Date / Time hydralazine Allergy Intermediate Gastrointestinal Verified 02/04/21 14:57 Upset alcohol Allergy Unknown Unknown Verified 02/04/21 14:57 amiodarone Allergy Unknown Unknown rxn Verified 02/04/21 14:57 chloramphenicol Allergy Unknown Unknown Verified 02/04/21 14:57 cholecalciferol (vitamin D3) Allergy Unknown Unknown Verified 02/04/21 14:57 cisplatin Allergy Unknown Unknown Verified 02/04/21 14:57 dapsone Allergy Unknown Unknown rxn Verified 02/04/21 14:57 disulfiram Allergy Unknown Unknown rxn Verified 02/04/21 14:57 doxorubicin Allergy Unknown Unknown Verified 02/04/21 14:57 glutethimide Allergy Unknown Unknown Verified 02/04/21 14:57 Gold Salts Allergy Unknown Unknown Verified 02/04/21 14:57 Hydantoins Allergy Unknown Unknown Verified 02/04/21 14:57 isoniazid Allergy Unknown Unknown rxn Verified 02/04/21 14:57 metronidazole Allergy Unknown Unknown Verified 02/04/21 14:57 nitrofurantoin Allergy Unknown Unknown rxn Verified 02/04/21 14:57 Penicillins Allergy Unknown Rash Verified 02/04/21 14:57 phenytoin Allergy Unknown Unknown Verified 02/04/21 14:57 pyridoxine Allergy Unknown Unknown Verified 02/04/21 14:57 theophylline Allergy Unknown Unknown rxn Verified 02/04/21 14:57 tretinoin Allergy Unknown Unknown rxn Verified 02/04/21 14:57 vincristine Allergy Unknown Unknown Verified 02/04/21 14:57 succinylcholine AdvReac Unknown *not Verified 02/04/21 14:57 actual allergy*see below Consultations 02/01/21 10:15 ED Decision to Admit Stat 02/01/21 11:01 Consult General Surgery Routine 02/01/21 11:11 Consult Gastroenterology Routine 02/04/21 12:40 Consult Pulmonology Routine Procedures Performed Operation Date: 02/04/21 16:30 Actual Procedures p EGD Biopsy Cytology(Not Applicable) - Rocky Sandoval MD Ordered Studies 02/01/21 08:29 CT abd pelvis wo con Stat Bibasilar linear densities likely represent subsegmental atelectasis. No pneumoperitoneum. No pneumatosis. No suspicious lytic or blastic osseous lesions. Trace bilateral pleural effusions are noted. Severe hepatic steatosis. Suboptimal evaluation of the abdominal structures due to streak artifact from the patient's overlapping arms. The main portal vein appears patent. The spleen, adrenal glands, and pancreas are unremarkable. No retroperitoneal lymphadenopathy. Normal caliber abdominal aorta. There are bilateral renal calculi, left greater than right. There are also multiple stones layering within the left renal pelvis. There is a 3 mm stone either within or just beyond the left ureterovesical junction best seen on image [id number]. However, there is no left- sided hydronephrosis. Therefore, this favors a stone within the bladder rather than at the ureterovesical junction. Markedly distended gas and fluid-filled stomach. The majority of the duodenum is also gas-filled and mildly distended. There is smooth tapering to normal caliber distal duodenum. No clear transition point identified. However, these findings raise the possibility of a partial gastric outlet obstruction versus gastroparesis. Consider nasogastric tube for decompression of the stomach. Diffuse fatty atrophy of the musculature within the abdomen and pelvis. No retroperitoneal lymphadenopathy. Normal caliber abdominal aorta. The main portal vein is patent. Moderate well-formed stool seen within the colon. No bowel wall thickening. A few colonic diverticula. No evidence for acute diverticulitis. Normal appendix. IMPRESSION: 1. Markedly distended gas and fluid-filled stomach. The majority of the duodenum is also gas-filled and mildly distended. There is smooth tapering to normal caliber distal duodenum. No clear transition point identified. However, these findings raise the possibility of a partial gastric outlet obstruction versus gastroparesis. Consider nasogastric tube for decompression of the stomach. 2. Trace bilateral pleural effusions. 3. Severe hepatic steatosis. 4. Bilateral nephrolithiasis. No hydronephrosis. There is a 3 mm stone within the left posterior bladder near the left ureterovesical junction. This favors a bladder stone given the lack of left-sided hydronephrosis. 5. Additional findings as described above. 02/01/21 12:18 CT head/brain wo con Stat The paranasal sinuses and mastoid air cells are clear. The calvarium and skull base are intact. There is no mass, hematoma, midline shift, acute infarct. White matter hypodensity is nonspecific but suggestive of microvascular ischemic guerrero e. The ventricles and sulci demonstrate mild age-related involutional changes. Partially visualized right-sided nasogastric tube. Impression: No acute intracranial abnormality 02/01/21 21:22 US venous doppler LE BI Urgent The bilateral common femoral, superficial femoral and popliteal veins were compressible. Augmentation was normal. Flow was shown within the deep calf vessels. IMPRESSION: No evidence of deep venous thrombus within the bilateral lower extremities. Hospital Course (1) Toxic metabolic encephalopathy: (2) Opiate dependence: S/p Narcan on admission Review of PDMP shows that patient has been on OxyContin for a long time. All opioid medication was discontinued while inpatient. Patient was started on nonopioid medication for pain control after receiving narcan on on admission Started on gabapentin currently at 300 mg 3 times daily Continue ibuprofen as needed pain Continue other nonopioid pain management. Avoid opioid medications (3) Gastric outlet obstruction: CT on admission showed markedly distended stomach. Patient had NG tube placed for decompression. EGD showed normal esophagus, excessive fluid in the stomach which was suctioned, diffuse mild inflammation characterized by erythema in the stomach with biopsies taken. Pathology of biopsies showed no diagnostic abnormality, was negative for intestinal metaplasia/dysplasia/malignancy and was also negative for H. pylori by morphology. Was started on pantoprazole Patient will need outpatient gastric emptying study. GI also recommended avoiding opioid analgesics (4) Hypertension: Patient was started on amlodipine 5 mg daily for her hypertension control (5) DM II (diabetes mellitus, type II), controlled: Last A1C = 7.1 on 12/20/20 Being managed with diet alone Discussed with patient about follow-up with PCP. May consider Metformin (6) Hypercapnic respiratory failure: (7) Obesity: (8) Elevated diaphragm: (9) Hypoxia: Hypoxic and hypercapnic respiratory failure Currently on room air but does have cyclical desaturations especially when sleeping. Was evaluated by packing clerk while inpatient Patient needs to use CPAP/BiPAP whenever sleeping. He will need to get a sleep study outpatient (10) Hypokalemia: Potassium is 3.2 today Repleted Discharged on p.o. potassium. Check [facility] within the week at [facility] and adjust dose as needed Magnesium is 1.7 today. Was repleted and was discharged on p.o. magnesium oxide (11) Vomiting: Resovled. (12) Metabolic alkalosis: Likely due to vomiting. Hypercapnea may also contribute to this. However, blood gas does not show significant hypercapnea Bicarb was 32 on admission. Currently 26 (13) Rash: in left axilla, POA. Nystatin powder (14) Jokzlzi-Pnnpr-Totbk disease: Chronically debilitated secondary to this. Total Time Total Time Spent Total Time Spent (In Minutes): 45 Total Time Includes: Examination of the Patient, Discharge Planning, Medication Reconciliation and Other (Updated patient and brother in law Shakeel Vasquez about plans) Discharge Plan Discharge Items Patient Disposition: Transfer Intermediate Fac Reason For Visit: Nausea vomiting Discharge Diagnosis: Toxic metabolic encephalopathy Opioid dependence Hypercapnic respiratory failure Hypoxia Obesity Hypertension Hypokalemia Activity: Resume your previous activity Non-emergency contact: Primary Care Provider and Psychiatry Resident Call non-emergency contact if: you have any medication questions and your symptoms worsen Follow-up/Referrals: Panchito Raymond [facility] [Primary Care Provider] - Diet: Carb Consistent or DM2 and Heart Healthy Ambulatory Orders: Potassium (Routine) Timeframe: 1 Week Location: Determined by Patient Ordered By: Rabia Wright Attending Provider Instructions: Mr Loza You were brought to the hospital for nausea and vomiting. You were evaluated and found to be quite somnolent likely due to chronic opioid use. You required narcan. Your symptoms resolved. You also noted to have elevated CO2 on significant drop in oxygen levels especially when sleeping or drowsy. You will need to use BiPAP whenever you are sleeping. You also need to have sleep study done at [facility]. You were started on amlodipine for better blood pressure control. It is very important that your chronic pain is controlled with non opioid alternatives. Your chronic oxycontin were discontinued. You were started on gabapentin. Continue carbohydrate controlled diet. Continue dietary management of your diabetes. Your Primary Doctor may decide to start metformin as we discussed You also had endoscopy done by maintenance repairman and started on pantoprazole outpatient gastric emptying study recommended Your potassium level was low requiring repletion. Please check potassium level within the week and dose may be adjusted as needed. It is very important that you follow-up with your Primary Doctor. You also reported you will like your Primary Doctor and [facility] staff to keep your ybrqtqz-rx-ycq Dr Eubanks apprised of medical plans. It was a pleasure taking care of you Pending Studies at Discharge: No Stand-Alone Forms: My [facility] Skilled Items Patient informed of condition?: Yes DNR: No Discharge Level of Care: Skilled Communicable Disease: No Discharge Prognosis: Stable Lines: None Urinary Catheter: No Medications and DC Order Prescriptions: New amlodipine [Norvasc] 5 mg Tablet 5 mg PO QAM Qty: 30 RF: 0 gabapentin 300 mg Capsule 300 mg PO TID Qty: 90 RF: 0 pantoprazole 40 mg Tablet,Delayed Release (Dr/Ec) 40 mg PO QAM Qty: 30 RF: 0 lidocaine 5 % Adhesive Patch,Medicated 1 patch transdermal HS Qty: 30 RF: 0 magnesium oxide 400 mg (241.3 mg magnesium) Tablet 400 mg PO QAM Qty: 30 RF: 0 potassium chloride 20 mEq tablet extended release 40 meq PO BID 30 Days Qty: 120 RF: 0 Continued montelukast 10 mg tablet 10 mg PO PM RF: 0 duloxetine 20 mg capsule,delayed release(DR/EC) 30 mg PO QAM RF: 0 acetaminophen [Tylenol Extra Strength] 500 mg Tablet 500 mg PO QID PRN (Reason: Pain) RF: 0 docusate sodium 100 mg Capsule 100 - 200 mg PO BID RF: 0 azelastine 137 mcg (0.1 %) aerosol,spray 1 spray intranasal BID RF: 0 mometasone 50 mcg/actuation spray,non-aerosol 1 spray intranasal BID RF: 0 aspirin [Adult Low Dose Aspirin] 81 mg tablet,delayed release (DR/EC) 81 mg PO QAM RF: 0 polyethylene glycol 3350 [Miralax] 17 gram Powder In Packet 17 g PO QAM RF: 0 ibuprofen 200 mg Tablet 400 mg PO QID PRN (Reason: pain) Qty: 20 RF: 0 oxybutynin chloride 10 mg Tablet Extended Release 24hr 10 mg PO Q8H RF: 0 Calmoseptine 0.44-20.6 % Ointment 1 applic TOPICAL TID PRN (Reason: right buttocks) RF: 0 tamsulosin 0.4 mg capsule 0.4 mg PO QAM RF: 0 Discontinued oxycodone 10 mg tablet 10 mg PO Q4H PRN (Reason: moderate to severe pain) RF: 0 oxycodone [OxyContin] 80 mg tablet,oral only,ext.rel.12 hr 80 mg PO Q12H RF: 0 cefdinir 300 mg capsule 300 mg PO Q12H RF: 0 Discharge Orders: Discharge Order (Routine); Ordered 02/09/21 Ordered By: Rabia Odom/Other Patient Handouts: Understanding Diabetic Gastroparesis Admission Data Admit Date/Time: 02/01/21 10:37 Attending Provider: Rabia Briones I. Admit Provider: Sally Bautista Primary Care Provider: Pancihto Raymond [facility] Other Providers: Nuvia Adams ; Sally Bautista ; Jaydon Odell ; Rocky Sandoval ; Matthew Ortiz ; Panchito Raymond [facility] Other Interventions: Discharge Summary Assessment (RN) Last Done: 02/09/21 11:58
[2021-02-09] MEDS ORDERED: GABAPENTIN 300 MG CAP PO SCH (21:00)
--- NOTE | 2021-02-17 09:35 | Coding Query ---
CODING QUERY To promote full compliance with coding requirements relating to patient care, provider participation is requested in all cases of information coder uncertainty. Please assist us with the question(s) below: Coding Question(s): Patient presented with nausea and vomiting and the H&P documents, "Concern for gastric outlet obstruction vs ileus vs gastroparesis", and GI Consultation documents Gastric outlet obstruction, Ileus and Opiate dependence: outlet obstruction vs. opiate induced ileus, s/p NG tube with more than 1L bilious output so far. abdomen is soft and nondistended", and the Surgery Consultation documents, "possibility of a partial gastric outlet obstruction versus gastroparesis", however the EGD documents, "Excessive fluid was found in the stomach. it was suctioned out. No evidence of gastric outlet obstruction" and "suspect gastroparesis", and the Discharge Summary documents, "Gastric outlet obstruction: CT on admission showed markedly distended stomach. Patient had NG tube placed for decompression. EGD showed normal esophagus, excessive fluid in the stomach which was suctioned, diffuse mild inflammation characterized by erythema in the stomach with biopsies taken. Pathology of biopsies showed no diagnostic abnormality, was negative for intestinal metaplasia/dysplasia/malignancy and was also negative for H. pylori by morphology. Was started on pantoprazole Patient will need outpatient gastric emptying study. GI also recommended avoiding opioid analgesics". Please specify below, in your clinical opinion, the diagnosis that is likely most responsible for the nausea and vomiting that was treated during this admission. ( ) Gastric Outlet Obstruction ( ) Ileus ( ) Gastroparesis ( x) Other: Please Specify__Patient was thought to have gastric outlet obstruction due to history on presentation and CT findings. However, EGD ruled out gastric obstruction. Symptoms and findings (both CT and EGD) likely gastroparesis ie impairment of gastric emptying due to opioids Physician's Response(s): Thank you Janet Gray Principal Diagnosis: "that condition established after study, to be chiefly responsible for occasioning the admission of the patient to the hospital for care." Co-Existing Principal Diagnosis: "when two or more diagnoses equally meet the criteria for principal diagnosis as determined by the circumstances of admission, diagnostic work up, and/or therapy provided, and the Alphabetic Index, Tabular List, or another coding guideline does not provide sequencing direction, any one of the diagnoses may be sequenced first." "When the physician has documented what appears to be a current diagnosis in the body of the record, but has not included the diagnosis in the final diagnostic statement, the physician should be asked whether the diagnosis should be added." (Source Coding [facility] 2 QTR90. p3-4) REBECCA
--- NOTE | 2021-02-17 09:39 | Coding Query ---
CODING QUERY To promote full compliance with coding requirements relating to patient care, provider participation is requested in all cases of blood and plasma laboratory assistant uncertainty. Please assist us with the question(s) below: Coding Question(s): There is documentation in the record and on Discharge Summary of Hypoxic and Hypercapnic Respiratory Failure. Please specify further below, in your clinical opinion. ( ) Acute Hypoxic and Hypercapnic Respiratory Failure ( ) Chronic Hypoxic and Hypercapnic Respiratory Failure ( ) Acute on Chronic Hypoxic and Hypercapnic Respiratory Failure ( ) Unspecified Hypoxic and Hypercapnic Respiratory Failure (x ) Other: Please Specify Acute hypoxic respiratory failure. Unspecified Hypercapnia Physician's Response(s): Thank you Janet Gray Principal Diagnosis: "that condition established after study, to be chiefly responsible for occasioning the admission of the patient to the hospital for care." Co-Existing Principal Diagnosis: "when two or more diagnoses equally meet the criteria for principal diagnosis as determined by the circumstances of admission, diagnostic work up, and/or therapy provided, and the Alphabetic Index, Tabular List, or another coding guideline does not provide sequencing direction, any one of the diagnoses may be sequenced first." "When the physician has documented what appears to be a current diagnosis in the body of the record, but has not included the diagnosis in the final diagnostic statement, the physician should be asked whether the diagnosis should be added." ([facility] 2 QTR90. p3-4) REBECCA
--- NOTE | 2021-02-17 09:44 | Coding Query ---
CODING QUERY To promote full compliance with coding requirements relating to patient care, provider participation is requested in all cases of silver holloware assembler uncertainty. Please assist us with the question(s) below: Coding Question(s): There is documentation of Xyspega-Rcogi-Xyasa disease and documentation that patient is chronically debilitated secondary to this and documentation that the patient is bedbound with documentation on the patient history of, "Lmnraka-Oglgw-Sostf disease Due to disease progression patient is functioning quadriplegic - wheelchair bound and needs full assist to transfer". Please specify below, regarding Functional Quadriplegic documentation for this admission. ( ) Functional Quadriplegia ( x ) No Functional Quadriplegia ( ) Other: Please Specify Physician's Response(s): Thank you Janet Gray Principal Diagnosis: "that condition established after study, to be chiefly responsible for occasioning the admission of the patient to the hospital for care." Co-Existing Principal Diagnosis: "when two or more diagnoses equally meet the criteria for principal diagnosis as determined by the circumstances of admission, diagnostic work up, and/or therapy provided, and the Alphabetic Index, Tabular List, or another coding guideline does not provide sequencing direction, any one of the diagnoses may be sequenced first." "When the physician has documented what appears to be a current diagnosis in the body of the record, but has not included the diagnosis in the final diagnostic statement, the physician should be asked whether the diagnosis should be added." ([facility] 2 QTR90. p3-4) REBECCA
== END 2021-02-09 14:10 | DRG 326 ==
LOC: ED 08:19 → SUATTDRO 10:37 → 2S 10:37 → 2N 02-06 17:06

== ENCOUNTER 2021-06-10 09:47 | Inpatient (IN) ==
[2021-06-10 10:30] LABS: Basophils # (auto) 0.02 K/uL (0-0.2); Basophils % (auto) 0.3 %; Eosinophils # (auto) 0.01 K/uL (0-0.5); Eosinophils % (auto) 0.1 %; Hematocrit (blood only) 46.2 % (42-52); Hemoglobin 15.9 g/dL (14.0-18.0); Immature Granulocytes # (auto) 0.06 K/uL (0.00-0.02); Immature Granulocytes % (auto) 0.8 %; Lymphocytes # (auto) 1.05 K/uL (1.2-3.4); Lymphocytes % (auto) 13.3 %; Mean Corpuscular Hemoglobin 30.6 pg (25-34); Mean Corpuscular Hgb Conc 34.4 g/dL (32-36); Mean Platelet Volume 10.3 fL (7.4-10.4); Monocytes # (auto) 0.37 K/uL (0.11-0.59); Monocytes % (auto) 4.7 %; Neutrophils # (auto) 6.37 K/uL (1.4-6.5); Neutrophils % (auto) 80.8 %; Platelet Count 278 K/uL (130-400); RDW Coefficient of Variation 14.7 % (11.5-14.5); Red Blood Count 5.19 M/uL (4.7-6.1); White Blood Count 7.88 K/uL (4.8-10.8)
[2021-06-10 10:44] LABS: Alanine Aminotransferase 69 U/L (12-78); Albumin Level 3.2 gm/dl (3.4-5.0); Aspartate Aminotransferase 71 U/L (15-37); BUN Creatinine Ratio 29.6 (10-20); Blood Urea Nitrogen 7 mg/dl (7-18); Calcium 9.1 mg/dl (8.5-10.1); Carbon Dioxide 30 mmol/L (21-32); Chloride 106 mmol/L (98-107); Creatinine Clr Calc Pharmacy 405.4 ml/min; Est GFR (African American) > 150.0 ml/min; Est GFR (Non-African American) > 150.0 ml/min; Glucose 150 mg/dl (70-99); Lipase 47 U/L (73-393); Potassium 3.1 mmol/L (3.5-5.1); Sodium 144 mmol/L (136-145)
[2021-06-10 10:47] LABS: Albumin Globulin Ratio 0.7 (0.9-2); Alkaline Phosphatase 141 U/L (45-117); Bilirubin,Total 0.7 mg/dl (0.2-1); Globulin 4.6 gm/dl (2.5-4.0); Total Protein 7.8 gm/dl (6.4-8.2)
[2021-06-10] MEDS ORDERED: SODIUM CHLORIDE 0.9% 1000ML 1,000 ML IV ONE (10:58)
[2021-06-10] MEDS ORDERED: ONDANSETRON INJ 2 MG/ML 2 ML VIAL IV STA (10:58)
--- NOTE | 2021-06-10 11:03 | Emergency Department Note ---
History of Present Illness General Chief complaint: GI Assessment Stated complaint: GI ISSUES Time Seen by Provider: 06/10/21 10:46 Source: patient Mode of arrival: ambulatory Limitations: no limitations History of Present Illness Maximum Pain Intensity: 2 This patient is a 55-year-old male who has a history of a neurogenic genic degenerative disorder, comes in after having vomiting and diarrhea. He said diarrhea it sounds like is been more chronic since he left here without blood or melena. He was vomiting since last night has had a history of ileus and bowel obstruction before. He vomited about 5 or 6 times he said was brownish he said the PA thought it could be bloody however he did not see any bright red blood. He said no fever chills or cough. Denies abdominal pain. He has had the Covid vaccine x2. No trauma or injury. Home Medications Medication Instructions Recorded Confirmed Type azelastine 137 mcg (0.1 %) nasal 1 spray INTRANASAL BID 06/28/19 06/10/21 History spray aerosol docusate sodium 100 mg capsule 100 - 200 mg PO BID 06/28/19 06/10/21 History mometasone 50 mcg/actuation nasal 1 spray INTRANASAL BID 06/28/19 06/10/21 History spray montelukast 10 mg tablet 10 mg PO PM 06/28/19 06/10/21 History aspirin 81 mg tablet,delayed 81 mg PO QAM 07/06/20 06/10/21 History release (Adult Low Dose Aspirin) oxybutynin chloride 10 mg 10 mg PO Q8H 07/22/20 06/10/21 History tablet,extended release 24 hr menthol 0.44 %-zinc oxide 20.6 % 1 applic TOPICAL TID PRN 02/01/21 06/10/21 History topical ointment (Calmoseptine) tamsulosin 0.4 mg capsule 0.4 mg PO QAM 02/01/21 06/10/21 History amlodipine 5 mg tablet (Norvasc) 5 mg PO QAM #30 tab 02/07/21 06/10/21 Rx polyethylene glycol 3350 17 gram 17 g PO BID #100 ea 04/23/21 06/10/21 Rx oral powder packet (Miralax) acetaminophen 325 mg capsule 650 mg PO Q4H PRN 06/10/21 06/10/21 History duloxetine 30 mg capsule,delayed 30 mg PO DAILY 06/10/21 06/10/21 History release duloxetine 60 mg capsule,delayed 60 mg PO DAILY 06/10/21 06/10/21 History release gabapentin 600 mg tablet 1,200 mg PO TID 06/10/21 06/10/21 History ibuprofen 200 mg tablet 400 mg PO Q6H PRN 06/10/21 06/10/21 History melatonin 5 mg tablet 5 mg PO HS PRN 06/10/21 06/10/21 History potassium chloride 20 mEq 20 meq PO BID 06/10/21 06/10/21 History tablet,extended release Allergies Allergy/AdvReac Type Severity Reaction Status Date / Time hydralazine Allergy Intermediate Gastrointestinal Verified 06/10/21 12:34 Upset alcohol Allergy Unknown Unknown Verified 06/10/21 12:34 amiodarone Allergy Unknown Unknown rxn Verified 06/10/21 12:34 chloramphenicol Allergy Unknown Unknown Verified 06/10/21 12:34 cholecalciferol (vitamin D3) Allergy Unknown Unknown Verified 06/10/21 12:34 cisplatin Allergy Unknown Unknown Verified 06/10/21 12:34 dapsone Allergy Unknown Unknown rxn Verified 06/10/21 12:34 disulfiram Allergy Unknown Unknown rxn Verified 06/10/21 12:34 doxorubicin Allergy Unknown Unknown Verified 06/10/21 12:34 glutethimide Allergy Unknown Unknown Verified 06/10/21 12:34 Gold Salts Allergy Unknown Unknown Verified 06/10/21 12:34 Hydantoins Allergy Unknown Unknown Verified 06/10/21 12:34 isoniazid Allergy Unknown Unknown rxn Verified 06/10/21 12:34 metronidazole Allergy Unknown Unknown Verified 06/10/21 12:34 nitrofurantoin Allergy Unknown Unknown rxn Verified 06/10/21 12:34 Penicillins Allergy Unknown Rash Verified 06/10/21 12:34 phenytoin Allergy Unknown Unknown Verified 06/10/21 12:34 pyridoxine Allergy Unknown Unknown Verified 06/10/21 12:34 theophylline Allergy Unknown Unknown rxn Verified 06/10/21 12:34 tretinoin Allergy Unknown Unknown rxn Verified 06/10/21 12:34 vincristine Allergy Unknown Unknown Verified 06/10/21 12:34 succinylcholine AdvReac Unknown *not Verified 06/10/21 12:34 actual allergy*see below Past Med/Surg History Medical History (Updated 06/10/21 @ 16:45 by Faraz Pavon MD) Tcupykb-Mnxum-Corhn disease Due to disease progression patient is functioning quadriplegic - wheelchair bound and needs full assist to transfer - resides at [facility] Chronic pain DM II (diabetes mellitus, type II), controlled Hypercapnic respiratory failure Hypertension Kidney stones Myalgia and myositis, unspecified Opiate dependence YANETH (obstructive sleep apnea) Peripheral neuropathy Physical deconditioning Pickwickian syndrome Renal calculi Ureterolithiasis Surgical History H/O cystoscopy Cystoscopy with right retrograde pyelogram and stent placement. 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 [employer] Department Required: No Beliefs That Will Affect Care: None Current Living Situation: Long Term Current Living Situation Comment: [facility] Feels Safe at Home: Yes Assistive Devices: BiPap and Mechanical Lift Review of Systems A total of 10 systems reviewed and were otherwise negative Physical Exam Vital Signs Vital Signs - 24 hr 06/10/21 09:53 06/10/21 09:54 06/10/21 10:00 Temperature 36.9 C Temperature Source Oral Pulse Rate 100 H 84 108 H Pulse Rate from SpO2 Sensor 100 H 107 H Respiratory Rate 20 18 24 Blood Pressure 139/89 130/90 Blood Pressure Mean 105 103 Pulse Oximetry 96 93 95 Oxygen Delivery Method Room Air Sepsis Recent Fever Within 48 Hours No Sepsis New/Unexplained Change in Mental Status No Sepsis Action Taken by Nursing No Action Required 06/10/21 10:30 06/10/21 11:00 06/10/21 11:30 Temperature Temperature Source Pulse Rate 99 H 103 H 93 H Pulse Rate from SpO2 Sensor 94 H Respiratory Rate 15 14 22 Blood Pressure 132/83 Blood Pressure Mean 99 Pulse Oximetry 92 Oxygen Delivery Method Sepsis Recent Fever Within 48 Hours Sepsis New/Unexplained Change in Mental Status Sepsis Action Taken by Nursing 06/10/21 12:01 06/10/21 12:30 06/10/21 13:28 Temperature Temperature Source Pulse Rate 99 H 108 H Pulse Rate from SpO2 Sensor 98 H Respiratory Rate 16 17 16 Blood Pressure Blood Pressure Mean Pulse Oximetry 94 Oxygen Delivery Method Sepsis Recent Fever Within 48 Hours Sepsis New/Unexplained Change in Mental Status Sepsis Action Taken by Nursing 06/10/21 13:30 06/10/21 14:00 Temperature Temperature Source Pulse Rate 106 H 104 H Pulse Rate from SpO2 Sensor 109 H 104 H Respiratory Rate 16 24 Blood Pressure 139/100 Blood Pressure Mean 113 Pulse Oximetry 93 98 Oxygen Delivery Method Sepsis Recent Fever Within 48 Hours Sepsis New/Unexplained Change in Mental Status Sepsis Action Taken by Nursing General: Chronically ill-appearing older male who middle-age male who appears in no acute distress, breathing comfortably on room air. Normal speech. Whole emesis bag HEENT: Normal cephalic atraumatic. Pupils are equal round and reactive to light. Extraocular movements are intact. Oropharynx is pink with moist mucous membranes. No swelling of the mouth lips or tongue. Neck: Supple with a midline trachea. No meningeal signs or stiffness, no JVD or bruits. No Stridor. Chest: Clear to auscultation bilaterally. No wheezes or rhonchi. No increased work of breathing. Heart: Regular rate and rhythm without murmurs or gallops. Abdomen: Soft nontender, nondistended without rebound guarding or rigidity. Extremities: No cyanosis clubbing or edema. No calf tenderness or assymetry Spine/Back. Non tender to palpation. No CVA tenderness Skin: Good turgor without rashes. Neurologic exam: Cranial nerves two through 12 are intact. Baseline weakness in the extremities primary of the legs Course Administered Medications Potassium Chloride (K Calos / Wtr) 10 meq in 100 mls @ 100 mls/hr IV Q1H FLORENCIA Stop: 06/10/21 18:59 Last Infusion: 06/10/21 16:35 Dose: 0 mls/hr Documented by: [id number] Admin: 06/10/21 15:34 Dose: 100 mls/hr Documented by: [id number] Discontinued Medications Sodium Chloride (Nss 1000ml) 1,000 mls @ 999 mls/hr IV .Q1H1M ONE Stop: 06/10/21 11:58 Last Infusion: 06/10/21 12:45 Dose: 0 mls/hr Documented by: [id number] Admin: 06/10/21 11:24 Dose: 999 mls/hr Documented by: [id number] Ondansetron HCl (Ondansetron Inj 2 Mg/Ml 2 Ml Vial) 4 mg IV NOW STA Stop: 06/10/21 10:59 Last Admin: 06/10/21 11:24 Dose: 4 mg Documented by: [id number] Medical Decision Making Differential Diagnosis Dehydration, bowel obstruction, GI bleed, gastroparesis, surgical disease, electrolyte or metabolic abnormality Medical Records Attestation: I reviewed the patient's medical records. Home Medications Current Medication List: was personally reviewed by me Laboratory Data Attestation: I reviewed the patient's lab results. Result diagrams: 06/10/21 10:15 06/10/21 10:15 Lab Results 06/10/21 06/10/21 06/10/21 Range/Units 10:15 10:15 10:15 WBC 7.88 (4.8-10.8) K/uL RBC 5.19 (4.7-6.1) M/uL Hgb 15.9 (14.0-18.0) g/dL Hct 46.2 (42-52) % MCV 89.0 (80-100) fL MCH 30.6 (25-34) pg MCHC 34.4 (32-36) g/dL RDW Std Deviation 48.0 H (36.4-46.3) fL RDW Coeff of Pearl 14.7 H (11.5-14.5) % Plt Count 278 (130-400) K/uL MPV 10.3 (7.4-10.4) fL Immature Gran % (Auto) 0.8 % Neut % (Auto) 80.8 % Lymph % (Auto) 13.3 % Gordon % (Auto) 4.7 % Eos % (Auto) 0.1 % Baso % (Auto) 0.3 % Neut # (Auto) 6.37 (1.4-6.5) K/uL Lymph # (Auto) 1.05 L (1.2-3.4) K/uL Gordon # (Auto) 0.37 (0.11-0.59) K/uL Eos # (Auto) 0.01 (0-0.5) K/uL Baso # (Auto) 0.02 (0-0.2) K/uL Immature Gran # (Auto) 0.06 H (0.00-0.02) K/uL Sodium 144 (136-145) mmol/L Potassium 3.1 L (3.5-5.1) mmol/L Chloride 106 (98-107) mmol/L Carbon Dioxide 30 (21-32) mmol/L Anion Gap 8.0 (3-11) BUN 7 (7-18) mg/dl Creatinine 0.24 L (0.6-1.4) mg/dl Est Cr Clr Drug Dosing 405.4 ml/min Est GFR ( Amer) > 150.0 ml/min Est GFR (Non-Af Amer) > 150.0 ml/min BUN/Creatinine Ratio 29.6 H (10-20) Glucose 150 H (70-99) mg/dl Calcium 9.1 (8.5-10.1) mg/dl Magnesium (1.8-2.4) mg/dl Total Bilirubin 0.7 (0.2-1) mg/dl AST 71 H (15-37) U/L ALT 69 (12-78) U/L Alkaline Phosphatase 141 H (45-117) U/L Troponin I < 0.015 (0-0.045) ng/ml Total Protein 7.8 (6.4-8.2) gm/dl Albumin 3.2 L (3.4-5.0) gm/dl Globulin 4.6 H (2.5-4.0) gm/dl Albumin/Globulin Ratio 0.7 L (0.9-2) Lipase 47 L (73-393) U/L COVID-19 Eval Order SARS-CoV-2 (PCR) (Negative) 06/10/21 06/10/21 06/10/21 Range/Units 10:15 12:30 12:30 WBC (4.8-10.8) K/uL RBC (4.7-6.1) M/uL Hgb (14.0-18.0) g/dL Hct (42-52) % MCV (80-100) fL MCH (25-34) pg MCHC (32-36) g/dL RDW Std Deviation (36.4-46.3) fL RDW Coeff of Pearl (11.5-14.5) % Plt Count (130-400) K/uL MPV (7.4-10.4) fL Immature Gran % (Auto) % Neut % (Auto) % Lymph % (Auto) % Gordon % (Auto) % Eos % (Auto) % Baso % (Auto) % Neut # (Auto) (1.4-6.5) K/uL Lymph # (Auto) (1.2-3.4) K/uL Gordon # (Auto) (0.11-0.59) K/uL Eos # (Auto) (0-0.5) K/uL Baso # (Auto) (0-0.2) K/uL Immature Gran # (Auto) (0.00-0.02) K/uL Sodium (136-145) mmol/L Potassium (3.5-5.1) mmol/L Chloride (98-107) mmol/L Carbon Dioxide (21-32) mmol/L Anion Gap (3-11) BUN (7-18) mg/dl Creatinine (0.6-1.4) mg/dl Est Cr Clr Drug Dosing ml/min Est GFR ( Amer) ml/min Est GFR (Non-Af Amer) ml/min BUN/Creatinine Ratio (10-20) Glucose (70-99) mg/dl Calcium (8.5-10.1) mg/dl Magnesium 2.0 (1.8-2.4) mg/dl Total Bilirubin (0.2-1) mg/dl AST (15-37) U/L ALT (12-78) U/L Alkaline Phosphatase (45-117) U/L Troponin I (0-0.045) ng/ml Total Protein (6.4-8.2) gm/dl Albumin (3.4-5.0) gm/dl Globulin (2.5-4.0) gm/dl Albumin/Globulin Ratio (0.9-2) Lipase (73-393) U/L COVID-19 Eval Order Covid19 at [facility] SARS-CoV-2 (PCR) NEGATIVE (Negative) Imaging Data Radiologist's Impression: Abdomen/Pelvis CT 06/10/21 10:58 CT SCAN OF THE ABDOMEN AND PELVIS WITHOUT IV CONTRAST CLINICAL HISTORY: Generalized abdominal pain. Vomiting. COMPARISON STUDY: Abdominal CT dated 02/01/2021. TECHNIQUE: CT scan of the abdomen and pelvis is performed from the lung bases to the proximal femora. Images are reviewed in the axial, sagittal, and coronal pl anes. IV contrast was not administered for this examination. Note that the examination was performed in significant suboptimal fashion without IV contrast. A dose lowering technique was utilized adhering to the principles of ALARA. CT DOSE: 1624.26 mGy.cm FINDINGS: Lung bases: The heart is normal in size and without pericardial effusion. There are coronary artery calcifications. A tiny hiatal hernia is noted. The lung bases are clear noting dependent scarring/atelectasis. Liver: The unenhanced liver is normal in size and contour. The liver demonstrates diffusely diminished attenuation consistent with hepatic steatosis. There is no intrahepatic biliary ductal dilatation. Gallbladder: Unremarkable. Spleen: Normal in size and attenuation. Pancreas: Unremarkable. Adrenal glands: Unremarkable. Kidneys: The unenhanced kidneys demonstrate cortical atrophy and are without hydronephrosis. There are least 3 nonobstructing right renal calculi and at least 4 nonobstructing left renal calculi which measure up to 3 mm. There is no evidence of contour deforming renal mass lesion. Abdominal vasculature: The abdominal aorta is normal in course and caliber noting moderate to advanced atherosclerotic calcification. Bowel: The stomach is markedly distended. The duodenum and small bowel loops are normal in caliber with no evidence of obstruction. There is rectosigmoid fecal retention. The appendix is well-visualized and normal. There is mild colonic diverticulosis without CT evidence of acute diverticulitis. Peritoneum: There is no intraperitoneal free air or abdominal ascites. There is a fat-containing umbilical hernia. Lymphadenopathy: None. Pelvic viscera: There is marked fatty atrophy of the paraspinous and pelvic musculature. The prostate gland is mildly enlarged and heterogeneous noting median lobe hypertrophy. The bladder wall appears thickened and trabeculated indicating chronic outlet obstruction. There is a punctate bladder calculus. There are bilateral fat-containing inguinal hernias, right larger than left. Skeletal structures: The skeletal structures are osteopenic. There is moderate to advanced lumbosacral spondylosis. Arthritic change is seen in the hips. No lytic or blastic lesions are seen. IMPRESSION: 1. Suboptimal examination without IV contrast. 2. The stomach is significantly distended, with normal caliber duodenum and small bowel. Correlate clinically for evidence of gastric outlet obstruction. No obstructing lesion or transition point is identified. This could be further assessed with endoscopy if clinically warranted. 3. Severe hepatic steatosis. 4. Bilateral nephrolithiasis. 5. Prostatomegaly with evidence of chronic bladder outlet obstruction. 6. There is a punctate bladder calculus. 7. Additional findings as above. ACT 112: Negative or not required by law. Electronically signed by: Max Rogers M.D. 06/10/2021 12:24 PM ECG Data Attestation: I personally reviewed and interpreted this ECG as follows: Indication: + nausea and + vomiting Rate (beats per minute): 101 Rhythm: + sinus tachycardia ECG Intervals/blocks: + IVCD (Nonspecific mildly prolonged QRS unchanged from), + Normal QT and + Normal LA ECG Clay: + Normal ECG ST segments: + Nonspecific ST abnormalities ECG Findings: no PACs or no PVCs Comparison ECG Date: from (02/01/21) Change: the following changes noted (PACS are resolved) MDM Narrative This patient comes in as described above. He was placed in room a 9 on a desk monitor. IV axis tablet she was given IV Zofran and IV hydration. Blood work was obtained multiple blood testing was obtained. He was reassessed frequently. EKG was obtained. EKG does not show any ischemic changes. He has no significant white count or fever to suggest infection. he is not significantly anemic. he has no significant electrolyte or metabolic abnormaliti es. CAT scan shows a significant dilated stomach as he has had before he may have a gastric outlet obstruction or ileus. NG tube was placed as it helped him before. I have consulted the [facility] hospitalist to see him in the ER for admission/observation. Covid testing was negative Continuous cardiac monitoring: Orders placed in the EMR for continuous desk monitor. Upon my interpretation the patient was noted to be in sinus tachycardia with a rate of 100 Impression & Plan Gastric outlet obstruction, Myalgia and myositis, unspecified, Lab test negative for COVID-19 virus, Vomiting, Diarrhea Discharge Plan Visit Data Chief Complaint: GI Assessment Stated Complaint: GI ISSUES ED Provider: Faraz Pavon Discharge Problem: Gastric outlet obstruction, Myalgia and myositis, unspecified, Lab test negative for COVID-19 virus, Vomiting, Diarrhea
--- NOTE | 2021-06-10 12:25 | CT Scan Report ---
CT SCAN OF THE ABDOMEN AND PELVIS WITHOUT IV CONTRAST CLINICAL HISTORY: Generalized abdominal pain. Vomiting. COMPARISON STUDY: Abdominal CT dated 02/01/2021. TECHNIQUE: CT scan of the abdomen and pelvis is performed from the lung bases to the proximal femora. Images are reviewed in the axial, sagittal, and coronal planes. IV contrast was not administered for this examination. Note that the examination was performed in significant suboptimal fashion without IV contrast. A dose lowering technique was utilized adhering to the principles of ALARA. CT DOSE: 1624.26 mGy.cm FINDINGS: Lung bases: The heart is normal in size and without pericardial effusion. There are coronary artery c alcifications. A tiny hiatal hernia is noted. The lung bases are clear noting dependent scarring/atel ectasis. Liver: The unenhanced liver is normal in size and contour. The liver demonstrates diffusely diminishe d attenuation consistent with hepatic steatosis. There is no intrahepatic biliary ductal dilatation. Gallbladder: Unremarkable. Spleen: Normal in size and attenuation. Pancreas: Unremarkable. Adrenal glands: Unremarkable. Kidneys: The unenhanced kidneys demonstrate cortical atrophy and are without hydronephrosis. There ar e least 3 nonobstructing right renal calculi and at least 4 nonobstructing left renal calculi which m easure up to 3 mm. There is no evidence of contour deforming renal mass lesion. Abdominal vasculature: The abdominal aorta is normal in course and caliber noting moderate to advance d atherosclerotic calcification. Bowel: The stomach is markedly distended. The duodenum and small bowel loops are normal in caliber wi th no evidence of obstruction. There is rectosigmoid fecal retention. The appendix is well-visualize d and normal. There is mild colonic diverticulosis without CT evidence of acute diverticulitis. Peritoneum: There is no intraperitoneal free air or abdominal ascites. There is a fat-containing umbi lical hernia. Lymphadenopathy: None. Pelvic viscera: There is marked fatty atrophy of the paraspinous and pelvic musculature. The prostate gland is mildly enlarged and heterogeneous noting median lobe hypertrophy. The bladder wall appears thickened and trabeculated indicating chronic outlet obstruction. There is a punctate bladder calculu s. There are bilateral fat-containing inguinal hernias, right larger than left. Skeletal structures: The skeletal structures are osteopenic. There is moderate to advanced lumbosacra l spondylosis. Arthritic change is seen in the hips. No lytic or blastic lesions are seen. IMPRESSION: 1. Suboptimal examination without IV contrast. 2. The stomach is significantly distended, with normal caliber duodenum and small bowel. Correlate cl inically for evidence of gastric outlet obstruction. No obstructing lesion or transition point is cynthia ntified. This could be further assessed with endoscopy if clinically warranted. 3. Severe hepatic steatosis. 4. Bilateral nephrolithiasis. 5. Prostatomegaly with evidence of chronic bladder outlet obstruction. 6. There is a punctate bladder calculus. 7. Additional findings as above. ACT 112: Negative or not required by law. Electronically signed by: Max Rogers M.D. 06/10/2021 12:24 PM
[2021-06-10] MEDS: POTASSIUM CHLORIDE / WTR 10 MEQ/100 ML PLCT IV SCH ×4 (15:34→22:33)
--- NOTE | 2021-06-10 15:36 | Electrocardiogram Report ---
Test Reason : Blood Pressure : / mmHG Vent. Rate : 101 BPM Atrial Rate : 101 BPM P-R Int : 196 ms QRS Dur : 122 ms QT Int : 342 ms P-R-T Axes : 063 037 -72 degrees QTc Int : 443 ms Sinus tachycardia Possible Inferior infarct , age undetermined Abnormal ECG When compared with ECG of 01-FEB-2021 08:25, Premature ventricular complexes are no longer Present Premature atrial complexes are no longer Present Borderline criteria for Inferior infarct are now Present Nonspecific T wave abnormality now evident in Lateral leads Confirmed by Catarino Kitchen ([id number]) on 06/10/2021 3:35:55 PM Referred By: Panchito culp [facility] Confirmed By:Catarino Kitchen
--- NOTE | 2021-06-10 15:50 | History & Physical Report ---
Date of Service June 10, 2021 Assessment & Plan (1) Gastric outlet obstruction: Plan: -[facility] -Patient presenting from [facility] for evaluation of intractable vomiting. History of gastric outlet obstruction 01/2021. -In the ED, CT ABD/pelvis shows gastric outlet obstruction. NG tube was placed which is draining a brown liquid. -Patient with history of gastroparesis and known to be noncompliant with gastroparesis diet. -Follows with [facility], Dr. Sandoval notified (2) Elevated LFTs: Plan: -T bili 0.7, AST 71, ALT 69, alk phos 141 -LFTs slightly improved from outpatient labs on 04/30/2021 -CT ABD/pelvis shows severe hepatic steatosis -Most LFTs, appreciate GI input (3) Hypokalemia: Plan: -K+ 3.1, replacement ordered -Likely due to GI losses from vomiting -Follow electrolytes closely with NG tube in place (4) YANETH (obstructive sleep apnea): (5) Hypercapnic respiratory failure: Plan: -Utilizes BiPAP 18/10 at bedtime, resume once NG tube has been removed (6) DM II (diabetes mellitus, type II), controlled: Plan: -Diet controlled -Hgb A1c 5.5 04/2021 -Monitor glucose (7) Hypertension: Plan: -BP currently controlled however hold amlodipine while NG tube in place -resume once taking p.o. (8) Chronic pain: Plan: -Opioids discontinued 01/2021 due to toxic metabolic encephalopathy requiring Narcan -Gabapentin ordered in liquid form to be given via NG tube. Cymbalta held for now (crushable/liquid option not available), resume once taking p.o. (9) Gubylqg-Rsrva-Mdwtx disease: Plan: -With chronic lower extremity paralysis, bed/wheelchair bound (10) DVT prophylaxis: Plan: -SCDs for now History of Present Illness Chief Complaint: Vomiting Primary Care Provider: Mandi Flanagan at [facility] 55-year-old male with PMH diet-controlled DM type II, Acrrvbr-Jyvtx-Cyvtv disease with lower extremity paralysis, chronic pain syndrome, YANETH and chronic hypercapnic respiratory failure on nocturnal BiPAP, gastroparesis, and other problems to below who presents the ED for evaluation of vomiting. Patient admitted to [facility] 01/2021 for gastric outlet obstruction treated with NG tube. Patient also had toxic metabolic encephalopathy due to opioids. Patient currently resides at [facility]. Reports ongoing issues with diarrhea. Was seen by GI who felt the patient was having overflow diarrhea and started the patient on MiraLAX and Colace. After discussion with KOURTNEY at [facility], this bowel regimen was completed about 1 month ago. Patient is advised to follow a gastroparesis diet however has been noncompliant. Patient reports he continues to struggle with diarrhea. Admits to eating a larger dinner last evening, and shortly after developed vomiting. Reports several episodes of vomiting since last evening. Per fdc documentation, there was some concern for hematemesis and coffee-ground emesis. Patient denies bright red bleeding per rectum and dark tarry stools. Reports esophageal burning from reflux, denies abdominal pain. No other recent illnesses, fevers, chills. Denies chest pain and shortness of breath. No lightheadedness, dizziness, diaphoresis, syncopal events. Denies urinary symptoms. In the ED, CT ABD/pelvis is showing signs of gastric outlet obstruction. NG tube was placed and is draining a large amount of brown liquid. Labs show mild hypokalemia with potassium 3.1, mild LFT eleva tion with AST 71, alk phos 141. Patient was given Zofran and IVF. Allergies Allergy/AdvReac Type Severity Reaction Status Date / Time hydralazine Allergy Intermediate Gastrointestinal Verified 06/10/21 12:34 Upset alcohol Allergy Unknown Unknown Verified 06/10/21 12:34 amiodarone Allergy Unknown Unknown rxn Verified 06/10/21 12:34 chloramphenicol Allergy Unknown Unknown Verified 06/10/21 12:34 cholecalciferol (vitamin D3) Allergy Unknown Unknown Verified 06/10/21 12:34 cisplatin Allergy Unknown Unknown Verified 06/10/21 12:34 dapsone Allergy Unknown Unknown rxn Verified 06/10/21 12:34 disulfiram Allergy Unknown Unknown rxn Verified 06/10/21 12:34 doxorubicin Allergy Unknown Unknown Verified 06/10/21 12:34 glutethimide Allergy Unknown Unknown Verified 06/10/21 12:34 Gold Salts Allergy Unknown Unknown Verified 06/10/21 12:34 Hydantoins Allergy Unknown Unknown Verified 06/10/21 12:34 isoniazid Allergy Unknown Unknown rxn Verified 06/10/21 12:34 metronidazole Allergy Unknown Unknown Verified 06/10/21 12:34 nitrofurantoin Allergy Unknown Unknown rxn Verified 06/10/21 12:34 Penicillins Allergy Unknown Rash Verified 06/10/21 12:34 phenytoin Allergy Unknown Unknown Verified 06/10/21 12:34 pyridoxine Allergy Unknown Unknown Verified 06/10/21 12:34 theophylline Allergy Unknown Unknown rxn Verified 06/10/21 12:34 tretinoin Allergy Unknown Unknown rxn Verified 06/10/21 12:34 vincristine Allergy Unknown Unknown Verified 06/10/21 12:34 succinylcholine AdvReac Unknown *not Verified 06/10/21 12:34 actual allergy*see below Home Medications Medication Instructions Recorded Confirmed Type azelastine 137 mcg (0.1 %) nasal 1 spray INTRANASAL BID 06/28/19 06/10/21 History spray aerosol docusate sodium 100 mg capsule 100 - 200 mg PO BID 06/28/19 06/10/21 History mometasone 50 mcg/actuation nasal 1 spray INTRANASAL BID 06/28/19 06/10/21 History spray montelukast 10 mg tablet 10 mg PO PM 06/28/19 06/10/21 History aspirin 81 mg tablet,delayed 81 mg PO QAM 07/06/20 06/10/21 History release (Adult Low Dose Aspirin) oxybutynin chloride 10 mg 10 mg PO Q8H 07/22/20 06/10/21 History tablet,extended release 24 hr menthol 0.44 %-zinc oxide 20.6 % 1 applic TOPICAL TID PRN 02/01/21 06/10/21 History topical ointment (Calmoseptine) tamsulosin 0.4 mg capsule 0.4 mg PO QAM 02/01/21 06/10/21 History amlodipine 5 mg tablet (Norvasc) 5 mg PO QAM #30 tab 02/07/21 06/10/21 Rx polyethylene glycol 3350 17 gram 17 g PO BID #100 ea 04/23/21 06/10/21 Rx oral powder packet (Miralax) acetaminophen 325 mg capsule 650 mg PO Q4H PRN 06/10/21 06/10/21 History duloxetine 30 mg capsule,delayed 30 mg PO DAILY 06/10/21 06/10/21 History release duloxetine 60 mg capsule,delayed 60 mg PO DAILY 06/10/21 06/10/21 History release gabapentin 600 mg tablet 1,200 mg PO TID 06/10/21 06/10/21 History ibuprofen 200 mg tablet 400 mg PO Q6H PRN 06/10/21 06/10/21 History melatonin 5 mg tablet 5 mg PO HS PRN 06/10/21 06/10/21 History potassium chloride 20 mEq 20 meq PO BID 06/10/21 06/10/21 History tablet,extended release Past Med/Surg History Medical History Zdaflzi-Mipie-Csrsj disease Due to disease progression patient is functioning quadriplegic - wheelchair bound and needs full assist to transfer - resides at [facility] Chronic pain DM II (diabetes mellitus, type II), controlled Hypercapnic respiratory failure Hypertension Kidney stones Myalgia and myositis, unspecified Opiate dependence YANETH (obstructive sleep apnea) Peripheral neuropathy Physical deconditioning Pickwickian syndrome Renal calculi Ureterolithiasis Surgical History H/O cystoscopy Cystoscopy with right retrograde pyelogram and stent placement. H/O dilation of urethra H/O wisdom tooth extraction History of colonoscopy History of lithotripsy S/P cervical spinal fusion ROM WNL PER PT S/P tonsillectomy and adenoidectomy Family History Mother Heart disease Social History Smoking Status: Former smoker Tobacco Type: Cigars Second Hand Exposure: No; Hx Alcohol Use: No Hx Substance Use: No Preferred Language: Belarusian Communication Ability: Effective Home Energy Rater Required: No Beliefs That Will Affect Care: None Current Living Situation: Snf Current Living Situation Comment: [facility] Feels Safe at Home: Yes Assistive Devices: BiPap and Mechanical Lift Review of Systems Review of Systems: ROS per HPI, all other systems reviewed and negative Physical Exam Constitutional: WD/WN, vitals as above + obese Eyes: PERRL, conjunctivae normal, anicteric sclerae ENMT: external ear and nose normal, oropharynx normal Respiratory: normal respiratory effort, lungs clear to auscultation Cardiovascular: Rate/Rhythm: regular rhythm and + tachycardic Vessels: normal peripheral pulses Extremities: + edema (+1 nonpitting edema BLE) Gastrointestinal (Abdomen): normal bowel sounds, soft, nontender, no hepatosplenomegaly NG tube in place draining brown liquid Musculoskeletal: Extremities: no cyanosis and no clubbing 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 Skin: no rashes, warm and dry Neurologic: PERRL, EOMI, accommodation nl, no face palsy, no dysarthria Psychiatric: Orientation: alert and oriented x 3 Affect: + flat affect Results & Data Results & Data ([facility]) Vital Signs (Past 12 Hours) Vital Signs Temp Pulse Resp BP Pulse Ox 06/10/21 15:30 102 H 16 100/59 L 98 06/10/21 15:00 105 H 17 98 06/10/21 14:30 107 H 16 97 06/10/21 14:00 104 H 24 139/100 98 06/10/21 13:30 106 H 16 93 06/10/21 13:28 108 H 16 06/10/21 12:30 99 H 17 94 06/10/21 12:01 16 06/10/21 11:30 93 H 22 92 06/10/21 11:00 103 H 14 132/83 06/10/21 10:30 99 H 15 06/10/21 10:00 108 H 24 130/90 95 06/10/21 09:54 36.9 C 84 18 139/89 93 06/10/21 09:53 100 H 20 96 Laboratory Results Short CBC 06/10/21 06/10/21 Range/Units 10:15 10:15 WBC 7.88 (4.8-10.8) K/uL Hgb 15.9 (14.0-18.0) g/dL Hct 46.2 (42-52) % Plt Count 278 (130-400) K/uL AST 71 H (15-37) U/L Alkaline Phosphatase 141 H (45-117) U/L BMP 06/10/21 10:15 Sodium 144 Potassium 3.1 L Chloride 106 Carbon Dioxide 30 BUN 7 Creatinine 0.24 L Glucose 150 H Calcium 9.1 Cardiac Enzymes 06/10/21 Range/Units 10:15 Troponin I < 0.015 (0-0.045) ng/ml Liver Function 06/10/21 Range/Units 10:15 Total Bilirubin 0.7 (0.2-1) mg/dl AST 71 H (15-37) U/L ALT 69 (12-78) U/L Alkaline Phosphatase 141 H (45-117) U/L Albumin 3.2 L (3.4-5.0) gm/dl Diagnostic Findings Abdomen/Pelvis CT 06/10/21 10:58 CT SCAN OF THE ABDOMEN AND PELVIS WITHOUT IV CONTRAST CLINICAL HISTORY: Generalized abdominal pain. Vomiting. COMPARISON STUDY: Abdominal CT dated 02/01/2021. TECHNIQUE: CT scan of the abdomen and pelvis is performed from the lung bases to the proximal femora. Images are reviewed in the axial, sagittal, and coronal planes. IV contrast was not administered for this examination. Note that the examination was performed in significant suboptimal fashion without IV contrast. A dose lowering technique was utilized adhering to the principles of ALARA. CT DOSE: 1624.26 mGy.cm FINDINGS: Lung bases: The heart is normal in size and without pericardial effusion. There are coronary artery calcifications. A tiny hiatal hernia is noted. The lung bases are clear noting dependent scarring/atelectasis. Liver: The unenhanced liver is normal in size and contour. The liver demonstrates diffusely diminished attenuation consistent with hepatic steatosis. There is no intrahepatic biliary ductal dilatation. Gallbladder: Unremarkable. Spleen: Normal in size and attenuation. Pancreas: Unremarkable. Adrenal glands: Unremarkable. Kidneys: The unenhanced kidneys demonstrate cortical atrophy and are without hydronephrosis. There are least 3 nonobstructing right renal calculi and at least 4 nonobstructing left renal calculi which measure up to 3 mm. There is no evidence of contour deforming renal mass lesion. Abdominal vasculature: The abdominal aorta is normal in course and caliber noting moderate to advanced atherosclerotic calcification. Bowel: The stomach is markedly distended. The duodenum and small bowel loops are normal in caliber with no evidence of obstruction. There is rectosigmoid fecal retention. The appendix is well-visualized and normal. There is mild colonic diverticulosis without CT evidence of acute diverticulitis. Peritoneum: There is no intraperitoneal free air or abdominal ascites. There is a fat-containing umbilical hernia. Lymphadenopathy: None. Pelvic viscera: There is marked fatty atrophy of the paraspinous and pelvic musculature. The prostate gland is mildly enlarged and heterogeneous noting median lobe hypertrophy. The bladder wall appears thickened and trabeculated indicating chronic outlet obstruction. There is a punctate bladder calculus. There are bilateral fat-containing inguinal hernias, right larger than left. Skeletal structures: The skeletal structures are osteopenic. There is moderate to advanced lumbosacral spondylosis. Arthritic change is seen in the hips. No lytic or blastic lesions are seen. IMPRESSION: 1. Suboptimal examination without IV contrast. 2. The stomach is significantly distended, with normal caliber duodenum and small bowel. Correlate clinically for evidence of gastric outlet obstruction. No obstructing lesion or transition point is identified. This could be further assessed with endoscopy if clinically warranted. 3. Severe hepatic steatosis. 4. Bilateral nephrolithiasis. 5. Prostatomegaly with evidence of chronic bladder outlet obstruction. 6. There is a punctate bladder calculus. 7. Additional findings as above. ACT 112: Negative or not required by law. Electronically signed by: Max Rogers M.D. 06/10/2021 12:24 PM Code Status & VTE Plan Code Status Patient is a full code as per my discussion with him. VTE Prophylaxis Plan VTE Prophylaxis will be ordered: Yes Supervising Physician Co-Signing Physician Notes I have seen and examined the patient and have discussed the case with the provider above. I agree with the assessment and plan as stated. 55 yo M with CMT presents with acute hyperemesis that turned billious in appearance today. No maryam blood in emesis seen and H/H and hemodynamics are stable. Patient has a history of gastroparesis with a /o DMII, now improved after concerted weight loss efforts. He feels that he ate two much food consuming two entrees which were salads without meat. He denies eating anything out of the ordinary but notes the volume of food was increased from his normal amount. He feels better s/p NG tube placement. He reports diarrhea with episodes occurring once daily per his report. Followed outpatient in GI clinic for this. CT imaging revealing significant gastric distension with normal caliber duodenum suggestive of gastric outlet obstruction. Possibly functional vs recently eaten bezoar? Although malignancy and PUD a consideration, recent EGD performed with biopsies, so would have likely been picked up. Cont supportive care with NGT and hydration/antiemetics as needed (currently denies nausea). Definitive treatment per vehicle care specialist who is consulted. On exam he is obese, paraplegic with clear lower extremity weakness, he is mentating clearly and in NAD. Small amount of oxygen supplementation in place via nasal canula and NG tube in place draining a brownish liquid to LIS. Lungs are clear to auscultation throughout. Cardiac exam reveals S1/2 heard without m/g/r. Abdomen is soft, NDNT. Agree with attempt to cont gabapentin PO to avoid withdrawal from high dose gabapentin. This patient notably went through severe withdrawal from opiates earlier this year. Would avoid these completely. Michele, DO
[2021-06-10] MEDS ORDERED: ONDANSETRON INJ 2 MG/ML 2 ML VIAL IV PRN (18:06)
[2021-06-10] MEDS ORDERED: GABAPENTIN 250 MG/5 ML 470 ML BTL PO SCH (21:00)
[2021-06-10] MEDS: GABAPENTIN 250 MG/5 ML 470 ML BTL PO SCH (21:46)
[2021-06-10] MEDS: NSS + 20MEQ KCL 20 MEQ/1,000 ML BAG IV SCH (23:40)
[2021-06-11 07:35] LABS: Hematocrit (blood only) 44.5 % (42-52); Mean Corpuscular Hemoglobin 30.1 pg (25-34); Mean Corpuscular Hgb Conc 33.7 g/dL (32-36); Mean Corpuscular Volume 89.4 fL (80-100); Mean Platelet Volume 10.2 fL (7.4-10.4); Platelet Count 292 K/uL (130-400); RDW Coefficient of Variation 15.2 % (11.5-14.5); RDW Standard Deviation 49.9 fL (36.4-46.3); Red Blood Count 4.98 M/uL (4.7-6.1); White Blood Count 10.21 K/uL (4.8-10.8)
[2021-06-11 08:13] LABS: Alanine Aminotransferase 56 U/L (12-78); Albumin Level 2.8 gm/dl (3.4-5.0); Alkaline Phosphatase 123 U/L (45-117); Aspartate Aminotransferase 52 U/L (15-37); BUN Creatinine Ratio 39.3 (10-20); Blood Urea Nitrogen 7 mg/dl (7-18); Calcium 8.7 mg/dl (8.5-10.1); Carbon Dioxide 32 mmol/L (21-32); Chloride 110 mmol/L (98-107); Creatinine Clr Calc Pharmacy 572.3 ml/min; Est GFR (African American) > 150.0 ml/min; Est GFR (Non-African American) > 150.0 ml/min; Glucose 114 mg/dl (70-99); Magnesium 1.9 mg/dl (1.8-2.4); Potassium 3.1 mmol/L (3.5-5.1); Sodium 148 mmol/L (136-145)
[2021-06-11 08:15] LABS: Bilirubin Direct 0.2 mg/dl (0-0.2); Bilirubin,Total 0.6 mg/dl (0.2-1); Phosphorus 2.5 mg/dl (2.5-4.9); Total Protein 6.8 gm/dl (6.4-8.2)
[2021-06-11] MEDS: POTASSIUM CHLORIDE / WTR 10 MEQ/100 ML PLCT IV SCH ×4 (09:30→13:32)
--- NOTE | 2021-06-11 09:31 | Gastrointestinal Consultation ---
Date of Consultation June 11, 2021 Assessment & Plan (1) Vomiting: (2) Gastric outlet obstruction: 1. Clamp NG. 2. Remain NPO. 3. UGI with small bowel follow through for further evaluation. 4. Further recommendations will be made pending results of testing. Thank you for allowing us to participate in the care of this pleasant patient. If you have any questions or concerns, please do not hesitate to contact us. Supervising Physician Co-Signing Physician Notes I personally evaluated the patient and agree with the findings as documented by LINDSEY Juarez Exam: abd: soft, nt, nd obtain UGI series with SBFT to further evaluate today. unclear etiology for why he is getting recurrent gastric outlet obstructions. normal GES and EGD previously. History of Present Illness Reason for Consultation: Gastric outlet obstruction Requesting Physician: LINDSEY Couch Attending Physician: Sid Arias MD History of Present Illness Patient is a 55 y.o. male with a history of gastric outlet obstruction admitted with recurrent n/v and imaging consistent with gastric outlet obstruction. He has undergone a prior EGD and GES which did not reveal an etiology to the patient's symptoms. He has had NG decompression which has produced significant bilious/feculent output. He states that he feels improved with less nausea and bloating. No hematemesis, vomiting since admission or rectal bleeding. Allergies Allergy/AdvReac Type Severity Reaction Status Date / Time hydralazine Allergy Intermediate Gastrointestinal Verified 06/10/21 12:34 Upset alcohol Allergy Unknown Unknown Verified 06/10/21 12:34 amiodarone Allergy Unknown Unknown rxn Verified 06/10/21 12:34 chloramphenicol Allergy Unknown Unknown Verified 06/10/21 12:34 cholecalciferol (vitamin D3) Allergy Unknown Unknown Verified 06/10/21 12:34 cisplatin Allergy Unknown Unknown Verified 06/10/21 12:34 dapsone Allergy Unknown Unknown rxn Verified 06/10/21 12:34 disulfiram Allergy Unknown Unknown rxn Verified 06/10/21 12:34 doxorubicin Allergy Unknown Unknown Verified 06/10/21 12:34 glutethimide Allergy Unknown Unknown Verified 06/10/21 12:34 Gold Salts Allergy Unknown Unknown Verified 06/10/21 12:34 Hydantoins Allergy Unknown Unknown Verified 06/10/21 12:34 isoniazid Allergy Unknown Unknown rxn Verified 06/10/21 12:34 metronidazole Allergy Unknown Unknown Verified 06/10/21 12:34 nitrofurantoin Allergy Unknown Unknown rxn Verified 06/10/21 12:34 Penicillins Allergy Unknown Rash Verified 06/10/21 12:34 phenytoin Allergy Unknown Unknown Verified 06/10/21 12:34 pyridoxine Allergy Unknown Unknown Verified 06/10/21 12:34 theophylline Allergy Unknown Unknown rxn Verified 06/10/21 12:34 tretinoin Allergy Unknown Unknown rxn Verified 06/10/21 12:34 vincristine Allergy Unknown Unknown Verified 06/10/21 12:34 succinylcholine AdvReac Unknown *not Verified 06/10/21 12:34 actual allergy*see below Home Medications Medication Instructions Recorded Confirmed Type azelastine 137 mcg (0.1 %) nasal 1 spray INTRANASAL BID 06/28/19 06/10/21 History spray aerosol docusate sodium 100 mg capsule 100 - 200 mg PO BID 06/28/19 06/10/21 History mometasone 50 mcg/actuation nasal 1 spray INTRANASAL BID 06/28/19 06/10/21 History spray montelukast 10 mg tablet 10 mg PO PM 06/28/19 06/10/21 History aspirin 81 mg tablet,delayed 81 mg PO QAM 07/06/20 06/10/21 History release (Adult Low Dose Aspirin) oxybutynin chloride 10 mg 10 mg PO Q8H 07/22/20 06/10/21 History tablet,extended release 24 hr menthol 0.44 %-zinc oxide 20.6 % 1 applic TOPICAL TID PRN 02/01/21 06/10/21 History topical ointment (Calmoseptine) tamsulosin 0.4 mg capsule 0.4 mg PO QAM 02/01/21 06/10/21 History amlodipine 5 mg tablet (Norvasc) 5 mg PO QAM #30 tab 02/07/21 06/10/21 Rx polyethylene glycol 3350 17 gram 17 g PO BID #100 ea 04/23/21 06/10/21 Rx oral powder packet (Miralax) acetaminophen 325 mg capsule 650 mg PO Q4H PRN 06/10/21 06/10/21 History duloxetine 30 mg capsule,delayed 30 mg PO DAILY 06/10/21 06/10/21 History release duloxetine 60 mg capsule,delayed 60 mg PO DAILY 06/10/21 06/10/21 History release gabapentin 600 mg tablet 1,200 mg PO TID 06/10/21 06/10/21 History ibuprofen 200 mg tablet 400 mg PO Q6H PRN 06/10/21 06/10/21 History melatonin 5 mg tablet 5 mg PO HS PRN 06/10/21 06/10/21 History potassium chloride 20 mEq 20 meq PO BID 06/10/21 06/10/21 History tablet,extended release Patient History Medical History Hoffglc-Qyxkq-Epshx disease Due to disease progression patient is functioning quadriplegic - wheelchair bound and needs full assist to transfer - resides at [facility] Chronic pain DM II (diabetes mellitus, type II), controlled Hypercapnic respiratory failure Hypertension Kidney stones Myalgia and myositis, unspecified Opiate dependence YANETH (obstructive sleep apnea) Peripheral neuropathy Physical deconditioning Pickwickian syndrome Renal calculi Ureterolithiasis Surgical History H/O cystoscopy Cystoscopy with right retrograde pyelogram and stent placement. H/O dilation of urethra H/O wisdom tooth extraction History of colonoscopy History of lithotripsy S/P cervical spinal fusion ROM WNL PER PT S/P tonsillectomy and adenoidectomy Family History Mother Heart disease Social History Smoking Status: Former smoker Tobacco Type: Cigars Second Hand Exposure: No; Hx Alcohol Use: No Hx Substance Use: No Preferred Language: Chilean Communication Ability: Effective Crate Tier Required: No Beliefs That Will Affect Care: None Current Living Situation: Personal Care Facility Current Living Situation Comment: [facility] Feels Safe at Home: Yes Safety Concerns: Feels Safe At This Time Assistive Devices: Glasses Review of Systems Constitutional: as per Subjective / HPI; no fever and no chills Gastrointestinal: as per Subjective / HPI Physical Exam Constitutional: WD/WN, vitals as above Respiratory: normal respiratory effort, lungs clear to auscultation Cardiovascular: RRR, no murmur, no edema Gastrointestinal (Abdomen): normal bowel sounds, soft, nontender, no hepatosplenomegaly Psychiatric: A+Ox3, euthymic affect Results & Data ([facility]) Vital Signs (Past 12 Hours) Vital Signs Temp Pulse Resp BP BP Pulse Ox 06/11/21 07:57 36.7 C 77 16 147/94 H 96 06/10/21 22:38 36.7 C 98 H 20 162/119 H 94 Laboratory Results Abnormal lab results 06/10/21 06/10/21 06/11/21 Range/Units 10:15 10: 07:11 RDW Std Deviation 48.0 H 49.9 H (36.4-46.3) fL RDW Coeff of Pearl 14.7 H 15.2 H (11.5-14.5) % Lymph # (Auto) 1.05 L (1.2-3.4) K/uL Immature Gran # (Auto) 0.06 H (0.00-0.02) K/uL Sodium (136-145) mmol/L Potassium 3.1 L (3.5-5.1) mmol/L Chloride (98-107) mmol/L Creatinine 0.24 L (0.6-1.4) mg/dl BUN/Creatinine Ratio 29.6 H (10-20) Glucose 150 H (70-99) mg/dl AST 71 H (15-37) U/L Alkaline Phosphatase 141 H (45-117) U/L Albumin 3.2 L (3.4-5.0) gm/dl Globulin 4.6 H (2.5-4.0) gm/dl Albumin/Globulin Ratio 0.7 L (0.9-2) Lipase 47 L (73-393) U/L 06/11/21 Range/Units 07:11 RDW Std Deviation (36.4-46.3) fL RDW Coeff of Pearl (11.5-14.5) % Lymph # (Auto) (1.2-3.4) K/uL Immature Gran # (Auto) (0.00-0.02) K/uL Sodium 148 H (136-145) mmol/L Potassium 3.1 L (3.5-5.1) mmol/L Chloride 110 H (98-107) mmol/L Creatinine 0.17 L (0.6-1.4) mg/dl BUN/Creatinine Ratio 39.3 H (10-20) Glucose 114 H (70-99) mg/dl AST 52 H (15-37) U/L Alkaline Phosphatase 123 H (45-117) U/L Albumin 2.8 L (3.4-5.0) gm/dl Globulin (2.5-4.0) gm/dl Albumin/Globulin Ratio (0.9-2) Lipase (73-393) U/L PG Care Time/CCT Total # of Minutes Spent Total Time Spent with Patient: Total time spent is greater than 50% in coordination of care (as documented) at patient's floor/unit and/or counseling patient: Coding Level of Care Code 33260 Initial Inpt Care Lvl 3 Diagnoses Vomiting R11.2 Nausea presence: with nausea Vomiting Intractability: non-intractable Vomiting type: unspecified Gastric outlet obstruction K31.1 (1) Vomiting Nausea presence: with nausea Vomiting Intractability: non-intractable Vomiting type: unspecified Qualified Code(s): R11.2 - Nausea with vomiting, unspecified
[2021-06-11] MEDS: GABAPENTIN 250 MG/5 ML 470 ML BTL PO SCH ×3 (09:57→21:26)
--- NOTE | 2021-06-11 14:36 | Fluoroscopy Report ---
[place] GI wo air small bowel [place] GI wo air small bowel CLINICAL HISTORY: 55 years-old Male with Recurrent gastric outlet obstruction. Gastric distention with possible gastric outlet obstruction TECHNIQUE: An upper GI series was performed following administration of Optiray 300. Small bowel follow-through was also obtained. Multiple spot fluoroscopic images were obtained and provided for review. COMPARISON STUDY: CT abdomen and pelvis 06/10/2021 FLUOROSCOPY TIME: 0.5 minutes. 15 images were submitted. FINDINGS: Oral contrast was administered via the patient's enteric tube which terminates within the stomach. No aspiration was definitively visualized. The esophagus distended normally with contrast. No strictures, mucosal ulcerations, or intraluminal mass lesions were identified involving the esophagus. There was no appreciable gastroesophageal reflux. Contrast was seen to flow freely through the gastroesophageal junction. No active reflux was demonstrated with Valsalva maneuver. Evaluation of the stomach demonstrates no gastric mucosal irregularity or filling defect. Mildly dilated loops of duodenum. No small bowel wall thickening. Enteric contrast progresses through the terminal ileum into the large bowel at 2 hours and 30 minutes. The terminal ileum is unremarkable. Freely movable bowel in all 4 quadrants of the abdomen. Mild fecal retention. IMPRESSION: 1. Mildly delayed transit of oral contrast from the small bowel into the large bowel at 2 hours and 30 minutes. 2. No evidence of gastric outlet obstruction. ACT 112: Negative or not required by law. The above report was generated using voice recognition software. It may contain grammatical, syntax or spelling errors. Electronically signed by: Giovanny Swift M.D. 06/11/2021 2:35 PM REBECCA
[2021-06-11] MEDS: NSS + 20MEQ KCL 20 MEQ/1,000 ML BAG IV SCH ×2 (15:32→15:33)
[2021-06-11 15:47] LABS: BUN Creatinine Ratio 33.3 (10-20); Blood Urea Nitrogen 6 mg/dl (7-18); Calcium 8.7 mg/dl (8.5-10.1); Carbon Dioxide 30 mmol/L (21-32); Chloride 110 mmol/L (98-107); Creatinine Clr Calc Pharmacy 572.3 ml/min; Est GFR (African American) > 150.0 ml/min; Est GFR (Non-African American) > 150.0 ml/min; Glucose 106 mg/dl (70-99); Potassium 3.7 mmol/L (3.5-5.1); Sodium 145 mmol/L (136-145)
--- NOTE | 2021-06-11 21:33 | Hospitalist Progress Note ---
Date of Service June 11, 2021 Assessment & Plan (1) Gastric outlet obstruction: Plan: per admitting [facility] [place] notes: -Patient presenting from [facility] for evaluation of intractable vomiting. History of gastric outlet obstruction 01/2021. -In the ED, CT ABD/pelvis shows gastric outlet obstruction. NG tube was placed which is draining a brown liquid. -Patient with history of gastroparesis and known to be noncompliant with gastroparesis diet. 06/11 s/p small bowel follow thru 1. Mildly delayed transit of oral contrast from the small bowel into the large bowel at 2 hours and 30 minutes. 2. No evidence of gastric outlet obstruction. NG tube clamped no nausea/vomiting on ice chips continue monitor closely (2) Elevated LFTs: Plan: -T bili 0.7, AST 71, ALT 69, alk phos 141 -LFTs slightly improved from outpatient labs on 04/30/2021 -CT ABD/pelvis shows severe hepatic steatosis - LFTs improving (3) Hypokalemia: Plan: -K+ 3.1, replacement ordered -Likely due to GI losses from vomiting -monitor (4) YANETH (obstructive sleep apnea): (5) Hypercapnic respiratory failure: Plan: -Utilizes BiPAP 18/10 at bedtime (6) DM II (diabetes mellitus, type II), controlled: Plan: -Diet controlled -Hgb A1c 5.5 04/2021 -Monitor glucose (7) Hypertension: Plan: -BP currently controlled however hold amlodipine while NG tube in place -resume once taking p.o. (8) Chronic pain: Plan: -Opioids discontinued 01/2021 due to toxic metabolic encephalopathy requiring Narcan -Gabapentin ordered in liquid form to be given via NG tube. Cymbalta held for now (crushable/liquid option not available), resume once taking p.o. (9) Uerfmtp-Cjlgv-Rhkeo disease: Plan: -With chronic lower extremity paralysis, bed/wheelchair bound (10) DVT prophylaxis: Plan: -SCDs for now Admission and Anticipated Discharge Date Admission Date: June 10, 2021 Subjective ff up for gastric outlet obstruction, etc seen resting in bed, comfortable states he feels ok overall denies abdominal pain, nausea/vomiting no chest pain, dyspnea, palpitations, dizziness no other symptoms Review of Systems Review of Systems: all noted and negative except for above Physical Exam Physical Exam: General- oriented x 3, not in distress, speaks in sentences with no effort or accessory muscle use Head- atraumatic Eyes- PERRL, EOMI, anicteric ENT- oropharynx clear Neck- supple, no JVD, no adenopathy, no thyromegaly; carotids +2/2, no bruits appreciated Lungs- clear to auscultation bilaterally, no rales/wheezes Heart- normal rate, regular rhythm; no murmur, no gallop, no rub appreciated Abdomen- normal bowel sounds, nondistended, soft, nontender, no masses or hepatosplenomegaly Extremities- no pretibial edema, no calf tenderness; peripheral pulses intact Neuro- alert, oriented x 3; CN 2-12 grossly intact; motor 5/5 UE, 1/5 LE;sensation 100% on all extremities; no other gross focal neurologic deficits Skin- warm & dry Results & Data Results & Data ([facility]) Vital Signs (Past 12 Hours) Vital Signs Temp Pulse Resp BP Pulse Ox 06/11/21 15:49 37.0 C 95 H 18 140/88 94 all noted and reviewed including below
[2021-06-12] MEDS: NSS + 20MEQ KCL 20 MEQ/1,000 ML BAG IV SCH ×3 (02:20→20:20)
[2021-06-12] MEDS: GABAPENTIN 250 MG/5 ML 470 ML BTL PO SCH ×3 (08:27→20:37)
[2021-06-12] MEDS ORDERED: SOD PHOSPHATE/SOD BIPHOSPHATE ENEMA 132 ML BTL PR ONE (10:15)
--- NOTE | 2021-06-12 10:22 | Gastroenterology Progress Note ---
Date of Service June 12, 2021 Assessment & Plan (1) Vomiting: (2) Gastric outlet obstruction: Plan: Suspect symptoms related to dysmotility. 1. D/C NG. 2. Advance diet to clear liquids to diabetic low fat/fiber as tolerated. 3. No plan for repeat EGD given normal UGI series. 4. Fleet enema today, start MiraLAX 17 g PO BID while in the hospital. Will initiate Motegrity 2 mg daily upon discharge (non-formulary). 5. Rest per primary team. Thank you for allowing us to participate in the care of this pleasant patient. If you have any questions or concerns, please do not hesitate to contact us. Admission and Anticipated Discharge Date Admission Date: June 10, 2021 Supervising Physician Co-Signing Physician Notes I personally evaluated the patient and agree with the findings as documented by LINDSEY uJarez Exam: abd: soft, nt, nd possible neurogenic etiology for his repeated gastric outlet obstructions, fecal retentions, will try to initiate motegrity as an outpatient. Subjective Patient denies any nausea. No vomiting. NG has been clamped since UGI/SBFT yesterday. Testing was unremarkable other than fecal retention. Tolerating ice chips. No abdominal pain. Review of Systems Constitutional: as per Subjective / HPI; no fever and no chills Gastrointestinal: as per Subjective / HPI Physical Exam Constitutional: WD/WN, vitals as above Respiratory: normal respiratory effort, lungs clear to auscultation Cardiovascular: RRR, no murmur, no edema Gastrointestinal (Abdomen): normal bowel sounds, soft, nontender, no hepatosplenomegaly Psychiatric: A+Ox3, euthymic affect Results & Data Results & Data ([facility]) Vital Signs (Past 12 Hours) Vital Signs Temp Pulse Resp BP Pulse Ox 06/12/21 08:37 37.9 C H 104 H 16 137/90 92 PG Care Time/CCT Total # of Minutes Spent Total Time Spent with Patient: Total time spent is greater than 50% in coordination of care (as documented) at patient's floor/unit and/or counseling patient: Coding Level of Care Code 85141 Subseq Hosp Care Lvl 3 Diagnoses Vomiting R11.2 Nausea presence: with nausea Vomiting Intractability: non-intractable Vomiting type: unspecified Gastric outlet obstruction K31.1 (1) Vomiting Nausea presence: with nausea Vomiting Intractability: non-intractable Vomiting type: unspecified Qualified Code(s): R11.2 - Nausea with vomiting, unspecified
[2021-06-12] MEDS: POLYETHYLENE (MIRALAX) 17 GM PACK PO SCH ×2 (11:31→20:21)
[2021-06-12] MEDS ORDERED: GABAPENTIN 600 MG TAB PO SCH (14:00)
--- NOTE | 2021-06-12 15:09 | Hospitalist Progress Note ---
Date of Service June 12, 2021 Assessment & Plan (1) Gastric outlet obstruction: Plan[place] [facility] [place]Patient presenting [place] [facility] for evaluation of intractable vomiting. History of gastric outlet obstruction 01/2021. -In the ED, CT ABD/pelvis shows gastric outlet obstruction. NG tube was placed which is draining a brown liquid. -Patient with history of gastroparesis and known to be noncompliant with gastroparesis diet. s/p small bowel follow thru 1. Mildly delayed transit of oral contrast from the small bowel into the large bowel at 2 hours and 30 minutes. 2. No evidence of gastric outlet obstruction. NG tube clamped no nausea/vomiting advance diet to low fat/low fiber continue monitor closely laxatives ordered by GI plan to discharge on Motegrity (2) Elevated LFTs: Plan: -T bili 0.7, AST 71, ALT 69, alk phos 141 -LFTs slightly improved from outpatient labs on 04/30/2021 -CT ABD/pelvis shows severe hepatic steatosis - LFTs improving (3) Hypokalemia: Plan: -K+ 3.1, replacement ordered -Likely due to GI losses from vomiting -monitor (4) YANETH (obstructive sleep apnea): (5) Hypercapnic respiratory failure: Plan: -Utilizes BiPAP 18/10 at bedtime (6) DM II (diabetes mellitus, type II), controlled: Plan: -Diet controlled -Hgb A1c 5.5 04/2021 -Monitor glucose (7) Hypertension: Plan: continue Amlodipine (8) Chronic pain: Plan: -Opioids discontinued 01/2021 due to toxic metabolic encephalopathy requiring Narcan - continue Gabapentin, Celexa (9) Daqbnoz-Lpujt-Vasdf disease: Plan: -With chronic lower extremity paralysis, bed/wheelchair bound (10) DVT prophylaxis: Plan: -SCDs for now Admission and Anticipated Discharge Date Admission Date: June 10, 2021 Subjective ff up for gastric outlet obstruction, etc seen resting in bed, comfortable states he feels fine overall no nausea/vomiting, abdominal pain no chest pain, dyspnea, palpitations, dizziness no fever/chills no other symptoms Review of Systems Review of Systems: all noted and negative except for above Physical Exam Physical Exam: General- oriented x 3, not in distress, speaks in sentences with no effort or accessory muscle use Eyes- anicteric Neck- no JVD Lungs- clear BS BL Heart- normal rate, regular rhythm; no murmurs Abdomen- normal bowel sounds, nondistended, soft, nontender Extremities- no pretibial edema, no calf tenderness Neuro- alert, oriented x 3; no new gross focal neurologic deficits Skin- warm & dry Results & Data Results & Data ([facility]) Vital Signs (Past 12 Hours) Vital Signs Temp Pulse Resp BP Pulse Ox 06/12/21 08:37 37.9 C H 104 H 16 137/90 92 all noted and reviewed including below
[2021-06-12] MEDS: DULoxetine HCL 30 MG CAP PO SCH (17:30)
[2021-06-12] MEDS: amLODIPine BESYLATE 5 MG TAB PO SCH (17:30)
[2021-06-12] MEDS: DULoxetine HCL 60 MG CAP PO SCH (17:30)
[2021-06-12] MEDS: OXYBUTYNIN CHLORIDE XL 5 MG TABCR PO SCH ×2 (17:31→21:19)
[2021-06-12] MEDS: DOCUSATE SODIUM 100 MG CAP PO SCH (20:21)
[2021-06-12] MEDS: AZELASTINE HCL 0.1% NASAL 200 SPRAYS/27,400 MCG BTL SCH (20:26)
[2021-06-12] MEDS: FLUTICASONE PROPIONATE NA SPR 16 GM BTL SCH (20:26)
[2021-06-12] MEDS: MONTELUKAST SODIUM 10 MG TABLET PO SCH (20:29)
[2021-06-12] MEDS: POTASSIUM CHLORIDE CRTAB 20 MEQ TABCR PO SCH (20:30)
[2021-06-12] MEDS ORDERED: POLYETHYLENE (MIRALAX) 17 GM PACK PO SCH (21:00)
[2021-06-13] MEDS: NSS + 20MEQ KCL 20 MEQ/1,000 ML BAG IV SCH ×2 (05:37→13:41)
[2021-06-13] MEDS: OXYBUTYNIN CHLORIDE XL 5 MG TABCR PO SCH ×3 (05:38→21:52)
[2021-06-13] MEDS: FLUTICASONE PROPIONATE NA SPR 16 GM BTL SCH ×2 (08:00→21:50)
[2021-06-13] MEDS: AZELASTINE HCL 0.1% NASAL 200 SPRAYS/27,400 MCG BTL SCH ×2 (08:00→21:50)
[2021-06-13] MEDS: amLODIPine BESYLATE 5 MG TAB PO SCH (08:01)
[2021-06-13] MEDS: POTASSIUM CHLORIDE CRTAB 20 MEQ TABCR PO SCH ×5 (08:01→23:13)
[2021-06-13] MEDS: DULoxetine HCL 30 MG CAP PO SCH (08:01)
[2021-06-13] MEDS: TAMSULOSIN HCL 0.4 MG CAP PO SCH (08:01)
[2021-06-13] MEDS: DULoxetine HCL 60 MG CAP PO SCH (08:02)
[2021-06-13] MEDS: DOCUSATE SODIUM 100 MG CAP PO SCH ×2 (08:02→21:55)
[2021-06-13] MEDS: POLYETHYLENE (MIRALAX) 17 GM PACK PO SCH ×2 (08:02→21:56)
[2021-06-13] MEDS: GABAPENTIN 250 MG/5 ML 470 ML BTL PO SCH (08:46)
[2021-06-13 10:50] LABS: BUN Creatinine Ratio 7.3 (10-20); Blood Urea Nitrogen 2 mg/dl (7-18); Calcium 7.9 mg/dl (8.5-10.1); Carbon Dioxide 31 mmol/L (21-32); Chloride 108 mmol/L (98-107); Creatinine Clr Calc Pharmacy 324.3 ml/min; Est GFR (African American) > 150.0 ml/min; Est GFR (Non-African American) 148.4 ml/min; Glucose 159 mg/dl (70-99); Potassium 2.9 mmol/L (3.5-5.1); Sodium 140 mmol/L (136-145)
[2021-06-13] MEDS: GABAPENTIN 600 MG TAB PO SCH ×2 (13:41→21:53)
--- NOTE | 2021-06-13 15:11 | Hospitalist Progress Note ---
Date of Service June 13, 2021 Assessment & Plan (1) Gastric outlet obstruction: Plan: [facility] [place] [facility]: -Patient presenting from [facility] for evaluation of intractable vomiting. History of gastric outlet obstruction 01/2021. -In the ED, CT ABD/pelvis shows gastric outlet obstruction. NG tube was placed which is draining a brown liquid. -Patient with history of gastroparesis and known to be noncompliant with gastroparesis diet. s/p small bowel follow thru 1. Mildly delayed transit of oral contrast from the small bowel into the large bowel at 2 hours and 30 minutes. 2. No evidence of gastric outlet obstruction. NG tube clamped no nausea/vomiting advance diet to low fat/low fiber-- > tolerating well continue monitor closely fleet enema and Miralax ordered by GI --> (+) large BM yesterday plan to discharge on Motegrity (2) Elevated LFTs: Plan: -T bili 0.7, AST 71, ALT 69, alk phos 141 -LFTs slightly improved from outpatient labs on 04/30/2021 -CT ABD/pelvis shows severe hepatic steatosis - LFTs improving (3) Hypokalemia: Plan: -K+ 3.1, replacement ordered -Likely due to GI losses from vomiting - K 2.9 will replace (4) YANETH (obstructive sleep apnea): (5) Hypercapnic respiratory failure: Plan: -Utilizes BiPAP 18/10 at bedtime (6) DM II (diabetes mellitus, type II), controlled: Plan: -Diet controlled -Hgb A1c 5.5 04/2021 -Monitor glucose (7) Hypertension: Plan: continue Amlodipine (8) Chronic pain: Plan: -Opioids discontinued 01/2021 due to toxic metabolic encephalopathy requiring Narcan - continue Gabapentin, Celexa (9) Pkdvfjm-Kkavc-Ndrug disease: Plan: -With chronic lower extremity paralysis, bed/wheelchair bound (10) DVT prophylaxis: Plan: -SCDs for now Admission and Anticipated Discharge Date Admission Date: June 10, 2021 Subjective ff up for gastric outlet obstruction, etc seen resting in bed, watching TV comfortable, in good spirits states he feels fine overall no abdominal pain, nausea tolerating diet well (+) BM yesterday- large amount no chest pain, dyspnea, palpitations, dizziness Review of Systems Review of Systems: all noted and negative except for above Physical Exam Physical Exam: General- oriented x 3, not in distress, speaks in sentences with no effort or accessory muscle use Eyes- anicteric Neck- no JVD Lungs- clear BS BL no rales/wheezing Heart- normal rate, regular rhythm; no murmurs Abdomen- normal bowel sounds, nondistended, soft, nontender Extremities- no pretibial edema, no calf tenderness Neuro- alert, oriented x 3; no new gross focal neurologic deficits Skin- warm & dry Results & Data Results & Data ([facility]) Vital Signs (Past 12 Hours) Vital Signs Temp Pulse Resp BP BP Pulse Ox 06/13/21 14:50 37.0 C 94 H 18 141/84 H 96 06/13/21 06:12 36.9 C 68 16 146/91 H 93 all noted and reviewed including below
[2021-06-13] MEDS: POTASSIUM CHLORIDE / WTR 10 MEQ/100 ML PLCT IV SCH ×2 (15:27→17:15)
[2021-06-13] MEDS ORDERED: MAGNESIUM SULFATE / D5W 1 GM/100 ML BAG IV ONE (18:15)
[2021-06-13] MEDS ORDERED: MAGNESIUM OXIDE 400 MG TAB PO SCH (21:00)
[2021-06-13] MEDS: MONTELUKAST SODIUM 10 MG TABLET PO SCH (21:50)
[2021-06-14] MEDS: NSS + 20MEQ KCL 20 MEQ/1,000 ML BAG IV SCH (00:18)
[2021-06-14] MEDS: OXYBUTYNIN CHLORIDE XL 5 MG TABCR PO SCH (06:27)
[2021-06-14 07:14] LABS: BUN Creatinine Ratio 13.1 (10-20); Blood Urea Nitrogen 3 mg/dl (7-18); Calcium 7.8 mg/dl (8.5-10.1); Carbon Dioxide 25 mmol/L (21-32); Chloride 110 mmol/L (98-107); Creatinine Clr Calc Pharmacy 360.3 ml/min; Est GFR (African American) > 150.0 ml/min; Est GFR (Non-African American) > 150.0 ml/min; Glucose 138 mg/dl (70-99); Magnesium 1.8 mg/dl (1.8-2.4); Potassium 3.9 mmol/L (3.5-5.1); Sodium 139 mmol/L (136-145)
[2021-06-14] MEDS: POLYETHYLENE (MIRALAX) 17 GM PACK PO SCH (09:25)
[2021-06-14] MEDS: DOCUSATE SODIUM 100 MG CAP PO SCH (09:25)
[2021-06-14] MEDS: DULoxetine HCL 30 MG CAP PO SCH (09:27)
[2021-06-14] MEDS: TAMSULOSIN HCL 0.4 MG CAP PO SCH (09:27)
[2021-06-14] MEDS: AZELASTINE HCL 0.1% NASAL 200 SPRAYS/27,400 MCG BTL SCH (09:28)
[2021-06-14] MEDS: DULoxetine HCL 60 MG CAP PO SCH (09:28)
[2021-06-14] MEDS: GABAPENTIN 600 MG TAB PO SCH (09:28)
[2021-06-14] MEDS: amLODIPine BESYLATE 5 MG TAB PO SCH (09:28)
[2021-06-14] MEDS: FLUTICASONE PROPIONATE NA SPR 16 GM BTL SCH (09:28)
--- NOTE | 2021-06-14 15:26 | Discharge Summary ---
Date of Service June 14, 2021 Admission HPI Per Admitting Provider 55-year-old male with PMH diet-controlled DM type II, Ujdampn-Pelte-Lrxsh disease with lower extremity paralysis, chronic pain syndrome, YANETH and chronic hypercapnic respiratory failure on nocturnal BiPAP, gastroparesis, and other problems to [facility] who presents the ED for evaluation of vomiting. Patient admitted to [facility] 01/2021 for gastric outlet obstruction treated with NG tube. Patient also had toxic metabolic encephalopathy due to opioids. Patient currently resides at [facility]. Reports ongoing issues with diarrhea. Was seen by GI who felt the patient was having overflow diarrhea and started the patient on MiraLAX and Colace. After discussion with KOURTNEY at [facility], this bowel regimen was completed about 1 month ago. Patient is advised to follow a gastroparesis diet however has been noncompliant. Patient reports he continues to struggle with diarrhea. Admits to eating a larger dinner last evening, and shortly after developed vomiting. Reports several episodes of vomiting since last evening. Per long term documentation, there was some concern for hematemesis and coffee-ground emesis. Patient denies bright red bleeding per rectum and dark tarry stools. Reports esophageal burning from reflux, denies abdominal pain. No other recent illnesses, fevers, chills. Denies chest pain and shortness of breath. No lightheadedness, dizziness, diaphoresis, syncopal events. Denies urinary symptoms. In the ED, CT ABD/pelvis is showing signs of gastric outlet obstruction. NG tube was placed and is draining a large amount of brown liquid. Labs show mild hypokalemia with potassium 3.1, mild LFT elevation with AST 71, alk phos 141. Patient was given Zofran and IVF. Discharge Data Consultations 06/10/21 12:57 ED Decision to Admit Stat 06/10/21 13:27 Consult Gastroenterology Routine Hospital Course (1) Gastric outlet obstruction: per admitting c notes: -Patient presenting from [facility] for evaluation of intractable vomiting. History of gastric outlet obstruction 01/2021. -In the ED, CT ABD/pelvis shows gastric outlet obstruction. NG tube was placed which is draining a brown liquid. -Patient with history of gastroparesis and known to be noncompliant with gastroparesis diet. s/p small bowel follow thru 1. Mildly delayed transit of oral contrast from the small bowel into the large bowel at 2 hours and 30 minutes. 2. No evidence of gastric outlet obstruction. NG tube clamped no nausea/vomiting advance diet to low fat/low fiber-- > tolerating well continue monitor closely fleet enema and Miralax ordered by GI --> (+) large BM yesterday plan to discharge on Motegrity (2) Elevated LFTs: -T bili 0.7, AST 71, ALT 69, alk phos 141 -LFTs slightly improved from outpatient labs on 04/30/2021 -CT ABD/pelvis shows severe hepatic steatosis - LFTs improving (3) Hypokalemia: -K+ 3.1, replacement ordered -Likely due to GI losses from vomiting - K 2.9 will replace (4) YANETH (obstructive sleep apnea): (5) Hypercapnic respiratory failure: -Utilizes BiPAP 18/10 at bedtime (6) DM II (diabetes mellitus, type II), controlled: -Diet controlled -Hgb A1c 5.5 04/2021 -Monitor glucose (7) Hypertension: continue Amlodipine (8) Chronic pain: -Opioids discontinued 01/2021 due to toxic metabolic encephalopathy requiring Narcan - continue Gabapentin, Celexa (9) Feekqoa-Vlvde-Laaic disease: -With chronic lower extremity paralysis, bed/wheelchair bound (10) DVT prophylaxis: -SCDs for now
== END 2021-06-14 12:38 | DRG 380 ==
LOC: ED 09:47 → SUATTDRO 14:04 → EDINP 14:04 → 3E 18:07

== ENCOUNTER 2024-10-12 21:17 | Inpatient (IN) ==
[2024-10-12] MEDS: SODIUM CHLORIDE 0.9% 1,000 ML IV ONE ×2 (21:48→23:15)
[2024-10-12] MEDS: ACETAMINOPHEN 1,000 MG/100 ML VIAL IV STA (21:48)
--- NOTE | 2024-10-12 21:59 | Emergency Department Note ---
History of Present Illness General Chief complaint: Back Injury/Pain Stated complaint: FELL 1 HOUR AGO, BACK PAIN Time Seen by Provider: 10/12/24 21:28 History of Present Illness 58-year-old male with PMH diet-controlled DM type II, Mezlwcj-Avooh-Kqhtb disease with lower extremity paralysis, chronic pain syndrome, YANETH and chronic hypercapnic respiratory failure on nocturnal BiPAP, gastroparesis presents the ER for fever, chills, chronic cough who fell while transferring today. Patient also complains of right flank abdominal pain from the fall. Patient denies vomiting, diarrhea, sore throat. He states he has a home health aide who recently had COVID. Home Medications Medication Instructions Recorded Confirmed Type amlodipine 5 mg tablet 5 mg PO DAILY 10/13/24 10/13/24 History aspirin 81 mg tablet,delayed 81 mg PO DAILY 10/13/24 10/13/24 History release duloxetine 30 mg capsule,delayed 30 mg PO DAILY 10/13/24 10/13/24 History release duloxetine 60 mg capsule,delayed 60 mg PO DAILY 10/13/24 10/13/24 History release gabapentin 300 mg capsule 1,200 mg PO TID 10/13/24 10/13/24 History loratadine 10 mg tablet 10 mg PO DAILY 10/13/24 10/13/24 History montelukast 10 mg tablet 10 mg PO HS 10/13/24 10/13/24 History potassium chloride 20 mEq 20 meq PO DAILY 10/13/24 10/13/24 History tablet,extended release(part/cryst) Allergies Allergy/AdvReac Type Severity Reaction Status Date / Time hydralazine Allergy Intermediate Gastrointestinal Verified 06/10/21 12:34 Upset alcohol Allergy Unknown Unknown Verified 06/10/21 12:34 amiodarone Allergy Unknown Unknown rxn Verified 06/10/21 12:34 chloramphenicol Allergy Unknown Unknown Verified 06/10/21 12:34 cholecalciferol (vitamin D3) Allergy Unknown Unknown Verified 06/10/21 12:34 cisplatin Allergy Unknown Unknown Verified 06/10/21 12:34 dapsone Allergy Unknown Unknown rxn Verified 06/10/21 12:34 disulfiram Allergy Unknown Unknown rxn Verified 06/10/21 12:34 doxorubicin Allergy Unknown Unknown Verified 06/10/21 12:34 glutethimide Allergy Unknown Unknown Verified 06/10/21 12:34 Gold Salts Allergy Unknown Unknown Verified 06/10/21 12:34 Hydantoins Allergy Unknown Unknown Verified 06/10/21 12:34 isoniazid Allergy Unknown Unknown rxn Verified 06/10/21 12:34 metronidazole Allergy Unknown Unknown Verified 06/10/21 12:34 nitrofurantoin Allergy Unknown Unknown rxn Verified 06/10/21 12:34 Penicillins Allergy Unknown Rash Verified 06/10/21 12:34 phenytoin Allergy Unknown Unknown Verified 06/10/21 12:34 pyridoxine Allergy Unknown Unknown Verified 06/10/21 12:34 theophylline Allergy Unknown Unknown rxn Verified 06/10/21 12:34 tretinoin Allergy Unknown Unknown rxn Verified 06/10/21 12:34 vincristine Allergy Unknown Unknown Verified 06/10/21 12:34 succinylcholine AdvReac Unknown *not Verified 06/10/21 12:34 actual allergy*see below Past Med/Surg History Problem List Hypomagnesemia (Acute) Acute UTI (Acute) Bilateral kidney stones (Acute) Hypokalemia (Acute) Sepsis (Acute) Bladder calculus Bilateral nephrolithiasis Abdominal distension Overflow diarrhea Lab test negative for COVID-19 virus (Acute) Vomiting (Acute) Diarrhea (Acute) Hypercapnic respiratory failure Elevated LFTs YANETH (obstructive sleep apnea) Ureterolithiasis (Acute) Renal calculi Hypokalemia Gastric outlet obstruction (Acute) DM II (diabetes mellitus, type II), controlled Opiate dependence Hypertension Pickwickian syndrome DVT prophylaxis Chronic pain (Chronic) Ffyclsb-Aguyy-Rcjza disease (Chronic) Due to disease progression patient is functioning quadriplegic - wheelchair bound and needs full assist to transfer - resides at [facility] Myalgia and myositis, unspecified (Chronic) S/P tonsillectomy and adenoidectomy (Chronic) S/P cervical spinal fusion (Chronic) ROM WNL PER PT H/O dilation of urethra (Chronic) H/O wisdom tooth extraction (Chronic) Medical History Physical deconditioning Kidney stones Peripheral neuropathy Surgical History H/O cystoscopy Cystoscopy with right retrograde pyelogram and stent placement. History of lithotripsy History of colonoscopy Family History Mother Heart disease Social History Smoking Status: Current some day smoker Tobacco Type: Cigars Second Hand Exposure: No; Do You Dip or Chew Tobacco: No; Hx Alcohol Use: No Hx Substance Use: No Preferred Language: Dutch Communication Ability: Effective Steak Tenderizer Machine Required: No Beliefs That Will Affect Care: None marital status: Single Current Living Situation: Personal Care Facility Current Living Situation Comment: [facility] Feels Safe at Home: Yes Assistive Devices: None Review of Systems A total of 10 systems reviewed and were otherwise negative Physical Exam Vital Signs Vital Signs - 24 hr 10/12/24 21:13 10/12/24 21:13 10/12/24 21:37 Temperature 38.0 C H 38.0 C H Temperature Source Oral Oral Pulse Rate 91 H 101 H Pulse Rate [Right Finger] 92 H Pulse Rate from SpO2 Sensor Pulse Rhythm Regular Pulse Rhythm [Right Finger] Regular Pulse Strength Normal Pulse Strength [Right Finger] Normal Respiratory Rate 20 21 Respiratory Effort / Characteristics Non-Labored Spontaneous Non-Labored Spontaneous Respiratory Depth Normal Normal Respiratory Pattern Regular Regular Blood Pressure 118/65 Blood Pressure [Right Arm] 118/65 Blood Pressure Mean 82 Blood Pressure Mean [Right Arm] 82 Blood Pressure Position Lying Blood Pressure Position [Right Arm] Lying Pulse Oximetry 98 96 Oxygen Delivery Method Room Air Room Air Oxygen Flow Rate Sepsis Recent Fever Within 48 Hours Yes Sepsis New/Unexplained Change in Mental Status No Sepsis Action Taken by Nursing No Action Required 10/12/24 21:48 10/12/24 22:00 10/12/24 22:00 Temperature Temperature Source Pulse Rate 97 H Pulse Rate [Right Finger] Pulse Rate from SpO2 Sensor 99 H Pulse Rhythm Pulse Rhythm [Right Finger] Pulse Strength Pulse Strength [Right Finger] Respiratory Rate 20 Respiratory Effort / Characteristics Respiratory Depth Respiratory Pattern Blood Pressure 118/65 118/65 Blood Pressure [Right Arm] Blood Pressure Mean 83 83 Blood Pressure Mean [Right Arm] Blood Pressure Position Blood Pressure Position [Right Arm] Pulse Oximetry 95 Oxygen Delivery Method Oxygen Flow Rate Sepsis Recent Fever Within 48 Hours Sepsis New/Unexplained Change in Mental Status Sepsis Action Taken by Nursing 10/12/24 22:00 10/12/24 22:27 Temperature Temperature Source Pulse Rate 98 H 91 H Pulse Rate [Right Finger] Pulse Rate from SpO2 Sensor 99 H Pulse Rhythm Pulse Rhythm [Right Finger] Pulse Strength Pulse Strength [Right Finger] Respiratory Rate 24 21 Respiratory Effort / Characteristics Respiratory Depth Respiratory Pattern Blood Pressure Blood Pressure [Right Arm] Blood Pressure Mean Blood Pressure Mean [Right Arm] Blood Pressure Position Blood Pressure Position [Right Arm] Pulse Oximetry 93 Oxygen Delivery Method Nasal Cannula Oxygen Flow Rate 2 Sepsis Recent Fever Within 48 Hours Sepsis New/Unexplained Change in Mental Status Sepsis Action Taken by Nursing VITALS: Vitals are noted on the nurse's note and reviewed by myself. Vital signs febrile. GENERAL: Pleasant gentleman, in no acute distress, nondiaphoretic, well- developed well-nourished. SKIN: Right mid back with abrasion present, the rest of the skin was without rashes, erythema, edema, or bruising. There is no tenting of the skin. Capillary reflex less than 2 seconds. HEAD: Normocephalic atraumatic. EARS: External auditory canals clear EYES: Pupils equal round and reactive to light and accommodation. Conjunctivae without injection, sclerae without icterus. Extraocular movements intact. NOSE: Patent, no discharge. MOUTH: Mucous membranes moist. Pharynx without erythema or exudate. Uvula midline. Airway patent. Tongue does not deviate. NECK: Supple without nuchal rigidity. No lymphadenopathy. No thyromegaly. Cervical spine is nontender. No JVD. HEART: Regular rate and rhythm LUNGS: Clear to auscultation bilaterally without wheezes, rales or rhonchi. No retractions or accessory muscle use. ABDOMEN: Positive bowel sounds x 4. Normal tympanic percussion. Soft, tender right upper abdomen right flank, without masses or organomegaly. Jackson sign negative. No guarding or rebound tenderness. No left CVA tenderness MUSCULOSKELETAL: No muscle atrophy noted. NEURO: Patient was alert and oriented to person place and time. Normal sensation to light and sharp touch. No focal neurological deficits. Course Administered Medications Vancomycin HCl 2,250 mg/ (Sodium Chloride) 545 mls @ 200 mls/hr IV NOW ONE Stop: 10/13/24 01:28 Last Admin: 10/12/24 23:18 Dose: 200 mls/hr Documented By: PAG Discontinued Medications Acetaminophen (Ofirmev) 1,000 mg in 100 mls @ 400 mls/hr IV NOW STA Stop: 10/12/24 21:51 Last Infusion: 10/12/24 23:12 Dose: Infused Documented By: Admin: 10/12/24 21:48 Dose: 400 mls/hr Documented By: JT Sodium Chloride (Nss) 1,000 mls @ 999 mls/hr IV .Q1H1M ONE Stop: 10/12/24 22:37 Last Infusion: 10/12/24 23:12 Dose: Infused Documented By: Admin: 10/12/24 21:48 Dose: 999 mls/hr Documented By: JT Sodium Chloride (Nss) 1,000 mls @ 999 mls/hr IV .Q1H1M ONE Stop: 10/12/24 22:55 Last Infusion: 10/13/24 00:33 Dose: Infused Documented By: Admin: 10/12/24 23:15 Dose: 999 mls/hr Documented By: PAG Cefepime HCl (Maxipime 2000mg) 2,000 mg in 20 mls @ 5 mls/min IV NOW STA; Protocol Stop: 10/12/24 21:58 Last Admin: 10/12/24 23:12 Dose: 5 mls/min Documented By: PAG Magnesium Sulfate/Dextrose (Magnesium Sulfate / D5w) 1 gm in 100 mls @ 100 mls/hr IV Q1H FLORENCIA Stop: 10/13/24 00:20 Last Admin: 10/13/24 00:34 Dose: 100 mls/hr Documented By: Infusion: 10/13/24 00:33 Dose: Infused Documented By: Admin: 10/12/24 23:18 Dose: 100 mls/hr Documented By: PAG Potassium Chloride (K Calos / Wtr) 10 meq in 100 mls @ 100 mls/hr IV ONE ONE Stop: 10/12/24 23:19 Last Infusion: 10/13/24 00:32 Dose: Infused Documented By: Admin: 10/12/24 23:18 Dose: 100 mls/hr Documented By: PAG Sodium Chloride (Nss) 1,000 mls @ 999 mls/hr IV .Q1H1M ONE Stop: 10/12/24 23:36 Last Admin: 10/13/24 00:33 Dose: 999 mls/hr Documented By: PAG Ioversol (Optiray 320 125ml) 125 ml IV ONCE ONE Stop: 10/12/24 23:11 Last Admin: 10/12/24 23:10 Dose: 118 ml Documented By: PACO Potassium Chloride (Potassium Chloride Crtab 20 Meq Tabcr) 40 meq PO NOW STA Stop: 10/12/24 22:21 Last Admin: 10/12/24 23:12 Dose: 40 meq Documented By: MACY Critical Care Time Critical Care Time: Yes Total Critical Care Time: 35 I have personally spent 35 minutes of critical care time in the direct management of this patient. This includes bedside care, interpretation of diagnostic studies, and testing, discussion with consultants, patient, and family members, and other required patient management activities. This 35 minutes is in excess of all separately billable procedures. Medical Decision Making Medical Records Attestation: I reviewed the patient's medical records. Home Medications Current Medication List: was personally reviewed by me Laboratory Data Attestation: I reviewed the patient's lab results. 10/12/24 21:39 10/12/24 21:39 Lab Results 10/12/24 10/12/24 10/12/24 Range/Units 21:37 21:39 23:27 WBC 23.12 H (4.8-10.8) K/ul RBC 5.33 (4.70-6.10) M/uL Hgb 15.4 (14.0-18.0) g/dl Hct 44.8 (42.0-52.0) % MCV 84.1 (80.0-100.0) fL MCH 28.9 (25.0-34.0) pg MCHC 34.4 (32.0-36.0) g/dL RDW Std Deviation 40.4 (36.4-46.3) fL RDW Coeff of Pearl 13.2 (11.5-14.5) % Plt Count 230 (130-400) K/uL MPV 10.5 (9.4-12.4) fL Immature Gran % (Auto) 0.8 % Neut % (Auto) 90.2 % Lymph % (Auto) 1.8 % Powell % (Auto) 7.1 % Eos % (Auto) 0.0 % Baso % (Auto) 0.1 % Neut # (Auto) 20.84 H (1.40-6.50) K/uL Lymph # (Auto) 0.41 L (1.20-3.40) K/uL Powell # (Auto) 1.64 H (0.11-0.59) K/uL Eos # (Auto) 0.01 (0.00-0.50) K/uL Baso # (Auto) 0.03 (0.00-0.20) K/uL Immature Gran # (Auto) 0.19 (0.01-0.20) K/uL Sodium 136 (136-145) mmol/L Potassium 3.4 L (3.5-5.1) mmol/L Chloride 100 (98-107) mmol/L Carbon Dioxide 24 (21-32) mmol/L Anion Gap 12 H (3-11) BUN 10 (6-23) mg/dl Creatinine 0.57 L (0.6-1.4) mg/dl Est Cr Clr Drug Dosing Not Reportable eGFR 112.24 BUN/Creatinine Ratio 17.5 (10-20) Glucose 134 H (70-99(Fasting)) mg/dl Lactate 4.9 H* 2.1 H* (0.4-2.0) mmol/L Calcium 8.5 L (8.6-10.3) mg/dl Magnesium 1.4 L (1.7-2.4) mg/dl Total Bilirubin 0.7 (0.2-1.0) mg/dl Direct Bilirubin 0.1 (0-0.2) mg/dl AST 30 (13-39) U/L ALT 37 (7-52) U/L Alkaline Phosphatase 147 H (34-104) U/L Troponin I High Sens 11.0 (0-20) pg/ml Total Protein 7.3 (6.0-8.3) gm/dl Albumin 3.8 (3.4-5.0) gm/dl Procalcitonin 3.42 H (0-0.5) ng/ml Urine Color Urine Appearance (Clear) Urine pH (4.5-7.5) Ur Specific [place] (1.000-1.030) Urine Protein (Negative) Urine Glucose (UA) (Negative) Urine Ketones (Negative) Urine Blood (Negative) Urine Nitrite (Negative) Urine Bilirubin (Negative) Urine Urobilinogen (Negative) Ur Leukocyte Esterase (Negative) Urine WBC (Auto) (0-5) /hpf Urine RBC (Auto) (0-2) /hpf U Hyaline Cast (Auto) (0-2) /lpf U Epithel Cells (Auto) (0-2) /hpf Urine Bacteria (Auto) (None Seen) Adenovirus (PCR) Not Detected (NotDetected) B. pertussis DNA (PCR) Not Detected (NotDetected) B.parapertussis DNA PCR Not Detected (NotDetected) C. pneumoniae DNA (PCR) Not Detected (NotDetected) Coronavirus OC43 (PCR) Not Detected (NotDetected) Coronavirus HKU1 (PCR) Not Detected (NotDetected) Coronavirus 229E (PCR) Not Detected (NotDetected) SARS-CoV-2 (PCR) Not Detected (NotDetected) Coronavirus NL63 (PCR) Not Detected (NotDetected) Human Metapneumovir PCR Not Detected (NotDetected) Influenza Type A (PCR) Not Detected (NotDetected) Influenza Type B (PCR) Not Detected (NotDetected) M. pneumoniae (PCR) Not Detected (NotDetected) Parainfluenza 1 (PCR) Not Detected (NotDetected) Parainfluenza 2 (PCR) Not Detected (NotDetected) Parainfluenza 3 (PCR) Not Detected (NotDetected) Parainfluenza 4 (PCR) Not Detected (NotDetected) RSV (PCR) Not Detected (NotDetected) Entero/Rhino (PCR) Not Detected (NotDetected) 10/13/24 Range/Units 00:15 WBC (4.8-10.8) K/ul RBC (4.70-6.10) M/uL Hgb (14.0-18.0) g/dl Hct (42.0-52.0) % MCV (80.0-100.0) fL MCH (25.0-34.0) pg MCHC (32.0-36.0) g/dL RDW Std Deviation (36.4-46.3) fL RDW Coeff of Pearl (11.5-14.5) % Plt Count (130-400) K/uL MPV (9.4-12.4) fL Immature Gran % (Auto) % Neut % (Auto) % Lymph % (Auto) % Powell % (Auto) % Eos % (Auto) % Baso % (Auto) % Neut # (Auto) (1.40-6.50) K/uL Lymph # (Auto) (1.20-3.40) K/uL Powell # (Auto) (0.11-0.59) K/uL Eos # (Auto) (0.00-0.50) K/uL Baso # (Auto) (0.00-0.20) K/uL Immature Gran # (Auto) (0.01-0.20) K/uL Sodium (136-145) mmol/L Potassium (3.5-5.1) mmol/L Chloride (98-107) mmol/L Carbon Dioxide (21-32) mmol/L Anion Gap (3-11) BUN (6-23) mg/dl Creatinine (0.6-1.4) mg/dl Est Cr Clr Drug Dosing eGFR BUN/Creatinine Ratio (10-20) Glucose (70-99(Fasting)) mg/dl Lactate (0.4-2.0) mmol/L Calcium (8.6-10.3) mg/dl Magnesium (1.7-2.4) mg/dl Total Bilirubin (0.2-1.0) mg/dl Direct Bilirubin (0-0.2) mg/dl AST (13-39) U/L ALT (7-52) U/L Alkaline Phosphatase (34-104) U/L Troponin I High Sens (0-20) pg/ml Total Protein (6.0-8.3) gm/dl Albumin (3.4-5.0) gm/dl Procalcitonin (0-0.5) ng/ml Urine Color Yellow Urine Appearance Clear (Clear) Urine pH 6.5 (4.5-7.5) Ur Specific [place] 1.012 (1.000-1.030) Urine Protein Negative (Negative) Urine Glucose (UA) Negative (Negative) Urine Ketones Negative (Negative) Urine Blood Negative (Negative) Urine Nitrite Negative (Negative) Urine Bilirubin Negative (Negative) Urine Urobilinogen Negative (Negative) Ur Leukocyte Esterase 2+ H (Negative) Urine WBC (Auto) 11-20 H (0-5) /hpf Urine RBC (Auto) 0-2 (0-2) /hpf U Hyaline Cast (Auto) 0-2 (0-2) /lpf U Epithel Cells (Auto) 0-2 (0-2) /hpf Urine Bacteria (Auto) 1+ H (None Seen) Adenovirus (PCR) (NotDetected) B. pertussis DNA (PCR) (NotDetected) B.parapertussis DNA PCR (NotDetected) C. pneumoniae DNA (PCR) (NotDetected) Coronavirus OC43 (PCR) (NotDetected) Coronavirus HKU1 (PCR) (NotDetected) Coronavirus 229E (PCR) (NotDetected) SARS-CoV-2 (PCR) (NotDetected) Coronavirus NL63 (PCR) (NotDetected) Human Metapneumovir PCR (NotDetected) Influenza Type A (PCR) (NotDetected) Influenza Type B (PCR) (NotDetected) M. pneumoniae (PCR) (NotDetected) Parainfluenza 1 (PCR) (NotDetected) Parainfluenza 2 (PCR) (NotDetected) Parainfluenza 3 (PCR) (NotDetected) Parainfluenza 4 (PCR) (NotDetected) RSV (PCR) (NotDetected) Entero/Rhino (PCR) (NotDetected) Imaging Data Attestation: I personally reviewed and interpreted this imaging study as follows: Radiologist's Impression: Abdomen/Pelvis CT 10/12/24 21:37 Exam(s): CT ABDOMEN + PELVIS With Contrast IV Amt: 118 ML OPTIRAY 320 EXAM: CT Abdomen and Pelvis With Intravenous Contrast CLINICAL HISTORY: Reason for exam: fall, fever, right abd pain. TECHNIQUE: Axial computed tomography images of the abdomen and pelvis with intravenous contrast. CTDI is 28.14 mGy and DLP is 2460.43 mGy-cm. Automated exposure control was utilized for the study. A dose lowering technique was utilized adhering to the principles of ALARA. CONTRAST: Patient received 118 ML OPTIRAY 320 of IV contrast COMPARISON: 06/10/21 FINDINGS: Lung bases: Subsegmental atelectasis at the right lung base. ABDOMEN: Liver: Hepatomegaly. Hepatic steatosis. Small benign hepatic cysts. Gallbladder and bile ducts: Unremarkable. No calcified stones. No ductal dilation. Pancreas: Unremarkable. No mass. No ductal dilation. Spleen: Splenomegaly. Adrenals: Unremarkable. No mass. Kidneys and ureters: Mild right-sided hydroureteronephrosis secondary to a 4 mm distal right ureter stone just proximal to the right UVJ. Minimal to mild left-sided hydroureteronephrosis with cluster of stones extending from the distal left UVJ into the urinary bladder, collectively measuring up to 10 mm, individual stones appearing to measure 3-4 mm. Stomach and bowel: Rectal wall thickening suggesting proctitis. No obstruction. PELVIS: Appendix: Normal appendix. Bladder: Bladder stones. No wall thickening. Reproductive: Unremarkable as visualized. ABDOMEN and PELVIS: Intraperitoneal space: Unremarkable. No free air, significant free fluid, or fluid collection. Bones/joints: No acute fracture. No dislocation. Degenerative change. Osteopenia. Soft tissues: Small fat-containing umbilical hernia. Vasculature: Atherosclerosis. No abdominal aortic aneurysm. Lymph nodes: Unremarkable. No enlarged lymph nodes. IMPRESSION: 1. Mild right-sided hydroureteronephrosis secondary to a 4 mm distal right ureter stone just proximal to the right UVJ. 2. Minimal to mild left-sided hydroureteronephrosis with cluster of stones extending from the distal left UVJ into the urinary bladder, collectively measuring up to 10 mm, individual stones appearing to measure 3-4 mm. 3. Rectal wall thickening suggesting proctitis. Electronically signed by: Jenna Tidwell M.D. 10/12/24 23:37 PM Chest CTA 10/12/24 21:37 Exam(s): CTA CHEST IV Amt: 118 ML OPTIRAY 320 EXAM: CT Angiography Chest With Intravenous Contrast CLINICAL HISTORY: Reason for exam: PE. TECHNIQUE: Axial computed tomographic angiography images of the chest with intravenous contrast. CTDI is 28.14 mGy and DLP is 2460.43 mGy-cm. Automated exposure control was utilized for the study. A dose lowering technique was utilized adhering to the principles of ALARA. MIP reconstructed images were created and reviewed. COMPARISON: No relevant prior studies available. FINDINGS: Pulmonary arteries: Adequate pulmonary artery opacification. No evidence of acute pulmonary embolism. Aorta: No acute findings. No aortic aneurysm or dissection. Lungs: Subsegmental atelectasis right lower lobe. Scarring in the lingula. No consolidation or mass. Pleural space: Unremarkable. No significant effusion. No pneumothorax. Heart: Coronary artery atherosclerosis. No cardiomegaly or pericardial effusion. Bones/joints: No acute fracture. No dislocation. Soft tissues: Mild gynecomastia. Lymph nodes: Unremarkable. No enlarged lymph nodes. Upper abdomen: Reported separately. IMPRESSION: No evidence of acute pulmonary embolism. Electronically signed by: Jenna Tidwell M.D. 10/12/24 23:38 PM MDM Narrative Prior records/ancillary studies reviewed. Triage Nursing notes reviewed. Additional history obtained from nursing. The patient's history was concerning for fever. Differential diagnosis: Etiologies such as viral syndrome, otitis, pharyngitis, pneumonia, influenza, meningitis, urinary tract infection, sepsis, bacteremia, as well as others were entertained. Physical examination: As above ER treatment provided: An order was placed for continuous cardiac monitoring. The monitor shows a rate of 60-1 20 with a sinus rhythm per my interpretation. IV fluids per septic fluid protocol, cefepime, vancomycin, potassium, magnesium On reassessment the patient felt better. Diagnostics interpreted by me: ECG: Ordered for weakness EKG: Normal sinus, no acute ST-T wave changes, rate of 92. Patient normal sinus rhythm with a first-degree block independent interpreted by myself The labs Independently Interpreted by myself revealed leukocytosis, elevated lactic, low magnesium, hypokalemia Blood cultures pending Elevated lactic Imaging studies: Imaging was reviewed and read by radiology Consultation: A consultation was placed with hospitalist. The case was discussed and diagnostics were reviewed. The patient was evaluated in the ER for further treatment. Consultation was placed with urology, [facility] midlevel. The case was discussed and did evaluate the patient. This appears to be consistent with sepsis concerning for septic stones. Patient started broad-spectrum antibiotics upon initial evaluation. He was hydrated per septic protocol. Potassium and magnesium were replaced. He was reassessed multiple times. Repeat lactic is improved. Blood pressure remained stable. He is agreeable treatment plan of admission. Medicine and urology were consulted and they did evaluate the patient. Patient was admitted to the medical service. By the evaluation outlined above emergent etiologies such as otitis, pharyngitis, pneumonia, meningitis, as well as others were deemed relatively unlikely. The pt informed about the findings as listed above. All questions were answered and pleased with the treatment. The chart was completed utilizing [employer] voice recognition software. Grammatical errors, random word insertions, pronoun errors, and incomplete sentences are an occassional consequence of this system due to software limitations, ambient noise, and hardware issues. Any formal questions or concerns about the content, text, or information contained within the body of this dictation should be directly addressed to the physician patient assistant for clarification. Impression & Plan Sepsis, Hypokalemia, Bilateral kidney stones, Acute UTI, Hypomagnesemia Discharge Plan Visit Data Chief Complaint: Back Injury/Pain Stated Complaint: FELL 1 HOUR AGO, BACK PAIN ED Provider: Dunia Nino ED Midlevel Provider: Nataly Estevez Discharge Problem: Sepsis, Hypokalemia, Bilateral kidney stones, Acute UTI, Hypomagnesemia Patient Disposition: Admitted As Inpatient Condition: Fair Forms Stand Alone Forms: My [facility] [employer] Prescriptions Prescriptions: No Action amlodipine 5 mg tablet 5 mg PO DAILY aspirin [Aspir-81] 81 mg Tablet,Delayed Release (Dr/Ec) 81 mg PO DAILY potassium chloride 20 mEq tablet,ER particles/crystals 20 meq PO DAILY gabapentin 300 mg capsule 1,200 mg PO TID montelukast 10 mg tablet 10 mg PO HS duloxetine 30 mg capsule,delayed release(DR/EC) 30 mg PO DAILY duloxetine 60 mg capsule,delayed release(DR/EC) 60 mg PO DAILY Rx Instructions: cymbalta 60mg po daily along with 30mg po daily Referrals Referrals: Panchito Raymond [place] [Non-Staff] - Discharge Problem: Sepsis Qualifiers: Sepsis type: sepsis due to unspecified organism Sepsis acute organ dysfunction status: without acute organ dysfunction Qualified Code(s): A41.9 - Sepsis, unspecified organism
[2024-10-12 22:00] LABS: Hematocrit (blood only) 44.8 % (42.0-52.0); Hemoglobin 15.4 g/dl (14.0-18.0); Mean Corpuscular Hemoglobin 28.9 pg (25.0-34.0); Mean Corpuscular Hgb Conc 34.4 g/dL (32.0-36.0); Mean Corpuscular Volume 84.1 fL (80.0-100.0); Mean Platelet Volume 10.5 fL (9.4-12.4); Platelet Count 230 K/uL (130-400); RDW Coefficient of Variation 13.2 % (11.5-14.5); RDW Standard Deviation 40.4 fL (36.4-46.3); Red Blood Count 5.33 M/uL (4.70-6.10); White Blood Count 23.12 K/ul (4.8-10.8)
[2024-10-12 22:17] LABS: Alanine Aminotransferase 37 U/L (7-52); Albumin Level 3.8 gm/dl (3.4-5.0); Alkaline Phosphatase 147 U/L (34-104); Anion Gap 12 (3-11); Aspartate Aminotransferase 30 U/L (13-39); BUN Creatinine Ratio 17.5 (10-20); Bilirubin Direct 0.1 mg/dl (0-0.2); Bilirubin,Total 0.7 mg/dl (0.2-1.0); Blood Urea Nitrogen 10 mg/dl (6-23); Calcium 8.5 mg/dl (8.6-10.3); Carbon Dioxide 24 mmol/L (21-32); Chloride 100 mmol/L (98-107); Glucose 134 mg/dl (70-99(Fasting)); Magnesium 1.4 mg/dl (1.7-2.4); Potassium 3.4 mmol/L (3.5-5.1); Sodium 136 mmol/L (136-145); Total Protein 7.3 gm/dl (6.0-8.3)
[2024-10-12] MEDS ORDERED: VANCOMYCIN CONSULT ACTIVE PRN (22:21)
[2024-10-12] MEDS ORDERED: VANCOMYCIN HCL IV ONE (22:21)
[2024-10-12] MEDS ORDERED: SODIUM CHLORIDE 0.9% IV ONE (22:21)
[2024-10-12 22:34] LABS: Basophils # (auto) 0.03 K/uL (0.00-0.20); Basophils % (auto) 0.1 %; Eosinophils # (auto) 0.01 K/uL (0.00-0.50); Immature Granulocytes # (auto) 0.19 K/uL (0.01-0.20); Immature Granulocytes % (auto) 0.8 %; Lymphocytes # (auto) 0.41 K/uL (1.20-3.40); Lymphocytes % (auto) 1.8 %; Monocytes # (auto) 1.64 K/uL (0.11-0.59); Monocytes % (auto) 7.1 %; Neutrophils # (auto) 20.84 K/uL (1.40-6.50); Neutrophils % (auto) 90.2 %
[2024-10-12 22:45] LABS: Adenovirus PCR Not Detected (NotDetected); Bordetella parapertussis PCR Not Detected (NotDetected); Bordetella pertussis PCR Not Detected (NotDetected); Chlamydia pneumoniae PCR Not Detected (NotDetected); Coronavirus 229E PCR Not Detected (NotDetected); Coronavirus CoV-2 (COVID19)PCR Not Detected (NotDetected); Coronavirus HKU1 PCR Not Detected (NotDetected); Coronavirus NL63 PCR Not Detected (NotDetected); Coronavirus OC43PCR Not Detected (NotDetected); Human Metapneumovirus PCR Not Detected (NotDetected); Influenza A PCR Not Detected (NotDetected); Influenza B PCR Not Detected (NotDetected); Mycoplasma pneumoniae PCR Not Detected (NotDetected); Parainfluenza Virus 1 PCR Not Detected (NotDetected); Parainfluenza Virus 2 PCR Not Detected (NotDetected); Parainfluenza Virus 3 PCR Not Detected (NotDetected); Parainfluenza Virus 4 PCR Not Detected (NotDetected); Respiratory Syncytial VirusPCR Not Detected (NotDetected); Rhinovirus/Enterovirus PCR Not Detected (NotDetected)
[2024-10-12] MEDS: OPTIRAY 320 125ml IV ONE (23:10)
[2024-10-12] MEDS: CEFEPIME 2000MG 2,000 MG/20 ML SYR IV STA (23:12)
[2024-10-12] MEDS: POTASSIUM CHLORIDE CRTAB 20 MEQ TABCR PO STA (23:12)
[2024-10-12] MEDS: POTASSIUM CHLORIDE / WTR 10 MEQ/100 ML PLCT IV ONE (23:18)
[2024-10-12] MEDS: VANCOMYCIN HCL 2,250 MG in SODIUM CHLORIDE 0.9% 500 ML IV ONE (23:18)
[2024-10-12] MEDS: MAGNESIUM SULFATE / D5W 1 GM/100 ML BAG IV SCH (23:18)
--- NOTE | 2024-10-12 23:39 | CT Scan Report ---
Exam(s): CT ABDOMEN + PELVIS With Contrast IV Amt: 118 ML OPTIRAY 320 EXAM: CT Abdomen and Pelvis With Intravenous Contrast CLINICAL HISTORY: Reason for exam: fall, fever, right abd pain. TECHNIQUE: Axial computed tomography images of the abdomen and pelvis with intravenous contrast. CTDI is 28.14 mGy and DLP is 2460.43 mGy-cm. Automated exposure control was utilized for the study. A dose lowering technique was utilized adhering to the principles of ALARA. CONTRAST: Patient received 118 ML OPTIRAY 320 of IV contrast COMPARISON: 06/10/21 FINDINGS: Lung bases: Subsegmental atelectasis at the right lung base. ABDOMEN: Liver: Hepatomegaly. Hepatic steatosis. Small benign hepatic cysts. Gallbladder and bile ducts: Unremarkable. No calcified stones. No ductal dilation. Pancreas: Unremarkable. No mass. No ductal dilation. Spleen: Splenomegaly. Adrenals: Unremarkable. No mass. Kidneys and ureters: Mild right-sided hydroureteronephrosis secondary to a 4 mm distal right ureter stone just proximal to the right UVJ. Minimal to mild left-sided hydroureteronephrosis with cluster of stones extending from the distal left UVJ into the urinary bladder, collectively measuring up to 10 mm, individual stones appearing to measure 3-4 mm. Stomach and bowel: Rectal wall thickening suggesting proctitis. No obstruction. PELVIS: Appendix: Normal appendix. Bladder: Bladder stones. No wall thickening. Reproductive: Unremarkable as visualized. ABDOMEN and PELVIS: Intraperitoneal space: Unremarkable. No free air, significant free fluid, or fluid collection. Bones/joints: No acute fracture. No dislocation. Degenerative change. Osteopenia. Soft tissues: Small fat-containing umbilical hernia. Vasculature: Atherosclerosis. No abdominal aortic aneurysm. Lymph nodes: Unremarkable. No enlarged lymph nodes. IMPRESSION: 1. Mild right-sided hydroureteronephrosis secondary to a 4 mm distal right ureter stone just proximal to the right UVJ. 2. Minimal to mild left-sided hydroureteronephrosis with cluster of stones extending from the distal left UVJ into the urinary bladder, collectively measuring up to 10 mm, individual stones appearing to measure 3-4 mm. 3. Rectal wall thickening suggesting proctitis. Electronically signed by: Jenna Tidwell M.D. 10/12/24 23:37 PM
--- NOTE | 2024-10-12 23:40 | CT Scan Report ---
Exam(s): CTA CHEST IV Amt: 118 ML OPTIRAY 320 EXAM: CT Angiography Chest With Intravenous Contrast CLINICAL HISTORY: Reason for exam: PE. TECHNIQUE: Axial computed tomographic angiography images of the chest with intravenous contrast. CTDI is 28.14 mGy and DLP is 2460.43 mGy-cm. Automated exposure control was utilized for the study. A dose lowering technique was utilized adhering to the principles of ALARA. MIP reconstructed images were created and reviewed. COMPARISON: No relevant prior studies available. FINDINGS: Pulmonary arteries: Adequate pulmonary artery opacification. No evidence of acute pulmonary embolism. Aorta: No acute findings. No aortic aneurysm or dissection. Lungs: Subsegmental atelectasis right lower lobe. Scarring in the lingula. No consolidation or mass. Pleural space: Unremarkable. No significant effusion. No pneumothorax. Heart: Coronary artery atherosclerosis. No cardiomegaly or pericardial effusion. Bones/joints: No acute fracture. No dislocation. Soft tissues: Mild gynecomastia. Lymph nodes: Unremarkable. No enlarged lymph nodes. Upper abdomen: Reported separately. IMPRESSION: No evidence of acute pulmonary embolism. Electronically signed by: Jenna Tidwell M.D. 10/12/24 23:38 PM
--- NOTE | 2024-10-12 23:48 | Emergency Department Note ---
ED Visit Note I was consulted by the Advanced Practice Provider, Nataly Estevez PA-C. I performed a substantive portion of the visit. This includes aspects of: History: Patient is a 58-year-old male presenting with flulike symptoms. 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 Patient fell earlier this evening transferring from his wheelchair and landed on his right side. Currently complaining of right flank pain. Denies any nausea, vomiting or diarrhea. MDM: - Laboratory workup interpreted by myself showed leukocytosis (WBC 23.12) with neutrophil predominance; slight hypokalemia (K 3.4); elevated anion gap (12); elevated lactate (4.9.); hypomagnesemia (Mg 1.4); elevated procalcitonin (3.42) - UA showed evidence of infection - Viral respiratory panel negative - CTA chest negative for PE - CT abdomen/pelvis with IV contrast showed right-sided hydroureteronephrosis secondary from your distal right ureteral stone. Also noted to have left-sided hydroureteronephrosis with a cluster of stones at the left UVJ. - Patient given 3L NS in ER. Given IV vancomycin + cefepime for antibiotic coverage. - Give IV magnesium and potassium for electrolyte replacement - Repeat lactate improved after fluid resuscitation - Given 1g IV tylenol for fever - Patient to be admitted to patient hospital service for further evaluation and management. .
[2024-10-13] MEDS: SODIUM CHLORIDE 0.9% 1,000 ML IV ONE (00:33)
[2024-10-13 00:42] LABS: Appearance Urine Clear (Clear); Bacteria Urine Automated 1+ (None Seen); Bilirubin Urine Negative (Negative); Blood Urine Negative (Negative); Cast Urine Automated 0-2 /lpf (0-2); Color Urine Yellow; Epithelial Cell Urine Auto 0-2 /hpf (0-2); Glucose Urine UA Negative (Negative); Ketones Urine Negative (Negative); Leukocyte Esterase Urine 2+ (Negative); Nitrite Urine Negative (Negative); Protein Urine Negative (Negative); RBC Urine Automated 0-2 /hpf (0-2); Specific Gravity Urine 1.012 (1.000-1.030); Urobilinogen Urine Negative (Negative); pH Urine 6.5 (4.5-7.5)
--- NOTE | 2024-10-13 01:07 | Urology Consultation ---
<Statement entered by Johnny Esquivel MD - 10/13/24 01:47> This is a 58-year-old male with likely bilateral distal ureteral stones and apparent urinary tract infection. For source control we will plan on cystoscopy, bilateral retrograde pyelogram and bilateral ureteral stent placement. Date of Consultation October 13, 2024 Assessment & Plan (1) Bilateral nephrolithiasis: I discussed with the treating emergency room clinician the patient is being admitted on the hospitalist service. From urologic perspective we recommend the following: Keep patient n.p.o. for the present time Provide antipyretics Provide analgesics Provide antiemetics as needed Provide hydration with IV fluids Follow serial labs Patient has received antibiotics in form of cefepime and vancomycin he should continue. A urine culture has been sent and antibiotics be tailored based on t hese results As patient is noted to have a relative hypotension and is tachycardic with fever determination has been made that we will proceed with cystoscopy and ureteral stent placement this evening. 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 The patient also has chronic pain syndrome and diabetes. Patient says that he fell while transferring earlier today and since that time he has had worsening back pain which appears to be greater on the right flank. Because of this he presented to the emergency department. The patient also reports that he has had shakes and chills along with fever. He denies any abdominal pain and he also denies any nausea or vomiting. He denies any dysuria or hematuria. Patient does report a history of kidney stones and in June 2020 he required cystoscopy with stent placement due to obstructing stone on the right-hand side. Since arrival to the emergency department he has had labs and imaging which I independent reviewed. A CT scan of the chest showed no evidence of pneumonia. There is also no evidence of pulmonary emboli. CT scan abdomen showed the patient had right-sided hydronephrosis of a mild nature secondary to f a 4 mm distal right ureteral stone. He also had a cluster of stones in the distal left ureter vesicle junction near the urinary bladder. Labs include a CBC white blood cell count is elevated 23.1. Hemoglobin and hematocrit as well as the platelet count were normal. Chemistry profile showed sodium is 136 with a potassium of 3.4. BUN and creatinine were both not elevated. He had an elevated lactic acid level at 4.9. This was repeated approximately 2 hours later and improved to 2.1 urinalysis showed 2+ leukocyte Estrace and 11-20 white blood cells per high-power field. There is 1+ bacteria on the study. A bio fire study test was performed and was negative for all viruses tested. At the time of my interview the patient was not in any distress but he was noted to be febrile, tachycardic, and noted to have a relative hypotension. Allergies Allergy/AdvReac Type Severity Reaction Status Date / Time hydralazine Allergy Intermediate Gastrointestinal Verified 06/10/21 12:34 Upset alcohol Allergy Unknown Unknown Verified 06/10/21 12:34 amiodarone Allergy Unknown Unknown rxn Verified 06/10/21 12:34 chloramphenicol Allergy Unknown Unknown Verified 06/10/21 12:34 cholecalciferol (vitamin D3) Allergy Unknown Unknown Verified 06/10/21 12:34 cisplatin Allergy Unknown Unknown Verified 06/10/21 12:34 dapsone Allergy Unknown Unknown rxn Verified 06/10/21 12:34 disulfiram Allergy Unknown Unknown rxn Verified 06/10/21 12:34 doxorubicin Allergy Unknown Unknown Verified 06/10/21 12:34 glutethimide Allergy Unknown Unknown Verified 06/10/21 12:34 Gold Salts Allergy Unknown Unknown Verified 06/10/21 12:34 Hydantoins Allergy Unknown Unknown Verified 06/10/21 12:34 isoniazid Allergy Unknown Unknown rxn Verified 06/10/21 12:34 metronidazole Allergy Unknown Unknown Verified 06/10/21 12:34 nitrofurantoin Allergy Unknown Unknown rxn Verified 06/10/21 12:34 Penicillins Allergy Unknown Rash Verified 06/10/21 12:34 phenytoin Allergy Unknown Unknown Verified 06/10/21 12:34 pyridoxine Allergy Unknown Unknown Verified 06/10/21 12:34 theophylline Allergy Unknown Unknown rxn Verified 06/10/21 12:34 tretinoin Allergy Unknown Unknown rxn Verified 06/10/21 12:34 vincristine Allergy Unknown Unknown Verified 06/10/21 12:34 succinylcholine AdvReac Unknown *not Verified 06/10/21 12:34 actual allergy*see below Home Medications Medication Instructions Recorded Confirmed Type azelastine 137 mcg (0.1 %) nasal 1 spray intranasal BID 06/28/19 06/10/21 History spray mometasone 50 mcg/actuation nasal 1 spray intranasal BID 06/28/19 06/10/21 History spray montelukast 10 mg tablet 10 mg PO PM 06/28/19 06/10/21 History aspirin 81 mg tablet,delayed 81 mg PO QAM 07/06/20 06/10/21 History release (Adult Low Dose Aspirin) menthol 0.44 %-zinc oxide 20.6 % 1 applic topical TID PRN right 02/01/21 06/10/21 History topical ointment (Calmoseptine) buttocks amlodipine 5 mg tablet (Norvasc) 5 mg PO QAM #30 tabs 02/07/21 06/10/21 Rx polyethylene glycol 3350 17 gram 17 g PO BID constipation #100 ea 04/23/21 06/10/21 Rx oral powder packet (Miralax) acetaminophen 325 mg capsule 650 mg PO Q4H PRN Pain 06/10/21 06/10/21 History duloxetine 30 mg capsule,delayed 30 mg PO DAILY 06/10/21 06/10/21 History release duloxetine 60 mg capsule,delayed 60 mg PO DAILY 06/10/21 06/10/21 History release gabapentin 600 mg tablet 1,200 mg PO TID 06/10/21 06/10/21 History ibuprofen 200 mg tablet 400 mg PO Q6H PRN pain 06/10/21 06/10/21 History melatonin 5 mg tablet 5 mg PO HS PRN Insomnia 06/10/21 06/10/21 History potassium chloride 20 mEq 20 meq PO BID 06/10/21 06/10/21 History tablet,extended release tamsulosin 0.4 mg capsule 0.4 mg PO QAM #30 caps 06/14/21 Rx prucalopride 2 mg tablet 2 mg PO DAILY #30 tabs 07/15/21 Rx (Mote[employer]ity) CPAP Supplies #1 ea 03/05/22 Rx BiPap Machine 1 ea .Route HS #1 ea 01/13/24 Rx CPAP Supplies #1 ea 01/13/24 Rx Patient History Medical History Physical deconditioning Kidney stones Peripheral neuropathy Surgical History H/O cystoscopy Cystoscopy with right retrograde pyelogram and stent placement. History of lithotripsy History of colonoscopy Family History Mother Heart disease Social History Smoking Status: Current some day smoker Tobacco Type: Cigars Second Hand Exposure: No; Do You Dip or Chew Tobacco: No; Hx Alcohol Use: No Hx Substance Use: No Preferred Language: Chinese Communication Ability: Effective Earring Maker Required: No Beliefs That Will Affect Care: None marital status: Single Current Living Situation: Personal Care Facility Current Living Situation Comment: [facility] Feels Safe at Home: Yes Assistive Devices: None Review of Systems Review of Systems: All systems reviewed & are unremarkable except as noted in HPI & below Physical Exam Constitutional: WD/WN, vitals as above Eyes: Wears glasses ENMT: Ears: no hearing impairment and no external ear abnormality Mouth: no oropharynx abnormality Neck: trachea midline Respiratory: normal respiratory effort; no respiratory distress and no labored breathing Cardiovascular: Rate/Rhythm: regular rate, regular rhythm and + tachycardic Gastrointestinal (Abdomen): Soft and nontender, no rebound tenderness or guarding Skin: no rashes Neurologic: Patient is able to move his upper extremities. He has chronic paralysis noted of the lower extremities bilaterally. Psychiatric: A+Ox3, euthymic affect Genitourinary: Slight CVA tenderness noted on the right with percussion. No CVA tenderness on the left with percussion Results & Data Vital Signs (Past 12 Hours) Vital Signs Temp Pulse Pulse Resp BP BP Pulse Ox 10/12/24 22:27 91 H 21 10/12/24 22:00 98 H 24 93 10/12/24 22:00 118/65 10/12/24 22:00 118/65 10/12/24 21:48 97 H 20 95 10/12/24 21:37 101 H 10/12/24 21:13 38.0 C H 92 H 21 118/65 96 10/12/24 21:13 38.0 C H 91 H 20 118/65 98 O2 Del Method O2 Flow Rate 10/12/24 22:27 10/12/24 22:00 Nasal Cannula 2 10/12/24 22:00 10/12/24 22:00 10/12/24 21:48 10/12/24 21:37 10/12/24 21:13 Room Air 10/12/24 21:13 Room Air PG Care Time/CCT Total # of Minutes Spent Total Time Spent with Patient: Total time spent is greater than 50% in coordination of care (as documented) at patient's floor/unit and/or counseling patient: Coding Level of Care Code 14720 IN/OBS CONSULT LVL 5,80M Diagnoses Bilateral nephrolithiasis N20.0
--- NOTE | 2024-10-13 01:29 | History & Physical Report ---
Date of Service October 13, 2024 Assessment & Plan (1) Sepsis: Plan: 58-year-old male with past medical history significant for type 2 diabetes, obesity, obstructive sleep apnea, venous stasis lower extremity, history of hypertension, fatty liver, delayed gastric emptying, charcot- Mignon tooth disease, demyelinating disease of central nervous system, mostly wheelchair- bound but can transfer to the bed, status post ventricular shunt placement, lumbar radiculopathy, chronic pain syndrome, depression, history of tobacco use, generalized weakness comes because of fall at home and found to be in sepsis. Patient states he is feeling weak today. Was having chills. When he was trying to transfer he fell down and could not get up. And was brought in here. In the ER was spiking temperature. Found to have UTI and kidney stones. Denies any abdominal pain or flank pains. Has chronic back pain but seemed worse today as per patient. Denies any burning micturition. No hematuria. Had a few episodes of diarrhea today. No blood in the stools. Denies any chest pain. No shortness of breath. No nausea. No headache. Feeling weak and fatigued. No headaches. Chronic runny nose. No sore throat. Has some cough. Feeling cold. Sepsis Having fever spike, tachycardia, leukocytosis Initial lactic is 4.9 and repeat is 2.1 UA is positive Respiratory BioFire negative CTA chest no acute findings CT abdomen pelvis showing mild right-sided hydronephrosis and 4 mm distal right ureteral stone proximal to the right UVJ Mild left-sided hydronephrosis with cluster of stones extending from the distal left UVJ into the urinary bladder Rectal wall thickening suggesting proctitis Received IV fluids, IV Vanco and cefepime in the ER Will continue with IV fluids and continue IV antibiotics Will follow the cultures Close monitor hemodynamics Telemetry Urology planning to take him to the OR soon for cystoscopy Proctitis consider GI consult when stable Diabetes Not on meds Will place on sliding scale Follow HbA1c levels Obstructive sleep apnea Plan BiPAP nightly History of hypertension Will hold amlodipine as patient in sepsis Restart when able to 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 History of Present Illness Chief Complaint: Sepsis Primary Care Provider: Garo Hayden DO 58-year-old male with past medical history significant for type 2 diabetes, obesity, obstructive sleep apnea, venous stasis lower extremity, history of hypertension, fatty liver, delayed gastric emptying, charcot- Mignon tooth disease, demyelinating disease of central nervous system, mostly wheelchair- bound but can transfer to the bed, status post ventricular shunt placement, lumbar radiculopathy, chronic pain syndrome, depression, history of tobacco use, generalized weakness comes because of fall at home and found to be in sepsis. Patient states he is feeling weak today. Was having chills. When he was trying to transfer he fell down and could not get up. And was brought in here. In the ER was spiking temperature. Found to have UTI and kidney stones. Denies any abdominal pain or flank pains. Has chronic back pain but seemed worse today as per patient. Denies any burning micturition. No hematuria. Had a few episodes of diarrhea today. No blood in the stools. Denies any chest pain. No shortness of breath. No nausea. No headache. Feeling weak and fatigued. No headaches. Chronic runny nose. No sore throat. Has some cough. Feeling cold. Past medical history. As mentioned above Past surgical history. Colonoscopy. Dental surgery. Lithotripsy. Tonsillectomy and adenoidectomy. Fusion of C5-C6 vertebrae. Family history. Mother has asthma. Diabetes. Heart disorder. Father had heart disorder. Sister has asthma. Social history. Quit smoking 2002. Smoked 2 packs a day for 15 years. Medical marijuana vaping. Alcohol rarely. Uses medical marijuana. Allergies Allergy/AdvReac Type Severity Reaction Status Date / Time hydralazine Allergy Intermediate Gastrointestinal Verified 06/10/21 12:34 Upset alcohol Allergy Unknown Unknown Verified 06/10/21 12:34 amiodarone Allergy Unknown Unknown rxn Verified 06/10/21 12:34 chloramphenicol Allergy Unknown Unknown Verified 06/10/21 12:34 cholecalciferol (vitamin D3) Allergy Unknown Unknown Verified 06/10/21 12:34 cisplatin Allergy Unknown Unknown Verified 06/10/21 12:34 dapsone Allergy Unknown Unknown rxn Verified 06/10/21 12:34 disulfiram Allergy Unknown Unknown rxn Verified 06/10/21 12:34 doxorubicin Allergy Unknown Unknown Verified 06/10/21 12:34 glutethimide Allergy Unknown Unknown Verified 06/10/21 12:34 Gold Salts Allergy Unknown Unknown Verified 06/10/21 12:34 Hydantoins Allergy Unknown Unknown Verified 06/10/21 12:34 isoniazid Allergy Unknown Unknown rxn Verified 06/10/21 12:34 metronidazole Allergy Unknown Unknown Verified 06/10/21 12:34 nitrofurantoin Allergy Unknown Unknown rxn Verified 06/10/21 12:34 Penicillins Allergy Unknown Rash Verified 06/10/21 12:34 phenytoin Allergy Unknown Unknown Verified 06/10/21 12:34 pyridoxine Allergy Unknown Unknown Verified 06/10/21 12:34 theophylline Allergy Unknown Unknown rxn Verified 06/10/21 12:34 tretinoin Allergy Unknown Unknown rxn Verified 06/10/21 12:34 vincristine Allergy Unknown Unknown Verified 06/10/21 12:34 succinylcholine AdvReac Unknown *not Verified 06/10/21 12:34 actual allergy*see below Home Medications Medication Instructions Recorded Confirmed Type amlodipine 5 mg tablet 5 mg PO DAILY 10/13/24 10/13/24 History aspirin 81 mg tablet,delayed 81 mg PO DAILY 10/13/24 10/13/24 History release duloxetine 30 mg capsule,delayed 30 mg PO DAILY 10/13/24 10/13/24 History release duloxetine 60 mg capsule,delayed 60 mg PO DAILY 10/13/24 10/13/24 History release gabapentin 300 mg capsule 1,200 mg PO TID 10/13/24 10/13/24 History loratadine 10 mg tablet 10 mg PO DAILY 10/13/24 10/13/24 History montelukast 10 mg tablet 10 mg PO HS 10/13/24 10/13/24 History potassium chloride 20 mEq 20 meq PO DAILY 10/13/24 10/13/24 History tablet,extended release(part/cryst) Past Med/Surg History Problem List Hypomagnesemia (Acute) Acute UTI (Acute) Bilateral kidney stones (Acute) Hypokalemia (Acute) Sepsis (Acute) Bladder calculus Bilateral nephrolithiasis Abdominal distension Overflow diarrhea Lab test negative for COVID-19 virus (Acute) Vomiting (Acute) Diarrhea (Acute) Hypercapnic respiratory failure Elevated LFTs YANETH (obstructive sleep apnea) Ureterolithiasis (Acute) Renal calculi Hypokalemia Gastric outlet obstruction (Acute) DM II (diabetes mellitus, type II), controlled Opiate dependence Hypertension Pickwickian syndrome DVT prophylaxis Chronic pain (Chronic) Tucuvxo-Rthuq-Lsgtv disease (Chronic) Due to disease progression patient is functioning quadriplegic - wheelchair bound and needs full assist to transfer - resides at [facility] Myalgia and myositis, unspecified (Chronic) S/P tonsillectomy and adenoidectomy (Chronic) S/P cervical spinal fusion (Chronic) ROM WNL PER PT H/O dilation of urethra (Chronic) H/O wisdom tooth extraction (Chronic) Medical History Physical deconditioning Kidney stones Peripheral neuropathy Surgical History H/O cystoscopy Cystoscopy with right retrograde pyelogram and stent placement. History of lithotripsy History of colonoscopy Family History Mother Heart disease Social History Smoking Status: Unknown if ever smoked Tobacco Type: Cigars Second Hand Exposure: No; Do You Dip or Chew Tobacco: No; Hx Alcohol Use: No Hx Substance Use: Yes Last Used Substance: Unknown Preferred Language: Macedonian Communication Ability: Effective Civil Manager Required: No Beliefs That Will Affect Care: None marital status: Single Current Living Situation: Alone Current Living Situation Comment: [facility] Feels Safe at Home: Yes Assistive Devices: Contacts and Glasses Review of Systems Review of Systems: All systems reviewed & are unremarkable except as noted in HPI & below Physical Exam Physical Exam: General-Not in acute distress Head- atraumatic Eyes- PERRL. ENT- oropharynx clear Neck- supple, no JVD. Lungs- clear to auscultation no wheezing or crackles Heart- regular rate and rhythm; no murmur, no gallop. Abdomen- normal bowel sounds, soft, nontender, no distension Extremities- no pretibial edema, no erythema seen Neuro- alert, oriented PERRL, no facial palsy; no dysarthria; moves ext remities Results & Data Results & Data Vital Signs (Past 12 Hours) Vital Signs Temp Pulse Pulse Resp BP BP Pulse Ox 10/12/24 22:27 91 H 21 10/12/24 22:00 98 H 24 93 10/12/24 22:00 118/65 10/12/24 22:00 118/65 10/12/24 21:48 97 H 20 95 10/12/24 21:37 101 H 10/12/24 21:13 38.0 C H 92 H 21 118/65 96 10/12/24 21:13 38.0 C H 91 H 20 118/65 98 O2 Del Method O2 Flow Rate 10/12/24 22:27 10/12/24 22:00 Nasal Cannula 2 10/12/24 22:00 10/12/24 22:00 10/12/24 21:48 10/12/24 21:37 10/12/24 21:13 Room Air 10/12/24 21:13 Room Air Diagnostic Findings Laboratory Results WBC 23.12 K/ul (4.8-10.8) H 10/12/24 21:39 RBC 5.33 M/uL (4.70-6.10) 10/12/24 21:39 Hgb 15.4 g/dl (14.0-18.0) 10/12/24 21: Hct 44.8 % (42.0-52.0) 10/12/24 21:39 MCV 84.1 fL (80.0-100.0) 10/12/24 21: MCH 28.9 pg (25.0-34.0) 10/12/24 21: MCHC 34.4 g/dL (32.0-36.0) 10/12/24 21:39 RDW Std Deviation 40.4 fL (36.4-46.3) 10/12/24 21: RDW Coeff of Pearl 13.2 % (11.5-14.5) 10/12/24 21: Plt Count 230 K/uL (130-400) 10/12/24 21:39 MPV 10.5 fL (9.4-12.4) 10/12/24 21: Immature Gran % (Auto) 0.8 % 10/12/24 21: Neut % (Auto) 90.2 % 10/12/24 21:39 Lymph % (Auto) 1.8 % 10/12/24 21:39 [place] % (Auto) 7.1 % 10/12/24 21:39 Eos % (Auto) 0.0 % 10/12/24 21:39 Baso % (Auto) 0.1 % 10/12/24 21:39 Neut # (Auto) 20.84 K/uL (1.40-6.50) H 10/12/24 21:39 Lymph # (Auto) 0.41 K/uL (1.20-3.40) L 10/12/24 21:39 [place] # (Auto) 1.64 K/uL (0.11-0.59) H 10/12/24 21:39 Eos # (Auto) 0.01 K/uL (0.00-0.50) 10/12/24 21:39 Baso # (Auto) 0.03 K/uL (0.00-0.20) 10/12/24 21:39 Immature Gran # (Auto) 0.19 K/uL (0.01-0.20) 10/12/24 21:39 Sodium 136 mmol/L (136-145) 10/12/24 21:39 Potassium 3.4 mmol/L (3.5-5.1) L 10/12/24 21:39 Chloride 100 mmol/L (98-107) 10/12/24 21:39 Carbon Dioxide 24 mmol/L (21-32) 10/12/24 21:39 Anion Gap 12 (3-11) H 10/12/24 21:39 BUN 10 mg/dl (6-23) 10/12/24 21:39 Creatinine 0.57 mg/dl (0.6-1.4) L 10/12/24 21:39 Est Cr Clr Drug Dosing Not Reportable 10/12/24 21:39 eGFR 112.24 10/12/24 21:39 BUN/Creatinine Ratio 17.5 (10-20) 10/12/24 21:39 Glucose 134 mg/dl (70-99(Fasting)) H 10/12/24 21:39 Lactate 2.1 mmol/L (0.4-2.0) H* 10/12/24 23:27 Calcium 8.5 mg/dl (8.6-10.3) L 10/12/24 21:39 Magnesium 1.4 mg/dl (1.7-2.4) L 10/12/24 21:39 Total Bilirubin 0.7 mg/dl (0.2-1.0) 10/12/24 21:39 Direct Bilirubin 0.1 mg/dl (0-0.2) 10/12/24 21:39 AST 30 U/L (13-39) 10/12/24 21:39 ALT 37 U/L (7-52) 10/12/24 21:39 Alkaline Phosphatase 147 U/L (34-104) H 10/12/24 21:39 Troponin I High Sens 11.0 pg/ml (0-20) 10/12/24 21: Total Protein 7.3 gm/dl (6.0-8.3) 10/12/24 21: Albumin 3.8 gm/dl (3.4-5.0) 10/12/24 21: Procalcitonin 3.42 ng/ml (0-0.5) H 10/12/24 21:39 Urine Color Yellow 10/13/24 00:15 Urine Appearance Clear (Clear) 10/13/24 00:15 Urine pH 6.5 (4.5-7.5) 10/13/24 00:15 Ur Specific [place] 1.012 (1.000-1.030) 10/13/24 00:15 Urine Protein Negative (Negative) 10/13/24 00:15 Urine Glucose (UA) Negative (Negative) 10/13/24 00:15 Urine Ketones Negative (Negative) 10/13/24 00:15 Urine Blood Negative (Negative) 10/13/24 00:15 Urine Nitrite Negative (Negative) 10/13/24 00:15 Urine Bilirubin Negative (Negative) 10/13/24 00:15 Urine Urobilinogen Negative (Negative) 10/13/24 00:15 Ur Leukocyte Esterase 2+ (Negative) H 10/13/24 00:15 Urine WBC (Auto) 11-20 /hpf (0-5) H 10/13/24 00:15 Urine RBC (Auto) 0-2 /hpf (0-2) 10/13/24 00:15 U Hyaline Cast (Auto) 0-2 /lpf (0-2) 10/13/24 00:15 U Epithel Cells (Auto) 0-2 /hpf (0-2) 10/13/24 00:15 Urine Bacteria (Auto) 1+ (None Seen) H 10/13/24 00:15 Adenovirus (PCR) Not Detected (NotDetected) 10/12/24 21:37 B. pertussis DNA (PCR) Not Detected (NotDetected) 10/12/24 21:37 B.parapertussis DNA PCR Not Detected (NotDetected) 10/12/24 21:37 C. pneumoniae DNA (PCR) Not Detected (NotDetected) 10/12/24 21:37 Coronavirus OC43 (PCR) Not Detected (NotDetected) 10/12/24 21:37 Coronavirus HKU1 (PCR) Not Detected (NotDetected) 10/12/24 21:37 Coronavirus 229E (PCR) Not Detected (NotDetected) 10/12/24 21:37 SARS-CoV-2 (PCR) Not Detected (NotDetected) 10/12/24 21:37 Coronavirus NL63 (PCR) Not Detected (NotDetected) 10/12/24 21:37 Human Metapneumovir PCR Not Detected (NotDetected) 10/12/24 21:37 Influenza Type A (PCR) Not Detected (NotDetected) 10/12/24 21:37 Influenza Type B (PCR) Not Detected (NotDetected) 10/12/24 21:37 M. pneumoniae (PCR) Not Detected (NotDetected) 10/12/24 21:37 Parainfluenza 1 (PCR) Not Detected (NotDetected) 10/12/24 21:37 Parainfluenza 2 (PCR) Not Detected (NotDetected) 10/12/24 21:37 Parainfluenza 3 (PCR) Not Detected (NotDetected) 10/12/24 21:37 Parainfluenza 4 (PCR) Not Detected (NotDetected) 10/12/24 21:37 RSV (PCR) Not Detected (NotDetected) 10/12/24 21:37 Entero/Rhino (PCR) Not Detected (NotDetected) 10/12/24 21:37 Impressions Abdomen/Pelvis CT 10/12/24 21:37 Exam(s): CT ABDOMEN + PELVIS With Contrast IV Amt: 118 ML OPTIRAY 320 EXAM: CT Abdomen and Pelvis With Intravenous Contrast CLINICAL HISTORY: Reason for exam: fall, fever, right abd pain. TECHNIQUE: Axial computed tomography images of the abdomen and pelvis with intravenous contrast. CTDI is 28.14 mGy and DLP is 2460.43 mGy-cm. Automated exposure control was utilized for the study. A dose lowering technique was utilized adhering to the principles of ALARA. CONTRAST: Patient received 118 ML OPTIRAY 320 of IV contrast COMPARISON: 06/10/21 FINDINGS: Lung bases: Subsegmental atelectasis at the right lung base. ABDOMEN: Liver: Hepatomegaly. Hepatic steatosis. Small benign hepatic cysts. Gallbladder and bile ducts: Unremarkable. No calcified stones. No ductal dilation. Pancreas: Unremarkable. No mass. No ductal dilation. Spleen: Splenomegaly. Adrenals: Unremarkable. No mass. Kidneys and ureters: Mild right-sided hydroureteronephrosis secondary to a 4 mm distal right ureter stone just proximal to the right UVJ. Minimal to mild left-sided hydroureteronephrosis with cluster of stones extending from the distal left UVJ into the urinary bladder, collectively measuring up to 10 mm, individual stones appearing to measure 3-4 mm. Stomach and bowel: Rectal wall thickening suggesting proctitis. No obstruction. PELVIS: Appendix: Normal appendix. Bladder: Bladder stones. No wall thickening. Reproductive: Unremarkable as visualized. ABDOMEN and PELVIS: Intraperitoneal space: Unremarkable. No free air, significant free fluid, or fluid collection. Bones/joints: No acute fracture. No dislocation. Degenerative change. Osteopenia. Soft tissues: Small fat-containing umbilical hernia. Vasculature: Atherosclerosis. No abdominal aortic aneurysm. Lymph nodes: Unremarkable. No enlarged lymph nodes. IMPRESSION: 1. Mild right-sided hydroureteronephrosis secondary to a 4 mm distal right ureter stone just proximal to the right UVJ. 2. Minimal to mild left-sided hydroureteronephrosis with cluster of stones extending from the distal left UVJ into the urinary bladder, collectively measuring up to 10 mm, individual stones appearing to measure 3-4 mm. 3. Rectal wall thickening suggesting proctitis. Electronically signed by: Jenna Tidwell M.D. 10/12/24 23:37 PM Chest CTA 10/12/24 21:37 Exam(s): CTA CHEST IV Amt: 118 ML OPTIRAY 320 EXAM: CT Angiography Chest With Intravenous Contrast CLINICAL HISTORY: Reason for exam: PE. TECHNIQUE: Axial computed tomographic angiography images of the chest with intravenous contrast. CTDI is 28.14 mGy and DLP is 2460.43 mGy-cm. Automated exposure control was utilized for the study. A dose lowering technique was utilized adhering to the principles of ALARA. MIP reconstructed images were created and reviewed. COMPARISON: No relevant prior studies available. FINDINGS: Pulmonary arteries: Adequate pulmonary artery opacification. No evidence of acute pulmonary embolism. Aorta: No acute findings. No aortic aneurysm or dissection. Lungs: Subsegmental atelectasis right lower lobe. Scarring in the lingula. No consolidation or mass. Pleural space: Unremarkable. No significant effusion. No pneumothorax. Heart: Coronary artery atherosclerosis. No cardiomegaly or pericardial effusion. Bones/joints: No acute fracture. No dislocation. Soft tissues: Mild gynecomastia. Lymph nodes: Unremarkable. No enlarged lymph nodes. Upper abdomen: Reported separately. IMPRESSION: No evidence of acute pulmonary embolism. Electronically signed by: Jenna Tidwell M.D. 10/12/24 23:38 PM ECG Additional Comments: ECG. Normal sinus rhythm with first-degree AV block rate of 92. Nonspecific ST changes in anterior leads. QTc 417 Code Status & VTE Plan VTE Prophylaxis Plan VTE Prophylaxis will be ordered: Yes (1) Sepsis Sepsis acute organ dysfunction status: without acute organ dysfunction Sepsis type: sepsis due to unspecified organism Qualified Code(s): A41.9 - Sepsis, unspecified organism
--- NOTE | 2024-10-13 01:42 | Anesthesiology Consultation ---
Date of Service October 13, 2024 Assessment & Plan Chart Review Chart Review: Acceptable Risk for Surgery Consults Requested none History Surgery Operation Date: 10/13/24 02:00 Proposed Procedures p Cystoscopy Retrograde, Ureteral Stent Possible Bilateral - Johnny Esquivel MD Height/Weight Height: 5 ft 5 in Weight: 109.6 kg Allergies Allergy/AdvReac Type Severity Reaction Status Date / Time hydralazine Allergy Intermediate Gastrointestinal Verified 06/10/21 12:34 Upset alcohol Allergy Unknown Unknown Verified 06/10/21 12:34 amiodarone Allergy Unknown Unknown rxn Verified 06/10/21 12:34 chloramphenicol Allergy Unknown Unknown Verified 06/10/21 12:34 cholecalciferol (vitamin D3) Allergy Unknown Unknown Verified 06/10/21 12:34 cisplatin Allergy Unknown Unknown Verified 06/10/21 12:34 dapsone Allergy Unknown Unknown rxn Verified 06/10/21 12:34 disulfiram Allergy Unknown Unknown rxn Verified 06/10/21 12:34 doxorubicin Allergy Unknown Unknown Verified 06/10/21 12:34 glutethimide Allergy Unknown Unknown Verified 06/10/21 12:34 Gold Salts Allergy Unknown Unknown Verified 06/10/21 12:34 Hydantoins Allergy Unknown Unknown Verified 06/10/21 12:34 isoniazid Allergy Unknown Unknown rxn Verified 06/10/21 12:34 metronidazole Allergy Unknown Unknown Verified 06/10/21 12:34 nitrofurantoin Allergy Unknown Unknown rxn Verified 06/10/21 12:34 Penicillins Allergy Unknown Rash Verified 06/10/21 12:34 phenytoin Allergy Unknown Unknown Verified 06/10/21 12:34 pyridoxine Allergy Unknown Unknown Verified 06/10/21 12:34 theophylline Allergy Unknown Unknown rxn Verified 06/10/21 12:34 tretinoin Allergy Unknown Unknown rxn Verified 06/10/21 12:34 vincristine Allergy Unknown Unknown Verified 06/10/21 12:34 succinylcholine AdvReac Unknown *not Verified 06/10/21 12:34 actual allergy*see below Medications Home Medications Medication Instructions Recorded Confirmed Last Taken amlodipine 5 mg tablet 5 mg PO DAILY 10/13/24 10/13/24 Unknown aspirin 81 mg tablet,delayed 81 mg PO DAILY 10/13/24 10/13/24 Unknown release duloxetine 30 mg capsule,delayed 30 mg PO DAILY 10/13/24 10/13/24 Unknown release duloxetine 60 mg capsule,delayed 60 mg PO DAILY 10/13/24 10/13/24 Unknown release gabapentin 300 mg capsule 1,200 mg PO TID 10/13/24 10/13/24 Unknown loratadine 10 mg tablet 10 mg PO DAILY 10/13/24 10/13/24 Unknown montelukast 10 mg tablet 10 mg PO HS 10/13/24 10/13/24 Unknown potassium chloride 20 mEq 20 meq PO DAILY 10/13/24 10/13/24 Unknown tablet,extended release(part/cryst) Past Medical History Medical History Physical deconditioning Kidney stones Peripheral neuropathy Past Family History Family History Mother Heart disease Past Surgical History Surgical History H/O cystoscopy Cystoscopy with right retrograde pyelogram and stent placement. History of lithotripsy History of colonoscopy Social History Smoking Status: Current some day smoker Do You Dip or Chew Tobacco: No Hx Alcohol Use: No Hx Substance Use: No substance use type: does not use Physical Exam Vital Signs Last Vital Signs Temp 38.0 C H 10/12/24 21:13 Pulse 109 H 10/13/24 01:30 Resp 21 10/12/24 22:27 BP 118/65 10/12/24 22:00 Pulse Ox 93 10/12/24 22:00 O2 Del Method Nasal Cannula 10/12/24 22:00 O2 Flow Rate 2 10/12/24 22:00 Testing Laboratory Results 10/12/24 21:39 10/12/24 21:39 Urine Color Yellow 10/13/24 00:15 Urine Appearance Clear (Clear) 10/13/24 00:15 Urine pH 6.5 (4.5-7.5) 10/13/24 00:15 Ur Specific [place] 1.012 (1.000-1.030) 10/13/24 00:15 Urine Protein Negative (Negative) 10/13/24 00:15 Urine Glucose (UA) Negative (Negative) 10/13/24 00:15 Urine Ketones Negative (Negative) 10/13/24 00:15 Urine Nitrite Negative (Negative) 10/13/24 00:15 Ur Leukocyte Esterase 2+ (Negative) H 10/13/24 00:15 Urine WBC (Auto) 11-20 /hpf (0-5) H 10/13/24 00:15 Urine RBC (Auto) 0-2 /hpf (0-2) 10/13/24 00:15 U Hyaline Cast (Auto) 0-2 /lpf (0-2) 10/13/24 00:15 U Epithel Cells (Auto) 0-2 /hpf (0-2) 10/13/24 00:15 Urine Bacteria (Auto) 1+ (None Seen) H 10/13/24 00:15
[2024-10-13] MEDS ORDERED: ePHEDrine sulfate 50 MG/ML AMP IV PRN (01:43)
[2024-10-13] MEDS ORDERED: PROMETHAZINE HCL 6.25 MG in SODIUM CHLORIDE 0.9% 50 ML IV PRN (01:43)
[2024-10-13] MEDS ORDERED: HYDROmorphone INJ 2 MG/ML SYR/VIAL IV PRN (01:43)
[2024-10-13] MEDS ORDERED: fentaNYL citrate PF 100 MCG/2 ML VIAL IV PRN (01:43)
[2024-10-13] MEDS ORDERED: ATROPINE SULFATE 0.1 MG/ML 10ML SYR IV PRN (01:43)
[2024-10-13] MEDS ORDERED: ONDANSETRON INJ 2 MG/ML 2 ML VIAL IV PRN (01:43)
[2024-10-13] MEDS ORDERED: PROPOFOL IV EMULSION 10 MG/ML 20 ML VIAL IV ONE (01:45)
[2024-10-13] MEDS ORDERED: ONDANSETRON INJ 2 MG/ML 2 ML VIAL ONE (01:45)
[2024-10-13] MEDS ORDERED: LIDOCAINE 2% 2 ML VIAL/AMP(20MG/ML) INFIL ONE (01:45)
[2024-10-13] MEDS ORDERED: fentaNYL citrate PF 100 MCG/2 ML VIAL ONE (01:45)
[2024-10-13] MEDS ORDERED: ePHEDrine sulfate 50 MG/5 ML SYR ONE (02:25)
[2024-10-13] MEDS: DIATRIZOATE MEGLUMINE 30% 100ML VIAL INSTIL ONE (02:35)
--- NOTE | 2024-10-13 02:45 | Operative Report ---
PG Post Operative Report Pre & Post Diagnosis Operation Date: 10/13/24 02:00 Preoperative diagnosis: Ureteral stones, UTI Postoperative diagnosis: Bilateral ureteral stones, UTI I identified the patient and participated in the time-out.: Yes Procedure Operation Date: 10/13/24 02:00 Cystoscopy, bilateral retrograde pyelogram, bilateral ureteral stent placement Surgeon Johnny Esquivel MD Doper Operator None Estimated Blood Loss 0 Findings Consistent with Post-Op Diagnosis Specimens None Drains 6 [place] by 26 cm double-J ureteral stents bilaterally, 16 [place] coud catheter per urethra, 10 cc in balloon Anesthesia Type General Complications none Disposition Accompanied Patient To Recovery: Yes Disposition: Recovery Room Indications This is a 58-year-old male who presented to the emergency department and was found to have likely bilateral ureteral stones as well as urinary tract infection. He is brought to the OR for bilateral ureteral stent placement. Description of Procedure The patient was identified in the holding area and informed consent was confirmed. He was taken to the operating room where anesthesia was initiated. He was placed in the dorsal lithotomy position with all pressure points appropriately padded. He was prepped and draped in the usual sterile fashion and a preoperative timeout was performed. A well-lubricated cystoscope was inserted per urethra and panendoscopy was performed. The pendulous urethra was slightly tortuous with a prominent rim of tissue, but no overt strictures were appreciated. The prostate was of normal size. His bladder appeared more capacious with evidence of incomplete emptying. No tumors or stones appreciated. Ureteral orifices were in orthotopic position bilaterally. A 5 [place] open-ended catheter was inserted and used to intubate the right ureteral orifice. A retrograde pyelogram was performed using Cystografin. There was some J hooking of the distal ureter and then a filling defect with proximal hydronephrosis. A 0.038 inch zip wire was advanced up to the kidney under fluoroscopic guidance. Over the wire, a 6 [place] x 26 cm double-J ureteral stent was advanced. When the wire was removed, there was a good curl in the kidney under fluoroscopic guidance. A curl was visualized in the bladder with the cystoscope. There was immediate drainage of turbid urine through the right stent. A similar procedure was performed on the left. Left-sided retrograde showed left hydronephrosis and hydroureter. A 0.038 inch zip wire advanced up to the left kidney. Alongside the wire there was some drainage of debris. Over the wire I advanced a 6 [place] by 26 cm double-J ureteral stent 6 [place] x 24 cm double-J ureteral stent in the left ureter the proximal curl was positioned in the left kidney and the distal curl was visualized in the bladder To ensure maximal drainage of the bladder, a 16 [place] coud catheter was placed. The balloon was inflated with 10 cc of normal saline. Catheter was attached to gravity drainage. The patient was then awakened from anesthesia and was brought to the PACU in stable condition. I attest to the content of the Intraoperative Record and any orders documented therein. Any exceptions are noted below.
[2024-10-13] MEDS ORDERED: CARBOHYDRATES FOR HYPOGLYCEMIA PO PRN (03:23)
[2024-10-13] MEDS ORDERED: GLUCAGON FOR INJ 1 MG VIAL SQ PRN (03:23)
[2024-10-13] MEDS ORDERED: NITROGLYCERIN SL 0.4 MG/TAB TAB SL PRN (03:23)
[2024-10-13] MEDS ORDERED: GLUCOSE 40% GEL 15 GM TUBE PO PRN (03:23)
[2024-10-13] MEDS ORDERED: GLUCOSE 10 TAB/TUBE PO PRN (03:23)
[2024-10-13] MEDS ORDERED: DEXTROSE 50% 50 ML SYRINGE IV PRN (03:23)
--- NOTE | 2024-10-13 03:31 | Anesthesiology Progress Note ---
Date of Service October 13, 2024 Anesthesia Post Procedure Vital Signs Vital Signs: Temp Pulse Pulse Resp BP BP Pulse Ox 10/13/24 03:12 99 H 108/61 94 10/13/24 03:10 36.8 C 98 H 16 108/61 95 10/13/24 03:00 103 H 18 109/52 L 95 10/13/24 02:50 36.7 C 102 H 17 105/55 L 95 10/13/24 02:22 37.1 C 78 20 118/68 96 10/13/24 01:30 118/73 10/13/24 01:30 118/73 10/13/24 01:30 118/73 10/13/24 01:30 109 H 10/13/24 01:27 110 H 20 94 10/13/24 01:01 121/68 10/13/24 01:01 121/68 10/13/24 01:00 108 H 21 10/13/24 00:36 98/74 L 10/13/24 00:18 104 H 21 99 10/13/24 00:03 97 H 19 99 10/13/24 00:00 116/72 10/13/24 00:00 116/72 10/12/24 23:42 92 H 19 97 10/12/24 23:36 101 H 18 10/12/24 23:32 117/62 10/12/24 23:32 117/62 10/12/24 23:21 92 H 25 H 98 10/12/24 23:09 102 H 22 10/12/24 22:30 91 H 14 10/12/24 22:27 91 H 21 10/12/24 22:00 98 H 24 93 10/12/24 22:00 118/65 10/12/24 22:00 118/65 10/12/24 21:48 97 H 20 95 10/12/24 21:37 98 10/12/24 21:37 101 H 10/12/24 21:13 38.0 C H 92 H 21 118/65 96 10/12/24 21:13 38.0 C H 91 H 20 118/65 98 O2 Del Method O2 Flow Rate 10/13/24 03:12 Nasal Cannula 4 10/13/24 03:10 Oxymask 4 10/13/24 03:00 Oxymask 4 10/13/24 02:50 Oxymask 4 10/13/24 02:22 Nasal Cannula 2 10/13/24 01:30 10/13/24 01:30 10/13/24 01:30 10/13/24 01:30 10/13/24 01:27 10/13/24 01:01 10/13/24 01:01 10/13/24 01:00 10/13/24 00:36 10/13/24 00:18 10/13/24 00:03 10/13/24 00:00 10/13/24 00:00 10/12/24 23:42 10/12/24 23:36 10/12/24 23:32 10/12/24 23:32 10/12/24 23:21 10/12/24 23:09 10/12/24 22:30 10/12/24 22:27 10/12/24 22:00 Nasal Cannula 2 10/12/24 22:00 10/12/24 22:00 10/12/24 21:48 10/12/24 21:37 Nasal Cannula 2 10/12/24 21:37 10/12/24 21:13 Room Air 10/12/24 21:13 Room Air Pain Intensity Back: Pain Intensity: 4 Transfer of Care Handoff Completed per policy Notes Mental Status: alert / awake / arousable and participated in evaluation Patient Amnestic to Procedure: Yes Nausea / Vomiting: adequately controlled Pain: adequately controlled Airway Patency, RR, SpO2: stable & adequate BP & HR: stable & adequate Hydration State: stable & adequate Anesthetic Complications: no major complications apparent
[2024-10-13] MEDS: SODIUM CHLORIDE 0.9% 1,000 ML IV SCH (03:45)
[2024-10-13 05:33] LABS: Hematocrit (blood only) 44.6 % (42.0-52.0); Hemoglobin 14.9 g/dl (14.0-18.0); Mean Corpuscular Hemoglobin 28.8 pg (25.0-34.0); Mean Corpuscular Hgb Conc 33.4 g/dL (32.0-36.0); Mean Corpuscular Volume 86.3 fL (80.0-100.0); Mean Platelet Volume 10.4 fL (9.4-12.4); Platelet Count 184 K/uL (130-400); RDW Coefficient of Variation 13.5 % (11.5-14.5); RDW Standard Deviation 42.2 fL (36.4-46.3); Red Blood Count 5.17 M/uL (4.70-6.10); White Blood Count 26.42 K/ul (4.8-10.8)
[2024-10-13 05:49] LABS: BUN Creatinine Ratio 16.1 (10-20); Calcium 7.9 mg/dl (8.6-10.3); Creatinine Clr Calc Pharmacy 160.2 ml/min; Magnesium 1.8 mg/dl (1.7-2.4); Potassium 3.1 mmol/L (3.5-5.1)
[2024-10-13 05:50] LABS: Basophils # (auto) 0.09 K/uL (0.00-0.20); Basophils % (auto) 0.3 %; Eosinophils # (auto) 0.06 K/uL (0.00-0.50); Eosinophils % (auto) 0.2 %; Immature Granulocytes # (auto) 0.36 K/uL (0.01-0.20); Immature Granulocytes % (auto) 1.4 %; Lymphocytes # (auto) 0.46 K/uL (1.20-3.40); Lymphocytes % (auto) 1.7 %; Monocytes # (auto) 1.12 K/uL (0.11-0.59); Monocytes % (auto) 4.2 %; Neutrophils # (auto) 24.33 K/uL (1.40-6.50); Neutrophils % (auto) 92.2 %; RBC Morphology Unremarkable
[2024-10-13] MEDS: INSULIN ASPART PER UNIT CHARGE SC SCH ×2 (05:52→11:32)
[2024-10-13] MEDS: VANCOMYCIN HCL 1,500 MG in SODIUM CHLORIDE 0.9% 500 ML IV SCH (06:07)
[2024-10-13] MEDS: CEFEPIME 2000MG 2,000 MG/20 ML SYR IV SCH (06:07)
--- NOTE | 2024-10-13 07:43 | Fluoroscopy Report ---
FL retrograde includes kub CLINICAL HISTORY: B/L CYSTO/STENTbilateral cystourethrogram COMPARISON STUDY: CT 10/12/2024 FLUOROSCOPY TIME: 12.6 seconds FLUOROSCOPY IMAGES: 6 EXPOSURE DOSE: 4.16 mGy FINDINGS: Bilateral ureteral stents appear in satisfactory positioning. IMPRESSION: Fluoroscopic assistance as above. ACT 112: Negative or not required by law. Electronically signed by: Giovanny Swift M.D. 10/13/2024 7:41 AM
[2024-10-13] MEDS: GABAPENTIN 400 MG CAP PO SCH (08:50)
[2024-10-13] MEDS: ASPIRIN 81 MG ECTAB PO SCH (08:50)
[2024-10-13] MEDS: LORATADINE 10 MG TAB PO SCH (08:50)
[2024-10-13] MEDS: DULoxetine HCL 60 MG CAP PO SCH (08:51)
[2024-10-13] MEDS: POTASSIUM CHLORIDE CRTAB 20 MEQ TABCR PO STA (08:51)
[2024-10-13] MEDS: DULoxetine HCL 30 MG CAP PO SCH (08:51)
[2024-10-13] MEDS: POTASSIUM CHLORIDE CRTAB 20 MEQ TABCR PO SCH (08:52)
--- NOTE | 2024-10-13 08:53 | Pharmacy Report ---
Pharmacy PK ABX Note - Date of Service October 13, 2024 - Assessment and Plan Assessment 58 year old M receiving vancomycin and cefepime for treatment of sepsis likely secondary to urinary source. Post op cysto and BL ureteral stent placement 10/13. Blood and urine cultures pending. Renal function stable. Day #2 of antimicrobial therapy. Plan Vancomycin * Loading dose: 2250 mg IV x 1 * Maintenance dose: 1500 mg IV every 12 hours * Regimen is predicted to achieve target AUC/RONALD of 400-600 mg/L.hr * Will obtain a level if therapy continued beyond 48h, or sooner if clinically indicated Pharmacy will continue to follow and will adjust dose/frequency as necessary. Thank you. Pharmacy has transitioned to AUC monitoring for vancomycin. AUC/RONALD is the preferred PK/PD target and is associated with decreased risk of nephrotoxicity compared to traditional trough targets.
[2024-10-13] MEDS ORDERED: Nursing to Pharmacy Communication SCH (09:15)
[2024-10-13 10:18] LABS: A calco-baum cmplx NotReported Not Detected (NotDetected); Bact fragilis Not Reported Not Detected (NotDetected); Blood Culture Id Panel See PCR Comment (NotDetected); C auris Not Reported Not Detected (NotDetected); CTX-M Resistant Gene Not Detected (NotDetected); Calbicans Not Reported Not Detected (NotDetected); Candida glabrata Not Reported Not Detected (NotDetected); Candida krusei Not Reported Not Detected (NotDetected); Cneoformans/gatti Not Reported Not Detected (NotDetected); Cparapsilosis Not Reported Not Detected (NotDetected); E cloacae compx Not Reported Not Detected (NotDetected); Efaecalis Not Reported Not Detected (NotDetected); Efaecium Not Reported Not Detected (NotDetected); Enterobacterales DETECTED (NotDetected); Enterobacterales Not Reported DETECTED (NotDetected); Escherichia coli Not Reported DETECTED (NotDetected); H influenzae Not Reported Not Detected (NotDetected); IMP Resistant Gene Not Detected (NotDetected); K aerogenes Not Reported Not Detected (NotDetected); KPC Resistant Gene Not Detected (NotDetected); Koxytoca Not Reported Not Detected (NotDetected); Kpneumoniae grp Not Reported Not Detected (NotDetected); Lmonocyt Not Reported Not Detected (NotDetected); N meningitidis Not Reported Not Detected (NotDetected); NDM Resistant Gene Not Detected (NotDetected); OXA 48 Like Resistant Gene Not Detected (NotDetected); P aeruginosa Not Reported Not Detected (NotDetected); Proteus spp Not Reported Not Detected (NotDetected); Salmonella spp Not Reported Not Detected (NotDetected); Staph lugdunensis Not Reported Not Detected (NotDetected); Staph spp. Not Reported Not Detected (NotDetected); Staphaureus Not Reported Not Detected (NotDetected); Staphepi Not Reported Not Detected (NotDetected); Stenmaltophilia Not Reported Not Detected (NotDetected); Strep agal(GrpB) Not Reported Not Detected (NotDetected); Strep pneum Not Reported Not Detected (NotDetected); Strep pyog (GrpA) Not Reported Not Detected (NotDetected); Strep spp Not Reported Not Detected (NotDetected); VIM Resistant Gene Not Detected (NotDetected); mcr-1 Colistin Resistant Gene Not Detected (NotDetected)
--- NOTE | 2024-10-13 12:40 | Electrocardiogram Report ---
Test Reason : Blood Pressure : */* mmHG Vent. Rate : 92 BPM Atrial Rate : 92 BPM P-R Int : 210 ms QRS Dur : 116 ms QT Int : 338 ms P-R-T Axes : 71 52 18 degrees QTcB Int : 417 ms Sinus rhythm with 1st degree A-V block Otherwise normal ECG When compared with ECG of 10-Jun-2021 11:46, Borderline criteria for Inferior infarct are no longer Present Confirmed by Catarino Kitchen ([id number]) on 10/13/2024 12:40:22 PM Referred By: REFERRED SELF Confirmed By: Catarino Kitchen
--- NOTE | 2024-10-13 13:15 | Urology Progress Note ---
Date of Service October 13, 2024 Assessment & Plan (1) Ureterolithiasis: (2) Acute UTI: Plan Patient status post emergent cystoscopy and bilateral stent placement today Currently afebrile, hemodynamically stable Labs reviewedcreatinine 0.56, WBC 26.42 Blood cultures with gram-negative bacilli Urine culture pending Continue broad-spectrum antibiotics and narrow per sensitivity data when available Tolerating bilateral stents with minimal bother Casanova patent and draining Continue antibiotics, supportive care and medical management per hospital medicine service We will arrange outpatient follow-up with our service to set up definitive stone treatment after infection has resolved Admission and Anticipated Discharge Date Admission Date: October 13, 2024 Subjective Patient seen and examined at bedside this afternoon. He is resting in bed, arouses easily to his name. He has chronic back pain, no increase from baseline at present. Denies nausea, vomiting, fever or chills at present. Casanova intact. Review of Systems Constitutional: as per Subjective / HPI Genitourinary: + as per Subjective / HPI Physical Exam Constitutional: no acute distress Respiratory: no respiratory distress and no labored breathing Neurologic: awake Psychiatric: Orientation: alert and oriented x 3 Genitourinary: Casanova draining clear yellow urine Results & Data Vital Signs (Past 12 Hours) Vital Signs Temp Pulse Pulse Resp BP BP Pulse Ox 10/13/24 10:59 36.6 C 86 22 128/67 95 10/13/24 10:47 36.8 C 88 22 120/67 95 10/13/24 10:47 10/13/24 08:17 98 10/13/24 08:00 10/13/24 07:30 98 10/13/24 07:00 37.0 C 93 H 20 138/104 H 94 10/13/24 03:42 10/13/24 03:34 10/13/24 03:12 99 H 108/61 94 10/13/24 03:10 36.8 C 98 H 16 108/61 95 10/13/24 03:00 103 H 18 109/52 L 95 10/13/24 02:50 36.7 C 102 H 17 105/55 L 95 10/13/24 02:22 37.1 C 78 20 118/68 96 10/13/24 01:30 118/73 10/13/24 01:30 118/73 10/13/24 01:30 118/73 10/13/24 01:30 109 H 10/13/24 01:27 110 H 20 94 Pulse Ox O2 Del Method O2 Del Method O2 Flow Rate O2 Flow Rate 10/13/24 10:59 Room Air 10/13/24 10:47 Room Air 10/13/24 10:47 95 Room Air 10/13/24 08:17 Nasal Cannula 4 10/13/24 08:00 Nasal Cannula 4 10/13/24 07:30 Oxymask 4 10/13/24 07:00 Oxymask 4 10/13/24 03:42 Oxymask 4 10/13/24 03:34 Oxymask 4 10/13/24 03:12 Nasal Cannula 4 10/13/24 03:10 Oxymask 4 10/13/24 03:00 Oxymask 4 10/13/24 02:50 Oxymask 4 10/13/24 02:22 Nasal Cannula 2 10/13/24 01:30 10/13/24 01:30 10/13/24 01:30 10/13/24 01:30 10/13/24 01:27 PG Care Time/CCT Total # of Minutes Spent Total Time Spent with Patient: Total time spent is greater than 50% in coordination of care (as documented) at patient's floor/unit and/or counseling patient: Coding Level of Care Code 00163 SUB INP/OBS CARE 09/23MIN Diagnoses Ureterolithiasis N20.1 Acute UTI N39.0
--- NOTE | 2024-10-13 13:51 | Communication Note ---
Date of Service: October 13, 2024 Patient seen and examined Reports feeling better He is wheelchair bound for years. Had fever, back pain, malaise and increased weakness at home S/p cystoscopy and b/l stent placement overnight Blood cultures growing GNR in both sets PCR showing E coli without resistance gene Deescalate abx to IV ceftriaxone Diet advanced Follow up outstanding infectious workup Other plans as detailed in H/P this AM
[2024-10-13] MEDS: cefTRIAXone SODIUM 2,000 MG/50 ML BAG IV SCH (15:12)
[2024-10-13] MEDS: MONTELUKAST SODIUM 10 MG TABLET PO SCH (20:47)
[2024-10-13] MEDS: TAMSULOSIN HCL 0.4 MG CAP PO SCH (20:47)
[2024-10-14 06:52] LABS: Hematocrit (blood only) 41.8 % (42.0-52.0); Hemoglobin 14.3 g/dl (14.0-18.0); Mean Corpuscular Hemoglobin 29.2 pg (25.0-34.0); Mean Corpuscular Hgb Conc 34.2 g/dL (32.0-36.0); Mean Corpuscular Volume 85.5 fL (80.0-100.0); Platelet Count 158 K/uL (130-400); RDW Coefficient of Variation 13.7 % (11.5-14.5); Red Blood Count 4.89 M/uL (4.70-6.10); White Blood Count 19.88 K/ul (4.8-10.8)
[2024-10-14 07:00] LABS: Calcium 8.8 mg/dl (8.6-10.3); Magnesium 1.9 mg/dl (1.7-2.4)
[2024-10-14 07:05] LABS: BUN Creatinine Ratio 21.5 (10-20); Creatinine Clr Calc Pharmacy 138.8 ml/min
--- NOTE | 2024-10-14 09:55 | Urology Progress Note ---
Date of Service October 14, 2024 Assessment & Plan (1) Sepsis: Plan: Gram-negative bacilli bacteremia, currently covered with ceftriaxone. Would defer to medicine regarding repeating blood cultures and duration of treatment. Should have adequate source control with bilateral ureteral stents in place. Casanova catheter can be removed (2) Bilateral kidney stones: Plan: He will require repeat intervention for ureterolithiasis. Will likely need cystoscopy, bilateral retrograde pyelogram and bilateral ureteroscopy with laser lithotripsy. We will coordinate this as an outpatient. Urology will sign off for now. Please call with any questions or concerns peer (3) Acute UTI: Admission and Anticipated Discharge Date Admission Date: October 13, 2024 Subjective Feeling okay Denies any pain or discomfort from his stents Not having fevers or chills Blood cultures were positive, currently receiving ceftriaxone for coverage. Leukocytosis has decreased, but still elevated at 19.8. Creatinine within normal limits at 0.65. Physical Exam Physical Exam: Seated in bed, NAD Results & Data Vital Signs (Past 12 Hours) Vital Signs Temp Pulse Pulse Resp BP BP Pulse Ox 10/14/24 07:37 36.7 C 95 H 18 113/66 90 10/14/24 07:30 10/14/24 07:30 96 H 10/14/24 04:28 36.9 C 93 H 20 144/79 H 96 10/14/24 00:30 88 15 93 10/14/24 00:23 37.4 C 83 14 127/82 95 10/13/24 23:21 87 O2 Del Method FiO2 10/14/24 07:37 Room Air 10/14/24 07:30 Room Air 10/14/24 07:30 10/14/24 04:28 BiPAP 10/14/24 00:30 21 10/14/24 00:23 BiPAP 10/13/24 23:21 PG Care Time/CCT Total # of Minutes Spent Total Time Spent with Patient: Total time spent is greater than 50% in coordination of care (as documented) at patient's floor/unit and/or counseling patient: Coding Level of Care Code 70887 SUB INP/OBS CARE 2/35MIN Diagnoses Sepsis A41.9 Sepsis acute organ dysfunction status: without acute organ dysfunction Sepsis type: sepsis due to unspecified organism Bilateral kidney stones N20.0 Acute UTI N39.0 (1) Sepsis Sepsis acute organ dysfunction status: without acute organ dysfunction Sepsis type: sepsis due to unspecified organism Qualified Code(s): A41.9 - Sepsis, unspecified organism
--- NOTE | 2024-10-14 12:25 | Hospitalist Progress Note ---
Date of Service October 14, 2024 Assessment & Plan (1) Sepsis: Plan: 58-year-old male with past medical history significant for type 2 diabetes, obesity, obstructive sleep apnea, venous stasis lower extremity, history of hypertension, fatty liver, delayed gastric emptying, charcot- Mignon tooth disease, demyelinating disease of central nervous system, mostly wheelchair- bound but can transfer to the bed, status post ventricular shunt placement, lumbar radiculopathy, chronic pain syndrome, depression, history of tobacco use, generalized weakness comes because of fall at home and found to be in sepsis. Sepsis Had fever, tachycardia, leukocytosis Initial lactic is 4.9 and repeat is 2.1 UA is positive for UTI Respiratory BioFire negative CTA chest no acute findings CT abdomen pelvis showing mild right-sided hydronephrosis and 4 mm distal right ureteral stone proximal to the right UVJ. Mild left-sided hydronephrosis with cluster of stones extending from the distal left UVJ into the urinary bladder. Rectal wall thickening suggesting proctitis Received IV fluids, IV Vanco and cefepime in the ER S/p cystoscopy and b/l stent placement on 10/13/24 Blood cultures growing GNR in both sets PCR showing E coli without resistance gene Antibiotics deescalated to IV ceftriaxone Leukocytosis improving Will follow up infectious workup Diarrhea may be due to proctitis noted on CT. Will get C diff Diabetes Not on meds On sliding scale Follow up HbA1c levels Obstructive sleep apnea BiPAP HS History of hypertension Home amlodipine on hold due to sepsis BP normal Charcot- Mignon tooth disease Demyelinating disease of central nervous system Wheelchair-bound and can transfer PT OT Depression On duloxetine Chronic back pain On gabapentin DVT prophylaxis Hep sq Full code. I spent a total of 50 minutes coordinating, documenting and providing care for this patient excluding time spent in performance of separately billed services Admission and Anticipated Discharge Date Admission Date: October 13, 2024 Subjective Patient seen and examined Reports diarrhea, sometimes mucosy. States this has been going for sometime prior to admission Denied abd pain, nausea, vomiting Reports feeling better today Reports his chronic back pain Physical Exam Constitutional: + well hydrated and + obese; no acute di stress Eyes: PERRL, conjunctivae normal, anicteric sclerae ENMT: external ear and nose normal, oropharynx normal Respiratory: normal respiratory effort, lungs clear to auscultation Cardiovascular: Rate/Rhythm: regular rate and regular rhythm Gastrointestinal (Abdomen): normal bowel sounds, soft, nontender, no hepatosplenomegaly Musculoskeletal: No pedal edema Neurologic: PERRL, EOMI, accommodation nl, no face palsy, no dysarthria Wheelchair bound per patient Psychiatric: A+Ox3, euthymic affect Results & Data Results & Data Vital Signs (Past 12 Hours) Vital Signs Temp Pulse Pulse Resp BP BP Pulse Ox 10/14/24 11:25 37.2 C 83 18 116/75 91 10/14/24 10:00 10/14/24 07:37 36.7 C 95 H 18 113/66 90 10/14/24 07:30 10/14/24 07:30 96 H 10/14/24 04:28 36.9 C 93 H 20 144/79 H 96 10/14/24 00:30 88 15 93 Pulse Ox O2 Del Method O2 Del Method O2 Flow Rate FiO2 10/14/24 11:25 Room Air 10/14/24 10:00 92 Room Air 0 10/14/24 07:37 Room Air 10/14/24 07:30 Room Air 10/14/24 07:30 10/14/24 04:28 BiPAP 10/14/24 00:30 21 Laboratory Results Abnormal lab results 10/13/24 10/13/24 10/14/24 Range/Units 16:42 20:27 06:35 WBC 19.88 H (4.8-10.8) K/ul Hct 41.8 L (42.0-52.0) % BUN/Creatinine Ratio 21.5 H (10-20) Glucose 120 H (70-99(Fasting)) mg/dl POC Glucose 111 H 144 H (70-99) mg/dl Phosphorus 2.0 L (2.5-4.9) mg/dl 10/14/24 10/14/24 Range/Units 07:46 11:28 WBC (4.8-10.8) K/ul Hct (42.0-52.0) % BUN/Creatinine Ratio (10-20) Glucose (70-99(Fasting)) mg/dl POC Glucose 124 H 138 H (70-99) mg/dl Phosphorus (2.5-4.9) mg/dl (1) Sepsis Sepsis acute organ dysfunction status: without acute organ dysfunction Sepsis type: sepsis due to unspecified organism Qualified Code(s): A41.9 - Sepsis, unspecified organism
[2024-10-14 14:32] LABS: Estimated Average Glucose 120 mg/dl; Hemoglobin A1C 5.8 % (4.5-5.6)
[2024-10-14] MEDS: HEPARIN SOD 5,000 UNIT/0.5 ML VIAL SQ SCH (15:15)
[2024-10-15 05:22] LABS: Hematocrit (blood only) 36.7 % (42.0-52.0); Hemoglobin 12.3 g/dl (14.0-18.0); Mean Corpuscular Hemoglobin 28.5 pg (25.0-34.0); Mean Corpuscular Hgb Conc 33.5 g/dL (32.0-36.0); Mean Corpuscular Volume 85.2 fL (80.0-100.0); Mean Platelet Volume 11.3 fL (9.4-12.4); Platelet Count 174 K/uL (130-400); RDW Coefficient of Variation 13.3 % (11.5-14.5); RDW Standard Deviation 41.9 fL (36.4-46.3); Red Blood Count 4.31 M/uL (4.70-6.10); White Blood Count 11.44 K/ul (4.8-10.8)
[2024-10-15 06:23] LABS: BUN Creatinine Ratio 26.9 (10-20); Calcium 8.5 mg/dl (8.6-10.3); Creatinine Clr Calc Pharmacy 172.2 ml/min; Magnesium 1.6 mg/dl (1.7-2.4); Potassium 3.1 mmol/L (3.5-5.1)
[2024-10-15] MEDS: MAGNESIUM SULFATE / D5W 1 GM/100 ML BAG IV ONE (13:45)
--- NOTE | 2024-10-15 14:06 | Hospitalist Progress Note ---
Date of Service October 15, 2024 Assessment & Plan (1) Sepsis: Plan: 58-year-old male with past medical history significant for type 2 diabetes, obesity, obstructive sleep apnea, venous stasis lower extremity, history of hypertension, fatty liver, delayed gastric emptying, charcot- Mignon tooth disease, demyelinating disease of central nervous system, mostly wheelchair- bound but can transfer to the bed, status post ventricular shunt placement, lumbar radiculopathy, chronic pain syndrome, depression, history of tobacco use, generalized weakness comes because of fall at home and found to be in sepsis. Sepsis Had fever, tachycardia, leukocytosis Initial lactic is 4.9 and repeat is 2.1 UA is positive for UTI Respiratory BioFire negative CTA chest no acute findings CT abdomen pelvis showing mild right-sided hydronephrosis and 4 mm distal right ureteral stone proximal to the right UVJ. Mild left-sided hydronephrosis with cluster of stones extending from the distal left UVJ into the urinary bladder. Rectal wall thickening suggesting proctitis Received IV fluids, IV Vanco and cefepime in the ER S/p cystoscopy and b/l stent placement on 10/13/24 Blood cultures growing E coli in both sets Antibiotics deescalated to IV ceftriaxone Leukocytosis improving Will appreciate ID input Diabetes Not on meds On sliding scale HbA1c level 5.8 Obstructive sleep apnea BiPAP HS History of hypertension Home amlodipine on hold due to sepsis BP normal Charcot- Mignon tooth disease Demyelinating disease of central nervous system Wheelchair-bound and can transfer PT OT Depression On duloxetine Chronic back pain On gabapentin DVT prophylaxis Hep sq Full code. I spent a total of 40 minutes coordinating, documenting and providing care for this patient excluding time spent in performance of separately billed services Admission and Anticipated Discharge Date Admission Date: October 13, 2024 Subjective Patient reports feeling better No new complaints today Physical Exam Constitutional: + well hydrated and + obese; no acute di stress Eyes: PERRL, conjunctivae normal, anicteric sclerae ENMT: external ear and nose normal, oropharynx normal Respiratory: normal respiratory effort, lungs clear to auscultation Cardiovascular: Rate/Rhythm: regular rate and regular rhythm Gastrointestinal (Abdomen): normal bowel sounds, soft, nontender, no hepatosplenomegaly Musculoskeletal: No pedal edema Neurologic: PERRL, EOMI, accommodation nl, no face palsy, no dysarthria Psychiatric: A+Ox3, euthymic affect Results & Data Results & Data Vital Signs (Past 12 Hours) Vital Signs Temp Pulse Pulse Resp BP Pulse Ox Pulse Ox 10/15/24 11:56 36.7 C 78 20 126/74 92 10/15/24 10:00 93 10/15/24 07:48 36.8 C 75 18 125/69 91 10/15/24 07:30 10/15/24 07:00 71 10/15/24 03:18 71 15 95 10/15/24 03:07 37.1 C 69 20 108/66 94 O2 Del Method O2 Del Method O2 Flow Rate O2 Flow Rate 10/15/24 11:56 Room Air 10/15/24 10:00 Nasal Cannula 1 10/15/24 07:48 Room Air 10/15/24 07:30 Nasal Cannula 1 10/15/24 07:00 10/15/24 03:18 10/15/24 03:07 CPAP (1) Sepsis Sepsis acute organ dysfunction status: without acute organ dysfunction Sepsis type: sepsis due to unspecified organism Qualified Code(s): A41.9 - Sepsis, unspecified organism
[2024-10-15] MEDS: POT PHOSPHATE MONOBASIC W/ SOD TAB PO SCH (16:30)
[2024-10-15] MEDS: ACETAMINOPHEN 325 MG TAB PO PRN (20:41)
[2024-10-16 08:16] LABS: Hematocrit (blood only) 41.8 % (42.0-52.0); Mean Corpuscular Hemoglobin 28.1 pg (25.0-34.0); Mean Corpuscular Hgb Conc 33.5 g/dL (32.0-36.0); Mean Corpuscular Volume 83.9 fL (80.0-100.0); Mean Platelet Volume 10.9 fL (9.4-12.4); Platelet Count 185 K/uL (130-400); RDW Coefficient of Variation 13.3 % (11.5-14.5); Red Blood Count 4.98 M/uL (4.70-6.10); White Blood Count 7.65 K/ul (4.8-10.8)
[2024-10-16 08:17] VITALS: RESP 18
[2024-10-16 08:32] LABS: BUN Creatinine Ratio 32.1 (10-20); Calcium 8.2 mg/dl (8.6-10.3); Creatinine Clr Calc Pharmacy 168.1 ml/min; Magnesium 1.7 mg/dl (1.7-2.4); Phosphorus 3.5 mg/dl (2.5-4.9); Potassium 3.5 mmol/L (3.5-5.1)
--- NOTE | 2024-10-16 11:25 | Infectious Disease Consult ---
Date of Service October 16, 2024 Telehealth Information I performed this visit using a real-time telehealth connection between my location and the patients location ([facility]). After connecting through interactive tele-video, patient was identified by name and date of and/or wristband check.Patient (or authorized healthcare call center representative) was informed that this was a telemedicine visit and it was being conducted confidentially over secure lines. My office door was closed and no one else was present in the room with me.Patient (or authorized healthcare call center representative) provided consent to proceed with the visit, expressed an understanding of privacy and security of the telemedicine visit, and gave permission to have a hospital call center representative in the room in order to assist with the visit and to conduct portions of the visit, as needed. I informed the patient (or authorized healthcare call center representative) that I reviewed their record and presented the opportunity for them to ask any questions regarding the visit today. The patient agreed to participate. Assessment & Plan (1) E coli bacteremia: (2) Complicated urinary tract infection: (3) Bilateral kidney stones: Plan -While admitted to the hospital ok to continue Ceftriaxone 2g IV qd, please give a dose on day of discharge -At discharge please transition to Bactrim DS 1 tab PO bid for a total of 7 days from procedure on 10/13, through 10/20 then discontinue antibiotics -ID will sign off at this time Case discussed with ID Attending Dr. Roman Poole MD Infectious Disease PGY-[facility] I saw and examined the patient via televideo on 10/16/24. I have reviewed the findings and assessment and plan as outlined by Dr. Poole. I agree with his recommendations as outlined. ID will sign off at this time. Please call with any questions or should his clinical course change. Adair Owens MD History of Present Illness History of Present Illness 58-year-old male past medical history of type 2 diabetes mellitus, obesity, YANETH, hypertension, fatty liver, Charcot Mignon tooth, demyelinating disease of central nervous system, ventricular shunting presenting on 10/12 with a flu-like symptoms and weakness. Patient has had general malaise since having a recent COVID infection noted worsening symptoms prior to admission, weakness to the extent that he fell out of his wheelchair at the facility. On presentation he was hemodynamically stable BP 118/65 pulse, 91, respirations 20, febrile 38 C, 98% on room air, lactate 2.1. CT abdomen/pelvis showing bilateral hydronephrosis with a right-sided 4 mm distal right ureter stone and a cluster of stones in the left side distal to the UVJ into the urinary bladder appearing to measure 3- 4 mm. Patient is now s/p on 10/13 cystoscopy with bilateral stenting by [facility]. 10/12 blood cultures significant for 4/4 bottles E coli (R- Augmentin /ampicillin/Unasyn /cefazolin/Cipro/levo ), 10/13 urine culture with no growth to date. patient initially on vancomycin and cefepime, now on ceftriaxone. He has remained hemodynamically stable, afebrile, room air. Pt states he feels well, no further weakness reported. Is tolerating PO hydration and nutrition. Has some back discomfort but states this is his chronic pain. No other acute complaints at this time. Overall feels at baseline. Allergies Allergy/AdvReac Type Severity Reaction Status Date / Time hydralazine Allergy Intermediate Gastrointestinal Verified 06/10/21 12:34 Upset alcohol Allergy Unknown Unknown Verified 06/10/21 12:34 amiodarone Allergy Unknown Unknown rxn Verified 06/10/21 12:34 chloramphenicol Allergy Unknown Unknown Verified 06/10/21 12:34 cholecalciferol (vitamin D3) Allergy Unknown Unknown Verified 06/10/21 12:34 cisplatin Allergy Unknown Unknown Verified 06/10/21 12:34 dapsone Allergy Unknown Unknown rxn Verified 06/10/21 12:34 disulfiram Allergy Unknown Unknown rxn Verified 06/10/21 12:34 doxorubicin Allergy Unknown Unknown Verified 06/10/21 12:34 glutethimide Allergy Unknown Unknown Verified 06/10/21 12:34 Gold Salts Allergy Unknown Unknown Verified 06/10/21 12:34 Hydantoins Allergy Unknown Unknown Verified 06/10/21 12:34 isoniazid Allergy Unknown Unknown rxn Verified 06/10/21 12:34 metronidazole Allergy Unknown Unknown Verified 06/10/21 12:34 nitrofurantoin Allergy Unknown Unknown rxn Verified 06/10/21 12:34 Penicillins Allergy Unknown Rash Verified 06/10/21 12:34 phenytoin Allergy Unknown Unknown Verified 06/10/21 12:34 pyridoxine Allergy Unknown Unknown Verified 06/10/21 12:34 theophylline Allergy Unknown Unknown rxn Verified 06/10/21 12:34 tretinoin Allergy Unknown Unknown rxn Verified 06/10/21 12:34 vincristine Allergy Unknown Unknown Verified 06/10/21 12:34 succinylcholine AdvReac Unknown *not Verified 06/10/21 12:34 actual allergy*see below Home Medications Medication Instructions Recorded Confirmed Type amlodipine 5 mg tablet 5 mg PO DAILY 10/13/24 10/13/24 History aspirin 81 mg tablet,delayed 81 mg PO DAILY 10/13/24 10/13/24 History release duloxetine 30 mg capsule,delayed 30 mg PO DAILY 10/13/24 10/13/24 History release duloxetine 60 mg capsule,delayed 60 mg PO DAILY 10/13/24 10/13/24 History release gabapentin 300 mg capsule 1,200 mg PO TID 10/13/24 10/13/24 History loratadine 10 mg tablet 10 mg PO DAILY 10/13/24 10/13/24 History montelukast 10 mg tablet 10 mg PO HS 10/13/24 10/13/24 History potassium chloride 20 mEq 20 meq PO DAILY 10/13/24 10/13/24 History tablet,extended release(part/cryst) sulfamethoxazole 800 1 tab PO BID #9 tabs 10/16/24 Rx mg-trimethoprim 160 mg tablet (Bactrim DS) tamsulosin 0.4 mg capsule 0.4 mg PO HS 30 days #30 caps 10/16/24 Rx Patient History Medical History Physical deconditioning Kidney stones Peripheral neuropathy Surgical History H/O cystoscopy Cystoscopy with right retrograde pyelogram and stent placement. 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 Beliefs That Will Affect Care: None marital status: Single Current Living Situation: Alone Current Living Situation Comment: [facility] Feels Safe at Home: Yes Assistive Devices: Wheelchair Review of Systems Constitutional: No fever/chills at this time Eyes: No vision change HENT: No ear pain/drainage, sinus infections, hearing loss Cardiovascular: No chest pain, palpitations, lower extremity swelling Respiratory: No shortness of breath, wheezing, cough, sputum production Gastrointestinal: No abdominal pain, nausea/vomiting MSK: denies flank pain/discomfort Skin: No rash, lesions Neurological: Weakness resolved Physical Exam Telemedicine Pt appears well, sitting up in bed. Fluent speech answering questions appropriately. Results & Data Vital Signs (Past 12 Hours) Vital Signs Temp Pulse Pulse Resp BP Pulse Ox O2 Del Method 10/16/24 08:00 58 L 10/16/24 08:00 36.8 C 62 18 116/76 93 Room Air 10/16/24 07:22 Room Air 10/16/24 03:37 36.5 C 59 L 19 126/79 96 BiPAP O2 Flow Rate 10/16/24 08:00 10/16/24 08:00 10/16/24 07:22 0 10/16/24 03:37 Laboratory Results 10/12 blood culture: 4/4 bottles E coli 10/13 urine culture: No growth Microbiology 10/13/24 00:15 Urine Culture - Final Urine,Straight Cath No growth - less than 1,000 colonies/mL. 10/12/24 19:58 Aerobic Blood Culture - Final Blood Escherichia coli Anaerobic Blood Culture - Final Escherichia coli 10/12/24 21:39 Aerobic Blood Culture - Final Blood Escherichia coli Anaerobic Blood Culture - Final Escherichia coli Laboratory Results - last 24 hr 10/15/24 10/15/24 10/16/24 16:36 20:05 06:55 WBC 7.65 RBC 4.98 Hgb 14.0 Hct 41.8 L MCV 83.9 MCH 28.1 MCHC 33.5 RDW Std Deviation 41.0 RDW Coeff of Pearl 13.3 Plt Count 185 MPV 10.9 Sodium 141 Potassium 3.5 Chloride 101 Carbon Dioxide 31 Anion Gap 9 BUN 17 Creatinine 0.53 L Est Cr Clr Drug Dosing 168.1 eGFR 114.73 BUN/Creatinine Ratio 32.1 H Glucose 112 H POC Glucose 130 H 167 H Calcium 8.2 L Phosphorus 3.5 D Magnesium 1.7 10/16/24 08:11 WBC RBC Hgb Hct MCV MCH MCHC RDW Std Deviation RDW Coeff of Pearl Plt Count MPV Sodium Potassium Chloride Carbon Dioxide Anion Gap BUN Creatinine Est Cr Clr Drug Dosing eGFR BUN/Creatinine Ratio Glucose POC Glucose 123 H Calcium Phosphorus Magnesium Diagnostic Findings 10/12 CT a/p IMPRESSION: 1. Mild right-sided hydroureteronephrosis secondary to a 4 mm distal right ureter stone just proximal to the right UVJ. 2. Minimal to mild left-sided hydroureteronephrosis with cluster of stones extending from the distal left UVJ into the urinary bladder, collectively measuring up to 10 mm, individual stones appearing to measure 3-4 mm. 3. Rectal wall thickening suggesting proctitis. 10/12 CTA chest: No evidnece of PE
[2024-10-16 15:53] VITALS: PULSE 89; TEMP 99; O2SAT 94
--- NOTE | 2024-10-16 16:03 | Discharge Summary ---
Date of Service October 16, 2024 Admission HPI Per Admitting Provider 58-year-old male with past medical history significant for type 2 diabetes, obesity, obstructive sleep apnea, venous stasis lower extremity, history of hypertension, fatty liver, delayed gastric emptying, charcot- Mignon tooth disease, demyelinating disease of central nervous system, mostly wheelchair- bound but can transfer to the bed, status post ventricular shunt placement, lumbar radiculopathy, chronic pain syndrome, depression, history of tobacco use, generalized weakness comes because of fall at home and found to be in sepsis. Patient states he is feeling weak today. Was having chills. When he was trying to transfer he fell down and could not get up. And was brought in here. In the ER was spiking temperature. Found to have UTI and kidney stones. Denies any abdominal pain or flank pains. Has chronic back pain but seemed worse today as per patient. Denies any burning micturition. No hematuria. Had a few episodes of diarrhea today. No blood in the stools. Denies any chest pain. No short ness of breath. No nausea. No headache. Feeling weak and fatigued. No headaches. Chronic runny nose. No sore throat. Has some cough. Feeling cold. Past medical history. As mentioned above Past surgical history. Colonoscopy. Dental surgery. Lithotripsy. Tonsillectomy and adenoidectomy. Fusion of C5-C6 vertebrae. Family history. Mother has asthma. Diabetes. Heart disorder. Father had heart disorder. Sister has asthma. Social history. Quit smoking 2002. Smoked 2 packs a day for 15 years. Medical marijuana vaping. Alcohol rarely. Uses medical marijuana. Admission Exam Per Admitting Provider General-Not in acute distress Head- atraumatic Eyes- PERRL. ENT- oropharynx clear Neck- supple, no JVD. Lungs- clear to auscultation no wheezing or crackles Heart- regular rate and rhythm; no murmur, no gallop. Abdomen- normal bowel sounds, soft, nontender, no distension Extremities- no pretibial edema, no erythema seen Neuro- alert, oriented PERRL, no facial palsy; no dysarthria; moves extremities Principal Diagnosis Sepsis E coli bacteremia Complicated urinary tract infection Bilateral kidney stones Discharge Exam Constitutional + well hydrated and + obese; no acute distress Eyes PERRL, conjunctivae normal, anicteric sclerae ENMT external ear and nose normal, oropharynx normal Respiratory normal respiratory effort, lungs clear to auscultation Cardiovascular Rate/Rhythm: regular rate and regular rhythm Gastrointestinal (Abdomen) normal bowel sounds, soft, nontender, no hepatosplenomegaly Musculoskeletal No pedal edema Neurologic PERRL, EOMI, accommodation nl, no face palsy, no dysarthria Psychiatric A+Ox3, euthymic affect Discharge Data Allergies Allergy/AdvReac Type Severity Reaction Status Date / Time hydralazine Allergy Intermediate Gastrointestinal Verified 06/10/21 12:34 Upset alcohol Allergy Unknown Unknown Verified 06/10/21 12:34 amiodarone Allergy Unknown Unknown rxn Verified 06/10/21 12:34 chloramphenicol Allergy Unknown Unknown Verified 06/10/21 12:34 cholecalciferol (vitamin D3) Allergy Unknown Unknown Verified 06/10/21 12:34 cisplatin Allergy Unknown Unknown Verified 06/10/21 12:34 dapsone Allergy Unknown Unknown rxn Verified 06/10/21 12:34 disulfiram Allergy Unknown Unknown rxn Verified 06/10/21 12:34 doxorubicin Allergy Unknown Unknown Verified 06/10/21 12:34 glutethimide Allergy Unknown Unknown Verified 06/10/21 12:34 Gold Salts Allergy Unknown Unknown Verified 06/10/21 12:34 Hydantoins Allergy Unknown Unknown Verified 06/10/21 12:34 isoniazid Allergy Unknown Unknown rxn Verified 06/10/21 12:34 metronidazole Allergy Unknown Unknown Verified 06/10/21 12:34 nitrofurantoin Allergy Unknown Unknown rxn Verified 06/10/21 12:34 Penicillins Allergy Unknown Rash Verified 06/10/21 12:34 phenytoin Allergy Unknown Unknown Verified 06/10/21 12:34 pyridoxine Allergy Unknown Unknown Verified 06/10/21 12:34 theophylline Allergy Unknown Unknown rxn Verified 06/10/21 12:34 tretinoin Allergy Unknown Unknown rxn Verified 06/10/21 12:34 vincristine Allergy Unknown Unknown Verified 06/10/21 12:34 succinylcholine AdvReac Unknown *not Verified 06/10/21 12:34 actual allergy*see below Consultations 10/13/24 00:22 ED Decision to Admit Stat 10/13/24 03:23 Consult Urology Routine 10/15/24 07:47 Consult Infectious Diseases Routine Procedures Performed Operation Date: 10/13/24 02:00 Actual Procedures p Cystoscopy, Retrograde Pyelogram, Bilateral Ureteral Stent Insertion - Johnny Esquivel MD Ordered Studies 10/12/24 21:37 CT Abd and Pelvis [CT abd pelvis IV con only] Stat CT angio chest PE protocol Stat 10/13/24 01:17 FL retrograde includes kub Stat Hospital Course (1) Sepsis: 58-year-old male with past medical history significant for type 2 diabetes, obesity, obstructive sleep apnea, venous stasis lower extremity, history of hypertension, fatty liver, delayed gastric emptying, charcot- Mignon tooth disease, demyelinating disease of central nervous system, mostly wheelchair- bound but can transfer to the bed, status post ventricular shunt placement, lumbar radiculopathy, chronic pain syndrome, depression, history of tobacco use, generalized weakness comes because of fall at home and found to be in sepsis. Sepsis Had fever, tachycardia, leukocytosis Initial lactic is 4.9 and repeat is 2.1 UA is positive for UTI Respiratory BioFire negative CTA chest no acute findings CT abdomen pelvis showing mild right-sided hydronephrosis and 4 mm distal right ureteral stone proximal to the right UVJ. Mild left-sided hydronephrosis with cluster of stones extending from the distal left UVJ into the urinary bladder. Rectal wall thickening suggesting proctitis Received IV fluids, IV Vanco and cefepime in the ER S/p cystoscopy and b/l stent placement on 10/13/24 Blood cultures grew E coli in both sets Antibiotics was deescalated to IV ceftriaxone Leukocytosis resolved Infectious disease recommended Bactrim DS 1 tab BID until 10/20/24 to complete treatment Will appreciate ID input Patient to continue home meds Tamsulosin started inpatient continued on discharge He is to follow up with Urology outpatient for further treatment of his kidney stones Total Time Total Time Spent Total Time Spent (In Minutes): 45 Total Time Includes: Examination of the Patient, Discharge Planning and Medication Reconciliation Discharge Plan Discharge Items Patient Disposition: Home - Home Health Services Reason For Visit: SEPSIS,UTI,B/L KIDNEY STONES Discharge Diagnosis: Sepsis E coli bacteremia Complicated urinary tract infection Bilateral kidney stones Condition on Discharge: Fair Activity: Resume your previous activity Non-emergency contact: Primary Care Provider and Urologist Call non-emergency contact if: you have any medication questions and your symptoms worsen Follow-up/Referrals: Johnny Esquivel MD [Physician] - (Call for follow up) Garo Hayden DO [Primary Care Provider] - (Date & Time 10/20/2024 1:40 PM Provider: Garo Hayden DO [facility] ) Diet: Heart Healthy Addtl Attending Provider Instructions: Mr Loza You presented to the hospital for feeling weak and unwell. You were evaluated and managed for the above listed diagnoses. You also had cystoscopy and bilateral stent placement by Urology. You are being discharged on oral antibiotics to complete treatment. Please ensure follow up with your Primary Doctor and Urology. It was a pleasure taking care of you Pending Studies at Discharge: No Stand-Alone Forms: [facility] [place], Smoking Cessation Medications and DC Order Prescriptions: New tamsulosin 0.4 mg Capsule 0.4 mg PO HS 30 Days Qty: 30 0RF sulfamethoxazole-trimethoprim [Bactrim DS] 800-160 mg tablet 1 tab PO BID Qty: 9 0RF Continued amlodipine 5 mg tablet 5 mg PO DAILY aspirin 81 mg Tablet,Delayed Release (Dr/Ec) 81 mg PO DAILY potassium chloride 20 mEq tablet,ER particles/crystals 20 meq PO DAILY gabapentin 300 mg capsule 1,200 mg PO TID montelukast 10 mg tablet 10 mg PO HS duloxetine 30 mg capsule,delayed release(DR/EC) 30 mg PO DAILY duloxetine 60 mg capsule,delayed release(DR/EC) 60 mg PO DAILY Rx Instructions: cymbalta 60mg po daily along with 30mg po daily loratadine 10 mg Tablet 10 mg PO DAILY Discharge Orders: Discharge Order (Routine); Ordered 10/16/24 Ordered By: Rabia Odom/Other Patient Handouts: Managing Type 2 Diabetes Admission Data Admit Date/Time: 10/13/24 01:21 Attending Provider: Rabia Briones I. Admit Provider: Rene Lezama Primary Care Provider: Garo Hayden Other Providers: Rene Lezama; Johnny Esquivel; Toñito Encarnacion; Elicia Bernabe; Adair Owens I.; Hay White II; So Gonzalez; Jean-Claude Rajan; Abel Hutchison; Liz Hollis; Manuel Poole; Jon Hilton
[2024-10-16 16:14] VITALS: BP 116/75
== END 2024-10-16 17:44 | disposition home health service (06) | DRG 854 ==
LOC: ED 21:17 → OR 10-13 01:47 → EDINP 10-13 01:48 → 1E 10-13 03:17 → 4W 10-13 14:40